=== PATIENT | male | born 1960 | race Caucasian/White ===

== ENCOUNTER 2018-05-26 01:38 | Inpatient (IN) ==
[2018-05-26] MEDS ORDERED: Naloxone 0.4 MG/ML INJ IVP PRN (03:00)
[2018-05-26] MEDS ORDERED: *HR* OxyCODONE/APAP 5/325 TABLET PO PRN (03:03)
[2018-05-26] MEDS ORDERED: *HR* OxyCODONE/APAP 7.5/325 TABLET PO PRN (03:03)
--- NOTE | 2018-05-26 03:30 | Internal Med History&Physical ---
<Primitivo Tiwari - Last Filed: 05/26/18 04:09> Date of Encounter: 05/26/18 Time of Encounter: 03:27 Internal Medicine - H&P: HPI Chief complaint: Chest pain Admitted From: Emergency Dept Plans for Post Hospital Care: Home History of present illness: Mr. Bess is a 58 year old male with history of CHF, end-stage renal disease on hemodialysis Wednesday and Wednesday, CAD status post 2 stents in 2009, DVT, DM , hypertension, hyperlipidemia who presented to [facility] with complaint of chest pain which started approximately 7:30 PM. The patient describes the chest pain as substernal in nature and 9 out of 10 in severity. He felt as though someone was stabbing a knife into his heart. The pain started immediately after drinking a red skittles freeze from [employer] but was constant after that time. The pain was stabbing and radiated to the left arm. It was associated with mild shortness of breath, diaphoresis and some palpitations. He did attempt to go lie down when he got home, however he feels that this made the pain worse. Nothing did seem to make the pain better until he got to the hospital. At that this did not feel exactly like the time that he had a heart attack previously, however he was concerned that he may be having a heart attack. When the pain was not resolving he had his bring him to the hospital. At [facility], the patient received an EKG after was determined that he had a rapid heart rate. EKG demonstrated atrial fibrillation with rapid ventricular response and right bundle branch block, and the patient was found to have a heart rate of about 150. Chest x-ray did not demonstrate any acute intrathoracic process. The patient was placed on Cardizem drip and transferred to [facility]. Past Med Surg Social Fam HX - Past Medical History Medical history: CHF, coronary artery disease, DVT, diabetes, dialysis, hyperlipidemia, hypertension, kidney stones, myocardial infarction, renal disease Additional medical history: neuropathy Psychiatric history: no psych history - Past Surgical History Surgical History: angioplasty/stent, cholecystectomy, other Additional surgical history: 2 stents, - Social History Smoking Status: Current every day smoker Packs per day: 1 Smokeless Tobacco Status: No Alcohol use: none Drug use: none - Family History Father Living Status: Hx Family Cardiac Disorders: Yes Hx Family Endocrine Disorder: Yes (DM) Internal Medicine - H&P: Meds Bumetanide [Bumex] 1 mg PO DAILY 07/03/16 [History] Carvedilol [Coreg] 12.5 mg PO BID 07/03/16 [History] amLODIPine [Norvasc] 2.5 mg PO DAILY 07/03/16 [History] Lisinopril [Zestril] 2.5 mg PO BID 10/21/16 [History] Simvastatin [Zocor] 40 mg PO HS 10/21/16 [History] Aspirin 325 mg PO DAILY 04/15/18 [History] Ergocalciferol (VITAMIN D2) [Drisdol (50,000 Unit)] 50,000 unit PO QWEEK [History] Insulin Glargine,Hum.rec.anlog [Lantus Solostar] 100 unit SQ DAILY 04/15/18 [ History] OxyCODONE/APAP 5/325 [Percocet 5/325 MG] 1 each PO Q6HR PRN 7 Days #14 tablet [Rx] Oxycodone HCl/Acetaminophen [Percocet 7.5-325 mg Tablet] 1 each PO BID PRN 04/15 [History] Pen Needle, Diabetic [Insulin Pen Needle] 1 each MC TID 04/15/18 [History] Vit B Comp C/Folic Acid/Vit D3 [Dialyvite 800 Plus D Wafer] 1 tab PO 2XW [History] 3 Allergy/AdvReac Type Severity Reaction Status Date / Time sulfamethoxazole Allergy Nausea Verified 05/25/18 21:33 [From Bactrim] trimethoprim [From Bactrim] Allergy Nausea Verified 05/25/18 21:33 All Systems PM: A 10-system review of systems was performed and is negative for pertinent findings except as documented above in the HPI. Review of systems: Constitutional: Denies fevers, chills, weight loss, generalized fatigue Head/Neck: Denies AG, neck stiffness EENT: Denies vision changes/blurriness, rhinorrhea, congestion, sore throat CVS: Admits to chest pains, mild shortness of breath, diaphoresis, palpitations. Denies orthopnea and PND Pulm: Denies SOB, cough, sputum, hemoptysis, wheezing GI: Denies abdominal pain, nausea, vomiting, diarrhea, constipation, melena, hematemasis : Denies dysuria, increased frequency, urgency, hematuria Heme: Denies ease of bleeding or bruising MSK: Denies joint pain, limited ROM Skin: Denies rashes, ulcers, color changes Neuro: Denies AG, paresthesias, focal deficits, ataxia - Constitutional Vitals: Temp Pulse Resp BP Pulse Ox 97.8 F 99 16 126/76 98 05/26/18 02:13 05/26/18 02:13 05/26/18 02:13 05/26/18 02:13 05/26/18 02:13 Exam: Gen: Vitals noted. No acute distress. HEENT: Normocephalic, atraumatic Neck: Supple. No adenopathy. Cardiac: RRR, no murmur, +S1/S2 Pulmonary: CTA bilaterally, no wheezes, rales or rhonchi, equal chest expansion Abdomen: soft, nontender, no guarding Back: Nontender throughout. MSK: ROM intact, no joint swelling noted Extremities: no BLE edema, nontender calf, no cyanosis or clubbing. Evidence of chronic stasis with keratinized skin in lower extremities Neuro: moves all extremities, no focal deficits. A&Ox3 Psych: Appropriate mood and behavior - Assessment and plan (1) Atrial fibrillation with rapid ventricular response Current Visit: Yes Status: Acute Assessment and plan: Atrial fibrillation with rapid ventricular response, newly diagnosed Patient has no known history of A. fib in the past, it is demonstrated on EKG today There is no obvious etiology or origin for the initiation of this atrial fibrillation Symptomatic with chest pain, shortness of breath, palpitations, diaphoresis [id number], patient is at high risk for embolic event. Anticoagulation is indicated in this patient Cardizem was started and the patient has been able to achieve rate control Plan -Initiate heparin drip for anticoagulation -Echocardiogram in the morning -Continue Cardizem drip, goal heart rate under 100 -Trend troponins -Consult cardiology (2) Chest pain Current Visit: Yes Status: Acute Assessment and plan: The pain is likely associated with a fib RVR While we will do a cardiac workup as above, the patient does also have recent history of cholecystectomy Given temporal association with food/slushie, I will check LFTs, Amylase and Lipase Pending results, consider imaging of RUQ Qualifiers: Chest pain type: chest pain due to myocardial ischemia Ischemic chest pain type: unspecified angina pectoris type Qualified Code(s): I25.9 - Chronic ischemic heart disease, unspecified (3) CAD (coronary artery disease) Current Visit: Yes Status: Chronic Assessment and plan: Chest pain, likely secondary to atrial fibrillation with rapid ventricular response Patient has known history of CAD with 2 stents in the past Currently no elevation of troponins or ischemic changes on EKG Still, the patient is at high risk for cardiovascular events We will maintain the patient on cardiac surgeon, trend troponins Qualifiers: Coronary Disease-Associated Artery/Lesion type: [place] artery [place] vs. transplanted heart: [place] heart Associated angina: with unstable angina Qualified Code(s): I25.110 - Atherosclerotic heart disease of [place] coronary artery with unstable angina pectoris (4) ESRD (end stage renal disease) Current Visit: Yes Status: Acute Assessment and plan: End-stage renal disease on hemodialysis Wednesday Last hemodialysis was on Wednesday, patient was able to complete full treatment Currently patient does appear biochemically appropriate He is a patient of Dr. Estrada, we will consult [facility] if it becomes appropriate to do so (5) Diabetes Current Visit: Yes Status: Acute Assessment and plan: Type 2 diabetes mellitus, insulin-dependent Continue sliding scale insulin Qualifiers: Diabetes mellitus type: type 2 Diabetes mellitus long chain beamer insulin use: with alf use Diabetes mellitus complication status: with kidney complications Diabetes mellitus complication detail: with chronic kidney disease Chronic kidney disease stage: on chronic dialysis Qualified Code(s) : E11.22 - Type 2 diabetes mellitus with diabetic chronic kidney disease; N18.6 - End stage renal disease; Z79.4 - residential (current) use of insulin; Z99.2 - Dependence on renal dialysis (6) Hypertension Current Visit: Yes Status: Acute Assessment and plan: Hypertension, currently controlled Continue home meds, adjust as needed Qualifiers: Hypertension type: essential hypertension Qualified Code(s): I10 - Essential (primary) hypertension (7) DVT prophylaxis Current Visit: Yes Status: Acute Assessment and plan: Patient is on heparin drip - Time Spent With Patient Total time spent is greater than 50% in coordination of care (as documented) at patient's floor/unit and/or counseling patient: <Lenny Lutz - Last Filed: 05/26/18 06:32> Date of Encounter: 05/26/18 Time of Encounter: 05:30 - Constitutional Constitutional: no chills, no fever(s) - EENT Eyes: no change in vision Ears: no ear pain, no tinnitus Nose, mouth and throat: no sore throat - Cardiovascular Cardiovascular ROS IM: chest pain, dyspnea, dyspnea on exertion, palpitations, no lightheadedness, no syncope - Respiratory Respiratory: no cough, no hemoptysis, no chest congestion, no excessive phlegm production, no change in phlegm color - Gastrointestinal Gastrointestinal: no abdominal pain, no diarrhea, no hematemesis, no hematochezia, no melena, no vomiting - Genitourinary Genitourinary ROS male: no flank pain - Musculoskeletal Musculoskeletal ROS IM: no arthralgias, no back pain - Integumentary Integumentary IM: no rash - Neurological Neurological ROS: no focal weakness, no frequent falls, no headache(s) - Psychiatric Psychiatric: no anxiety, no depression - Endocrine Endocrine IM: no polydipsia, no polyuria - Allergic/Immunologic Allergic/Immunologic: no GI upset with certain foods - Constitutional Vitals: Temp Pulse Resp BP Pulse Ox 97.9 F 96 15 117/71 96 05/26/18 05:50 05/26/18 05:50 05/26/18 05:50 05/26/18 05:50 05/26/18 05:50 General appearance: Present: cooperative, A&O X 3, pleasant, no acute distress ( currently chest pain free) - Head Head exam: Present: normal inspection - Eye Eye exam: Present: EOMI, PERRL. Absent: scleral icterus Pupils: Present: normal accommodation - ENT ENT exam: Present: mucous membranes dry, normal exam - Neck Neck exam general surgery: Present: full ROM, supple. Absent: tenderness, nuchal rigidity, thyromegaly - Respiratory Respiratory exam: Present: CTAB. Absent: chest wall tenderness, rales, rhonchi , wheezes - Cardiovascular Cardiovascular exam: Present: irregular rhythm (controlled now w HR 90's), +S1, +S2. Absent: diastolic murmur, systolic murmur, tachycardia - GI/Abdominal GI/Abdominal exam: Present: soft. Absent: hepatomegaly, tenderness - Extremities Exam Extremities exam: Present: full ROM, warm, radial pulses palpable and symmetrical. Absent: calf tenderness, joint swelling, tenderness - Back Exam Back exam: Absent: CVA tenderness (L), CVA tenderness (R) - Neurological Exam Neurological exam: Present: alert, oriented X3, no focal deficits - Psychiatric Psychiatric exam: Present: normal affect, normal mood - Skin Skin exam: Present: dry, intact, warm Internal Med - H&P Results - Labs CBC & Chem 7: 05/26/18 04:36 05/26/18 04:36 Labs: Short CBC 05/26/18 Range/Units 04:36 WBC 9.2 (4.3-11.1) K/mcL Hgb 11.3 L (12.9-16.9) g/dL Hct 32.9 L (37.5-50.1) % Plt Count 130 L (140-400) K/mcL Neutrophils # 6.6 (1.6-8.9) K/mcL BMP 05/26/18 04:36 Sodium 134 L Potassium 4.2 Chloride 97 L Carbon Dioxide 23 BUN 49 H Creatinine 4.65 H Glucose 267 H Calcium 8.2 L Cardiac Enzymes 05/26/18 Range/Units 04:36 Troponin I 2.14 H* (< 0.04) ng/mL Liver Function 05/26/18 Range/Units 04:36 Total Bilirubin 0.5 (0.3-1.0) mg/dL Direct Bilirubin 0.1 (0.0-0.2) mg/dL AST 21 (13-39) Units/L ALT 12 (7-52) Units/L Alkaline Phosphatase 74 (34-104) Units/L Albumin 3.8 (3.5-5.7) g/dL - EKG Data -: EKG Interpreted by Myself - EKG Data EKG comments: 05/26/18 06:24 atrial fibrillation w RVR - Diagnostic Studies Chest x-ray Status: image reviewed by me (negative) - Assessment and plan (1) Chest pain Current Visit: Yes Status: Acute Qualifiers: Chest pain type: chest pain due to myocardial ischemia Ischemic chest pain type: unspecified angina pectoris type Qualified Code(s): I25.9 - Chronic ischemic heart disease, unspecified (2) Atrial fibrillation with rapid ventricular response Current Visit: Yes Status: Acute (3) ESRD (end stage renal disease) Current Visit: Yes Status: Acute (4) Diabetes Current Visit: Yes Status: Acute Qualifiers: Diabetes mellitus type: type 2 Diabetes mellitus long chain beamer insulin use: with alf use Diabetes mellitus complication status: with kidney complications Diabetes mellitus complication detail: with chronic kidney disease Chronic kidney disease stage: on chronic dialysis Qualified Code(s) : E11.22 - Type 2 diabetes mellitus with diabetic chronic kidney disease; N18.6 - End stage renal disease; Z79.4 - [employer] intermediary (current) use of insulin; Z99.2 - Dependence on renal dialysis (5) Hypertension Current Visit: Yes Status: Acute Qualifiers: Hypertension type: essential hypertension Qualified Code(s): I10 - Essential (primary) hypertension (6) CAD (coronary artery disease) Current Visit: Yes Status: Chronic Qualifiers: Coronary Disease-Associated Artery/Lesion type: [place] artery [place] vs. transplanted heart: [place] heart Associated angina: with unstable angina Qualified Code(s): I25.110 - Atherosclerotic heart disease of [place] coronary artery with unstable angina pectoris (7) DVT prophylaxis Current Visit: Yes Status: Acute - Time Spent With Patient Total time spent is greater than 50% in coordination of care (as documented) at patient's floor/unit and/or counseling patient: - Attending Attestation I discussed the patient [place], past medical history, review of systems, lab data , imaging data, and exam findings with Dr. Tiwari. I then saw and examined patient independently. He is sleeping but easily arousable. He denies any chest pain presently whatsoever. He did complain of chest pain earlier today prompting him to go to the ER where he was discovered to have atrial fibrillation with rapid ventricular response. Presently, his heart rate is controlled and running in the 90s. Troponin is climbing to 2.14, but he remains chest pain-free. His initial EKG shows rapid response secondary to atrial fibrillation. We will keep him nothing by mouth and consult cardiology. Given that he has known coronary disease and PCI's with stents, his new onset atrial fibrillation may be secondary to ischemia. Therefore, I am of the opinion that he likely needs left heart catheterization and possible intervention. I will defer to cardiology, however. He also will need to see nephrology as he will need ongoing care for his dialysis needs and may need dialysis immediately after heart catheterization, if that occurs. For now, we will maintain him on Cardizem drip and convert him to oral Cardizem and/or beta hetal likely later today. Other than my comments above and noted physical exam findings, I agree with Dr. Tiwari's assessment and plan.
[2018-05-26] MEDS ORDERED: *HR* Heparin 5,000 UNIT/ML VIAL IVP ONE (03:37)
[2018-05-26] MEDS ORDERED: *HR* Heparin 5,000 UNIT/ML VIAL IVP PRN (03:37)
[2018-05-26] MEDS ORDERED: D5% in Water 1,000 ML IVC PRN (03:50)
[2018-05-26] MEDS ORDERED: Dextrose Gel 15 GM/37.5 ML TUBE PO PRN ×2 (03:50)
[2018-05-26] MEDS ORDERED: *HR* Dextrose 50 % in Water (Syg) 50 ML SYRINGE IVP PRN (03:50)
[2018-05-26] MEDS: Heparin 25,000 UNIT/500 ML D5W 25,000 UNIT/500 ML BAG IVC SCH (04:45)
[2018-05-26 04:54] LABS: Basophils % 0.4 %; Eosinophils # 0.2 K/mcL (0.0-0.6); Hematocrit 32.9 % (37.5-50.1); Hemoglobin 11.3 g/dL (12.9-16.9); Immature Granulocytes % 0.2 % (0-4); Lymphocytes # 1.7 K/mcL (0.6-4.6); Lymphocytes % 18.5 %; Mean Corpuscular HGB Conc 34.3 g/dL (31.6-35.5); Mean Corpuscular Hemoglobin 30.5 pg (28.0-33.3); Mean Corpuscular Volume 88.7 fL (83.0-100.0); Mean Platelet Volume 9.2 fL (9.4-12.4); Monocytes # 0.7 K/mcL (0.0-1.3); Neutrophils # 6.6 K/mcL (1.6-8.9); Platelet Count 130 K/mcL (140-400); Red Blood Count 3.71 M/mcL (4.19-5.50); Segmented Neutrophils % 71.9 %
[2018-05-26 05:00] LABS: Heparin anti-factor XA UFH 0.17 IU/mL (0.30-0.70); INR 1.1; Prothrombin Time 12.1 Seconds (9.4-12.1)
[2018-05-26 05:15] LABS: Amylase 32 Units/L (29-103); Lipase 41 Units/L (11-82)
[2018-05-26 05:16] LABS: Albumin 3.8 g/dL (3.5-5.7); Albumin/Globulin Ratio 1.4 (1.1-2.2); Bilirubin,Direct 0.1 mg/dL (0.0-0.2); Bilirubin,Indirect 0.4 mg/dL (0.0-1.2); Bilirubin,Total 0.5 mg/dL (0.3-1.0); Globulin 2.8 g/dL (2.4-3.5); Total Protein 6.6 g/dL (6.4-8.9)
[2018-05-26 05:17] LABS: Calcium 8.2 mg/dL (8.6-10.3); Chol/HDL Ratio 3.5 (0-4.9); Magnesium 1.9 mg/dL (1.6-2.6); Phosphorous 4.3 mg/dL (2.7-4.5); Potassium 4.2 mEq/L (3.5-5.1)
[2018-05-26] MEDS: Insulin LISPRO 300 UNITS/3 ML VIAL SQ SCH ×2 (06:12→13:37)
[2018-05-26] MEDS: Bumetanide 1 MG TABLET PO SCH (08:41)
[2018-05-26] MEDS ORDERED: Aspirin 325 MG TABLET PO SCH (09:00)
[2018-05-26] MEDS ORDERED: amLODIPine 5 MG TABLET PO SCH (09:00)
--- NOTE | 2018-05-26 11:45 | Cardiology Consult Note ---
Date of Encounter: 05/26/18 Time of Encounter: 11:45 Assessment and Plan (1) Atrial fibrillation with rapid ventricular response Current Visit: Yes Status: Acute Per Cardiology: Presented with A. fib. Apparent new onset. Currently A. fib in the 80s. On IV Cardizem drip at 5mg per hour. We will attempt to wean and titrate by mouth medications-- we will discontinue Norvasc 2.5 mg by mouth daily and decrease lisinopril from 2.5 mg by mouth twice a day to daily. Will increase Coreg from 12.5 g by mouth twice a day up to 25 mg by mouth twice a day. Current systolic blood pressure 110s. We will attempt to wean off IV Cardizem drip to keep heart rate less than 100 bpm. Echo pending. Regarding long-term anticoagulation, on IV heparin drip currently. We will need to evaluate long-term anticoagulation once catheterization completed. (2) Chest pain Current Visit: Yes Status: Acute Per Cardiology: Initial troponin negative 1 and subsequent troponin 2.14, then 4.93. Currently chest pain-free. A lengthy discussion with patient regarding further ischemic evaluation patient agreeable to catheterization. Discussed and reviewed with Dr. Corbin and Dr. Martinez. Further recommendations after echo and catheterization completed. On aspirin, beta hetal, heparin drip, statin, EDWAR inhibitor. Will decrease. This aspirin to baby aspirin. Anticipate patient may need triple therapy. Qualifiers: Chest pain type: chest pain due to myocardial ischemia Ischemic chest pain type: unspecified angina pectoris type Qualified Code(s): I25.9 - Chronic ischemic heart disease, unspecified (3) CAD (coronary artery disease) Current Visit: Yes Status: Chronic Per Cardiology: History CAD-- reported 2 stents at [facility] in 2009. Negative nuclear stress test January 2016. Qualifiers: Coronary Disease-Associated Artery/Lesion type: [place] artery [place] vs. transplanted heart: [place] heart Associated angina: with unstable angina Qualified Code(s): I25.110 - Atherosclerotic heart disease of [place] coronary artery with unstable angina pectoris (4) ESRD (end stage renal disease) Current Visit: Yes Status: Chronic Per Cardiology: History of end-stage renal disease on hemodialysis. Discussion w patient/family: The assessment and plan as outlined above was discussed with the patient who expressed understanding and agreement. All questions were answered. Thank you for involving us in the care of your patient. Please call with any questions. History of Present Illness Consult date: 05/26/18 Requesting physician: Lenny Lutz Consult reason: Afib Chief complaint: CP History of present illness: Mr. Bess is a 58 year old male with a relevant past medical history of CHF, CAD with stenting, in stage renal disease with hemodialysis, history of DVT, DM 2, HTN, HLD, and nicotine abuse. Cardiology consult for chest pain and apparent new onset atrial fibrillation. Patient reports developed indigestion-like symptoms with midsternal and epigastric burning at rest yesterday. She reports symptoms have been occurring intermittently over the past few weeks at rest. He denies any chest pain with exertion, however reports minimal activity. He continues to smoke about one pack per day. He denies any palpitations, dizziness, syncope, falls. Reports shortness of breath with exertion about baseline. Confirms on dialysis regularly. Reports taking aspirin at home and denies any active bleeding or blood loss. Reports last catheterization in 2009 received 2 stents at [facility]. No recent ischemic evaluation. Denies any known history of atrial fibrillation. Past Med Surg Social Fam HX - Past Medical History Attestation: Yes The following information was validated with the patient. Source: patient, old records reviewed Medical history: CHF, coronary artery disease, DVT, diabetes, dialysis, hyperlipidemia, hypertension, kidney stones, myocardial infarction, renal disease Additional medical history: neuropathy Psychiatric history: no psych history - Past Surgical History Surgical History: angioplasty/stent, cholecystectomy, other Additional surgical history: 2 stents, - Social History Smoking Status: Current every day smoker Packs per day: 1 Smokeless Tobacco Status: No Alcohol use: none Drug use: none - Family History Father Living Status: Hx Family Cardiac Disorders: Yes Hx Family Endocrine Disorder: Yes (DM) Medications and Allergies Bumetanide [Bumex] 1 mg PO DAILY 07/03/16 [History] Carvedilol [Coreg] 12.5 mg PO BID 07/03/16 [History] amLODIPine [Norvasc] 2.5 mg PO DAILY 07/03/16 [History] Lisinopril [Zestril] 2.5 mg PO BID 10/21/16 [History] Simvastatin [Zocor] 40 mg PO HS 10/21/16 [History] Aspirin 325 mg PO DAILY 04/15/18 [History] Ergocalciferol (VITAMIN D2) [Drisdol (50,000 Unit)] 50,000 unit PO QWEEK [History] Insulin Glargine,Hum.rec.anlog [Lantus Solostar] 10 unit SQ HS 04/15/18 [History ] OxyCODONE/APAP 5/325 [Percocet 5/325 MG] 1 each PO Q6HR PRN 7 Days #14 tablet [Rx] Vit B Comp C/Folic Acid/Vit D3 [Dialyvite 800 Plus D Wafer] 1 tab PO 2XW [History] Famotidine [Heartburn Prevention] 20 mg PO DAILY 05/26/18 [History] 3 Allergy/AdvReac Type Severity Reaction Status Date / Time sulfamethoxazole Allergy Nausea Verified 05/25/18 21:33 [From Bactrim] trimethoprim [From Bactrim] Allergy Nausea Verified 05/25/18 21:33 All Systems Review: The remainder of the systems were reviewed and are negative - Constitutional Constitutional: fatigue - Cardiovascular Cardiovascular: as per HPI, chest pain at rest, dyspnea on exertion Physical Examination Vital Signs, Last 4 Hours Temp Pulse Resp BP Pulse Ox 05/26/18 10:50 97.6 F 78 16 115/76 96 General: Conversant, No Apparent Distress HEENT: Atraumatic, Normocephaly, Mucus Membranes Moist Neck: No JVD, Normal carotid pulses Cardiac: Reg Rate and Rhythm, Normal S1 and S2, No Murmur Lungs: Normal Breath Sounds, No Wheeze, Rales, Rhonchi Neuro: Alert and responsive, No focal deficits noted Abdomen: Soft, Non-Tender Skin: No rashes noted on visualized skin Musculoskeletal: No Chest Wall Tenderness Extremities: No Clubbing, No Cyanosis, No Edema, Normal Pulses Results 05/26/18 04:36 05/26/18 04:36 Lab Results Laboratory Tests 04/05/18 05/25/18 05/26/18 14:13 22:00 04:36 Hgb 11.2 L Hct 33.4 L INR Creatinine Est GFR (Non-Af Amer) Magnesium Troponin I < 0.03 2.14 H* B-Natriuretic Peptide LDL Cholesterol, Calc 05/26/18 05/26/18 05/26/18 04:36 04:36 04:36 Hgb 11.3 L Hct 32.9 L INR Creatinine 4.65 H Est GFR (Non-Af Amer) 13 L Magnesium 1.9 Troponin I B-Natriuretic Peptide 221 H LDL Cholesterol, Calc 05/26/18 05/26/18 04:36 04:36 Hgb Hct INR 1.1 Creatinine Est GFR (Non-Af Amer) Magnesium Troponin I B-Natriuretic Peptide LDL Cholesterol, Calc 30 Active Medications Amlodipine Besylate (Norvasc) 2.5 mg PO DAILY OTF PRN Reason: Protocol Stop: 11/25/18 09:01 Last Admin: 05/26/18 08:40 Dose: 2.5 mg Aspirin (Aspirin) 325 mg PO DAILY OTF Stop: 11/25/18 09:01 Last Admin: 05/26/18 08:41 Dose: 325 mg Bumetanide (Bumex) 1 mg PO DAILY OTF Stop: 11/25/18 09:01 Last Admin: 05/26/18 08:41 Dose: 1 mg Carvedilol (Coreg) 12.5 mg PO BIDWM [facility] PRN Reason: Protocol Stop: 11/25/18 08:01 Last Admin: 05/26/18 08:41 Dose: 12.5 mg Dextrose/Water (Dextrose 50% (Syg)) 25 ml IVP AD PRN PRN Reason: Hypoglycemia Stop: 11/25/18 03:51 Glucagon (Glucagen) 1 mg IM ONCE PRN PRN Reason: Hypoglycemia Stop: 11/25/18 03:51 Glucose (Gluctose) 15 gm PO ONCE PRN PRN Reason: Hypoglycemia Stop: 11/25/18 03:51 Glucose (Gluctose) 30 gm PO ONCE PRN PRN Reason: Hypoglycemia Stop: 11/25/18 03:51 Heparin Sodium (Porcine) (Heparin) 8,300 unit 70 unit/kg (8300 unit) IVP Q6HR PRN PRN Reason: SEE COMMENTS Stop: 11/25/18 03:38 Heparin Sodium (Porcine) (Heparin) 4,200 unit 35 unit/kg (4200 unit) IVP Q6H PRN PRN Reason: SEE COMMENTS Stop: 11/25/18 03:38 Diltiazem HCl 50 mg/ Sodium (Chloride) 50 mls @ 5 mls/hr IVC .Q10H OTF; 5 MG/HR PRN Reason: Protocol Stop: 11/25/18 03:16 Last Admin: 05/26/18 04:36 Dose: 5 mg/hr, 5 mls/hr Heparin Sodium/Dextrose (Heparin 25,000 Unit/500 Ml D5w) 25,000 unit in 500 mls @ 33.292 mls/hr IVC .Q15H2M OTF; 14 UNIT/KG/HR PRN Reason: Protocol Stop: 11/25/18 03:46 Last Admin: 05/26/18 04:45 Dose: 14 unit/kg/hr, 33.292 mls/hr Dextrose (Dextrose 5%) 1,000 mls @ 100 mls/hr IVC .Q10H PRN PRN Reason: HYPOGLYCEMIA Stop: 11/25/18 03:51 Insulin Human Lispro (Humalog) 0 units SQ Q6HR OTF PRN Reason: Protocol Stop: 11/25/18 06:01 Last Admin: 05/26/18 06:12 Dose: 4 units Lisinopril (Zestril) 2.5 mg PO BID OTF PRN Reason: Protocol Stop: 11/25/18 09:01 Last Admin: 05/26/18 08:41 Dose: 2.5 mg Naloxone HCl (Narcan) 0.4 mg IVP Q2MIN PRN PRN Reason: SEE COMMENTS Stop: 11/25/18 03:01 Oxycodone/Acetaminophen (Percocet 5/325) 1 each PO Q6HR PRN PRN Reason: Pain Stop: 11/25/18 03:04 Simvastatin (Zocor) 40 mg PO HS OTF PRN Reason: Protocol Stop: 11/25/18 21:01 - Imaging and Cardiology Stress Test: report reviewed Echo: pending - EKG Interpretation EKG results cardiology: personally reviewed (A. fib with RVR in the 140s), right bundle branch block, other (Average heart rate on telemetry the past 12 hours 91, currently A. fib in the 80s) Consult Discharge Plan - Plan Referrals: Yari Rader, COMMUNICATIONS DEPARTMENT CHAIR [Primary Care Provider] -
[2018-05-26] MEDS ORDERED: Perflutren Lipid Microsphere 1.3 ML in 0.9 % Sodium Chloride 8.7 ML IVP ONE ×2 (13:01→13:30)
[2018-05-26] MEDS ORDERED: Heparin 1,000 UNITS/500 mL 500 ML ONE (16:54)
[2018-05-26] MEDS ORDERED: ISOVUE-370 200 ML INFUS..BTL IV ONE (16:54)
[2018-05-26] MEDS ORDERED: 0.9 % Sodium Chloride 1,000 ML ONE (16:54)
[2018-05-26] MEDS ORDERED: *HR* Heparin 10,000 UNIT/10 ML VIAL ONE (16:54)
[2018-05-26] MEDS ORDERED: Nitroglycerin 1,000 MCG/10 ML VIAL IV ONE (16:54)
[2018-05-26] MEDS ORDERED: *HR* FentaNYL (PF) 100 MCG/2 ML VIAL ONE (17:29)
[2018-05-26] MEDS ORDERED: *HR* Midazolam HCl 2 MG/2 ML VIAL ONE (17:29)
--- NOTE | 2018-05-26 17:33 | Pre-Sedation Evaluation ---
Pre-sedation evaluation - Pre-sedation checklist Date of procedure: 05/26/18 Procedure: Cath Recent Vitals: Last Vital Signs Temp 97.5 F L 05/26/18 16:50 Pulse 72 05/26/18 16:50 Resp 18 05/26/18 16:50 BP 138/80 05/26/18 16:50 Pulse Ox 100 05/26/18 16:50 H&P (including ROS) documented in medical record: Yes Previous reaction to sedatives/anesthetics: No Dietary Status: NPO after Midnight Airway Assessment: Patient can open mouth completely, TMJ function normal Dentition: No loose teeth or bridges Possible difficult airway: No ASA Classification *see protocol: CLASS III-Severe systemic disease Plan of Care: Pt appropriate candidate for procedure/moderate/conscious sedation , Risks/benefits of procedure/sedation discussed w/ patient/family, If not NPO; Risk of intake outweiged by necessity to perform procedure Cardiac Registry (Cardio Only) - Functional Capacity Functional Capacity: >=4 METS without symptoms - Clincal Frailty Scale Clinical Frailty Scale: Managing Well
--- NOTE | 2018-05-26 18:24 | Invasive Diagnostic Lab Proc ---
Name: Kip Bess Date of Study: 05/26/2018 Date: 1960 Ht: 70.1in Medical Record#: [id number] Age: 58 Wt: 262.35lb Gender: Male BSA: 2.34 Order #: [id number] BMI: 37.56 Physicians Procedure Physician: Jun Martinez DO Referring MD: Referring MD: Staff Name Position Time In Lucía Navas RN Monitor 05:24 PM Yolanda Freeman RN Pre Sales Systems Engineer 05:25 PM Thaddeus Cox RT (R) Scrub 05:25 PM Yolanda Freeman RN Monitor 05:44 PM Lucía Navas RN Pre Sales Systems Engineer 05:44 PM Indications Indication Non-Stemi Procedures Performed Procedure L HRT ARTERY/VENTRICLE ANGIO Pre-Procedure Checklist Informed consent is complete signed and on chart. H&P is on chart. ID band is on and ID verified with patient. Patient NPO for procedure The procedure was described for the patient and questions were answered. ECG is on chart. Plan of Care Patient will tolerate the procedure without complications. Adequate level of comfort will be maintained. Hemodynamics will remain stable Patient will recover from procedure without complications. Respiratory function will be maintained. Cardiac rhythm will remain stable. Patient temperature will be maintained. Patient and/or family have verbalized understanding of the procedure. Patient Education Chief Complaint/Reason for Test: Cardiac Cath Developmental Category: Adult (18-64 years) Developmentally Appropriate for Age: Yes Learning Barriers: None Education Needs: Procedure Education Method: Verbal Information Taught: Cardiac Cath Educational Evaluation: Able to repeat information Intravenous Access Time IV Size Location DC'd Fluid/Drip Rate Units RN 20g 1 /" Patent On Arrival Rt Hand Allergies trimethoprim sulfamethoxazole Vital Signs Time BP (mmHg) HR (bpm) O2 Sat. RR (bpm) LOC 115 / 76 78 96 % 16 05:40 PM / % 5 = Fully awake and oriented or at pre-proc level 05:40 PM / % 5 = Fully awake and oriented or at pre-proc level 05:36 PM 126 / 81 76 100 % 15 05:41 PM 126 / 81 89 100 % 14 05:46 PM 117 / 70 75 96 % 13 05:51 PM 111 / 74 102 99 % 19 05:55 PM / % 5 = Fully awake and oriented or at pre-proc level Procedural Medications Time Medication Dose Units Method Given By 05:43 PM Lidocaine 2% 10 ml Subcutaneous Jun Martinez DO 05:46 PM Versed 2 mg Intravenous Lucía Navas RN 05:46 PM Oxygen 4 L/min nasal cannula Lucía Navas RN ASA Classification: CLASS III- Severe systemic disease (i.e. prior AMI, diabetes with vascular complications, morbid obesity) Nan Score Preprocedure Postprocedure Activity 2- Moves 4 extremities sustained head lift Activity 2- Moves 4 extremities sustained head lift Circulation 2- SBP +/= 20 points of pre-anesthetic level Circulation 2- SBP +/= 20 points of pre-anesthetic level Consciousness 2- Awake and alert oriented x 3 Consciousness 2- Awake and alert oriented x 3 O2 Saturation 2- Able to maintain O2 satruation of 92% on room air O2 Saturation 2- Able to maintain O2 satruation of 92% on room air Respiratory 2- Able to deep breathe and cough well Respiratory 2- Able to deep breathe and cough well Total Score 10 Total Score 10 Contrast Agent: Isovue Diagnostic Contrast: 90 ml Total Contrast: 90 ml Fluoro Dose: 73 mGy Activated Clotting Time Time Seconds to Clot 05:57 PM 150 Procedure Log Time Note Enter By 05:24 PM Pt arrived to director of labor and delivery 1 at 17:24 tsoumm 05:24 PM Physician arrived 17:24 mm 05:24 PM cD and greet completed 05:24 PM Sign in performed according to hospital policy. Informed consent was obtained. mm 05:24 PM Procedure start 17:24 mm 05:25 PM Yolanda Freeman RN Position: Monitor Time in: 17:25 [facility] 05:25 PM Lucía Navas RN Position: Pre Sales Systems Engineer Time in: 17:25 mm 05:25 PM Thaddeus Cox RT (R) Position: Scrub Time in: 17:25 [facility] 05:25 PM Patient charges- Angio tray pack, Navilyst 3mm J, Pulse Oximetry and ACIST tubing and transducer 05:25 PM IV Supplies used: J loop Angio Cath. tsoummers 05:25 PM Case Delayed No tsoummers 05:27 PM CathStat 05:35 PM Hair removed from procedure site in procedure lab using clippers. Bilateral groin prepped with Chloraprep by Yolanda Freeman RN, then patient was draped. Skin intact. [facility] 05:35 PM Vitals capture started with the following parameters, Patient=Adult, Interval=5 min, Initial Xxxtyxgo=763 mmHg, Deflation Rate=3 mmHg, Cuff placed on Right Arm 05:36 PM HR=76 bpm, NLFF=593/81 mmhg, VhH1=958.0 %, Resp=15 B/min, EtCO2=35 mmHg, Comment=Afib 05:40 PM Time: 17:40 Patient comfortable and pain free: Yes mm:40 PM Time: 17:40LOC: 5 = Fully awake and oriented or at pre-proc level tsmm 05:40 PM Clinical Presentation: Non-STEMI mm 05:40 PM ASA Class CLASS III- Severe systemic disease (i.e. prior AMI, diabetes with vascular complications, morbid obesity) [facility] 05:41 PM HR=89 bpm, TUZC=430/81 mmhg, WjC2=004.0 %, Resp=14 B/min, EtCO2=35 mmHg, Comment=Afib 05:42 PM Recorded ECG: HR=83 Condition=Condition 1 05:43 PM Time out was performed according to hospital policy. Conscious sedation and anesthesia was achieved (see medication log with in this report above) 05:43 PM Time: 17:43 10 ml Lidocaine 2% to right groin Subcutaneous Given by Jun Martinez DO 05:44 PM Micro-Introducer Kit utilized for sheath placement mm 05:46 PM HR=75 bpm, MTPK=507/70 mmhg, SpO2=96.0 %, Resp=13 B/min, Comment=Afib 05:46 PM Time: 17:46 Versed 2 mg Intravenous Given by Lucía Navas RN norman 05:46 PM Time: 17:46 Oxygen on at 4 L/min per nasal cannula by [facility] PM Access obtained by percutaneous puncture. 6Fr 10cm Terumo [place] sheath placed in right Femoral artery. [id number] mm 05:47 PM 0.035 145cm Navilyst 3mmJ wire [id number] [facility] 05:47 PM 6Fr FR 4 catheter inserted over the wire DNC tsoummers 05:47 PM WIRE REMOVED tsmmers 05:47 PM Catheter crossed the aortic valve and was selectively placed in the left ventricle. Pressures recorded on pullback for left heart catheterization. tsoummers 05:47 PM Recorded Pressure: LV, HR=85, Condition=Condition 1 (Left Ventricle) LV 96/6/11 05:47 PM Recorded Pressure: LV, Ao, HR=97, Condition=Condition 1 (Left Ventricle) LV 102/4/7, (Aorta) Ao 98/58/75 05:47 PM Bolus angiogram of left Ventricle complete: hand injection tsoummers 05:48 PM repositioned catheter to RCA tsoummers 05:48 PM Recorded Pressure: Ao, HR=91, Condition=Condition 1 (Aorta) Ao 89/46/65 05:48 PM RCA angiography performed in multiple views. tsoummers 05:48 PM Catheter removed tsoummers 05:48 PM 5Fr FL 4 catheter inserted over the wire [facility] tsoummers 05:50 PM Catheter removed tsoummers 05:50 PM 6Fr XB LAD 3.5 Magdalena Bright-Tip guide catheter was used to cannulate the PCI vessel successfully. reused? No tsoummers 05:51 PM EN=557 bpm, SKPR=710/74 mmhg, SpO2=99.0 %, Resp=19 B/min, EtCO2=33 mmHg, Comment=Afib 05:52 PM LCA angiography performed in multiple views. tsoummers 05:53 PM Recorded Pressure: Ao, HR=74, Condition=Condition 1 (Aorta) Ao 100/49/71 05:53 PM Catheter removed tsoummers 05:54 PM Bolus angiogram of right Femoral complete: hand injection tsoummers 05:54 PM Conversation between Interventionalist and CT Surgeon. tsoummers 05:54 PM Procedure completed at 17:54 05/26/2018 tsoummers 05:55 PM Time: 17:40 Patient comfortable and pain free: Yes tsoummers 05:55 PM Time: 17:40LOC: 5 = Fully awake and oriented or at pre-proc level tsoummers 05:56 PM Did you address PATT flow and Dominance? Yes tsoummers 05:57 PM At 17:57 the ACT was 150 seconds. tsoummers 05:59 PM Sign out completed: Radiation Dose 652.94 mGy, 72.9053 Gy/cm2 Fluoro Time: 3.3 Isovue 370 - 200ml contrast 90 ml given by Jun Martinez DO. Complications: None. 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 Cardiac Rehab Consult needed: YesConfirmed administered medications: Yes tsoumm 05:59 PM Isovue 370 - 200ml,1 Bottle(s) used. tsoumm 05:59 PM Arterial sheath pulled using manual compression and V+ Pad for 15 minutes by Beatrice Muir tsoumm 05:59 PM Estimated Blood Loss: less than 20cc tsoummers 05:59 PM Post ECG Atrial Fibrillation tsoummers 05:59 PM Post Blood Pressure 107/77 tsoummers 05:59 PM Information taught Cardiac Cath tsoumm 05:59 PM Education needs Plan of Care, Disease Process, Procedure, and Responsibilities of Patient in Care tsoumm 05:59 PM Learning barriers :None tsoummers 06:00 PM Education Methods Verbal tsoumm 06:00 PM Education evaluation Able to repeat information tsoumm 06:00 PM Site status No bleeding/hematoma - Rt Groin as reported by Beatrice Muir RT at 18:00 tsoummers 06:00 PM Opsite applied tsoummers 06:00 PM Plavix, Effient or Brilinta given No tsoummers 06:00 PM Family placed in consult room. tsoummers 06:00 PM Complications: None tsoummers 06:04 PM Coronary Dominance: right tsoummers 06:04 PM Lesion found in Mid RCA. Pre Stenosis: 70 Pre PATT Flow: tsoummers 06:04 PM Lesion found in Distal RCA. Pre Stenosis: 70 Pre PATT Flow: tsoummers 06:04 PM Lesion found in Mid LAD. Pre Stenosis: 95 Pre PATT Flow: tsoummers 06:05 PM Lesion found in 1st Diagonal. Pre Stenosis: 90 Pre PATT Flow: tsoummers 06:05 PM Lesion found in Mid Circumflex. Pre Stenosis: 95 Pre PATT Flow: tsoummers 06:05 PM Mid/Distal Left Anterior Descending Coronary Artery and diagonal branches with 95% stenosis. If graft is supplying this area, 0 % stenosis tsoummers 06:05 PM Circumflex, Obtuse Marginal, Left Posterior Descending, and Left Posterolateral Coronary Arteries with 95 % stenosis. If graft is supplying this area, 0 % stenosis [facility] 06:05 PM Right Coronary, Right Posterior Descending Arteries with Right Posterolateral and Acute Marginal branches with 70 % stenosis. If graft is supplying this area, 0 % [facility] [facility] PM Report given to Kerry NAVARRO Pt taken to 2A Room #38. 18:09 [facility] 06:13 PM Time: 17:55LOC: 5 = Fully awake and oriented or at pre-proc level [facility] 06:13 PM Time: 17:55 Patient comfortable and pain free: Yes [facility] 06:13 PM Site status No bleeding/hematoma - Rt Groin as reported by Beatrice Muir at 18:13 [facility] 06:13 PM Opsite applied [facility] 06:13 PM Patient out of room: 18:13 [facility] Complications Complication None Hemodynamics Pressures Site Systolic/A Wave Diastolic/V Wave Mean LV 96 6 11 LV 102 4 7 AO 98 58 75 AO 89 46 65 AO 100 49 71 Post Procedure Information Blood Pressure: 107/77 mmHg Rhythm: Atrial Fibrillation Post procedural instructions were given Surgery consult for CABG Closure Device Time Device Success/Fail 05/26/2018 6:08:00 PM Manual Compression Successful Site Checks Time Location Status Staff Sheath In? Note 06:00 PM Rt Groin No bleeding/hematoma Beatrice Muir 06:13 PM Rt Groin No bleeding/hematoma Beatrice Muir Pulses Time Site Pre-Procedure Post-Procedure Note Bilateral DP & PT 2+ Bilateral radial 2+ Updated by Yolanda Freeman RN on 05/26/2018 6:14:26 PM electronically signed on 05/26/2018 6:15:54 PM with status of Final
--- NOTE | 2018-05-26 18:28 | Event Note ---
Date of Encounter: 05/26/18 Time of Encounter: 18:23 No acute changes during the night. Informed by nurse that sonya garcia. Discussed with Dr. Corbin and possible C 05/27/2018. Pt denies CP or SOB at this time and vitals stable. Pt states he was out of his medications for a while but does not recall how long. He is not completely sure what meds he is on so not clear how often he takes his medication.
[2018-05-26] MEDS: *HR* Heparin 5,000 UNIT/ML VIAL IVP PRN (21:15)
--- NOTE | 2018-05-26 23:45 | Nephrology Consult Note ---
Date of Encounter: 05/26/18 Time of Encounter: 12:00 Assessment and Plan (1) Atrial fibrillation with rapid ventricular response Current Visit: Yes Status: Acute Management per cardio (2) Chest pain Current Visit: Yes Status: Resolved Managment per cardio, Pt is more at risk for cardiovascular disease given DM, HTN and ESRD along with prior history of CAD. Await workup Qualifiers: Chest pain type: chest pain due to myocardial ischemia Ischemic chest pain type: unspecified angina pectoris type Qualified Code(s): I25.9 - Chronic ischemic heart disease, unspecified (3) ESRD (end stage renal disease) Current Visit: Yes Status: Chronic Lytes stable Next HD due on staurday but will assess daily need while hospitalized Will dilayze even for iv contrast clearance if [facility] planned History of Present Illness - Reason for Consult Consult date: 05/26/18 end stage renal disease Requesting physician: Primitivo Tiwari - History of Present Illness 58 y o male with PMH of DM, HTN and CAD s/p stents and ESRD on HD and sat at [facility] HD admitted as a transfer from [facility] ED with chest discomfort after drinking a large frozen skittles drink. Pt seen and examined currently pain free but did reports prior stabbing pain to the chest radiation to arm with no other associated symptoms. He was found with Afib on EKD with cardizem gtt started along with heparin. Renal consulted for ESRD management. Last HD was on wednesday, full treatment. Past Med Surg Social Fam HX - Past Medical History Medical history: CHF, coronary artery disease, DVT, diabetes, dialysis, hyperlipidemia, hypertension, kidney stones, myocardial infarction, renal disease Additional medical history: neuropathy Psychiatric history: no psych history - Past Surgical History Surgical History: angioplasty/stent, cholecystectomy, other Additional surgical history: 2 stents, - Social History Smoking Status: Current every day smoker Packs per day: 1 Smokeless Tobacco Status: No Alcohol use: none Drug use: none - Family History Father Living Status: Hx Family Cardiac Disorders: Yes Hx Family Endocrine Disorder: Yes (DM) Medications and Allergies Bumetanide [Bumex] 1 mg PO DAILY 07/03/16 [History] Carvedilol [Coreg] 12.5 mg PO BID 07/03/16 [History] amLODIPine [Norvasc] 2.5 mg PO DAILY 11/11/16 [History] Lisinopril [Zestril] 2.5 mg PO BID 10/21/16 [History] Simvastatin [Zocor] 40 mg PO HS 10/21/16 [History] Aspirin 325 mg PO DAILY 04/15/18 [History] Ergocalciferol (VITAMIN D2) [Drisdol (50,000 Unit)] 50,000 unit PO QWEEK [History] Insulin Glargine,Hum.rec.anlog [Lantus Solostar] 10 unit SQ HS 04/15/18 [History ] OxyCODONE/APAP 5/325 [Percocet 5/325 MG] 1 each PO Q6HR PRN 7 Days #14 tablet [Rx] Vit B Comp C/Folic Acid/Vit D3 [Dialyvite 800 Plus D Wafer] 1 tab PO 2XW [History] Famotidine [Heartburn Prevention] 20 mg PO DAILY 05/26/18 [History] 3 Allergy/AdvReac Type Severity Reaction Status Date / Time sulfamethoxazole Allergy Nausea Verified 05/25/18 21:33 [From Bactrim] trimethoprim [From Bactrim] Allergy Nausea Verified 05/25/18 21:33 Review of Systems All Systems review (narrative): The rest of the systems (10 total) are negative Constitutional: fatigue (denies) Cardiovascular: chest pain (reports but currently subsided), edema (reports at baseline) Respiratory: dyspnea (denies) Exam - Vital Signs Vital signs: Initial Vital Signs Temp Pulse Resp BP Pulse Ox 97.8 F 99 16 126/76 98 05/26/18 02:13 05/26/18 02:13 05/26/18 02:13 05/26/18 02:13 05/26/18 02:13 Vital Signs - Last 8 Hours Temp Pulse Resp BP Pulse Ox 05/26/18 21:20 97.8 F 77 16 122/76 99 05/26/18 21:01 82 114/75 97 05/26/18 20:31 73 115/74 97 05/26/18 20:01 74 114/71 100 05/26/18 19:47 76 107/71 100 05/26/18 19:40 88 118/71 100 05/26/18 19:01 68 125/86 97 05/26/18 18:45 97.6 F 72 16 124/77 100 05/26/18 18:30 97.6 F 82 18 118/78 98 05/26/18 16:50 97.5 F L 72 18 138/80 100 Intake and Output 05/26/18 05/26/18 05/26/18 07:59 15:59 23:59 Intake Total 337 / 337 113 / 113 Balance 337 / 337 113 / 113 Intake: IV Fluids 337 / 337 113 / 113 Cardizem 50 MG In 0.9 % Sodium 50 / 50 Chloride 40 ML @ 5 MG/HR 5 mls/ hr IVC .Q10H OTF Rx#:[id number] Heparin 25,000 UNIT/500 ML D5W 287 / 287 113 / 113 25,000 unit In 500 ml @ 14 UNIT /KG/HR 33.292 mls/hr IVC . Q15H2M OTF Rx#:[id number] Other: Weight 118.9 kg Blood Glucose* 197 142 Patient Weight 05/26/18 23:59 Weight 118.9 kg - General Appearance General appearance: well-developed, well-nourished EENT: ATNC, mucous membranes moist Neck: no JVD, supple Respiratory: clear Cardiology: edema (LE bilat), irregular rhythm - Dialysis Access Dialysis Vascular Access: Arteriovenous Fistula thrill: Yes bruit: Yes Gastrointestinal: no tenderness, no guarding Integumentary: warm and dry, hyperpigmentation, chronic venous stasis Neurologic: no focal deficit Musculoskeletal: no deformities Psychiatric: mood/affect appropriate, cooperative Results - Lab Results 05/26/18 04:36 05/26/18 04:36 Most recent lab results Calcium 8.2 mg/dL (8.6-10.3) L 05/26/18 04:36 Phosphorus 4.3 mg/dL (2.7-4.5) 05/26/18 04:36 Magnesium 1.9 mg/dL (1.6-2.6) 05/26/18 04:36 Consult Discharge Plan - Plan Referrals: Yari Rader, PUBLIC HEALTH DENTIST [Primary Care Provider] -
[2018-05-27] MEDS: Heparin 25,000 UNIT/500 ML D5W 25,000 UNIT/500 ML BAG IVC SCH ×2 (00:58→18:57)
[2018-05-27 02:50] LABS: Hepatitis B Surface Antibody 0.95 mIU/mL
[2018-05-27 03:55] LABS: Hepatitis B Surface Antigen Nonreactive (Nonreactive)
[2018-05-27] MEDS: Insulin LISPRO 300 UNITS/3 ML VIAL SQ SCH ×5 (06:24→21:23)
--- NOTE | 2018-05-27 08:00 | Cardiothoracic Consult Note ---
Date of Encounter: 05/27/18 Time of Encounter: 07:35 Assessment and Plan (1) CAD (coronary artery disease) Current Visit: Yes Status: Chronic The patient is a 58-year-old type II diabetic, hypertensive man with hypercholesterolemia, known CAD, and end-stage renal disease requiring hemodialysis. He has experienced epigastric discomfort radiating to his chest and down his left arm for the last 2 months. This occurs both at rest and with activity. He was admitted to [facility] on 05/25/2018 and found to have atrial fibrillation with rapid ventricular response and elevated troponin I levels. He was admitted for further cardiac care. Cardiac catheterization revealed severe 3 vessel CAD and an LVEF 40%. In particular patient has a 95% mid LAD lesion, a 90% proximal D1 lesion, 95% mid LCx lesion, a 70% mid RCA lesion, and a 70% distal RCA lesion. He has been recommended for combined CABG and modified Maze procedure with left atrial appendage stapling. I concur with this recommendation. The STS risk calculator reveals an operative mortality risk 4.35%, deep sternal wound infection risk 3.03%, permanent stroke risk 1.34%, and reoperation risk 9.31%. The patient understands the procedure, benefits, alternatives, and risks and is considering the proposed procedures. He is tentatively scheduled for CABG and modified Maze procedure with left atrial appendage stapling on 05/30/2018. The assessment and plan as outlined above was discussed with the patient and/or family members who expressed understanding and agreement. All questions were answered. Qualifiers: Coronary Disease-Associated Artery/Lesion type: [place] artery [place] vs. transplanted heart: [place] heart Associated angina: with unstable angina Qualified Code(s): I25.110 - Atherosclerotic heart disease of [place] coronary artery with unstable angina pectoris - History of Present Illness Consult date: 05/26/18 Requesting physician: Jun Martinez Consult reason: CABG evaluation Chief complaint: Epigastric discomfort History of present illness: Mr. Bess is a 58 year old type II diabetic, hypertensive man with known CAD and end-stage renal disease requiring hemodialysis. The patient's cardiac history dates back to 2009 at which time he underwent precarious catheter intervention and stent placement. He states that he did well until approximately 2 months ago when he began experiencing epigastric discomfort. During this time the epigastric discomfort has increased in both frequency and severity. Currently, the patient describes epigastric discomfort radiating to his chest and down his left arm. The symptoms can occur both with activity and at rest. He had a severe episode of epigastric discomfort and substernal chest pain on 05/25/2018. At that time described a having sensation sensation going straight through to his back. He was evaluated at [facility] emergency department and found to have atrial fibrillation with a rapid ventricular response. His troponin I level was elevated and the patient was admitted for further cardiac workup. The patient underwent a transthoracic echocardiogram which failed an LVEF 55-60 % mild diastolic dysfunction. No significant valvular dysfunction was noted. Subsequent cardiac catheterization revealed severe 3 vessel CAD and an LVEF 40% . In particular, the patient had a 95% mid LAD lesion, 90% proximal D1 lesion, a 95% mid LCx lesion, a 70% mid RCA lesion, and a 70% distal RCA lesion. The patient has been recommended for combined CABG and modified Maze procedure with left atrial appendage stapling. Past Med Surg Social Fam HX - Past Medical History Medical history: CHF, coronary artery disease, DVT, diabetes, dialysis, hyperlipidemia, hypertension, kidney stones, myocardial infarction, peripheral artery disease, renal disease Additional medical history: neuropathy Psychiatric history: no psych history - Past Surgical History Surgical History: angioplasty/stent, cholecystectomy, other (Left upper extremity AV fistula, left great toe and second toe amputation) Additional surgical history: 2 stents, - Social History Smoking Status: Current every day smoker Packs per day: 2PPD X 40YRS Smokeless Tobacco Status: No Alcohol use: none Drug use: none Occupational status: previously employed Current living situation: Home - Independent Activity Level: Independent ambulation, Mostly sedentary Recent Out of Country Travel Within the Last 8 Weeks: No Exposure or Possible Exposure to Illness During Travel: No - Family History Father Living Status: Hx Family Cardiac Disorders: Yes Hx Family Endocrine Disorder: Yes (DM) Medications and Allergies Bumetanide [Bumex] 1 mg PO DAILY 07/03/16 [History] Carvedilol [Coreg] 12.5 mg PO BID 07/03/16 [History] amLODIPine [Norvasc] 2.5 mg PO DAILY 07/03/16 [History] Lisinopril [Zestril] 2.5 mg PO BID 10/21/16 [History] Simvastatin [Zocor] 40 mg PO HS 10/21/16 [History] Aspirin 325 mg PO DAILY 04/15/18 [History] Ergocalciferol (VITAMIN D2) [Drisdol (50,000 Unit)] 50,000 unit PO QWEEK [History] Insulin Glargine,Hum.rec.anlog [Lantus Solostar] 10 unit SQ HS 04/15/18 [History ] OxyCODONE/APAP 5/325 [Percocet 5/325 MG] 1 each PO Q6HR PRN 7 Days #14 tablet [Rx] Vit B Comp C/Folic Acid/Vit D3 [Dialyvite 800 Plus D Wafer] 1 tab PO 2XW [History] Famotidine [Heartburn Prevention] 20 mg PO DAILY 05/26/18 [History] 3 Allergy/AdvReac Type Severity Reaction Status Date / Time sulfamethoxazole Allergy Nausea Verified 05/25/18 21:33 [From Bactrim] trimethoprim [From Bactrim] Allergy Nausea Verified 05/25/18 21:33 All Systems Review: The remainder of the systems were reviewed and are negative Physical Examination Vital Signs, Last 4 Hours Temp Pulse Resp BP Pulse Ox 05/27/18 04:45 98.0 F 87 15 123/55 95 General: Conversant, No Apparent Distress HEENT: Atraumatic, Normocephaly, Trachea midline Neck: No JVD, Normal carotid pulses Cardiac: Normal S1 and S2, No Murmur, Other (Irregular rate and rhythm (atrial fibrillation)) Lungs: Normal Breath Sounds, No Wheeze, Rales, Rhonchi Neuro: Alert and responsive, No focal deficits noted Vascular: Normal capillary refill Musculoskeletal: No Chest Wall Tenderness Extremities: No Clubbing, No Cyanosis, Other (2+ pitting edema in both lower extremities) Results 05/26/18 04:36 05/26/18 04:36 Lab Results, Last 24 hours 05/26/18 11:25 Troponin I 4.93 H* Consult Discharge Plan - Plan Referrals: Yari Rader, ZAHIRA [Primary Care Provider] -
[2018-05-27] MEDS: Bumetanide 1 MG TABLET PO SCH (08:19)
[2018-05-27] MEDS: Aspirin Enteric Coated 81 MG Tablet PO SCH (08:20)
--- NOTE | 2018-05-27 09:44 | Cardiology Progress Note ---
Date of Encounter: 05/27/18 Time of Encounter: 08:30 Assessment and Plan (1) Atrial fibrillation with rapid ventricular response Current Visit: Yes Status: Acute Per Cardiology: -Presented with A. fib. Apparent new onset. Currently A. fib in the 80s. -BB has been uptitrated. Currently off cardizem. -Average HR previous 12 hours noted to be 89, a.fib. -On heparin drip. Polea1ogbj score 5 (HTN, DM, Vascular disease, previous DVT). Recommend skilled nursing anticoagulation. -TTE with no significant valvular issues noted. -Patient is discussing with regarding CABG and modified MAZE procedure. -Will continue to monitor. -Further determination of skilled nursing anticoagulation pending patient's decision regarding CABG/MAZE. (2) NSTEMI (non-ST elevated myocardial infarction) Current Visit: Yes Status: Acute Per cardiology: -Troponin 2.14, 4.93. -S/p LHC yesterday with severe disease, recommended for CT surgery consult. -Currently chest pain free. On heparin drip. -TTE with LVEF 55-60%, indeterminate diastolic function, mildly dilated RV with mild RV hypokinesis, no segmental wall motion abnormalities. -ON asa, statin, BB. -Again, patient is going to further discuss with regarding CABG. -Will continue to monitor. (3) ESRD (end stage renal disease) Current Visit: Yes Status: Chronic Per Cardiology: -History of end-stage renal disease on hemodialysis. -Management per primary and nephrology services. (4) CAD (coronary artery disease) Current Visit: Yes Status: Chronic Per Cardiology: -History CAD-- reported 2 stents at [facility] in 2009. -See NSTEMI as above. Qualifiers: Coronary Disease-Associated Artery/Lesion type: [place] artery [place] vs. transplanted heart: [place] heart Associated angina: with unstable angina Qualified Code(s): I25.110 - Atherosclerotic heart disease of [place] coronary artery with unstable angina pectoris Discussion w patient/family: The assessment and plan as outlined above was discussed with the patient who expressed understanding and agreement. All questions were answered. Thank you for involving us in the care of your patient. Please call with any questions. Discussed and reviewed with . Subjective Principal diagnosis: NSTEMI, a.fib RVR Interval history: Patient denies current chest pain. Currently sitting in chair. Patient states his family is coming in this afternoon and is going to discuss with him and family regarding CABG. Objective Vital Signs, Last 4 Hours Temp Pulse Resp BP Pulse Ox 05/27/18 08:02 97.4 F L 79 18 101/63 98 General: Conversant, No Apparent Distress HEENT: Atraumatic, Normocephaly, Mucus Membranes Moist Neck: No JVD, Normal carotid pulses Cardiac: Normal S1 and S2, No Murmur, Other (Irregularly irregular) Lungs: Normal Breath Sounds, No Wheeze, Rales, Rhonchi Neuro: Alert and responsive, No focal deficits noted Abdomen: Soft, Non-Tender Skin: No rashes noted on visualized skin Musculoskeletal: No Chest Wall Tenderness Extremities: No Clubbing, No Cyanosis, No Edema, Normal Pulses, Other ( Bilateral lower extremities discolored. ) Results 05/26/18 04:36 05/26/18 04:36 Lab Results Impressions Echocardiogram 05/26/18 03:03 Impressions: LVEF 55-60%. Indeterminate diastolic function. Mildly dilated right ventricle. Mild right ventricular hypokinesis. No significant valvular dysfunction. Unable to estimate RVSP due to lack of TR jet. Left Ventricular Wall Motion: Rest Echo Findings All wall segments showed normal motion. Findings: Study Quality * Technically adequate exam. ECG Findings * Atrial fibrillation. Left Ventricle * LVEF 55-60%. * Indeterminate diastolic function. Right Ventricle * Mildly dilated right ventricle. * Mild right ventricular hypokinesis. Left Atrium * Normal left atrial size. Right Atrium * Normal right atrial size. Interatrial Septum * No evidence of PFO by color Doppler. Aortic Valve * Trileaflet aortic valve. * Mildly thickened aortic valve leaflets. * No aortic regurgitation. * No aortic stenosis. Mitral Valve * Normal mitral valve structure. * No mitral regurgitation. * No mitral stenosis. Tricuspid Valve * Normal tricuspid valve structure. * No tricuspid regurgitation. * No tricuspid stenosis. * Unable to estimate RVSP due to lack of TR jet. Pulmonic Valve * Normal pulmonic valve structure. * No pulmonic regurgitation. Aorta * Normally sized aortic root. Pericardium * The pericardium appears normal. IVC * Normal IVC dimensions and inspiratory collapse. Pulmonary Artery * Normal visualized portions of the main pulmonary artery. Active Medications Aspirin (Aspirin Ec) 81 mg PO DAILY OTF Stop: 11/26/18 09:01 Last Admin: 05/27/18 08:20 Dose: 81 mg Bumetanide (Bumex) 1 mg PO DAILY OTF Stop: 11/25/18 09:01 Last Admin: 05/27/18 08:19 Dose: 1 mg Carvedilol (Coreg) 25 mg PO BIDWM OTF PRN Reason: Protocol Stop: 11/25/18 17:01 Last Admin: 05/27/18 08:20 Dose: 25 mg Dextrose/Water (Dextrose 50% (Syg)) 25 ml IVP AD PRN PRN Reason: Hypoglycemia Stop: 11/25/18 03:51 Glucagon (Glucagen) 1 mg IM ONCE PRN PRN Reason: Hypoglycemia Stop: 11/25/18 03:51 Glucose (Gluctose) 15 gm PO ONCE PRN PRN Reason: Hypoglycemia Stop: 11/25/18 03:51 Glucose (Gluctose) 30 gm PO ONCE PRN PRN Reason: Hypoglycemia Stop: 11/25/18 03:51 Heparin Sodium (Porcine) (Heparin) 8,300 unit 70 unit/kg (8300 unit) IVP Q6HR PRN PRN Reason: SEE COMMENTS Stop: 11/25/18 03:38 Heparin Sodium (Porcine) (Heparin) 4,200 unit 35 unit/kg (4200 unit) IVP Q6H PRN PRN Reason: SEE COMMENTS Stop: 11/25/18 03:38 Last Admin: 05/26/18 21:15 Dose: 4,200 unit Diltiazem HCl 50 mg/ Sodium (Chloride) 50 mls @ 5 mls/hr IVC .Q10H OTF; 5 MG/HR PRN Reason: Protocol Stop: 11/25/18 03:16 Last Admin: 05/27/18 01:00 Dose: 2.5 mg/hr, 2.5 mls/hr Heparin Sodium/Dextrose (Heparin 25,000 Unit/500 Ml D5w) 25,000 unit in 500 mls @ 33.292 mls/hr IVC .Q15H2M OTF; 14 UNIT/KG/HR PRN Reason: Protocol Stop: 11/25/18 03:46 Last Titration: 05/27/18 04:12 Dose: 12.95 unit/kg/hr, 30.81 mls/hr Dextrose (Dextrose 5%) 1,000 mls @ 100 mls/hr IVC .Q10H PRN PRN Reason: HYPOGLYCEMIA Stop: 11/25/18 03:51 Insulin Human Lispro (Humalog) 0 units SQ Q6HR OTF PRN Reason: Protocol Stop: 11/25/18 06:01 Last Admin: 05/27/18 06:25 Dose: Not Given Lisinopril (Zestril) 2.5 mg PO DAILY OTF PRN Reason: Protocol Stop: 11/26/18 09:01 Last Admin: 05/27/18 08:19 Dose: 2.5 mg Naloxone HCl (Narcan) 0.4 mg IVP Q2MIN PRN PRN Reason: SEE COMMENTS Stop: 11/25/18 03:01 Oxycodone/Acetaminophen (Percocet 5/325) 1 each PO Q6HR PRN PRN Reason: Pain Stop: 11/25/18 03:04 Simvastatin (Zocor) 40 mg PO HS OTF PRN Reason: Protocol Stop: 11/25/18 21:01 Last Admin: 05/26/18 20:11 Dose: 40 mg Laboratory Tests 05/26/18 05/26/18 05/26/18 04:36 04:36 04:36 Hgb 11.3 L Creatinine 4.65 H Troponin I 2.14 H* 05/26/18 11:25 Hgb Creatinine Troponin I 4.93 H* - Imaging and Cardiology Chest Xray: report reviewed Echo: report reviewed Cardiac cath: pending - EKG Interpretation EKG results cardiology: other (Telemetry reviewed with average HR previous 12 hours noted to be 89, a.fib. PVCs noted.) Consult Discharge Plan - Plan Referrals: Yari Rader, DIRECTOR DENTAL SERVICES [Primary Care Provider] -
--- NOTE | 2018-05-27 10:17 | Internal Med Progress Note ---
Hospitalist Progress Note - Encounter Date of Encounter: 05/27/18 Time of Encounter: 10:17 - Subjective Interval History: 58 M with ESRD, Uncontrolled DM, HTN, CAD admitted and begn managed for NSTEMI s/p [facility] with triple vessel disease Associated Afib with RVR, off cardizem drip now CTS documentation noted-for CABG as LA appendage stapling He has no new complains and is currently chest pain free he is still on heparin infusion, no bleeding at this time - Exam Vitals: Temp Pulse Resp BP Pulse Ox 97.4 F L 79 18 101/63 98 05/27/18 08:02 05/27/18 08:02 05/27/18 08:02 05/27/18 08:02 05/27/18 08:02 Exam: Gen: Vitals noted. No acute distress. HEENT: Normocephalic, atraumatic Neck: Supple. No adenopathy. Cardiac: RRR, no murmur, +S1/S2 Pulmonary: CTA bilaterally, no wheezes, rales or rhonchi, equal chest expansion Abdomen: soft, nontender, no guarding Back: Nontender throughout. MSK: ROM intact, no joint swelling noted Extremities: no BLE edema, nontender calf, no cyanosis or clubbing. Evidence of chronic stasis with keratinized skin in lower extremities Neuro: moves all extremities, no focal deficits. A&Ox3 Psych: Appropriate mood and behavior - Assessment and Plan (1) Chest pain Current Visit: Yes Status: Resolved Assessment and Plan: Due to NSTEMI, Afib with RVR Mgt as in CAD For CABG by CTS (2) Atrial fibrillation with rapid ventricular response Current Visit: Yes Status: Acute Assessment and Plan: Atrial fibrillation with rapid ventricular response, newly diagnosed Patient has no known history of A. fib in the past, it is demonstrated on EKG today Continue heparin drip for anticoagulation ECHo withno valvular anormalities Cardio on board Continue Coreg For CABG/MAZE (3) ESRD (end stage renal disease) Current Visit: Yes Status: Chronic Assessment and Plan: HD per renal (4) Diabetes Current Visit: Yes Status: Chronic Assessment and Plan: Type 2 diabetes mellitus, insulin-dependent Continue sliding scale insulin check A1C with mrn labs (5) Hypertension Current Visit: Yes Status: Chronic Assessment and Plan: controlled, continue current meds (6) CAD (coronary artery disease) Current Visit: Yes Status: Chronic Assessment and Plan: hx of CAD s/p 2 stenst in 2009 s/p [facility] 05/26 with severe disease, for CTS -CABG EF preserved Continue ASA, heparin, Statin, BB Cardio and CTS input appreciated (7) DVT prophylaxis Current Visit: Yes Status: Acute Assessment and Plan: Patient is on heparin drip (8) NSTEMI (non-ST elevated myocardial infarction) Current Visit: Yes Status: Acute Assessment and Plan: mgt as in CAD - Time Spent with Patient Total time spent is greater than 50% in coordination of care (as documented) at patient's floor/unit and/or counseling patient: Plan of Care Discussed with: patient Internal Medicine: Result - Labs CBC & Chem 7: 05/26/18 04:36 05/26/18 04:36 Labs: Cardiac Enzymes 05/26/18 Range/Units 11:25 Troponin I 4.93 H* (< 0.04) ng/mL - ABG Interpretation ABG results: PT/INR, D-dimer PT 12.1 Seconds (9.4-12.1) 05/26/18 04:36 - Impressions Impressions Echocardiogram 05/26/18 03:03 Impressions: LVEF 55-60%. Indeterminate diastolic function. Mildly dilated right ventricle. Mild right ventricular hypokinesis. No significant valvular dysfunction. Unable to estimate RVSP due to lack of TR jet. Left Ventricular Wall Motion: Rest Echo Findings All wall segments showed normal motion. Findings: Study Quality * Technically adequate exam. ECG Findings * Atrial fibrillation. Left Ventricle * LVEF 55-60%. * Indeterminate diastolic function. Right Ventricle * Mildly dilated right ventricle. * Mild right ventricular hypokinesis. Left Atrium * Normal left atrial size. Right Atrium * Normal right atrial size. Interatrial Septum * No evidence of PFO by color Doppler. Aortic Valve * Trileaflet aortic valve. * Mildly thickened aortic valve leaflets. * No aortic regurgitation. * No aortic stenosis. Mitral Valve * Normal mitral valve structure. * No mitral regurgitation. * No mitral stenosis. Tricuspid Valve * Normal tricuspid valve structure. * No tricuspid regurgitation. * No tricuspid stenosis. * Unable to estimate RVSP due to lack of TR jet. Pulmonic Valve * Normal pulmonic valve structure. * No pulmonic regurgitation. Aorta * Normally sized aortic root. Pericardium * The pericardium appears normal. IVC * Normal IVC dimensions and inspiratory collapse. Pulmonary Artery * Normal visualized portions of the main pulmonary artery. 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 Diabetes mellitus complication status: with kidney complications Diabetes mellitus complication detail: with chronic kidney disease Chronic kidney disease stage: on chronic dialysis Qualified Code(s): E11.22 - Type 2 diabetes mellitus with diabetic chronic kidney disease; N18.6 - End stage renal disease; Z79.4 - USP (current) use of insulin; Z99.2 - Dependence on renal dialysis (5) Hypertension Qualifiers: Hypertension type: essential hypertension Qualified Code(s): I10 - Essential (primary) hypertension (6) CAD (coronary artery disease) Qualifiers: Coronary Disease-Associated Artery/Lesion type: [place] artery [place] vs. transplanted heart: [place] heart Associated angina: with unstable angina Qualified Code(s): I25.110 - Atherosclerotic heart disease of [place] coronary artery with unstable angina pectoris
--- NOTE | 2018-05-27 20:21 | Nephrology Progress Note ---
Date of Encounter: 05/27/18 Time of Encounter: 12:00 - Assessment and Plan (1) Atrial fibrillation with rapid ventricular response Current Visit: Yes Status: Acute Stable off cardizem gtt but still on heparin gtt (2) Chest pain Current Visit: Yes Status: Resolved s/p [facility] with severe 3 vessel CAD with CABg planned on wednesday Qualifiers: Chest pain type: chest pain due to myocardial ischemia Ischemic chest pain type: unspecified angina pectoris type Qualified Code(s): I25.9 - Chronic ischemic heart disease, unspecified (3) ESRD (end stage renal disease) Current Visit: Yes Status: Chronic HD planned tomorrow with UF as tolerated Lytes stable Subjective Principal diagnosis: NSTEMI, a.fib RVR Interval history: Interim events noted. Pt seen and examined s/p LHC yesterday which showed severe 3 vessel CAD. Cardiothoracic surgery planning CABG with modified maze LA appendage stapling on wednesday. Pt seen and examined with no complaints. No chest pain at present. Objective - Vital Signs Vital signs: Vital Signs Temp Pulse Resp BP Pulse Ox 05/27/18 15:04 98.4 F 57 18 119/77 99 05/27/18 10:40 98.2 F 97 18 97/54 100 05/27/18 08:02 97.4 F L 79 18 101/63 98 05/27/18 04:45 98.0 F 87 15 123/55 95 05/27/18 00:34 97.7 F 76 16 104/62 97 05/26/18 21:20 97.8 F 77 16 122/76 99 05/26/18 21:01 82 114/75 97 05/26/18 20:31 73 115/74 97 Intake and Output 05/27/18 05/27/18 05/27/18 07:59 15:59 23:59 Intake Total 260 / 260 108 / 108 522 / 522 Output Total 400 / 400 Balance -140 / -140 108 / 108 522 / 522 Intake: IV Fluids 260 / 260 108 / 108 282 / 282 Cardizem 50 MG In 0.9 % Sodium 50 / 50 Chloride 40 ML @ 5 MG/HR 5 mls/ hr IVC .Q10H [facility] Rx#:[id number] Heparin 25,000 UNIT/500 ML D5W 210 / 210 108 / 108 282 / 282 25,000 unit In 500 ml @ 14 UNIT /KG/HR 33.292 mls/hr IVC . Q15H2M OTF Rx#:[id number] Oral 240 / 240 Output: Urine 400 / 400 Other: Meal Dinner Percent of Meal Consumed 100% Weight 120.2 kg Blood Glucose* 100 212 104 Patient Weight 05/27/18 23:59 Weight 120.2 kg - General Appearance General appearance: Present: well-developed, well-nourished EENT: Present: ATNC, mucous membranes moist Neck: Present: no JVD, supple Respiratory: Present: clear Cardiology: Present: edema (LE bilat), normal S1, normal S2 Dialysis Vascular Access: Arteriovenous Fistula thrill: Yes bruit: Yes Gastrointestinal: Present: no tenderness, no guarding Integumentary: Present: warm and dry Neurologic: Present: no focal deficit Musculoskeletal: Present: no deformities Psychiatric: Present: mood/affect appropriate, cooperative - Lab 05/26/18 04:36 05/26/18 04:36 Most recent lab results Calcium 8.2 mg/dL (8.6-10.3) L 05/26/18 04:36 Phosphorus 4.3 mg/dL (2.7-4.5) 05/26/18 04:36 Magnesium 1.9 mg/dL (1.6-2.6) 05/26/18 04:36 Consult Discharge Plan - Plan Referrals: Yari Rader, [employer] [Primary Care Provider] -
[2018-05-28 05:19] LABS: Basophils % 0.3 %; Eosinophils # 0.2 K/mcL (0.0-0.6); Eosinophils % 2.4 %; Hemoglobin 10.5 g/dL (12.9-16.9); Immature Granulocytes % 0.5 % (0-4); Lymphocytes # 1.6 K/mcL (0.6-4.6); Lymphocytes % 24.8 %; Mean Corpuscular HGB Conc 33.9 g/dL (31.6-35.5); Mean Corpuscular Hemoglobin 29.9 pg (28.0-33.3); Mean Corpuscular Volume 88.3 fL (83.0-100.0); Mean Platelet Volume 9.4 fL (9.4-12.4); Monocytes # 0.5 K/mcL (0.0-1.3); Monocytes % 8.6 %; Platelet Count 119 K/mcL (140-400); Red Blood Count 3.51 M/mcL (4.19-5.50); Red Cell Distribution Width 12.8 % (11.5-14.5); Segmented Neutrophils % 63.4 %
[2018-05-28 05:20] LABS: Calcium 7.9 mg/dL (8.6-10.3); Potassium 4.5 mEq/L (3.5-5.1)
[2018-05-28 06:51] LABS: Estimated Average Glucose 154 mg/dl
--- NOTE | 2018-05-28 07:54 | Cardiothoracic Progress Note ---
Date of Encounter: 05/28/18 Time of Encounter: 07:49 - Assessment and plan (1) CAD (coronary artery disease) Current Visit: Yes Status: Chronic The patient is a 58-year-old type II diabetic, hypertensive man with hypercholesterolemia, known CAD, and end-stage renal disease requiring hemodialysis. He has experienced epigastric discomfort radiating to his chest and down his left arm for the last 2 months. This occurs both at rest and with activity. He was admitted to [facility] on 05/25/2018 and found to have atrial fibrillation with rapid ventricular response and elevated troponin I levels. He was admitted for further cardiac care. Cardiac catheterization revealed severe 3 vessel CAD and an LVEF 40%. In particular patient has a 95% mid LAD lesion, a 90% proximal D1 lesion, 95% mid LCx lesion, a 70% mid RCA lesion, and a 70% distal RCA lesion. He has been recommended for combined CABG and modified Maze procedure with left atrial appendage stapling. I concur with this recommendation. The STS risk calculator reveals an operative mortality risk 4.35%, deep sternal wound infection risk 3.03%, permanent stroke risk 1.34%, and reoperation risk 9.31%. The patient understands the procedure, benefits, alternatives, and risks and is considering the proposed procedures. He is tentatively scheduled for CABG and modified Maze procedure with left atrial appendage stapling on Wednesday05/31/2018. The assessment and plan as outlined above was discussed with the patient and/or family members who expressed understanding and agreement. All questions were answered. Qualifiers: Coronary Disease-Associated Artery/Lesion type: [place] artery [place] vs. transplanted heart: [place] heart Associated angina: with unstable angina Qualified Code(s): I25.110 - Atherosclerotic heart disease of [place] coronary artery with unstable angina pectoris - Subjective Interval history: The patient remained hemodynamically stable overnight. She has no complaints of substernal chest pain or shortness of breath. Vital Signs, Last 4 Hours Temp Pulse Resp BP Pulse Ox 05/28/18 07:46 97.6 F 86 18 139/88 100 05/28/18 04:21 97.8 F 105 17 103/56 97 Clinical Data, last 8 Hours Output, Urine Amount 375 Weight 05/26/18 05/27/18 05/28/18 23:59 23:59 23:59 Weight 118.9 kg 120.2 kg 119.18 kg - Physical Examination General: Conversant, No Apparent Distress Neck: No JVD, Normal carotid pulses Cardiac: Reg Rate and Rhythm, Normal S1 and S2, No Murmur Lungs: Normal Breath Sounds, No Wheeze, Rales, Rhonchi Neuro: Alert and responsive, No focal deficits noted Vascular: Normal capillary refill Extremities: No Clubbing, No Cyanosis, No Edema, Normal Pulses - Labs 05/28/18 04:42 05/28/18 04:42 Lab Results, Last 24 hours 05/28/18 05/28/18 04:42 04:42 WBC 6.3 Hgb 10.5 L Hct 31.0 L Plt Count 119 L Sodium 135 L Potassium 4.5 Chloride 99 Carbon Dioxide 26 BUN 68 H Creatinine 5.62 H Glucose 110 H Calcium 7.9 L Consult Discharge Plan - Plan Referrals: Yari Rader, [employer] [Primary Care Provider] -
[2018-05-28] MEDS ORDERED: 0.9 % Sodium Chloride 1,000 ML ONE (07:55)
--- NOTE | 2018-05-28 08:33 | Cardiology Progress Note ---
Date of Encounter: 05/28/18 Time of Encounter: 08:00 Assessment and Plan (1) NSTEMI (non-ST elevated myocardial infarction) Current Visit: Yes Status: Acute Per cardiology: -Troponin 2.14, 4.93. -S/p [facility] with severe disease, recommended for CT surgery consult. -Currently chest pain free. On heparin drip. -TTE with LVEF 55-60%, indeterminate diastolic function, mildly dilated RV with mild RV hypokinesis, no segmental wall motion abnormalities. -ON asa, statin, BB. -Plan for CABG on Wednesday with Dr. Ye. -No chest pain or discomfort. Cardiology will sign-off, will coordinate outpatient follow-up in 4-6 weeks. Please re-consult if needed. (2) Atrial fibrillation with rapid ventricular response Current Visit: Yes Status: Acute Per Cardiology: -Presented with A. fib. Apparent new onset. Currently A. fib in the 80s. -BB has been uptitrated. Currently off cardizem. -Average HR previous 12 hours noted to be 105 a.fib. Will add low dose CCB to improve rate control. -On heparin drip. [id number] score 5 (HTN, DM, Vascular disease, previous DVT). 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 -TTE with no significant valvular issues noted, EF 55-60%. -Patient is discussing with regarding CABG and modified MAZE procedure- -plan for CABG on Wednesday. -Further determination of rodent exterminator anticoagulation in the post operative setting s/p CABG/MAZE; given ESRD, recommend Coumadin with ACMS to manage, goal INR 2-3. Start once okay by CT surgery. (3) ESRD (end stage renal disease) Current Visit: Yes Status: Chronic Per Cardiology: -History of end-stage renal disease on hemodialysis. -Management per primary and nephrology services. (4) CAD (coronary artery disease) Current Visit: Yes Status: Chronic Per Cardiology: -History CAD-- reported 2 stents at [facility] in 2009. -See NSTEMI as above. Qualifiers: Coronary Disease-Associated Artery/Lesion type: [place] artery [place] vs. transplanted heart: [place] heart Associated angina: with unstable angina Qualified Code(s): I25.110 - Atherosclerotic heart disease of [place] coronary artery with unstable angina pectoris Discussion w patient/family: The assessment and plan as outlined above was discussed with the patient and/or family members who expressed understanding and agreement. All questions were answered. Thank you for involving us in the care of your patient. Please call with any questions. Patient will be discussed and reviewed with Dr. Sweeney; changes to be made accordingly. Subjective Principal diagnosis: NSTEMI, a.fib RVR Interval history: Seen and examined, up to bedside chair. No chest pain or discomfort reported. No issues with right groin cath site. No palpitations or shortness of breath. Objective Vital Signs, Last 4 Hours Temp Pulse Resp BP Pulse Ox 05/28/18 07:46 97.6 F 86 18 139/88 100 General: Conversant HEENT: Atraumatic, Normocephaly Cardiac: Other (irregularly irregular) Lungs: Normal Breath Sounds Neuro: Alert and responsive Abdomen: Soft Skin: No rashes noted on visualized skin Musculoskeletal: No Chest Wall Tenderness Extremities: Other (mild BLE edema) Results 05/28/18 04:42 05/28/18 04:42 Lab Results 05/28/18 05/28/18 04:42 04:42 WBC 6.3 Hgb 10.5 L Hct 31.0 L Plt Count 119 L Sodium 135 L Potassium 4.5 Chloride 99 Carbon Dioxide 26 BUN 68 H Creatinine 5.62 H Glucose 110 H Calcium 7.9 L Active Medications Aspirin (Aspirin Ec) 81 mg PO DAILY [facility] Stop: 11/26/18 09:01 Last Admin: 05/27/18 08:20 Dose: 81 mg Bumetanide (Bumex) 1 mg PO DAILY [facility] Stop: 11/25/18 09:01 Last Admin: 05/27/18 08:19 Dose: 1 mg Carvedilol (Coreg) 25 mg PO BIDWM OTF PRN Reason: Protocol Stop: 11/25/18 17:01 Last Admin: 05/27/18 16:50 Dose: 25 mg Dextrose/Water (Dextrose 50% (Syg)) 25 ml IVP AD PRN PRN Reason: Hypoglycemia Stop: 11/25/18 03:51 Glucagon (Glucagen) 1 mg IM ONCE PRN PRN Reason: Hypoglycemia Stop: 11/25/18 03:51 Glucose (Gluctose) 15 gm PO ONCE PRN PRN Reason: Hypoglycemia Stop: 11/25/18 03:51 Glucose (Gluctose) 30 gm PO ONCE PRN PRN Reason: Hypoglycemia Stop: 11/25/18 03:51 Heparin Sodium (Porcine) (Heparin) 8,300 unit 70 unit/kg (8300 unit) IVP Q6HR PRN PRN Reason: SEE COMMENTS Stop: 11/25/18 03:38 Heparin Sodium (Porcine) (Heparin) 4,200 unit 35 unit/kg (4200 unit) IVP Q6H PRN PRN Reason: SEE COMMENTS Stop: 11/25/18 03:38 Last Admin: 05/26/18 21:15 Dose: 4,200 unit Heparin Sodium/Dextrose (Heparin 25,000 Unit/500 Ml D5w) 25,000 unit in 500 mls @ 33.292 mls/hr IVC .Q15H2M OTF; 14 UNIT/KG/HR PRN Reason: Protocol Stop: 11/25/18 03:46 Last Admin: 05/27/18 18:57 Dose: 12.95 unit/kg/hr, 30.81 mls/hr Dextrose (Dextrose 5%) 1,000 mls @ 100 mls/hr IVC .Q10H PRN PRN Reason: HYPOGLYCEMIA Stop: 11/25/18 03:51 Insulin Human Lispro (Humalog) 0 units SQ TIDAC [facility] PRN Reason: Protocol Stop: 11/26/18 11:31 Last Admin: 05/27/18 16:45 Dose: Not Given Insulin Human Lispro (Humalog) 0 units SQ HS [facility] PRN Reason: Protocol Stop: 11/26/18 21:01 Last Admin: 05/27/18 21:23 Dose: Not Given Lisinopril (Zestril) 2.5 mg PO DAILY [facility] PRN Reason: Protocol Stop: 11/26/18 09:01 Last Admin: 05/27/18 08:19 Dose: 2.5 mg Naloxone HCl (Narcan) 0.4 mg IVP Q2MIN PRN PRN Reason: SEE COMMENTS Stop: 11/25/18 03:01 Oxycodone/Acetaminophen (Percocet 5/325) 1 each PO Q6HR PRN PRN Reason: Pain Stop: 11/25/18 03:04 Simvastatin (Zocor) 40 mg PO HS OTF PRN Reason: Protocol Stop: 11/25/18 21:01 Last Admin: 05/27/18 20:41 Dose: 40 mg - Imaging and Cardiology Echo: report reviewed Cardiac cath: report reviewed Other Results: 12 hour tele: avg MB=[id number] - EKG Interpretation EKG results cardiology: personally reviewed Consult Discharge Plan - Plan Referrals: Yari Rader CNP [Primary Care Provider] -
[2018-05-28] MEDS: Aspirin Enteric Coated 81 MG Tablet PO SCH (09:08)
[2018-05-28] MEDS: Insulin LISPRO 300 UNITS/3 ML VIAL SQ SCH ×4 (09:09→22:12)
[2018-05-28] MEDS: Diltiazem CD (24hr) 120 MG CAPSULE PO SCH ×3 (09:10→15:03)
[2018-05-28] MEDS: Bumetanide 1 MG TABLET PO SCH ×2 (09:10→15:02)
[2018-05-28] MEDS ORDERED: 0.9 % Sodium Chloride 1,000 ML PRIME SCH (09:30)
[2018-05-28] MEDS ORDERED: 0.9 % Sodium Chloride 250 ML IVC PRN (09:30)
[2018-05-28] MEDS: Heparin 25,000 UNIT/500 ML D5W 25,000 UNIT/500 ML BAG IVC SCH (11:01)
--- NOTE | 2018-05-28 11:38 | Nephrology Progress Note ---
Date of Encounter: 05/28/18 Time of Encounter: 11:00 - Assessment and Plan (1) Atrial fibrillation with rapid ventricular response Current Visit: Yes Status: Acute Management per cardio (2) Chest pain Current Visit: Yes Status: Resolved #vessel CAD noted on LHC. On heparin gtt with CABG for wednesday. Currently chest pain free Qualifiers: Chest pain type: chest pain due to myocardial ischemia Ischemic chest pain type: unspecified angina pectoris type Qualified Code(s): I25.9 - Chronic ischemic heart disease, unspecified (3) ESRD (end stage renal disease) Current Visit: Yes Status: Chronic Continue Hd with UF as tolerated Lytes stable Subjective Principal diagnosis: NSTEMI, a.fib RVR Interval history: Pt seen and examined on HD with no complaints. Cardiothoracic surgery, Dr Ye now planning CABG with modified maze [place] appendage stapling on wednesday. HD to be done on wednesday as a result Objective - Vital Signs Vital signs: Vital Signs Temp Pulse Resp BP Pulse Ox 05/28/18 07:46 97.6 F 86 18 139/88 100 05/28/18 04:21 97.8 F 105 17 103/56 97 05/28/18 01:12 97.9 F 103 17 125/83 98 05/27/18 21:12 98 F 82 16 114/71 100 05/27/18 15:04 98.4 F 57 18 119/77 99 Intake and Output 05/27/18 05/28/18 05/28/18 23:59 07:59 15:59 Intake Total 522 / 522 500 / 500 Output Total 375 / 375 Balance 522 / 522 -375 / -375 500 / 500 Intake: IV Fluids 282 / 282 500 / 500 Heparin 25,000 UNIT/500 ML D5W 282 / 282 500 / 500 25,000 unit In 500 ml @ 14 UNIT /KG/HR 33.292 mls/hr IVC . Q15H2M OTF Rx#:[id number] Oral 240 / 240 Output: Urine 375 / 375 Other: Meal Dinner Percent of Meal Consumed 100% # Voids 1 Weight 119.18 kg Blood Glucose* 160 133 Patient Weight 05/28/18 23:59 Weight 119.18 kg - General Appearance General appearance: Present: well-developed, well-nourished EENT: Present: ATNC, mucous membranes moist Neck: Present: no JVD, supple Respiratory: Present: clear Cardiology: Present: edema (trace LE bilat), normal S1, normal S2 Dialysis Vascular Access: Arteriovenous Fistula thrill: Yes bruit: Yes Gastrointestinal: Present: no tenderness, no guarding Integumentary: Present: warm and dry, hyperpigmentation Neurologic: Present: no focal deficit Musculoskeletal: Present: no deformities Psychiatric: Present: mood/affect appropriate, cooperative - Lab 05/29/18 00:21 05/29/18 00:21 Most recent lab results Calcium 7.9 mg/dL (8.6-10.3) L 05/28/18 04:42 Phosphorus 4.3 mg/dL (2.7-4.5) 05/26/18 04:36 Magnesium 1.9 mg/dL (1.6-2.6) 05/26/18 04:36 Consult Discharge Plan - Plan Referrals: Yari Rader, [employer] [Primary Care Provider] -
--- NOTE | 2018-05-28 11:54 | Internal Med Progress Note ---
Hospitalist Progress Note - Encounter Date of Encounter: 05/28/18 Time of Encounter: 11:54 - Subjective Interval History: 58 M with ESRD, Uncontrolled DM, HTN, CAD admitted and being managed for NSTEMI s/p [facility] with triple vessel disease Associated Afib with RVR, off cardizem drip now CTS documentation noted-for CABG as [place] appendage stapling planned for Thursday 05/31 He has no new complains and is currently chest pain free He is receiving HD at my time of review he is still on heparin infusion, no bleeding at this time he is currently stable - Exam Vitals: Temp Pulse Resp BP Pulse Ox 97.6 F 86 18 139/88 100 05/28/18 07:46 05/28/18 07:46 05/28/18 07:46 05/28/18 07:46 05/28/18 07:46 Exam: Gen: Vitals noted. No acute distress. HEENT: Normocephalic, atraumatic Neck: Supple. No adenopathy. Cardiac: RRR, no murmur, +S1/S2 Pulmonary: CTA bilaterally, no wheezes, rales or rhonchi, equal chest expansion Abdomen: soft, nontender, no guarding Back: Nontender throughout. MSK: ROM intact, no joint swelling noted Extremities: no BLE edema, nontender calf, no cyanosis or clubbing. Evidence of chronic stasis with keratinized skin in lower extremities Neuro: moves all extremities, no focal deficits. A&Ox3 Psych: Appropriate mood and behavior - Assessment and Plan (1) Chest pain Current Visit: Yes Status: Resolved Assessment and Plan: Due to NSTEMI, Afib with RVR Mgt as in CAD For CABG by CTS (2) Atrial fibrillation with rapid ventricular response Current Visit: Yes Status: Acute Assessment and Plan: Atrial fibrillation with rapid ventricular response, newly diagnosed Patient has no known history of A. fib in the past, it is demonstrated on EKG today Continue heparin drip for anticoagulation ECHo withno valvular anormalities Cardio on board Continue Coreg, HR controlled For CABG/MAZE (3) ESRD (end stage renal disease) Current Visit: Yes Status: Chronic Assessment and Plan: HD per renal (4) Diabetes Current Visit: Yes Status: Chronic Assessment and Plan: Type 2 diabetes mellitus, insulin-dependent Continue sliding scale insulin A1C 7.0 Continue to monitor (5) Hypertension Current Visit: Yes Status: Chronic Assessment and Plan: controlled, continue current meds (6) CAD (coronary artery disease) Current Visit: Yes Status: Chronic Assessment and Plan: hx of CAD s/p 2 stenst in 2009 s/p [facility] 05/26 with severe disease, for CTS -CABG EF preserved Continue ASA, heparin, Statin, BB Cardio and CTS input appreciated (7) DVT prophylaxis Current Visit: Yes Status: Acute Assessment and Plan: Patient is on heparin drip (8) NSTEMI (non-ST elevated myocardial infarction) Current Visit: Yes Status: Acute Assessment and Plan: mgt as in CAD - Time Spent with Patient Total time spent is greater than 50% in coordination of care (as documented) at patient's floor/unit and/or counseling patient: Plan of Care Discussed with: patient Internal Medicine: Result - Labs CBC & Chem 7: 05/28/18 04:42 05/28/18 04:42 Labs: Short CBC 05/28/18 Range/Units 04:42 WBC 6.3 (4.3-11.1) K/mcL Hgb 10.5 L (12.9-16.9) g/dL Hct 31.0 L (37.5-50.1) % Plt Count 119 L (140-400) K/mcL Neutrophils # 4.0 (1.6-8.9) K/mcL BMP 05/28/18 04:42 Sodium 135 L Potassium 4.5 Chloride 99 Carbon Dioxide 26 BUN 68 H Creatinine 5.62 H Glucose 110 H Calcium 7.9 L - ABG Interpretation ABG results: PT/INR, D-dimer PT 12.1 Seconds (9.4-12.1) 05/26/18 04:36 Consult Discharge Plan - Plan Referrals: Yari Rader, TELEPATHIST [Primary Care Provider] - (1) Chest pain Qualifiers: Chest pain type: chest pain due to myocardial ischemia Ischemic chest pain type: unspecified angina pectoris type Qualified Code(s): I25.9 - Chronic ischemic heart disease, unspecified (4) Diabetes Qualifiers: Diabetes mellitus type: type 2 Diabetes mellitus terminal make up operator insulin use: with terminal make up operator use Diabetes mellitus complication status: with kidney complications Diabetes mellitus complication detail: with chronic kidney disease Chronic kidney disease stage: on chronic dialysis Qualified Code(s): E11.22 - Type 2 diabetes mellitus with diabetic chronic kidney disease; N18.6 - End stage renal disease; Z79.4 - residential (current) use of insulin; Z99.2 - Dependence on renal dialysis (5) Hypertension Qualifiers: Hypertension type: essential hypertension Qualified Code(s): I10 - Essential (primary) hypertension (6) CAD (coronary artery disease) Qualifiers: Coronary Disease-Associated Artery/Lesion type: [place] artery [place] vs. transplanted heart: [place] heart Associated angina: with unstable angina Qualified Code(s): I25.110 - Atherosclerotic heart disease of [place] coronary artery with unstable angina pectoris
[2018-05-29 00:45] LABS: Basophils % 0.3 %; Eosinophils # 0.2 K/mcL (0.0-0.6); Eosinophils % 2.6 %; Hematocrit 33.3 % (37.5-50.1); Hemoglobin 11.2 g/dL (12.9-16.9); Immature Granulocytes % 0.3 % (0-4); Lymphocytes # 1.6 K/mcL (0.6-4.6); Lymphocytes % 25.1 %; Mean Corpuscular HGB Conc 33.6 g/dL (31.6-35.5); Mean Corpuscular Hemoglobin 29.9 pg (28.0-33.3); Mean Corpuscular Volume 88.8 fL (83.0-100.0); Monocytes # 0.5 K/mcL (0.0-1.3); Monocytes % 7.4 %; Neutrophils # 4.2 K/mcL (1.6-8.9); Platelet Count 119 K/mcL (140-400); Red Blood Count 3.75 M/mcL (4.19-5.50); Red Cell Distribution Width 12.6 % (11.5-14.5); Segmented Neutrophils % 64.3 %
[2018-05-29 01:02] LABS: Calcium 8.1 mg/dL (8.6-10.3); Potassium 4.1 mEq/L (3.5-5.1)
[2018-05-29] MEDS: Heparin 25,000 UNIT/500 ML D5W 25,000 UNIT/500 ML BAG IVC SCH ×2 (02:59→19:51)
[2018-05-29] MEDS: Bumetanide 1 MG TABLET PO SCH (08:51)
[2018-05-29] MEDS: Aspirin Enteric Coated 81 MG Tablet PO SCH (08:51)
[2018-05-29] MEDS: Diltiazem CD (24hr) 120 MG CAPSULE PO SCH (08:54)
[2018-05-29] MEDS: Insulin LISPRO 300 UNITS/3 ML VIAL SQ SCH ×4 (08:57→20:18)
--- NOTE | 2018-05-29 09:59 | Internal Med Progress Note ---
Hospitalist Progress Note - Encounter Date of Encounter: 05/29/18 Time of Encounter: 09:59 - Subjective Interval History: 58 M with ESRD, Uncontrolled DM, HTN, CAD admitted and being managed for NSTEMI s/p [facility] with triple vessel disease Associated Afib with RVR, off cardizem drip now CTS documentation noted-for CABG as [place] appendage stapling planned for Thursday 05/31 He has no new complains and is currently chest pain free - Exam Vitals: Temp Pulse Resp BP Pulse Ox 98.8 F 78 18 127/83 98 05/29/18 08:08 05/29/18 08:08 05/29/18 08:08 05/29/18 08:08 05/29/18 08:08 Exam: Gen: Vitals noted. No acute distress. HEENT: Normocephalic, atraumatic Neck: Supple. No adenopathy. Cardiac: RRR, no murmur, +S1/S2 Pulmonary: CTA bilaterally, no wheezes, rales or rhonchi, equal chest expansion Abdomen: soft, nontender, no guarding Back: Nontender throughout. MSK: ROM intact, no joint swelling noted Extremities: no BLE edema, nontender calf, no cyanosis or clubbing. Evidence of chronic stasis with keratinized skin in lower extremities Neuro: moves all extremities, no focal deficits. A&Ox3 Psych: Appropriate mood and behavior - Assessment and Plan (1) Chest pain Current Visit: Yes Status: Resolved Assessment and Plan: Due to NSTEMI, Afib with RVR Mgt as in CAD For CABG by CTS (2) Atrial fibrillation with rapid ventricular response Current Visit: Yes Status: Acute Assessment and Plan: Atrial fibrillation with rapid ventricular response, newly diagnosed Patient has no known history of A. fib in the past, it is demonstrated on EKG today Continue heparin drip for anticoagulation ECHo withno valvular anormalities Cardio on board Continue Coreg, HR controlled For CABG/MAZE (3) ESRD (end stage renal disease) Current Visit: Yes Status: Chronic Assessment and Plan: HD per renal (4) Diabetes Current Visit: Yes Status: Chronic Assessment and Plan: Type 2 diabetes mellitus, insulin-dependent Continue sliding scale insulin A1C 7.0 Continue to monitor (5) Hypertension Current Visit: Yes Status: Chronic Assessment and Plan: controlled, continue current meds (6) CAD (coronary artery disease) Current Visit: Yes Status: Chronic Assessment and Plan: hx of CAD s/p 2 stenst in 2009 s/p [facility] 05/26 with severe disease, for CTS -CABG EF preserved Continue ASA, heparin, Statin, BB Cardio and CTS input appreciated (7) DVT prophylaxis Current Visit: Yes Status: Acute Assessment and Plan: Patient is on heparin drip (8) NSTEMI (non-ST elevated myocardial infarction) Current Visit: Yes Status: Acute Assessment and Plan: mgt as in CAD - Time Spent with Patient Total time spent is greater than 50% in coordination of care (as documented) at patient's floor/unit and/or counseling patient: Plan of Care Discussed with: patient Internal Medicine: Result - Labs CBC & Chem 7: 05/29/18 00:21 05/29/18 00:21 Labs: Short CBC 05/29/18 Range/Units 00:21 WBC 6.5 (4.3-11.1) K/mcL Hgb 11.2 L (12.9-16.9) g/dL Hct 33.3 L (37.5-50.1) % Plt Count 119 L (140-400) K/mcL Neutrophils # 4.2 (1.6-8.9) K/mcL BMP 05/29/18 00:21 Sodium 136 Potassium 4.1 Chloride 98 Carbon Dioxide 29 BUN 43 H Creatinine 4.05 H Glucose 126 H Calcium 8.1 L - ABG Interpretation ABG results: PT/INR, D-dimer PT 12.1 Seconds (9.4-12.1) 05/26/18 04:36 Consult Discharge Plan - Plan Referrals: Yari Rader, DIRECTOR OF SCIENTIFIC RESEARCH [Primary Care Provider] - (1) Chest pain Qualifiers: Chest pain type: chest pain due to myocardial ischemia Ischemic chest pain type: unspecified angina pectoris type Qualified Code(s): I25.9 - Chronic ischemic heart disease, unspecified (4) Diabetes Qualifiers: Diabetes mellitus type: type 2 Diabetes mellitus group home insulin use: with group home use Diabetes mellitus complication status: with kidney complications Diabetes mellitus complication detail: with chronic kidney disease Chronic kidney disease stage: on chronic dialysis Qualified Code(s): E11.22 - Type 2 diabetes mellitus with diabetic chronic kidney disease; N18.6 - End stage renal disease; Z79.4 - adjunct faculty for medical terminology (current) use of insulin; Z99.2 - Dependence on renal dialysis (5) Hypertension Qualifiers: Hypertension type: essential hypertension Qualified Code(s): I10 - Essential (primary) hypertension (6) CAD (coronary artery disease) Qualifiers: Coronary Disease-Associated Artery/Lesion type: [place] artery [place] vs. transplanted heart: [place] heart Associated angina: with unstable angina Qualified Code(s): I25.110 - Atherosclerotic heart disease of [place] coronary artery with unstable angina pectoris
--- NOTE | 2018-05-29 10:41 | Cardiothoracic Progress Note ---
Date of Encounter: 05/29/18 Time of Encounter: 09:40 - Assessment and plan (1) CAD (coronary artery disease) Current Visit: Yes Status: Chronic The patient is a 58-year-old type II diabetic, hypertensive man with hypercholesterolemia, known CAD, and end-stage renal disease requiring hemodialysis. He has experienced epigastric discomfort radiating to his chest and down his left arm for the last 2 months. This occurs both at rest and with activity. He was admitted to [facility] on 05/25/2018 and found to have atrial fibrillation with rapid ventricular response and elevated troponin I levels. He was admitted for further cardiac care. Cardiac catheterization revealed severe 3 vessel CAD and an LVEF 40%. In particular patient has a 95% mid LAD lesion, a 90% proximal D1 lesion, 95% mid LCx lesion, a 70% mid RCA lesion, and a 70% distal RCA lesion. He has been recommended for combined CABG and modified Maze procedure with left atrial appendage stapling. I concur with this recommendation. The STS risk calculator reveals an operative mortality risk 4.35%, deep sternal wound infection risk 3.03%, permanent stroke risk 1.34%, and reoperation risk 9.31%. The patient understands the procedure, benefits, alternatives, and risks and is considering the proposed procedures. He is tentatively scheduled for CABG and modified Maze procedure with left atrial appendage stapling on Wednesday05/31/2018. The assessment and plan as outlined above was discussed with the patient and/or family members who expressed understanding and agreement. All questions were answered. Qualifiers: Coronary Disease-Associated Artery/Lesion type: [place] artery [place] vs. transplanted heart: [place] heart Associated angina: with unstable angina Qualified Code(s): I25.110 - Atherosclerotic heart disease of [place] coronary artery with unstable angina pectoris - Subjective Interval history: The patient remained hemodynamically stable overnight. He has no complaints of substernal chest pain or shortness of breath. Vital Signs, Last 4 Hours Temp Pulse Resp BP Pulse Ox 05/29/18 08:08 98.8 F 78 18 127/83 98 Weight 05/27/18 05/28/18 05/29/18 23:59 23:59 23:59 Weight 120.2 kg 119.18 kg 119.2 kg - Physical Examination General: Conversant, No Apparent Distress Neck: No JVD, Normal carotid pulses Cardiac: Normal S1 and S2, No Murmur, Other (Irregular rate rhythm (atrial fibrillation)) Lungs: Normal Breath Sounds, No Wheeze, Rales, Rhonchi Neuro: Alert and responsive, No focal deficits noted Vascular: Normal capillary refill Musculoskeletal: No Chest Wall Tenderness Extremities: No Clubbing, No Cyanosis, No Edema - Labs 05/29/18 00:21 05/29/18 00:21 Lab Results, Last 24 hours 05/29/18 05/29/18 00:21 00:21 WBC 6.5 Hgb 11.2 L Hct 33.3 L Plt Count 119 L Sodium 136 Potassium 4.1 Chloride 98 Carbon Dioxide 29 BUN 43 H Creatinine 4.05 H Glucose 126 H Calcium 8.1 L Consult Discharge Plan - Plan Referrals: Yari Rader, ZAHIRA [Primary Care Provider] -
--- NOTE | 2018-05-29 13:41 | Nephrology Progress Note ---
Date of Encounter: 05/29/18 Time of Encounter: 12:00 - Assessment and Plan (1) Atrial fibrillation with rapid ventricular response Current Visit: Yes Status: Acute Management per cardio (2) Chest pain Current Visit: Yes Status: Resolved 3 vessel CAD noted on [facility]. On heparin gtt with CABG for wednesday. Currently chest pain free Qualifiers: Chest pain type: chest pain due to myocardial ischemia Ischemic chest pain type: unspecified angina pectoris type Qualified Code(s): I25.9 - Chronic ischemic heart disease, unspecified (3) ESRD (end stage renal disease) Current Visit: Yes Status: Chronic Will plan for next HD on wednesday instead of wednesday in anticipation of surgery for wednesday Lytes stable Continue renal diet Subjective Principal diagnosis: NSTEMI, a.fib RVR Interval history: Pt seen and examined on HD with no complaints. Cardiothoracic surgery, Dr Ye now planning CABG with modified maze [place] appendage stapling on wednesday. HD to be done on wednesday as a result Objective - Vital Signs Vital signs: Vital Signs Temp Pulse Resp BP Pulse Ox 05/29/18 11:30 97.6 F 81 18 115/71 100 05/29/18 08:08 98.8 F 78 18 127/83 98 05/29/18 05:58 98 F 91 16 117/67 98 05/29/18 01:28 98.0 F 68 16 101/63 99 05/28/18 20:38 97.8 F 81 16 120/77 98 05/28/18 14:30 97.0 F L 18 142/68 05/28/18 14:00 113/64 05/28/18 13:45 115/57 Intake and Output 05/28/18 05/29/18 05/29/18 23:59 07:59 15:59 Intake Total 103 / 103 291.0 / 291.0 450 / 450 Output Total 800 / 800 Balance 103 / 103 -509.0 / -509.0 450 / 450 Intake: IV Fluids 103 / 103 291.0 / 291.0 Heparin 25,000 UNIT/500 ML D5W 103 / 103 291.0 / 291.0 25,000 unit In 500 ml @ 14 UNIT /KG/HR 33.292 mls/hr IVC . Q15H2M OTF Rx#:[id number] Oral 450 / 450 Output: Urine 800 / 800 Other: Meal Breakfast Percent of Meal Consumed 100% Weight 119.2 kg Blood Glucose* 212 176 Patient Weight 05/29/18 23:59 Weight 119.2 kg - General Appearance General appearance: Present: well-developed, well-nourished EENT: Present: ATNC, mucous membranes moist Neck: Present: no JVD, supple Respiratory: Present: clear Cardiology: Present: edema (trace), normal S1, normal S2 Dialysis Vascular Access: Arteriovenous Fistula thrill: Yes bruit: Yes Gastrointestinal: Present: no tenderness, no guarding Integumentary: Present: warm and dry Neurologic: Present: no focal deficit Musculoskeletal: Present: no deformities Psychiatric: Present: mood/affect appropriate, cooperative - Lab 05/29/18 00:21 05/29/18 00:21 Most recent lab results Calcium 8.1 mg/dL (8.6-10.3) L 05/29/18 00:21 Phosphorus 4.3 mg/dL (2.7-4.5) 05/26/18 04:36 Magnesium 1.9 mg/dL (1.6-2.6) 05/26/18 04:36 Consult Discharge Plan - Plan Referrals: Yari Rader, TURRET PUNCH PRESS OPERATOR [Primary Care Provider] -
[2018-05-30 05:57] LABS: Basophils % 0.3 %; Eosinophils # 0.2 K/mcL (0.0-0.6); Eosinophils % 2.5 %; Hematocrit 32.1 % (37.5-50.1); Hemoglobin 10.8 g/dL (12.9-16.9); Immature Granulocytes % 0.3 % (0-4); Lymphocytes # 1.2 K/mcL (0.6-4.6); Mean Corpuscular HGB Conc 33.6 g/dL (31.6-35.5); Mean Corpuscular Hemoglobin 30.1 pg (28.0-33.3); Mean Corpuscular Volume 89.4 fL (83.0-100.0); Mean Platelet Volume 9.2 fL (9.4-12.4); Monocytes # 0.5 K/mcL (0.0-1.3); Monocytes % 7.8 %; Neutrophils # 4.1 K/mcL (1.6-8.9); Platelet Count 119 K/mcL (140-400); Red Blood Count 3.59 M/mcL (4.19-5.50); Red Cell Distribution Width 12.4 % (11.5-14.5); Segmented Neutrophils % 69.1 %
[2018-05-30 06:12] LABS: Calcium 8.3 mg/dL (8.6-10.3); Potassium 4.1 mEq/L (3.5-5.1)
[2018-05-30] MEDS: *HR* Heparin 5,000 UNIT/ML VIAL IVP PRN (06:29)
[2018-05-30] MEDS: Bumetanide 1 MG TABLET PO SCH (08:15)
[2018-05-30] MEDS: Aspirin Enteric Coated 81 MG Tablet PO SCH (08:15)
[2018-05-30] MEDS: Diltiazem CD (24hr) 120 MG CAPSULE PO SCH (08:15)
[2018-05-30] MEDS: Insulin LISPRO 300 UNITS/3 ML VIAL SQ SCH ×4 (08:16→20:39)
[2018-05-30] MEDS ORDERED: CeFAZolin Syr 2,000MG/20 ML 2,000 MG/20 ML SYRINGE IVPB ONE (08:21)
--- NOTE | 2018-05-30 08:21 | Cardiothoracic Progress Note ---
Date of Encounter: 05/30/18 Time of Encounter: 08:20 - Assessment and plan (1) CAD (coronary artery disease) Current Visit: Yes Status: Chronic The patient is a 58-year-old type II diabetic, hypertensive man with hypercholesterolemia, known CAD, and end-stage renal disease requiring hemodialysis. He has experienced epigastric discomfort radiating to his chest and down his left arm for the last 2 months. This occurs both at rest and with activity. He was admitted to [facility] on 05/25/2018 and found to have atrial fibrillation with rapid ventricular response and elevated troponin I levels. He was admitted for further cardiac care. Cardiac catheterization revealed severe 3 vessel CAD and an LVEF 40%. In particular patient has a 95% mid LAD lesion, a 90% proximal D1 lesion, 95% mid LCx lesion, a 70% mid RCA lesion, and a 70% distal RCA lesion. He has been recommended for combined CABG and modified Maze procedure with left atrial appendage stapling. I concur with this recommendation. The STS risk calculator reveals an operative mortality risk 4.35%, deep sternal wound infection risk 3.03%, permanent stroke risk 1.34%, and reoperation risk 9.31%. The patient understands the procedure, benefits, alternatives, and risks and is considering the proposed procedures. He is tentatively scheduled for CABG and modified Maze procedure with left atrial appendage stapling on Wednesday05/31/2018. The assessment and plan as outlined above was discussed with the patient and/or family members who expressed understanding and agreement. All questions were answered. Qualifiers: Coronary Disease-Associated Artery/Lesion type: [place] artery [place] vs. transplanted heart: [place] heart Associated angina: with unstable angina Qualified Code(s): I25.110 - Atherosclerotic heart disease of [place] coronary artery with unstable angina pectoris - Subjective Interval history: The patient remained hemodynamically stable overnight. He has no complaints of substernal chest pain or shortness of breath. Vital Signs, Last 4 Hours Temp Pulse Resp BP Pulse Ox 05/30/18 08:01 98.3 F 98 16 142/76 99 05/30/18 05:09 97.7 F 90 16 115/64 97 Clinical Data, last 8 Hours Output, Urine Amount 400 Weight 05/28/18 05/29/18 05/30/18 23:59 23:59 23:59 Weight 119.18 kg 119.2 kg 118.7 kg - Physical Examination General: Conversant, No Apparent Distress Neck: No JVD, Normal carotid pulses Cardiac: Normal S1 and S2, No Murmur, Other (Irregular rate and rhythm (atrial fibrillation)) Lungs: Normal Breath Sounds, No Wheeze, Rales, Rhonchi Neuro: Alert and responsive, No focal deficits noted Vascular: Normal capillary refill Extremities: No Clubbing, No Cyanosis, No Edema - Labs 05/30/18 05:33 05/30/18 05:33 Lab Results, Last 24 hours 05/30/18 05/30/18 05:33 05:33 WBC 5.9 Hgb 10.8 L Hct 32.1 L Plt Count 119 L Sodium 136 Potassium 4.1 Chloride 100 Carbon Dioxide 27 BUN 52 H Creatinine 4.33 H Glucose 146 H Calcium 8.3 L Consult Discharge Plan - Plan Referrals: Yari Rader, WATCH INSPECTOR [Primary Care Provider] -
[2018-05-30] MEDS ORDERED: 0.9 % Sodium Chloride 250 ML IVC PRN (08:47)
[2018-05-30] MEDS ORDERED: 0.9 % Sodium Chloride 1,000 ML PRIME SCH (09:00)
--- NOTE | 2018-05-30 09:28 | Internal Med Progress Note ---
Hospitalist Progress Note - Encounter Date of Encounter: 05/30/18 Time of Encounter: 09:28 - Subjective Interval History: 58 M with ESRD, Uncontrolled DM, HTN, CAD admitted and being managed for NSTEMI s/p [facility] with triple vessel disease Associated Afib with RVR, off cardizem drip now CTS documentation noted-for CABG as [place] appendage stapling planned for Thursday 05/31 He has no new complains and is currently chest pain free Hospital medicine will sign off 05/31, after patient goes to surgery No change in plan of mgt from our own standpoint - Exam Vitals: Temp Pulse Resp BP Pulse Ox 98.3 F 98 16 142/76 99 05/30/18 08:01 05/30/18 08:01 05/30/18 08:01 05/30/18 08:01 05/30/18 08:01 Exam: Gen: Vitals noted. No acute distress. HEENT: Normocephalic, atraumatic Neck: Supple. No adenopathy. Cardiac: RRR, no murmur, +S1/S2 Pulmonary: CTA bilaterally, no wheezes, rales or rhonchi, equal chest expansion Abdomen: soft, nontender, no guarding Back: Nontender throughout. MSK: ROM intact, no joint swelling noted Extremities: Evidence of chronic stasis with keratinized skin in lower extremities Neuro: moves all extremities, no focal deficits. A&Ox3 Psych: Appropriate mood and behavior - Assessment and Plan (1) Chest pain Current Visit: Yes Status: Acute Assessment and Plan: Due to NSTEMI, Afib with RVR Mgt as in CAD For CABG by CTS (2) Atrial fibrillation with rapid ventricular response Current Visit: Yes Status: Acute Assessment and Plan: Atrial fibrillation with rapid ventricular response, newly diagnosed Patient has no known history of A. fib in the past, it is demonstrated on EKG today Continue heparin drip for anticoagulation ECHo withno valvular anormalities Cardio on board Continue Coreg, HR controlled For CABG/MAZE (3) ESRD (end stage renal disease) Current Visit: Yes Status: Chronic Assessment and Plan: HD per renal (4) Diabetes Current Visit: Yes Status: Chronic Assessment and Plan: Type 2 diabetes mellitus, insulin-dependent Continue sliding scale insulin A1C 7.0 Continue to monitor (5) Hypertension Current Visit: Yes Status: Chronic Assessment and Plan: controlled, continue current meds (6) CAD (coronary artery disease) Current Visit: Yes Status: Chronic Assessment and Plan: hx of CAD s/p 2 stenst in 2009 s/p C 05/26 with severe disease, for CTS -CABG EF preserved Continue ASA, heparin, Statin, BB Cardio and CTS input appreciated (7) DVT prophylaxis Current Visit: Yes Status: Acute Assessment and Plan: Patient is on heparin drip (8) NSTEMI (non-ST elevated myocardial infarction) Current Visit: Yes Status: Acute Assessment and Plan: mgt as in CAD - Time Spent with Patient Total time spent is greater than 50% in coordination of care (as documented) at patient's floor/unit and/or counseling patient: Plan of Care Discussed with: nurse Internal Medicine: Result - Labs CBC & Chem 7: 05/30/18 05:33 05/30/18 05:33 Labs: Short CBC 05/30/18 Range/Units 05:33 WBC 5.9 (4.3-11.1) K/mcL Hgb 10.8 L (12.9-16.9) g/dL Hct 32.1 L (37.5-50.1) % Plt Count 119 L (140-400) K/mcL Neutrophils # 4.1 (1.6-8.9) K/mcL BMP 05/30/18 05:33 Sodium 136 Potassium 4.1 Chloride 100 Carbon Dioxide 27 BUN 52 H Creatinine 4.33 H Glucose 146 H Calcium 8.3 L - ABG Interpretation ABG results: PT/INR, D-dimer PT 12.1 Seconds (9.4-12.1) 05/26/18 04:36 Consult Discharge Plan - Plan Referrals: Yari Rader, CONCRETE CARPENTER [Primary Care Provider] - (1) Chest pain Qualifiers: Chest pain type: chest pain due to myocardial ischemia Ischemic chest pain type: unspecified angina pectoris type Qualified Code(s): I25.9 - Chronic ischemic heart disease, unspecified (4) Diabetes Qualifiers: Diabetes mellitus type: type 2 Diabetes mellitus long term care pharmacist insulin use: with halfway use Diabetes mellitus complication status: with kidney complications Diabetes mellitus complication detail: with chronic kidney disease Chronic kidney disease stage: on chronic dialysis Qualified Code(s): E11.22 - Type 2 diabetes mellitus with diabetic chronic kidney disease; N18.6 - End stage renal disease; Z79.4 - long term care pharmacist (current) use of insulin; Z99.2 - Dependence on renal dialysis (5) Hypertension Qualifiers: Hypertension type: essential hypertension Qualified Code(s): I10 - Essential (primary) hypertension (6) CAD (coronary artery disease) Qualifiers: Coronary Disease-Associated Artery/Lesion type: [place] artery [place] vs. transplanted heart: [place] heart Associated angina: with unstable angina Qualified Code(s): I25.110 - Atherosclerotic heart disease of [place] coronary artery with unstable angina pectoris
[2018-05-30] MEDS: Chlorhexidine Rinse 15 ML MOUTHWASH MM SCH ×2 (11:04→20:45)
[2018-05-30] MEDS: Heparin 25,000 UNIT/500 ML D5W 25,000 UNIT/500 ML BAG IVC SCH ×2 (11:39)
--- NOTE | 2018-05-30 13:42 | Anesthesia Evaluation PreOp ---
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) Other Medical History: Renal (ESRD on HD(last on 05-30)), Diabetes Type II Anesthesia History: No Prior Anesthetic Complications, Past Anesthesia (stents, toe amps, LUE fistula, [place]) Alcohol Use: none Drug use: none Medications and Allergies Bumetanide [Bumex] 1 mg PO DAILY 07/03/16 [History] Carvedilol [Coreg] 12.5 mg PO BID 07/03/16 [History] amLODIPine [Norvasc] 2.5 mg PO DAILY 07/03/16 [History] Lisinopril [Zestril] 2.5 mg PO BID 10/21/16 [History] Simvastatin [Zocor] 40 mg PO HS 10/21/16 [History] Aspirin 325 mg PO DAILY 04/15/18 [History] Ergocalciferol (VITAMIN D2) [Drisdol (50,000 Unit)] 50,000 unit PO QWEEK [History] Insulin Glargine,Hum.rec.anlog [Lantus Solostar] 10 unit SQ HS 04/15/18 [History ] OxyCODONE/APAP 5/325 [Percocet 5/325 MG] 1 each PO Q6HR PRN 7 Days #14 tablet [Rx] Vit B Comp C/Folic Acid/Vit D3 [Dialyvite 800 Plus D Wafer] 1 tab PO 2XW [History] Famotidine [Heartburn Prevention] 20 mg PO DAILY 05/26/18 [History] 3 Allergy/AdvReac Type Severity Reaction Status Date / Time sulfamethoxazole Allergy Nausea Verified 05/25/18 21:33 [From Bactrim] trimethoprim [From Bactrim] Allergy Nausea Verified 05/25/18 21:33 - Meds/Allergy Pre-op Review Medications Reviewed: Yes Allergies Reviewed: Yes Beta Blockers on Current Med List: Yes If Beta Blockers taken, Date/Time (Last Dose taken): today 614 Anesthesia Results - Labs 05/31/18 03:49 05/31/18 03:49 Laboratory Tests 05/25/18 05/26/18 05/28/18 22:00 04:36 04:42 Hgb Hct Plt Count PT 12.1 INR 1.1 APTT 31.2 Sodium Potassium Chloride Carbon Dioxide BUN Creatinine Hemoglobin A1c 7.0 H 05/30/18 05/30/18 05:33 05:33 Hgb 10.8 L Hct 32.1 L Plt Count 119 L PT INR APTT Sodium 136 Potassium 4.1 Chloride 100 Carbon Dioxide 27 BUN 52 H Creatinine 4.33 H Hemoglobin A1c - Imaging Chest x-ray: report reviewed (IMPRESSION: No acute disease.) Additional studies: laboratory immunologist: ndications: Non-Stemi ACS <= 24 hrs Impressions: There is severe three vessel coronary artery disease. The left ventricle EF 40% Recommendations: Optimal medical therapy of patient's disease. Aggressive risk factor modification. Suggest patient have Elective coronary artery bypass surgery. History/Risk Factors: end stage renal dx Diabetes Hypertension Dyslipidemia CHF Prior ME Previous PCI Estimated Blood Loss: less than 20cc Complications: None Contrast: Isovue 90ml Procedural Medications Time Medication Dose Units Method Given By 05:43 PM Lidocaine 2% 10 ml Subcutaneous Jun Martinez DO 05:46 PM Versed 2 mg Intravenous Lucía Navas RN 05:46 PM Oxygen 4 L/min nasal cannula Lucía Navas RN Closure Device: Manual Compression Hemodynamics: Pressures Site Systolic/ A Wave Diastolic/ V Wave End Diastolic/ Mean HR LV 96 6 11 85 LV 102 4 7 99 AO 98 58 75 95 AO 89 46 65 91 AO 100 49 71 74 LV Ventriculography Ejection Method: LV Gram Ejection Fraction: 40% Wall Motion: MARTINEZ Anterobasal Normal Anterolateral Normal Apical: Normal Inferoapical Mild Hypokinesis Inferobasal Mild Hypokinesis Coronary Dominance: right Lesion Findings/Interventions * Left Main Coronary Artery The LMCA is angiographically free of disease. * Left Anterior Descending There is a 95% stenosis in the Mid LAD. There is a 90% stenosis in the 1st Diagonal. * Circumflex There is a 95% stenosis in the Mid Circumflex. * Right Coronary Artery There is a 70% stenosis in the Mid RCA.Impressions: There is a 70% stenosis in the Distal RCA. echo: Impressions: LVEF 55-60%. Indeterminate diastolic function. Mildly dilated right ventricle. Mild right ventricular hypokinesis. No significant valvular dysfunction. Unable to estimate RVSP due to lack of TR jet. Anesthesia Exam Selected Entries 05/31/18 06:55 Temperature 98.3 F Pulse Rate 73 Respiratory Rate 16 Blood Pressure 115/76 O2 Sat by Pulse Oximetry 100 Oxygen Delivery Method Room Air Weight: 119kg NPO (# of Hours): 8 - HEENT Pupil (Motor): EOMI Mallampati: II Teeth: Edentulous Oral Opening: Greater than 3 - [employer] LOC: Oriented [employer] WORK[employer] Motor: Normal RUE, Normal LUE, Normal RLE, Normal LLE, Normal Face [employer] Sensory: Normal: RUE, LUE, RLE, LLE, Face - Cardiac Rhythm: Regular Murmur: None - Pulmonary Breath Sounds: bilateral Clear Respiratory Effort: Symmetrical Anesthesia Assess/Plan ASA Score: 4 Modified Ranson Scale for Level of Consciousness: Cooperative, oriented, and tranquil Anesthetic Plan: General Monitoring Plan: Standard Monitors, A-Line, PAC, LUIS ALFREDO Recovery Plan: ICU (knows he is high risk due to cigarette and renal disease. Agrees to GA, lines, LUIS ALFREDO, blood products.)
--- NOTE | 2018-05-30 19:18 | Nephrology Progress Note ---
Date of Encounter: 05/30/18 Time of Encounter: 10:00 - Assessment and Plan (1) ESRD (end stage renal disease) Current Visit: Yes Status: Chronic ESRD on twice weekly HD, with last HD on Wednesday; he said that he typically makes urine and does not gain water weight between dialysis treatments on Wednesday and Wednesday. However, given his upcoming CABG planned for tomorrow, I recommend he dialyze today (Wednesday) for clearance and electrolyte optimization before major cardiovascular surgery. I will reassess dialysis needs even on Wednesday vs increasing diuretics post-op , if needed, since he still makes urine. (2) Hypertension Current Visit: Yes Status: Chronic Agree with EDWAR and ideally having a BB before major cardiovascular surgery. Continue Bumex Qualifiers: Hypertension type: essential hypertension Qualified Code(s): I10 - Essential (primary) hypertension (3) NSTEMI (non-ST elevated myocardial infarction) Current Visit: Yes Status: Acute As per primary. (4) Chest pain Current Visit: Yes Status: Acute As per primary Qualifiers: Chest pain type: chest pain due to myocardial ischemia Ischemic chest pain type: unspecified angina pectoris type Qualified Code(s): I25.9 - Chronic ischemic heart disease, unspecified Subjective Principal diagnosis: NSTEMI, a.fib RVR Interval history: Pt was s/e much earlier today (delayed note entry). The pt reported feeling comfortable while sitting in his bedside 2A chair. He said that he's long been a dialysis pt of Dr. Venegas but only Twice Weekly. He did not report active N/ V or F/C and reported having no issues with his dialysis access. He dialyzes in [place], [place], he said. Objective - Vital Signs Vital signs: Vital Signs Temp Pulse Resp BP Pulse Ox 05/30/18 16:56 97.8 F 110 16 151/90 100 05/30/18 16:15 97.7 F 18 158/68 05/30/18 16:00 135/68 05/30/18 15:45 125/76 05/30/18 15:30 122/76 05/30/18 15:15 136/60 05/30/18 15:00 147/73 05/30/18 14:45 137/75 05/30/18 14:30 128/84 10/08/18 14:15 132/70 05/30/18 14:00 124/68 05/30/18 13:45 133/70 05/30/18 13:30 120/70 05/30/18 13:15 144/70 05/30/18 13:00 126/58 05/30/18 12:45 125/76 05/30/18 12:30 97.0 F L 18 127/75 05/30/18 11:35 97.6 F 74 16 125/80 98 05/30/18 08:01 98.3 F 98 16 142/76 99 05/30/18 05:09 97.7 F 90 16 115/64 97 05/30/18 01:00 97.9 F 80 16 151/75 97 05/29/18 19:38 97.7 F 77 16 149/87 96 Intake and Output 05/30/18 05/30/18 05/30/18 07:59 15:59 23:59 Intake Total 369 / 369 1041.2 / 1041.2 230 / 230 Output Total 400 / 400 3600 / 3600 Balance -31 / -31 1041.2 / 1041.2 -3370 / -3370 Intake: IV Fluids 369 / 369 201.2 / 201.2 230 / 230 Heparin 25,000 UNIT/500 ML D5W 369 / 369 201.2 / 201.2 230 / 230 25,000 unit In 500 ml @ 14 UNIT /KG/HR 33.292 mls/hr IVC . Q15H2M [facility] Rx#:[id number] Oral 240 / 240 Intake, Rinseback and Flushes 600 / 600 Output: Urine 400 / 400 0 / 0 Total Dialysis (HD) Output 3600 / 3600 Other: Meal Breakfast Percent of Meal Consumed 90% Weight 118.7 kg 118.7 kg Blood Glucose* 189 125 Hemodialysis Net Fluid Removed 3369 3000 (mL) Patient Weight 05/30/18 23:59 Weight 118.7 kg - General Appearance General appearance: Present: well-developed, well-nourished, appears started age EENT: Present: ATNC, PERRL, mucous membranes moist Neck: Present: supple Respiratory: Present: clear Cardiology: Present: no edema, regular rate, regular rhythm, normal S1, normal S2 Gastrointestinal: Present: normoactive bowel sounds, no tenderness, no guarding Integumentary: Present: no rash, warm and dry Neurologic: Present: no focal deficit, no asterixis, alert and oriented x3 Musculoskeletal: Present: no deformities, no erythema, no cyanosis Psychiatric: Present: mood/affect appropriate, cooperative - Lab 05/30/18 05:33 05/30/18 05:33 Most recent lab results Calcium 8.3 mg/dL (8.6-10.3) L 05/30/18 05:33 Phosphorus 4.3 mg/dL (2.7-4.5) 05/26/18 04:36 Magnesium 1.9 mg/dL (1.6-2.6) 05/26/18 04:36 Consult Discharge Plan - Plan Referrals: Yari Rader, [employer] [Primary Care Provider] -
[2018-05-31] MEDS: Heparin 25,000 UNIT/500 ML D5W 25,000 UNIT/500 ML BAG IVC SCH (03:15)
[2018-05-31 04:09] LABS: Basophils % 0.2 %; Eosinophils # 0.2 K/mcL (0.0-0.6); Eosinophils % 2.5 %; Hematocrit 29.4 % (37.5-50.1); Immature Granulocytes % 0.2 % (0-4); Lymphocytes # 1.5 K/mcL (0.6-4.6); Lymphocytes % 18.4 %; Mean Corpuscular Hemoglobin 29.9 pg (28.0-33.3); Mean Corpuscular Volume 87.8 fL (83.0-100.0); Mean Platelet Volume 9.4 fL (9.4-12.4); Monocytes # 0.6 K/mcL (0.0-1.3); Monocytes % 7.5 %; Neutrophils # 5.7 K/mcL (1.6-8.9); Platelet Count 114 K/mcL (140-400); Red Blood Count 3.35 M/mcL (4.19-5.50); Red Cell Distribution Width 12.7 % (11.5-14.5); Segmented Neutrophils % 71.2 %
[2018-05-31 04:30] LABS: Calcium 8.6 mg/dL (8.6-10.3); Potassium 4.2 mEq/L (3.5-5.1)
[2018-05-31] MEDS ORDERED: Chlorhexidine Rinse 15 ML MOUTHWASH MM ONE (05:43)
[2018-05-31] MEDS ORDERED: Norepinephrine 4 MG in D5% in Water 250 ML IVC PRN (06:00)
[2018-05-31] MEDS ORDERED: Heparin 15,000 UNIT in 0.9 % Sodium Chloride 500 ML IV ONE (06:00)
[2018-05-31] MEDS ORDERED: Dextrose 50 % in Water (Vial) 30 ML, Sodium Bicarbonate 20 MEQ, Lidocaine 1% 5 ML, Insu... TH ONE ×3 (06:00)
[2018-05-31] MEDS ORDERED: Dextrose 50 % in Water (Vial) 30 ML, Sodium Bicarbonate 20 MEQ, Potassium Chloride 15 M... TH ONE (06:00)
[2018-05-31] MEDS ORDERED: Insulin Human Regular 100 UNIT in 0.9 % Sodium Chloride 100 ML IV PRN (06:00)
[2018-05-31] MEDS: Aspirin Enteric Coated 81 MG Tablet PO SCH (06:17)
[2018-05-31] MEDS ORDERED: NiCARdipine 2.5 MG/10 ML Syringe IVPB ONE (06:40)
[2018-05-31] MEDS ORDERED: Nitroglycerin 25 MG/250 ML INFUS..BTL IVC ONE (06:40)
[2018-05-31] MEDS ORDERED: *HR* Etomidate 20 MG/10 ML AMPUL IVP ONE (06:50)
[2018-05-31] MEDS ORDERED: *HR* PHENYLEPHRINE 1,000 MCG/10 ML SYRINGE IVP ONE ×2 (06:50→11:41)
[2018-05-31] MEDS ORDERED: *HR* Rocuronium Bromide 50 MG/5 ML VIAL ONE (06:50)
[2018-05-31] MEDS ORDERED: Famotidine 20 MG/2 ML VIAL ONE (06:50)
[2018-05-31] MEDS ORDERED: Tranexamic Acid 1,000 MG/10 ML VIAL ONE ×2 (06:51→09:58)
[2018-05-31] MEDS ORDERED: Protamine Sulfate 250 MG/25 ML VIAL IVP ONE (06:51)
[2018-05-31] MEDS ORDERED: *HR* FentaNYL (PF) 1,000 MCG/20 ML VIAL ONE (06:56)
[2018-05-31] MEDS ORDERED: *HR* Midazolam HCl 5 MG/5 ML VIAL IVP ONE ×2 (06:56→11:56)
[2018-05-31] MEDS ORDERED: CeFAZolin Syr 2,000MG/20 ML 2,000 MG/20 ML SYRINGE IVPB ONE (07:00)
[2018-05-31 08:41] LABS: ABG Base Excess -1 mEq/L (-2 to 3); ABG Chloride 103 mEq/L (98-107); ABG Glucose 137 mg/dL (60-95); ABG HCO3 26 mEq/L (21-27); ABG Oxygen Saturation 100 % (95-98); ABG PCO2 51 mmHg (35-45); ABG PH 7.32 pH Units (7.32-7.45); ABG PO2 183 mmHg (85-104); ABG TCO2 28 mEq/L (20-26)
[2018-05-31 08:58] LABS: ABG Base Excess -1 mEq/L (-2 to 3); ABG Chloride 98 mEq/L (98-107); ABG Glucose 148 mg/dL (60-95); ABG HCO3 24 mEq/L (21-27); ABG Ionized Calcium 1.03 mmol/L (1.15-1.35); ABG Oxygen Saturation 99 % (95-98); ABG PCO2 39 mmHg (35-45); ABG PO2 158 mmHg (85-104); ABG TCO2 25 mEq/L (20-26)
--- NOTE | 2018-05-31 09:02 | Anesthesia Procedures ---
Date of Encounter: 05/31/18 Time of Encounter: 07:50 Procedures: Anesthesia - Arterial Line Consent obtained: written consent Time out performed: Yes Sedation: Versed (mg): 2 Sedation: Fentanyl (mcg): 100 Supplemental Oxygen via Nasal Cannula (L/min): 2 Local Anesthetic: Lidocaine 1% Amount of Anesthetic used (mls): 1 Size (Gauge): 20 Length (inches): 5 Technique Used: sterile prep, guide wire technique, direct puncture technique Post-Procedure: line taped into place, dry sterile dressing placed Patient tolerated procedure: well, no complications Complications: none Site: Radial R - Central Line Placement Right IJ Consent obtained: written consent Time out performed: Yes Patient placed on monitor/pulse ox: Yes prep: mask, gown, gloves Central line prep: Chlorhexidine scrub Ultrasound used for placement: Yes Technique: Seldinger Lumen Inserted: Introducer Post procedure: sutured in place, good blood return Patient tolerated procedure: well, no complications Complications: none Comments: Introducer placed easily. Gary placed without arrythmia, wedge approx 60cm
[2018-05-31] MEDS ORDERED: Amiodarone Premix 360 MG/200 ML BAG IVC ONE ×2 (09:47→12:41)
[2018-05-31] MEDS ORDERED: *HR* Amiodarone 150 MG/3 ML VIAL IVPB ONE (09:47)
[2018-05-31 10:01] LABS: ABG Base Excess -4 mEq/L (-2 to 3); ABG Chloride 108 mEq/L (98-107); ABG Glucose 145 mg/dL (60-95); ABG HCO3 21 mEq/L (21-27); ABG Ionized Calcium 0.74 mmol/L (1.15-1.35); ABG Oxygen Saturation 99 % (95-98); ABG PCO2 38 mmHg (35-45); ABG PH 7.35 pH Units (7.32-7.45); ABG PO2 135 mmHg (85-104); ABG TCO2 22 mEq/L (20-26)
[2018-05-31 10:23] LABS: ABG Base Excess 3 mEq/L (-2 to 3); ABG Chloride 94 mEq/L (98-107); ABG Glucose 210 mg/dL (60-95); ABG HCO3 27 mEq/L (21-27); ABG Ionized Calcium 0.93 mmol/L (1.15-1.35); ABG Oxygen Saturation 100 % (95-98); ABG PCO2 38 mmHg (35-45); ABG PH 7.46 pH Units (7.32-7.45); ABG PO2 455 mmHg (85-104); ABG TCO2 28 mEq/L (20-26)
[2018-05-31] MEDS ORDERED: Albumin Human 5% 50.0 GM/1,000 ML VIAL ONE (10:30)
--- NOTE | 2018-05-31 10:38 | Event Note ---
Date of Encounter: 05/31/18 Time of Encounter: 10:38 Patient was off to the operating room prior to evaluation. Hospitalist will sign off, care transferred to the cardiothoracic team
--- NOTE | 2018-05-31 10:58 | Event Note ---
Date of Encounter: 05/31/18 Time of Encounter: 09:00 Nephrology He was off the floor in the OR earlier today. He had HD yesterday. I will reassess him tomorrow in case if extra dialysis may be needed post-op. Prior to admission, though, he was only on twice weekly dialysis.
[2018-05-31 11:03] LABS: VBG Base Excess 4 mEq/L; VBG Chloride 95 mEq/L (98-107); VBG Glucose 192 mg/dl (65-95); VBG HCO3 27 mEq/L (21-27); VBG Ionized Calcium 0.95 mmol/L (1.15-1.35); VBG Oxygen Saturation 100 %; VBG PCO2 36 mmHg (41-51); VBG PH 7.49 pH Units (7.32-7.42); VBG PO2 300 mmHg (25-50); VBG Total CO2 28 mEq/L
[2018-05-31 11:29] LABS: ABG Base Excess 0 mEq/L (-2 to 3); ABG Chloride 97 mEq/L (98-107); ABG Glucose 130 mg/dL (60-95); ABG HCO3 24 mEq/L (21-27); ABG Ionized Calcium 0.92 mmol/L (1.15-1.35); ABG Oxygen Saturation 100 % (95-98); ABG PCO2 36 mmHg (35-45); ABG PH 7.43 pH Units (7.32-7.45); ABG PO2 329 mmHg (85-104); ABG TCO2 25 mEq/L (20-26)
[2018-05-31] MEDS: Norepinephrine 4 MG in D5% in Water 250 ML IVC SCH (11:30)
[2018-05-31 11:45] LABS: ABG Base Excess -7 mEq/L (-2 to 3); ABG Chloride 109 mEq/L (98-107); ABG Glucose 92 mg/dL (60-95); ABG HCO3 19 mEq/L (21-27); ABG Ionized Calcium 0.83 mmol/L (1.15-1.35); ABG Oxygen Saturation 84 % (95-98); ABG PCO2 36 mmHg (35-45); ABG PH 7.33 pH Units (7.32-7.45); ABG PO2 52 mmHg (85-104); ABG TCO2 20 mEq/L (20-26)
[2018-05-31] MEDS ORDERED: *HR* FentaNYL (PF) 250 MCG/5 ML VIAL ONE (11:56)
--- NOTE | 2018-05-31 12:40 | Operative Note ---
Date of procedure: 05/31/18 Pre-op diagnosis: 1. CAD 2. Paroxysmal atrial fibrillation Post-op diagnosis: same Procedure: 1. CABG 3 (MORRIS to LAD, SVG to ramus intermediate branch, SVG to PDA). 2. Modified Maze procedure using radiofrequency ablation. 3. Left atrial appendage stapling. 4. Endoscopic vein harvesting, greater saphenous vein from left lower extremity. Implants: None. Complications: None. [facility] Sur[facility]: Bill Ye Was there an preschool assistant director present: Yes Sewer Separation Designer: Bg Arana Estimated blood loss (cc): 500 Specimen: None. Condition: stable Disposition: ICU Procedure in Detail: INDICATION FOR OPERATION: The patient is a 58 year old type II diabetic, hypertensive man with known CAD and end-stage renal disease requiring hemodialysis. The patient's cardiac history dates back to 2009 at which time he underwent precarious catheter intervention and stent placement. He states that he did well until approximately 2 months ago when he began experiencing epigastric discomfort. During this time the epigastric discomfort has increased in both frequency and severity. Currently, the patient describes epigastric discomfort radiating to his chest and down his left arm. The symptoms can occur both with activity and at rest. He had a severe episode of epigastric discomfort and substernal chest pain on 05/25/2018. At that time described a having sensation sensation going straight through to his back. He was evaluated at [facility] emergency department and found to have atrial fibrillation with a rapid ventricular response. His troponin I level was elevated and the patient was admitted for further cardiac workup. The patient underwent a transthoracic echocardiogram which failed an LVEF 55-60 % mild diastolic dysfunction. No significant valvular dysfunction was noted. Subsequent cardiac catheterization revealed severe 3 vessel CAD and an LVEF 40% . In particular, the patient had a 95% mid LAD lesion, 90% proximal D1 lesion, a 95% mid LCx lesion, a 70% mid RCA lesion, and a 70% distal RCA lesion. The patient has been recommended for combined CABG and modified Maze procedure with left atrial appendage stapling. FINDINGS AT OPERATION: The aorta is normal caliber without calcification. The coronary arteries measured proximally 1.5-2 mm in diameter and had minimal distal disease. The greater saphenous vein was harvested endoscopically from the left lower extremity from the knee to the groin and was of fair quality, being varicosed areas. The total bypass time was 79 minutes, cross-clamp time 48 minutes, intentional hypothermia of 34.9 degrees centigrade. DESCRIPTION OF OPERATION: After obtaining informed operative consent from the patient, he was taken to the operating room where a satisfactory general endotracheal anesthetic was induced. Appropriate monitoring lines placed, and the patient's chest, abdomen , and lower extremities were prepped and draped in a sterile fashion. The greater saphenous vein was harvested endoscopically from the left lower extremity from the knee to the groin. The vein was removed, distended, and found to be of fair quality. The vein was varicosed in areas. The simultaneous tissue and skin edges were reapproximated running Vicryl sutures. Simultaneously, a standard median sternotomy incision was made and the sternum divided. The MORRIS was taken down from its bed and side branches divided between hemoclips. The sternum was the pericardium opened and reflected laterally. The patient was prepared for cannulation by placing pursestring sutures the distal ascending aorta, mid-ascending aorta, and right atrial appendage. The patient was heparinized and when the ACT was greater than 200 seconds, the distal ascending aorta was cannulated followed by placement of a dual stage venous cannula through the right atrial appendage and into the inferior vena cava. A stab-in antegrade metabolic and is placed in the mid-ascending aorta. The patient was placed on bypass and the temperature allowed to drift to 34.9 degrees centigrade. The distal targets were identified and the aorta was crossclamped. The patient received 700 mL of cold antegrade crystalloid cardioplegia and the patient's heart obtained rapid diastolic arrest. The right inferior and superior pulmonary veins were encircled with a red rubber catheter and a transmural radiofrequency ablation lesion was applied. The PDA was then opened be blade and the vein was anastomosed in an end-to-side fashion using running 7-0 Prolene suture. The anastomosis found to be hemostatic and the patient received another dose of cold antegrade crystalloid cardioplegia through the aortic root. The left inferior and superior pulmonary veins were encircled with a red rubber catheter and a transmural radiofrequency ablation lesion was applied. The ramus intermediate branch was found to be myocardial throughout most of its course and this was exposed by dividing the epicardium. The ramus intermediate branch was opened with a [place] blade and the vein was anastomosed in an end-to-side fashion using running 7-0 Prolene suture. The anastomosis found to be hemostatic. Seated final dose of cold antegrade Crisler cartilage up to the aortic root. The LAD was then opened with a [place] blade and the MORRIS was anastomosed to the LAD in an end-to-side fashion using running 7-0 Prolene suture. The anastomosis found to be hemostatic and the mammary pedicle was tacked to the epicardium using interrupted 5-0 silk suture. Rewarming was begun during this anastomosis. The aortic cross-clamp was released and the heart distended. The veins were measured and cut appropriate lengths. A partial occluding clamps placed across the mid ascending aorta and the antegrade cardioplegia cannula was removed. An additional aortotomy site was made 11 blade and both sites were enlarged with 4 mm punch. The veins were anastomosed in an end-to-side fashion to the aorta using a running 5-0 Prolene suture. The vein grafts were occluded with bulldog clamps and de-aired the 25-gauge needle prior to removing the partial occluding clamp. The proximal distal anastomoses were found to be hemostatic and the proximal anastomoses were marked with radiopaque loops. Two sets of temporary epicardial pacing wires were placed, one atrial and one ventricular. Three chest tubes were placed, 2 in the mediastinum and one into the left pleural space. During rewarming the patient's heart rhythm degenerated to ventricular fibrillation and required several 10 and 20 J direct-current shocks in order to be normal sinus rhythm. An amiodarone loading dose followed by a and tenuous amiodarone drip was started both for the ventricular dysrhythmia as well as the preoperative atrial fibrillation. When the patient's systemic temperature reached 36 degrees centigrade he was ventilated and received volume. He was weaned from bypass required no inotropic support. Protamine was administered and the aortic and venous cannulae were removed. Pursestring sutures were secured. The venous cannulation site was reinforced with a running 4-0 Prolene suture. The pericardium was loosely approximated in midline using interrupted 0 silk suture. The sternum was reapproximated using doubled wires. The pectoralis major fascia, rectus abdominis fascia, subtenon' s tissue, and skin edges were reapproximated using running Vicryl sutures. A negative pressure sterile dressing was applied to the sternotomy incision. The patient was transferred to the ICU in satisfactory postoperative condition. There were no intraoperative complications, and the instrument, needle, and sponge count were corrected at end of operation. - Open Heart Detail BRENNEN (Internal Mammary Artery) Usage: Yes Cardiopulmonary Bypass Time (mins): 79 Aortic Cross Clamp Time (mins): 48 Intentional Hypothermia Temperature (C.): 34.9
[2018-05-31] MEDS ORDERED: Acetaminophen 650 MG RECTAL SUPP RC PRN (12:41)
[2018-05-31] MEDS ORDERED: Insulin Regular, Human 100 UNIT/ML IV PRN (12:41)
[2018-05-31] MEDS ORDERED: Acetaminophen 325 MG TABLET PO PRN (12:41)
[2018-05-31] MEDS ORDERED: *HR* Dextrose 50 % in Water (Syg) 50 ML SYRINGE IVP PRN (12:41)
[2018-05-31] MEDS ORDERED: Ondansetron 4 MG/2 ML VIAL IVP PRN (12:41)
[2018-05-31] MEDS ORDERED: Calcium Chloride 1,000 MG in 0.9 % Sodium Chloride 100 ML IVPB PRN (12:41)
[2018-05-31] MEDS ORDERED: 0.9 % Sodium Chloride 1,000 ML IVC SCH (12:45)
[2018-05-31 13:07] LABS: ABG Base Excess -2 mEq/L (-2 to 3); ABG HCO3 24 mEq/L (21-27); ABG Oxygen Saturation 96 % (95-98); ABG PCO2 41 mmHg (35-45); ABG PH 7.37 pH Units (7.32-7.45); ABG PO2 84 mmHg (85-104); ABG TCO2 25 mEq/L (20-26); Blood Gas Modality VC; Blood Gas PEEP 5 cm H2O; Blood Gas Respiration Rate 10; Blood Gas VT 600 cc
[2018-05-31 13:15] LABS: Monocytes % 5.3 %
[2018-05-31 13:17] LABS: Basophils % 0.3 %; Eosinophils # 0.2 K/mcL (0.0-0.6); Eosinophils % 1.1 %; Hematocrit 30.6 % (37.5-50.1); Hemoglobin 10.4 g/dL (12.9-16.9); Immature Granulocytes % 0.8 % (0-4); Immature Platelets 2.4 % (1.1-6.1); Lymphocytes # 1.2 K/mcL (0.6-4.6); Lymphocytes % 8.5 %; Mean Corpuscular Hemoglobin 30.1 pg (28.0-33.3); Mean Corpuscular Volume 88.4 fL (83.0-100.0); Mean Platelet Volume 8.8 fL (9.4-12.4); Monocytes # 0.8 K/mcL (0.0-1.3); Neutrophils # 11.9 K/mcL (1.6-8.9); Platelet Count 110 K/mcL (140-400); Red Blood Count 3.46 M/mcL (4.19-5.50); Red Cell Distribution Width 13.3 % (11.5-14.5)
[2018-05-31 13:22] LABS: INR 1.4; Prothrombin Time 15.9 Seconds (9.4-12.1)
[2018-05-31 13:25] LABS: Activated Partial Thrombo Time 34.1 Seconds (26.0-36.0)
[2018-05-31 13:31] LABS: Calcium 7.9 mg/dL (8.6-10.3); Magnesium 2.3 mg/dL (1.6-2.6); Potassium 4.2 mEq/L (3.5-5.1)
[2018-05-31] MEDS ORDERED: Mannitol 25% vial 12.5 GM/50 ML VIAL IVP ONE (13:42)
[2018-05-31] MEDS ORDERED: Lidocaine 2% Syringe 100 MG/5 ML IV ONE (13:42)
[2018-05-31] MEDS ORDERED: Sodium Bicarbonate 50 MEQ/50 ML VIAL IVC ONE (13:42)
[2018-05-31] MEDS ORDERED: Albumin Human 25% 25 GM/100 ML IV.SOLN IV ONE (13:42)
[2018-05-31] MEDS ORDERED: Tranexamic Acid 1,000 MG/10 ML VIAL IVPB ONE (13:42)
[2018-05-31] MEDS ORDERED: *HR* Heparin 10,000 UNIT/10 ML VIAL IV ONE (13:42)
[2018-05-31] MEDS ORDERED: *HR* Magnesium Sulfate 2 GM/50 ML PIGGYBACK IVPB ONE (13:42)
[2018-05-31] MEDS ORDERED: *HR* Phenylephrine 10 MG/ML VIAL IVC ONE (13:42)
[2018-05-31] MEDS: Bumetanide 1 MG TABLET PO SCH (13:53)
[2018-05-31] MEDS: niCARdipine 40 MG/200 ML MLS IVC SCH ×2 (13:54→14:19)
[2018-05-31] MEDS: Insulin Human Regular 100 UNIT in 0.9 % Sodium Chloride 100 ML IVC SCH ×2 (13:54→15:07)
[2018-05-31] MEDS: Amiodarone Premix 360 MG/200 ML BAG IVC SCH ×2 (13:57→17:11)
[2018-05-31] MEDS: Pantoprazole 40 MG VIAL IVP SCH (14:03)
[2018-05-31] MEDS: Nitroglycerin 25 MG/250 ML INFUS..BTL IVC SCH ×2 (14:15→19:36)
[2018-05-31] MEDS: *HR* FentaNYL (PF) 100 MCG/2 ML VIAL IVP PRN (14:15)
[2018-05-31] MEDS: Diltiazem CD (24hr) 120 MG CAPSULE PO SCH (14:21)
[2018-05-31] MEDS: Insulin LISPRO 300 UNITS/3 ML VIAL SQ SCH ×2 (14:21→15:06)
[2018-05-31 17:05] LABS: ABG Base Excess -1 mEq/L (-2 to 3); ABG HCO3 24 mEq/L (21-27); ABG Oxygen Saturation 93 % (95-98); ABG PCO2 40 mmHg (35-45); ABG PH 7.38 pH Units (7.32-7.45); ABG PO2 68 mmHg (85-104); ABG TCO2 25 mEq/L (20-26); Blood Gas Modality VC; Blood Gas PEEP 5 cm H2O; Blood Gas Respiration Rate 10; Blood Gas VT 600 cc
[2018-05-31] MEDS: Metoclopramide 10 MG/2 ML VIAL IVP SCH ×2 (17:12→23:14)
--- NOTE | 2018-05-31 19:18 | Electrocardiograph Report ---
[address] [address] Test Date: 2018-05-31 Pat Name: Kip Bess Department: 112 Room: 02 Gender: M Warm In Worker: RASHAD : 1960 Requested By: Shasta Ye Order Number: [id number] Reading MD: Ivan Beltran Measurements Intervals [place] Rate: 80 P: 138 TX: 155 QRS: 100 QRSD: 202 T: 114 QT: 511 QTc: 546 Interpretive Statements ELECTRONIC ATRIAL PACEMAKER ELECTRONIC VENTRICULAR PACEMAKER ABNORMAL RHYTHM ECG Electronically Signed On 05-31-2018 19:16:59 EDT by Ivan Beltran
[2018-05-31] MEDS: Chlorhexidine Rinse 15 ML MOUTHWASH MM SCH (19:37)
[2018-05-31] MEDS: *HR* OxyCODONE/APAP 5/325 TABLET PO PRN (19:37)
[2018-05-31 21:03] LABS: ABG Base Excess -1 mEq/L (-2 to 3); ABG HCO3 23 mEq/L (21-27); ABG Oxygen Saturation 99 % (95-98); ABG PCO2 37 mmHg (35-45); ABG PH 7.41 pH Units (7.32-7.45); ABG PO2 114 mmHg (85-104); ABG TCO2 25 mEq/L (20-26); Blood Gas Modality PRVC; Blood Gas PEEP 5 cm H2O; Blood Gas Respiration Rate 10; Blood Gas VT 600 cc
[2018-05-31 23:01] LABS: ABG Base Excess 0 mEq/L (-2 to 3); ABG HCO3 25 mEq/L (21-27); ABG Oxygen Saturation 100 % (95-98); ABG PCO2 40 mmHg (35-45); ABG PO2 187 mmHg (85-104); ABG TCO2 26 mEq/L (20-26); Blood Gas Modality CPAP/PS; Blood Gas PEEP 5 cm H2O; Blood Gas Pressure Support 5 cm H2O
[2018-06-01 01:08] LABS: ABG Base Excess -3 mEq/L (-2 to 3); ABG HCO3 22 mEq/L (21-27); ABG Oxygen Saturation 99 % (95-98); ABG PCO2 38 mmHg (35-45); ABG PH 7.38 pH Units (7.32-7.45); ABG PO2 121 mmHg (85-104); ABG TCO2 23 mEq/L (20-26)
[2018-06-01] MEDS: Amiodarone Premix 360 MG/200 ML BAG IVC SCH (03:50)
[2018-06-01] MEDS: *HR* OxyCODONE/APAP 5/325 TABLET PO PRN ×5 (04:17→23:51)
[2018-06-01 04:26] LABS: INR 1.2; Prothrombin Time 13.5 Seconds (9.4-12.1)
[2018-06-01 04:27] LABS: Eosinophils % 0.1 %; Immature Granulocytes % 0.4 % (0-4); Mean Corpuscular Hemoglobin 29.8 pg (28.0-33.3)
[2018-06-01 04:29] LABS: Activated Partial Thrombo Time 34.7 Seconds (26.0-36.0); Basophils % 0.3 %; Hematocrit 31.8 % (37.5-50.1); Hemoglobin 10.5 g/dL (12.9-16.9); Lymphocytes # 0.5 K/mcL (0.6-4.6); Mean Corpuscular Volume 90.3 fL (83.0-100.0); Mean Platelet Volume 9.4 fL (9.4-12.4); Monocytes # 0.6 K/mcL (0.0-1.3); Monocytes % 5.7 %; Neutrophils # 8.7 K/mcL (1.6-8.9); Platelet Count 105 K/mcL (140-400); Red Blood Count 3.52 M/mcL (4.19-5.50); Red Cell Distribution Width 13.5 % (11.5-14.5); Segmented Neutrophils % 88.5 %
[2018-06-01 04:42] LABS: Calcium 8.3 mg/dL (8.6-10.3); Magnesium 2.2 mg/dL (1.6-2.6); Potassium 5.2 mEq/L (3.5-5.1)
[2018-06-01] MEDS: Nitroglycerin 25 MG/250 ML INFUS..BTL IVC SCH ×4 (04:49→23:15)
[2018-06-01] MEDS: niCARdipine 40 MG/200 ML MLS IVC SCH ×3 (04:49→20:09)
[2018-06-01] MEDS: Metoclopramide 10 MG/2 ML VIAL IVP SCH ×4 (04:50→23:46)
--- NOTE | 2018-06-01 06:16 | Cardiothoracic Progress Note ---
Date of Encounter: 06/01/18 Time of Encounter: 06:14 - Assessment and plan (1) CAD (coronary artery disease) Current Visit: Yes Status: Chronic The patient is recovering well from his CABG3 and modified Maze procedure with left atrial appendage stapling. He is currently extubated and breathing comfortably. He is sitting in a chair at the bedside and has no complaints. The arterial line, So catheter, and [place] catheter be removed. The patient will be monitored in the ICU today. The assessment and plan as outlined above was discussed with the patient and/or family members who expressed understanding and agreement. All questions were answered. Qualifiers: Coronary Disease-Associated Artery/Lesion type: [place] artery [place] vs. transplanted heart: [place] heart Associated angina: with unstable angina Qualified Code(s): I25.110 - Atherosclerotic heart disease of [place] coronary artery with unstable angina pectoris - Subjective Procedure(s) Performed: POD#1 S/P CABG3, modified Maze procedure Interval history: The patient remained hemodynamically stable overnight. He is currently extubated and breathing comfortably. He is sitting in a chair at the bedside. He has no complaints. Vital Signs, Last 4 Hours Temp Pulse Resp BP Pulse Ox 06/01/18 06:00 99.3 F 70 17 106/42 97 06/01/18 05:00 99.1 F 70 22 113/50 97 06/01/18 04:00 99.5 F 70 19 135/58 98 06/01/18 03:53 14 98 06/01/18 03:00 99.5 F 70 20 131/57 98 Oxgyen Flow Rate Oxygen Flow Rate (LPM) 2 Clinical Data, last 8 Hours Output, Chest Tube Drainage 25 Amount [Mediastinal #2] Output, Chest Tube Drainage 5 Amount [Mediastinal #2] Output, Chest Tube Drainage 5 Amount [Mediastinal #2] Output, Chest Tube Drainage 5 Amount [Mediastinal #2] Output, Chest Tube Drainage 5 Amount [Mediastinal #2] Output, Chest Tube Drainage 5 Amount [Mediastinal #2] Output, Chest Tube Drainage 5 Amount [Mediastinal #2] Output, Chest Tube Drainage 5 Amount [Mediastinal #2] Output, Chest Tube Drainage 17 Amount [Mediastinal #1] Output, Chest Tube Drainage 3 Amount [Mediastinal #1] Output, Chest Tube Drainage 5 Amount [Mediastinal #1] Output, Chest Tube Drainage 5 Amount [Mediastinal #1] Output, Chest Tube Drainage 5 Amount [Mediastinal #1] Output, Chest Tube Drainage 5 Amount [Mediastinal #1] Output, Chest Tube Drainage 5 Amount [Mediastinal #1] Weight 05/30/18 05/31/18 06/01/18 23:59 23:59 23:59 Weight 118.7 kg 119.1 kg - Physical Examination General: Conversant, No Apparent Distress Neck: No JVD, Normal carotid pulses Cardiac: Reg Rate and Rhythm (A-paced), Normal S1 and S2, No Murmur Incision: No signs of infection, Dry/intact dressing Sternum: Stable Chest tubes: Minimal drainage, Other (No air leak) Pacing Wires: In place Lungs: Normal Breath Sounds, No Wheeze, Rales, Rhonchi Neuro: Alert and responsive, No focal deficits noted Vascular: Normal capillary refill Extremities: No Clubbing, No Cyanosis, No Edema - Labs 06/01/18 03:50 06/01/18 03:50 Lab Results, Last 24 hours 05/31/18 05/31/18 05/31/18 13:00 13:00 13:00 WBC 14.2 H D Hgb 10.4 L Hct 30.6 L Plt Count 110 L INR 1.4 APTT 34.1 Sodium 134 L Potassium 4.2 Chloride 99 Carbon Dioxide 26 BUN 37 H Creatinine 3.51 H Glucose 120 H Calcium 7.9 L Magnesium 2.3 05/31/18 06/01/18 06/01/18 19:00 03:50 03:50 WBC 9.8 Hgb 10.5 L Hct 31.8 L Plt Count 105 L INR APTT Sodium 134 L Potassium 5.2 H Chloride 100 Carbon Dioxide 21 L BUN 44 H Creatinine 4.25 H Glucose 140 H Calcium 8.4 L 8.3 L Magnesium 2.2 06/01/18 03:50 WBC Hgb Hct Plt Count INR 1.2 APTT 34.7 Sodium Potassium Chloride Carbon Dioxide BUN Creatinine Glucose Calcium Magnesium - VTE Documentation of Mechanical Device: Graduated compression elastic hosiery Consult Discharge Plan - Plan Referrals: Yari Rader, DISPATCHER SERVICE [Primary Care Provider] -
[2018-06-01] MEDS: Pantoprazole 40 MG VIAL IVP SCH (08:24)
[2018-06-01] MEDS: Chlorhexidine Rinse 15 ML MOUTHWASH MM SCH ×2 (08:25→20:08)
[2018-06-01] MEDS: Bumetanide 1 MG TABLET PO SCH ×2 (08:26→09:06)
[2018-06-01] MEDS ORDERED: Aspirin Enteric Coated 81 MG Tablet PO SCH (09:00)
[2018-06-01] MEDS: *HR* FentaNYL (PF) 100 MCG/2 ML VIAL IVP PRN (09:06)
[2018-06-01] MEDS: Norepinephrine 4 MG in D5% in Water 250 ML IVC SCH (10:07)
--- NOTE | 2018-06-01 10:43 | Nephrology Progress Note ---
Date of Encounter: 06/01/18 Time of Encounter: 08:40 - Assessment and Plan (1) ESRD (end stage renal disease) Current Visit: Yes Status: Chronic ESRD on twice weekly HD (Wednesday and Wednesday), with last HD that was arranged on Wednesday. He is s/p CABG yesterday (Wednesday) and since his volume status is not fluid overloaded nor does he appear to have uremia on exam, I will not arrange for extra dialysis today (Wednesday). I do recommend resuming his Bumex, which will help maintain his volume status ( he affirmed that he still makes lots of urine), and thereby this will help with the mild hypervolemic hyponatremia. Plus Bumex will help lower the serum K+ which was at 5.2, as loop diuretics do via a kaliuresis effect. Discussed with the COLLECTION SYSTEMS TECHNICIAN in detail, and she reported that his home Rx of Bumex is listed to resume today at 0900, and I agree. Will continue to follow with you. (2) Hypertension Current Visit: Yes Status: Chronic Continue Bumex. Will monitor serum K+ with his low dose EDWAR. Qualifiers: Hypertension type: essential hypertension Qualified Code(s): I10 - Essential (primary) hypertension (3) Hyponatremia Current Visit: Yes Status: Acute See above (4) Hyperkalemia Current Visit: Yes Status: Acute See above (5) NSTEMI (non-ST elevated myocardial infarction) Current Visit: Yes Status: Acute s/p CABG on 05/31/18. Subjective Principal diagnosis: NSTEMI, a.fib RVR Interval history: Pt was s/e earlier today in the ICU bed 2. He reported feeling okay though tired after his surgery from yesterday. His COLLECTION SYSTEMS TECHNICIAN was present and updated me as well. He expressed that he hopes for no extra dialysis today (Wednesday). Objective - Vital Signs Vital signs: Vital Signs Temp Pulse Resp BP Pulse Ox 06/01/18 10:00 60 20 147/96 98 06/01/18 09:00 62 12 147/90 98 06/01/18 08:00 60 14 119/45 97 06/01/18 07:26 60 06/01/18 07:19 16 98 06/01/18 07:00 99.0 F 60 16 111/45 98 06/01/18 06:00 99.3 F 70 17 106/42 97 06/01/18 05:00 99.1 F 70 22 113/50 97 06/01/18 04:00 99.5 F 70 19 135/58 98 06/01/18 03:53 14 98 06/01/18 03:00 99.5 F 70 20 131/57 98 06/01/18 02:00 99.7 F H 70 19 123/52 98 06/01/18 01:00 99.7 F H 70 17 116/51 100 06/01/18 00:00 100.0 F H 71 24 118/53 100 05/31/18 23:36 13 98 05/31/18 23:05 138/63 98 05/31/18 23:00 100.0 F H 70 17 123/56 100 05/31/18 22:19 18 05/31/18 22:00 99.5 F 70 14 114/58 98 05/31/18 21:25 11 108/52 99 05/31/18 21:00 98.8 F 70 19 120/56 100 05/31/18 20:00 98.1 F 70 12 114/58 100 05/31/18 19:38 17 128/57 99 05/31/18 18:54 97.2 F L 70 11 113/52 96 05/31/18 18:00 96.6 F L 70 11 139/63 98 05/31/18 17:06 13 115/53 94 05/31/18 17:00 95.7 F L 80 10 113/52 94 05/31/18 15:43 10 145/62 95 05/31/18 12:46 10 113/57 100 Intake and Output 05/31/18 06/01/18 06/01/18 23:59 07:59 15:59 Intake Total 614.2 / 614.2 1203.8 / 1203.8 25 Output Total 448 / 448 290 / 290 30 / 30 Balance 166.2 / 166.2 913.8 / 913.8 -5 / -5 Intake: IV Fluids 614.2 / 614.2 1158.8 / 1158.8 0.9 % Sodium Chloride 1,000 ML 850 / 850 @ 50 mls/hr IVC .Q20H [facility] Rx#: [id number] Amiodarone Drip Premix 360mg/ 200 / 200 200 / 200 200mL 360 mg In 200 ml @ 0.5 MG /MIN 16.667 mls/hr IVC CONT [facility] Rx#:[id number] HumuLIN R 100 UNIT In 0.9 % 25.2 / 25.2 4.8 / 4.8 Sodium Chloride 100 ML @ 1 UNIT /HR 1.01 mls/hr IVC CONT [facility] Rx #:[id number] Nitroglycerin Premix 25 MG/250 269 / 269 ML 25 mg In 250 ml @ 59.5 MCG/ MIN 35.7 mls/hr IVC .Q7H1M [facility] Rx#:[id number] Cardene Premix 40mg/200ml 40 mg 20 / 20 In 200 ml @ 5 MG/HR 25 mls/hr IVC .Q8H [facility] Rx#:[id number] Magnesium Sulfate 2 GM In 0.9 % 104 / 104 Sodium Chloride 100 ML @ 104 mls/hr IVPB Q5H [facility] Rx#: [id number] Ancef 2,000 MG In 0.9 % Sodium 100 / 100 Chloride 100 ML @ 200 mls/hr IVPB Q8HR [facility] Rx#:[id number] Oral 0 / 0 45 / 45 25 / 25 Output: Catheter 278 / 278 155 / 155 30 / 30 Gastric Drainage 50 / 50 Chest Tube Drainage 120 / 120 135 / 135 0 / 0 Mediastinal #1 75 / 75 65 / 65 0 / 0 Mediastinal #2 45 / 45 70 / 70 0 / 0 Other: Blood Glucose* 121 128 139 - General Appearance General appearance: Present: well-developed, well-nourished, appears started age , fatigue, frail EENT: Present: ATNC, PERRL, mucous membranes moist Neck: Present: supple Respiratory: Present: clear Cardiology: Present: no edema (wearing stockings to the bilaterally LEs. ), regular rate, regular rhythm, normal S1, normal S2 Dialysis Vascular Access: Arteriovenous Graft (Left forearm AVG) bruit: Yes Gastrointestinal: Present: normoactive bowel sounds, no tenderness, no guarding Integumentary: Present: no rash, warm and dry Neurologic: Present: no focal deficit, no asterixis, alert and oriented x3 Musculoskeletal: Present: no erythema, no cyanosis Psychiatric: Present: mood/affect appropriate, cooperative - Lab 06/01/18 03:50 06/01/18 03:50 Most recent lab results ABG pH 7.38 pH Units (7.32-7.45) 06/01/18 01:02 ABG pCO2 38 mmHg (35-45) 06/01/18 01:02 ABG pO2 121 mmHg (85-104) H D 06/01/18 01:02 ABG HCO3 22 mEq/L (21-27) 06/01/18 01:02 ABG O2 Saturation 99 % (95-98) H 06/01/18 01:02 Calcium 8.3 mg/dL (8.6-10.3) L 06/01/18 03:50 Phosphorus 4.3 mg/dL (2.7-4.5) 05/26/18 04:36 Magnesium 2.2 mg/dL (1.6-2.6) 06/01/18 03:50 - VTE Documentation of Mechanical Device: Graduated compression elastic hosiery Consult Discharge Plan - Plan Referrals: Yari Rader, TANK RIVETER [Primary Care Provider] -
[2018-06-01] MEDS: Insulin Human Regular 100 UNIT in 0.9 % Sodium Chloride 100 ML IVC SCH (11:13)
--- NOTE | 2018-06-01 13:08 | Anesthesia Evaluation Post Op ---
Date of Encounter: 06/01/18 Time of Encounter: 12:45 - Vital Signs Vital Signs: Selected Entries 06/01/18 11:00 06/01/18 11:35 Temperature 98.6 F Pulse Rate 55 Respiratory Rate 16 Blood Pressure 116/73 O2 Sat by Pulse Oximetry 94 Oxygen Flow Rate (LPM) 2 - Lungs Lungs: Clear Ascult./Percussion - Airway Airway: Non-obstructed - Cardiovascular Regular Rate (paced) - Mental Status Mental Status: Alert & Oriented, Answers Appropriately - Pain Pain Scale: 3 Pain Scale used: Numeric (1 - 10) - Nausea Vomiting Nausea Vomiting: Not Present - Hydration Hydration: Tolerates oral liquids, So catheter Notes: 06/01/18 13:07 POD #1 CABG, doing well overall. Up in chair. No apparent anesthesia issues. Disposition per CT surgery.
[2018-06-01] MEDS: Insulin LISPRO 300 UNITS/3 ML VIAL SQ SCH ×3 (17:34→23:15)
[2018-06-01] MEDS ORDERED: Insulin DETEMIR 100 UNIT/ML X5UNITS SQ SCH (21:00)
[2018-06-01] MEDS ORDERED: *HR* Amiodarone 200 MG TABLET PO SCH (21:00)
[2018-06-02 03:48] LABS: Basophils % 0.2 %; Hematocrit 31.5 % (37.5-50.1); Hemoglobin 10.5 g/dL (12.9-16.9); Mean Corpuscular HGB Conc 33.3 g/dL (31.6-35.5); Mean Platelet Volume 9.1 fL (9.4-12.4)
[2018-06-02 03:50] LABS: Eosinophils # 0.1 K/mcL (0.0-0.6); Eosinophils % 0.6 %; Immature Granulocytes % 0.5 % (0-4); Immature Platelets 2.1 % (1.1-6.1); Lymphocytes # 0.8 K/mcL (0.6-4.6); Lymphocytes % 8.1 %; Mean Corpuscular Hemoglobin 30.2 pg (28.0-33.3); Mean Corpuscular Volume 90.5 fL (83.0-100.0); Monocytes # 0.8 K/mcL (0.0-1.3); Monocytes % 7.9 %; Neutrophils # 8.5 K/mcL (1.6-8.9); Platelet Count 105 K/mcL (140-400); Red Blood Count 3.48 M/mcL (4.19-5.50); Red Cell Distribution Width 13.6 % (11.5-14.5); Segmented Neutrophils % 82.7 %
[2018-06-02] MEDS: niCARdipine 40 MG/200 ML MLS IVC SCH (04:08)
[2018-06-02 04:10] LABS: Calcium 8.6 mg/dL (8.6-10.3); Potassium 4.9 mEq/L (3.5-5.1)
[2018-06-02] MEDS: Insulin LISPRO 300 UNITS/3 ML VIAL SQ SCH ×7 (04:11→19:48)
[2018-06-02] MEDS: Metoclopramide 10 MG/2 ML VIAL IVP SCH ×3 (06:06→17:43)
[2018-06-02] MEDS: *HR* OxyCODONE/APAP 5/325 TABLET PO PRN ×3 (06:22→15:44)
--- NOTE | 2018-06-02 07:41 | Cardiothoracic Progress Note ---
Date of Encounter: 06/02/18 Time of Encounter: 07:39 - Assessment and plan (1) CAD (coronary artery disease) Current Visit: Yes Status: Chronic The assessment and plan as outlined above was discussed with the patient and/or family members who expressed understanding and agreement. All questions were answered. The chest tubes were removed. We will check a stat portable chest x-ray. We will transfer the patient to the floor. Qualifiers: Coronary Disease-Associated Artery/Lesion type: [place] artery [place] vs. transplanted heart: [place] heart Associated angina: with unstable angina Qualified Code(s): I25.110 - Atherosclerotic heart disease of [place] coronary artery with unstable angina pectoris - Subjective Interval history: The patient complains of mild postoperative pain. Vital Signs, Last 4 Hours Temp Pulse Resp BP Pulse Ox 06/02/18 07:35 98.3 F 06/02/18 07:28 16 95 06/02/18 06:00 61 17 134/80 95 06/02/18 05:00 61 16 131/82 97 06/02/18 04:47 98.7 F 06/02/18 04:08 16 97 06/02/18 04:00 63 17 135/82 97 06/02/18 03:40 61 Oxgyen Flow Rate Oxygen Flow Rate (LPM) 2 Clinical Data, last 8 Hours Output, Chest Tube Drainage 2 Amount [Mediastinal #2] Output, Chest Tube Drainage 5 Amount [Mediastinal #2] Output, Chest Tube Drainage 5 Amount [Mediastinal #1] Weight 05/31/18 06/01/18 06/02/18 23:59 23:59 23:59 Weight 119.1 kg 123.5 kg Lungs are clear to percussion and auscultation. Heart is in a normal sinus rhythm. All incisions are healing well without signs of infection and the sternum is stable. Chest tube drainage is minimal and there is no air leak. - Labs 06/02/18 03:40 06/02/18 03:40 Lab Results, Last 24 hours 06/02/18 06/02/18 03:40 03:40 WBC 10.3 Hgb 10.5 L Hct 31.5 L Plt Count 105 L Sodium 134 L Potassium 4.9 Chloride 99 Carbon Dioxide 22 L BUN 51 H Creatinine 5.34 H Glucose 101 Calcium 8.6 - VTE Documentation of Mechanical Device: Graduated compression elastic hosiery Consult Discharge Plan - Plan Referrals: Yari Rader, ZAHIRA [Primary Care Provider] -
[2018-06-02] MEDS ORDERED: Dextrose Gel 15 GM/37.5 ML TUBE PO PRN ×2 (08:56)
[2018-06-02] MEDS ORDERED: Acetaminophen 325 MG TABLET PO PRN (08:56)
[2018-06-02] MEDS ORDERED: Ondansetron 4 MG/2 ML VIAL IVP PRN (08:56)
[2018-06-02] MEDS ORDERED: Naloxone 0.4 MG/ML INJ IVP PRN (08:56)
[2018-06-02] MEDS ORDERED: D5% in Water 1,000 ML IVC PRN (08:56)
[2018-06-02] MEDS ORDERED: *HR* Dextrose 50 % in Water (Syg) 50 ML SYRINGE IVP PRN (08:56)
[2018-06-02] MEDS ORDERED: Pantoprazole 40 MG VIAL IVP SCH (09:00)
[2018-06-02] MEDS: Nitroglycerin 25 MG/250 ML INFUS..BTL IVC SCH (09:03)
[2018-06-02] MEDS: Chlorhexidine Rinse 15 ML MOUTHWASH MM SCH ×2 (09:45→19:47)
[2018-06-02] MEDS: Aspirin Enteric Coated 81 MG Tablet PO SCH (09:45)
[2018-06-02] MEDS: Bumetanide 1 MG TABLET PO SCH (09:45)
[2018-06-02] MEDS: *HR* Amiodarone 200 MG TABLET PO SCH ×2 (09:45→19:47)
--- NOTE | 2018-06-02 10:45 | Nephrology Progress Note ---
Date of Encounter: 06/02/18 Time of Encounter: 10:25 - Assessment and Plan (1) ESRD (end stage renal disease) Current Visit: Yes Status: Chronic ESRD on twice weekly HD (Wednesday and Wednesday), with last HD that was arranged on Wednesday. He is s/p CABG on 05/31/18. Since his volume status is pretty well maintained, and he is not hyperkalemic or uremic, I will not arrange for extra dialysis today (). Will reassess tomorrow and definitely plan for HD on Wednesday. Continue Bumex. PNa and serum K+ have improved. Discussed with the FISH MACHINE FEEDER in detail. Will continue to follow with you. (2) Hypertension Current Visit: Yes Status: Chronic Continue Bumex. Will monitor serum K+ with his low dose EDWAR. Qualifiers: Hypertension type: essential hypertension Qualified Code(s): I10 - Essential (primary) hypertension (3) Hyponatremia Current Visit: Yes Status: Acute See above (4) Hyperkalemia Current Visit: Yes Status: Acute See above (5) NSTEMI (non-ST elevated myocardial infarction) Current Visit: Yes Status: Acute s/p CABG on 05/31/18. Subjective Principal diagnosis: NSTEMI, a.fib RVR Interval history: Pt was s/e earlier today in the ICU bed 2. He reported feeling that his breathing was better today than compared to yesterday, and he denied feeling more swollen or swelling. He did not affirm N/V and was able to eat breakfast, he said. Objective - Vital Signs Vital signs: Vital Signs Temp Pulse Resp BP Pulse Ox 06/02/18 10:00 77 19 149/94 94 06/02/18 09:00 69 20 135/74 93 06/02/18 08:00 70 23 152/75 95 06/02/18 07:35 98.3 F 06/02/18 07:28 16 95 06/02/18 07:00 64 17 155/90 95 06/02/18 06:00 61 17 134/80 95 06/02/18 05:00 61 16 131/82 97 06/02/18 04:47 98.7 F 06/02/18 04:08 16 97 06/02/18 04:00 63 17 135/82 97 06/02/18 03:40 61 06/02/18 03:00 61 21 124/77 96 06/02/18 02:00 57 19 115/72 97 06/02/18 01:00 59 17 96/63 95 06/02/18 00:00 70 29 140/83 97 06/01/18 23:57 16 97 06/01/18 23:45 70 06/01/18 23:43 98.7 F 06/01/18 23:00 61 17 110/72 95 06/01/18 22:00 64 16 119/78 97 06/01/18 21:00 63 22 100/68 97 06/01/18 20:30 64 06/01/18 20:27 16 96 06/01/18 20:24 98.4 F 06/01/18 20:00 64 21 133/79 96 06/01/18 19:00 58 19 83/52 92 06/01/18 18:00 62 20 90/56 92 06/01/18 17:00 81 25 153/86 92 06/01/18 16:02 98.6 F 06/01/18 16:00 68 16 143/76 93 06/01/18 15:55 16 93 06/01/18 15:00 63 16 147/93 95 06/01/18 14:00 58 14 102/62 94 06/01/18 13:00 64 27 150/80 95 06/01/18 12:00 60 18 129/74 95 06/01/18 11:35 55 06/01/18 11:00 98.6 F 55 16 116/73 94 Intake and Output 06/01/18 06/02/18 06/02/18 23:59 07:59 15:59 Intake Total 30 / 30 0 / 0 Output Total 242 / 242 7 / 7 Balance -212 / -212 -7 / -7 0 / 0 Intake: IV Fluids 0 / 0 Nitroglycerin Premix 25 MG/250 0 / 0 ML 25 mg In 250 ml @ 59.5 MCG/ MIN 35.7 mls/hr IVC .Q7H1M COUNT [facility]CLUDES [facility] Rx#:[id number] Oral 30 / 30 Output: Urine 75 / 75 Chest Tube Drainage 167 / 167 7 / 7 Mediastinal #1 30 / 30 5 / 5 Mediastinal #2 137 / 137 2 / 2 Other: Weight 123.5 kg Blood Glucose* 124 158 - General Appearance General appearance: Present: well-developed, well-nourished, appears started age EENT: Present: ATNC, PERRL, mucous membranes moist Neck: Present: supple Respiratory: Present: clear Cardiology: Present: edema (trace ankle edema b/l), regular rate, regular rhythm , normal S1, normal S2 Dialysis Vascular Access: Arteriovenous Graft (Left forearm AVG with palpable pulsation and thrill) thrill: Yes bruit: Yes Gastrointestinal: Present: normoactive bowel sounds, no tenderness, no guarding Integumentary: Present: warm and dry Neurologic: Present: no focal deficit, no asterixis, alert and oriented x3 Musculoskeletal: Present: no deformities, no erythema, no cyanosis Psychiatric: Present: mood/affect appropriate, cooperative - Lab 06/02/18 03:40 06/02/18 03:40 Most recent lab results ABG pH 7.38 pH Units (7.32-7.45) 06/01/18 01:02 ABG pCO2 38 mmHg (35-45) 06/01/18 01:02 ABG pO2 121 mmHg (85-104) H D 06/01/18 01:02 ABG HCO3 22 mEq/L (21-27) 06/01/18 01:02 ABG O2 Saturation 99 % (95-98) H 06/01/18 01:02 Calcium 8.6 mg/dL (8.6-10.3) 06/02/18 03:40 Phosphorus 4.3 mg/dL (2.7-4.5) 05/26/18 04:36 Magnesium 2.2 mg/dL (1.6-2.6) 06/01/18 03:50 - VTE Documentation of Mechanical Device: Graduated compression elastic hosiery Consult Discharge Plan - Plan Referrals: Yari Rader, SENIOR AUDITOR [Primary Care Provider] -
[2018-06-02] MEDS: Insulin DETEMIR 100 UNIT/ML X5UNITS SQ SCH (19:48)
[2018-06-03] MEDS: Metoclopramide 10 MG/2 ML VIAL IVP SCH ×4 (00:44→19:26)
[2018-06-03] MEDS: *HR* OxyCODONE/APAP 5/325 TABLET PO PRN ×4 (04:02→20:22)
[2018-06-03 04:12] LABS: Basophils % 0.3 %; Eosinophils # 0.1 K/mcL (0.0-0.6); Eosinophils % 0.7 %; Hematocrit 30.1 % (37.5-50.1); Immature Granulocytes % 0.5 % (0-4); Lymphocytes # 0.8 K/mcL (0.6-4.6); Lymphocytes % 7.4 %; Mean Corpuscular HGB Conc 33.2 g/dL (31.6-35.5); Mean Corpuscular Hemoglobin 29.8 pg (28.0-33.3); Mean Corpuscular Volume 89.6 fL (83.0-100.0); Mean Platelet Volume 9.2 fL (9.4-12.4); Monocytes # 0.9 K/mcL (0.0-1.3); Neutrophils # 8.4 K/mcL (1.6-8.9); Platelet Count 100 K/mcL (140-400); Red Blood Count 3.36 M/mcL (4.19-5.50); Red Cell Distribution Width 13.5 % (11.5-14.5); Segmented Neutrophils % 82.1 %
[2018-06-03 04:28] LABS: Calcium 8.5 mg/dL (8.6-10.3)
[2018-06-03] MEDS ORDERED: 0.9 % Sodium Chloride 250 ML IVC PRN (07:51)
[2018-06-03] MEDS: Insulin LISPRO 300 UNITS/3 ML VIAL SQ SCH ×4 (08:06→20:19)
[2018-06-03] MEDS: Bumetanide 1 MG TABLET PO SCH (08:18)
[2018-06-03] MEDS: Chlorhexidine Rinse 15 ML MOUTHWASH MM SCH ×2 (08:18→20:19)
[2018-06-03] MEDS: Aspirin Enteric Coated 81 MG Tablet PO SCH (08:19)
[2018-06-03] MEDS: *HR* Amiodarone 200 MG TABLET PO SCH (08:19)
--- NOTE | 2018-06-03 09:00 | Cardiothoracic Progress Note ---
Date of Encounter: 06/03/18 Time of Encounter: 08:58 - Assessment and plan (1) CAD (coronary artery disease) Current Visit: Yes Status: Chronic Chest x-ray after chest tube removal revealed no pneumothorax. I will decrease the patient's amiodarone dosage to 200 mg once a day. He is due for dialysis tomorrow. Qualifiers: Coronary Disease-Associated Artery/Lesion type: [place] artery [place] vs. transplanted heart: [place] heart Associated angina: with unstable angina Qualified Code(s): I25.110 - Atherosclerotic heart disease of [place] coronary artery with unstable angina pectoris - Subjective Interval history: The patient is sitting in a chair and tolerating his diet. He has no complaints. Vital Signs, Last 4 Hours Temp Pulse Resp BP Pulse Ox 06/03/18 08:10 66 19 123/67 96 06/03/18 08:00 97.8 F 06/03/18 07:46 16 93 Oxgyen Flow Rate Oxygen Flow Rate (LPM) 2 Weight 06/01/18 06/02/18 06/03/18 23:59 23:59 23:59 Weight 123.5 kg 123.28 kg Lungs are clear to percussion and auscultation. Heart is in a normal sinus rhythm. All incisions are healing well without signs of infection and the sternum is stable. - Labs 06/03/18 04:00 06/03/18 03:50 Lab Results, Last 24 hours 06/03/18 06/03/18 03:50 04:00 WBC 10.2 Hgb 10.0 L Hct 30.1 L Plt Count 100 L Sodium 129 L Potassium 5.0 Chloride 102 Carbon Dioxide 21 L BUN 64 H Creatinine 6.02 H Glucose 144 H Calcium 8.5 L - VTE Documentation of Mechanical Device: Graduated compression elastic hosiery Consult Discharge Plan - Plan Referrals: Yari Rader, AIR DIRECTOR [Primary Care Provider] -
--- NOTE | 2018-06-03 11:12 | Nephrology Progress Note ---
Date of Encounter: 06/03/18 Time of Encounter: 09:30 - Assessment and Plan (1) ESRD (end stage renal disease) Status: Chronic Recommend HD today for clearance. Discussed with the BALLAST CLEANING OPERATOR. Thank you. (2) Hypertension Status: Chronic Qualifiers: Hypertension type: essential hypertension Qualified Code(s): I10 - Essential (primary) hypertension (3) Hyponatremia Status: Acute (4) Hyperkalemia Status: Acute (5) NSTEMI (non-ST elevated myocardial infarction) Status: Acute Subjective Principal diagnosis: NSTEMI, a.fib RVR Interval history: Pt was s/e earlier today in the ICU bed 2. He reported feeling okay but still sore postop. He did not affirm any dialysis related symptoms such as N/V or cramping. Objective - Vital Signs Vital signs: Vital Signs Temp Pulse Resp BP Pulse Ox 06/03/18 10:29 62 19 94 06/03/18 08:10 66 19 123/67 96 06/03/18 08:00 97.8 F 06/03/18 07:46 16 93 06/03/18 04:06 16 93 06/03/18 04:00 60 15 126/76 95 06/03/18 03:53 98.0 F 06/03/18 02:00 60 14 117/70 94 06/03/18 00:30 60 06/03/18 00:17 98.6 F 06/03/18 00:00 60 16 100/60 92 06/02/18 23:42 16 93 06/02/18 22:00 65 12 117/70 93 06/02/18 20:38 16 93 06/02/18 20:25 98.6 F 06/02/18 20:00 65 18 115/65 93 06/02/18 19:50 65 06/02/18 18:00 69 14 115/67 93 06/02/18 16:24 16 96 06/02/18 16:00 82 14 158/86 94 06/02/18 14:00 61 14 123/76 96 06/02/18 12:05 98.6 F 06/02/18 12:00 70 24 131/78 96 06/02/18 11:20 16 96 Intake and Output 06/02/18 06/03/18 06/03/18 23:59 07:59 15:59 Intake Total 60 / 60 300 / 300 360 / 360 Output Total 375 / 375 Balance -315 / -315 300 / 300 360 / 360 Intake: Oral 60 / 60 300 / 300 360 / 360 Output: Urine 375 / 375 Other: Meal Dinner Breakfast Percent of Meal Consumed 100% 80% Weight 123.28 kg Blood Glucose* 182 136 Patient Weight 06/03/18 23:59 Weight 123.28 kg - General Appearance Exam: General appearance: Present: well-developed, well-nourished, appears started age EENT: Present: ATNC, PERRL, mucous membranes moist Neck: Present: supple Respiratory: Present: clear Cardiology: Present: edema (trace ankle edema b/l), regular rate, regular rhythm , normal S1, normal S2, midline chest dressing was C/D/I Dialysis Vascular Access: Arteriovenous Graft (Left forearm AVG with palpable pulsation and thrill) thrill: Yes bruit: Yes Gastrointestinal: Present: normoactive bowel sounds, no tenderness, no guarding Integumentary: Present: warm and dry Neurologic: Present: no focal deficit, no asterixis, alert and oriented x3 Musculoskeletal: Present: no deformities, no erythema, no cyanosis Psychiatric: Present: mood/affect appropriate, cooperative - Lab 06/06/18 03:21 06/06/18 03:21 Most recent lab results ABG pH 7.38 pH Units (7.32-7.45) 06/01/18 01:02 ABG pCO2 38 mmHg (35-45) 06/01/18 01:02 ABG pO2 121 mmHg (85-104) H D 06/01/18 01:02 ABG HCO3 22 mEq/L (21-27) 06/01/18 01:02 ABG O2 Saturation 99 % (95-98) H 06/01/18 01:02 Calcium 8.5 mg/dL (8.6-10.3) L 06/03/18 03:50 Phosphorus 4.3 mg/dL (2.7-4.5) 05/26/18 04:36 Magnesium 2.2 mg/dL (1.6-2.6) 06/01/18 03:50 - VTE Documentation of Mechanical Device: Graduated compression elastic hosiery Consult Discharge Plan - Plan Instructions: Atrial Fibrillation (DC), Chest Pain (DC), Diabetes Mellitus Type 2 in Adults (DC), Sternal Precautions (GEN) Referrals: Yari Rader CNP [Primary Care Provider] - 06/09/18 11:00 am (Appointment will be with Shahnaz Pérez. Yari Rader will be out of the office) Bill Ye MD [Partnered Physician] - 07/07/18 2:30 pm Prescriptions: OxyCODONE/APAP 5/325 [Percocet 5/325 MG] 1 each PO Q4HR PRN 7 Days #20 tablet PRN Reason: Pain Amiodarone [Cordarone] 200 mg PO DAILY #30 tablet
[2018-06-03] MEDS ORDERED: 0.9 % Sodium Chloride 1,000 ML ONE ×2 (12:37→14:18)
[2018-06-03] MEDS: Insulin DETEMIR 100 UNIT/ML X5UNITS SQ SCH (21:39)
[2018-06-04 04:51] LABS: Basophils % 0.3 %; Eosinophils # 0.1 K/mcL (0.0-0.6); Eosinophils % 0.7 %; Hematocrit 29.1 % (37.5-50.1); Hemoglobin 9.6 g/dL (12.9-16.9); Immature Granulocytes % 0.3 % (0-4); Lymphocytes # 0.7 K/mcL (0.6-4.6); Lymphocytes % 9.9 %; Mean Corpuscular Hemoglobin 29.7 pg (28.0-33.3); Mean Corpuscular Volume 90.1 fL (83.0-100.0); Mean Platelet Volume 9.7 fL (9.4-12.4); Monocytes # 0.7 K/mcL (0.0-1.3); Monocytes % 9.5 %; Neutrophils # 5.7 K/mcL (1.6-8.9); Platelet Count 134 K/mcL (140-400); Red Blood Count 3.23 M/mcL (4.19-5.50); Red Cell Distribution Width 13.2 % (11.5-14.5); Segmented Neutrophils % 79.3 %
[2018-06-04 05:09] LABS: Calcium 8.1 mg/dL (8.6-10.3); Potassium 4.3 mEq/L (3.5-5.1)
[2018-06-04] MEDS: *HR* OxyCODONE/APAP 5/325 TABLET PO PRN ×4 (06:49→21:04)
[2018-06-04] MEDS: Bumetanide 1 MG TABLET PO SCH (08:33)
[2018-06-04] MEDS: Aspirin Enteric Coated 81 MG Tablet PO SCH (08:35)
[2018-06-04] MEDS: *HR* Amiodarone 200 MG TABLET PO SCH (08:35)
[2018-06-04] MEDS: Insulin LISPRO 300 UNITS/3 ML VIAL SQ SCH ×4 (08:36→20:26)
[2018-06-04] MEDS: Chlorhexidine Rinse 15 ML MOUTHWASH MM SCH ×2 (08:40→20:32)
--- NOTE | 2018-06-04 09:05 | Event Note ---
Date of Encounter: 06/04/18 Time of Encounter: 09:03 Nephrology Chart Review ESRD on HD typically T/R with Dr. 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 He underwent HD on so as to allow for CABG on Wednesday. Biochemically stable today, so I will tentatively recommend his next HD on Wednesday, if he remains hospitalized. I will be available this weekend if needed. Otherwise my colleague Dr. Amezquita will be on-call starting on Wednesday. Thank you.
--- NOTE | 2018-06-04 11:34 | Cardiothoracic Progress Note ---
Date of Encounter: 06/04/18 Time of Encounter: 11:32 - Subjective Procedure(s) Performed: Patient seen and examined. Patient underwent an uneventful CABG on Wednesday of this week. Notably he is in renal failure on dialysis. He is sitting up in a chair without any complaints. His cough is somewhat poor. He is tolerating dialysis without any issue by report. We discussed the importance of coughing and deep breathing. The patient has not had a bowel movement as of yet. We will consider suppository to facilitate BM. Vital Signs, Last 4 Hours Temp Pulse Resp BP Pulse Ox 06/04/18 07:33 98.5 F 68 16 115/70 96 Oxgyen Flow Rate Oxygen Flow Rate (LPM) 0 Weight 06/02/18 06/03/18 06/04/18 23:59 23:59 23:59 Weight 123.28 kg - Physical Examination General: Other (Sitting up in chair, friendly and cooperative,) Sternum: Other (Dressing in place, clean and dry) Lungs: Other (Relatively poor cough, relatively marginal inspiratory effort) - Labs 06/04/18 04:10 06/04/18 04:10 Lab Results, Last 24 hours 06/04/18 06/04/18 04:10 04:10 WBC 7.2 Hgb 9.6 L Hct 29.1 L Plt Count 134 L Sodium 137 Potassium 4.3 Chloride 100 Carbon Dioxide 27 BUN 48 H Creatinine 5.15 H Glucose 132 H Calcium 8.1 L - VTE Documentation of Mechanical Device: Graduated compression elastic hosiery Consult Discharge Plan - Plan Referrals: Yari Rader, PROGRAM ADMINISTRATOR [Primary Care Provider] -
[2018-06-04] MEDS: Insulin DETEMIR 100 UNIT/ML X5UNITS SQ SCH (20:31)
[2018-06-05] MEDS: *HR* OxyCODONE/APAP 5/325 TABLET PO PRN ×4 (03:22→19:32)
[2018-06-05 04:22] LABS: Basophils % 0.3 %; Eosinophils # 0.1 K/mcL (0.0-0.6); Eosinophils % 1.6 %; Hematocrit 30.6 % (37.5-50.1); Immature Granulocytes % 0.4 % (0-4); Lymphocytes % 12.6 %; Mean Corpuscular HGB Conc 32.7 g/dL (31.6-35.5); Mean Corpuscular Hemoglobin 29.8 pg (28.0-33.3); Mean Corpuscular Volume 91.1 fL (83.0-100.0); Mean Platelet Volume 9.3 fL (9.4-12.4); Monocytes # 0.7 K/mcL (0.0-1.3); Monocytes % 9.5 %; Neutrophils # 5.9 K/mcL (1.6-8.9); Platelet Count 151 K/mcL (140-400); Red Blood Count 3.36 M/mcL (4.19-5.50); Red Cell Distribution Width 13.1 % (11.5-14.5); Segmented Neutrophils % 75.6 %
[2018-06-05 04:40] LABS: Calcium 8.4 mg/dL (8.6-10.3); Potassium 4.4 mEq/L (3.5-5.1)
[2018-06-05] MEDS: Chlorhexidine Rinse 15 ML MOUTHWASH MM SCH ×2 (07:58→20:41)
[2018-06-05] MEDS: Bumetanide 1 MG TABLET PO SCH (07:58)
[2018-06-05] MEDS: Aspirin Enteric Coated 81 MG Tablet PO SCH (07:59)
[2018-06-05] MEDS: *HR* Amiodarone 200 MG TABLET PO SCH (07:59)
[2018-06-05] MEDS: Insulin LISPRO 300 UNITS/3 ML VIAL SQ SCH ×4 (08:00→20:37)
--- NOTE | 2018-06-05 14:56 | Cardiothoracic Progress Note ---
Date of Encounter: 06/05/18 Time of Encounter: 14:55 - Subjective Procedure(s) Performed: Patient seen and examined. Patient underwent an uneventful CABG on Wednesday of this week. Notably he is in renal failure on dialysis. He is sitting up in a chair without any complaints. His cough is somewhat poor. He is tolerating dialysis without any issue by report. We again discussed the importance of coughing and deep breathing. The patient is interested in going over discussed possible discharge tomorrow depending on his clinical course. Vital Signs, Last 4 Hours Pulse Resp BP Pulse Ox 06/05/18 14:21 18 06/05/18 11:49 52 18 135/71 06/05/18 11:46 16 135/71 93 Oxgyen Flow Rate Oxygen Flow Rate (LPM) 0 Clinical Data, last 8 Hours Output, Urine Amount 50 Weight 06/03/18 06/04/18 06/05/18 23:59 23:59 23:59 Weight 123.28 kg - Labs 06/05/18 03:44 06/05/18 03:44 Lab Results, Last 24 hours 06/05/18 06/05/18 03:44 03:44 WBC 7.7 Hgb 10.0 L Hct 30.6 L Plt Count 151 Sodium 134 L Potassium 4.4 Chloride 98 Carbon Dioxide 24 BUN 66 H Creatinine 6.06 H Glucose 169 H Calcium 8.4 L - VTE Documentation of Mechanical Device: Graduated compression elastic hosiery Consult Discharge Plan - Plan Referrals: Yari Rader, PATIENT ACCOUNTS MANAGER [Primary Care Provider] -
[2018-06-05] MEDS: Insulin DETEMIR 100 UNIT/ML X5UNITS SQ SCH (20:40)
[2018-06-06 04:31] LABS: Basophils % 0.3 %; Eosinophils # 0.2 K/mcL (0.0-0.6); Eosinophils % 2.7 %; Hematocrit 27.2 % (37.5-50.1); Immature Granulocytes % 0.5 % (0-4); Lymphocytes # 1.3 K/mcL (0.6-4.6); Lymphocytes % 16.2 %; Mean Corpuscular HGB Conc 33.1 g/dL (31.6-35.5); Mean Corpuscular Hemoglobin 29.9 pg (28.0-33.3); Mean Corpuscular Volume 90.4 fL (83.0-100.0); Mean Platelet Volume 9.3 fL (9.4-12.4); Monocytes # 0.8 K/mcL (0.0-1.3); Monocytes % 9.8 %; Neutrophils # 5.5 K/mcL (1.6-8.9); Platelet Count 187 K/mcL (140-400); Red Blood Count 3.01 M/mcL (4.19-5.50); Red Cell Distribution Width 13.1 % (11.5-14.5); Segmented Neutrophils % 70.5 %
[2018-06-06 04:42] LABS: Calcium 8.4 mg/dL (8.6-10.3); Potassium 4.7 mEq/L (3.5-5.1)
[2018-06-06] MEDS: Aspirin Enteric Coated 81 MG Tablet PO SCH (08:02)
[2018-06-06] MEDS: Bumetanide 1 MG TABLET PO SCH (08:02)
[2018-06-06] MEDS: *HR* Amiodarone 200 MG TABLET PO SCH (08:03)
[2018-06-06] MEDS: Chlorhexidine Rinse 15 ML MOUTHWASH MM SCH (08:03)
[2018-06-06] MEDS: Insulin LISPRO 300 UNITS/3 ML VIAL SQ SCH ×2 (08:03→11:26)
[2018-06-06] MEDS: *HR* OxyCODONE/APAP 5/325 TABLET PO PRN ×2 (08:11→13:27)
[2018-06-06 11:18] VITALS: BP 142/74
--- NOTE | 2018-06-06 11:20 | Discharge Summary ---
Date of Encounter: 06/06/18 Time of Encounter: 11:14 - Discharge Diagnosis (1) CAD (coronary artery disease) Priority: Primary Status: Chronic Qualifiers: Coronary Disease-Associated Artery/Lesion type: [place] artery [place] vs. transplanted heart: [place] heart Associated angina: with unstable angina Qualified Code(s): I25.110 - Atherosclerotic heart disease of [place] coronary artery with unstable angina pectoris - Hospital Course Hospital course: Mr. Bess is a 58 year old male The patient is a 58-year-old gentleman with a history of diabetes, hypertension and chronic kidney disease who is on chronic hemodialysis. He has had stent placement in the past. He presented with angina and atrial fibrillation. Cardiac catheterization revealed severe coronary artery disease and he was referred for surgery. On 05/31/2018, Dr. Ye took the patient to the operating room for coronary artery bypass grafting 3, utilizing the left internal mammary artery as well as a modified Maze procedure with left atrial appendage stapling. Postoperatively, the patient was followed by the renal service and placed back on his hemodialysis. His chest tubes were removed. On June 06, his pacing wires were cut off at the skin after painting them with Betadine. The patient otherwise did well and was discharged on June 06. At that time, he was afebrile. Lungs were clear to percussion and auscultation. Heart was in a normal sinus rhythm. All incisions were healing well without signs of infection and the sternum was stable. Discharge medications are on the med rec and include Percocet for pain. I did check the [place] automated Rx reporting system. Appropriate precautions were given and he was postop. He was given a one-week supply. He was to return to his previous and regular diet. He was to avoid heavy lifting for a total of 3 months after surgery, but to walk as much as possible. He was to avoid driving for 1 month. He was to follow-up with Dr. Ye in the office in 4 weeks as directed. He was to follow up with his primary care doctor, renal doctor and payroll benefits clerk as directed. He was to call sooner for any difficulties. - Time Spent with Patient Total time spent providing and/or coordinating discharge services: - Discharge Medications Prescriptions: OxyCODONE/APAP 5/325 [Percocet 5/325 MG] 1 each PO Q4HR PRN 7 Days #20 tablet PRN Reason: Pain Amiodarone [Cordarone] 200 mg PO DAILY #30 tablet Home Medications: Bumetanide [Bumex] 1 mg PO DAILY 07/03/16 [History] Carvedilol [Coreg] 12.5 mg PO BID 07/03/16 [History] amLODIPine [Norvasc] 2.5 mg PO DAILY 07/03/16 [History] Lisinopril [Zestril] 2.5 mg PO BID 10/21/16 [History] Simvastatin [Zocor] 40 mg PO HS 10/21/16 [History] Aspirin 325 mg PO DAILY 04/15/18 [History] Ergocalciferol (VITAMIN D2) [Drisdol (50,000 Unit)] 50,000 unit PO QWEEK [History] Insulin Glargine,Hum.rec.anlog [Lantus Solostar] 10 unit SQ HS 04/15/18 [History ] Vit B Comp C/Folic Acid/Vit D3 [Dialyvite 800 Plus D Wafer] 1 tab PO 2XW [History] Famotidine [Heartburn Prevention] 20 mg PO DAILY 05/26/18 [History] Amiodarone [Cordarone] 200 mg PO DAILY #30 tablet 06/06/18 [Rx] OxyCODONE/APAP 5/325 [Percocet 5/325 MG] 1 each PO Q4HR PRN 7 Days #20 tablet [Rx] Allergies/Adverse Reactions: 3 Allergy/AdvReac Type Severity Reaction Status Date / Time sulfamethoxazole Allergy Nausea Verified 05/25/18 21:33 [From Bactrim] trimethoprim [From Bactrim] Allergy Nausea Verified 05/25/18 21:33 Date of admission: 05/28/18 16:02 Primary care physician: Yari Rader CNP Consults: 05/26/18 03:02 Consult to Cardiology [CONS] Routine Comment: Consulting Provider: [facility] [place] Reason for Consult: New a fib Call Completed: No 05/26/18 05:20 Consult to Nephrology [CONS] Routine Consulting Provider: [facility]/MEGHAN/RENE/MOISE Reason for Consult: ESRD on HD / Call Completed: No 05/27/18 09:46 Consult to Cardiac Rehabilitation-Phase1 [CONS] Routine Comment: Reason for Consult: NSTEMI Call Completed: No 05/31/18 12:41 Consult to Cardiac Rehabilitation-Phase1 [CONS] Routine Comment: Reason for Consult: Post open heart Call Completed: Yes 06/03/18 08:00 Consult to Dialysis [CONS] ONCE Procedure(s) Performed: 05/31/2015. Coronary artery bypass grafting 3, utilizing the left internal mammary artery and modified Maze procedure with left atrial appendage stapling. Discharging clinician: Romulo Bunch Anticipated date of discharge: 06/06/18 - Patient Status Disposition: Home, Self-Care Condition: Good Functional capacity at discharge: independent ambulation Overall status at discharge: patient is progressing back to baseline - Discharge Instructions Instructions: Sternal Precautions (GEN) Follow Up With: Yari Rader CNP [Primary Care Provider] - 06/09/18 11:00 am (Appointment will be with Shahnaz Pérez. Yari Rader will be out of the office) Bill Ye MD [Partnered Physician] - 07/07/18 2:30 pm [facility] Aspirin Cont/Prescribed at DC: Yes Beta Marcus Cont/Prescribed at DC: Yes Statin Cont/Prescribed at DC: Yes EDWAR/ARB Cont/Prescribed at DC: Yes - VTE Documentation of Mechanical Device: Graduated compression elastic hosiery
--- NOTE | 2018-06-06 13:23 | Electrocardiograph Report ---
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
== END 2018-06-06 13:51 | disposition home or self-care (01) | DRG 228 ==
LOC: 2ANU → SUATTDRO 01:38 → ICNU 05-31 08:26 → UNDODISIN 06-03 12:05 → 2NNU 06-03 15:51
PROVIDERS: ADMIT Pediatrics; ATTEND Internal Medicine

== ENCOUNTER 2018-06-18 13:25 | Observation (INO) ==
[2018-06-18 18:15] LABS: Basophils % 0.4 %; Eosinophils # 0.1 K/mcL (0.0-0.6); Eosinophils % 1.2 %; Hematocrit 25.2 % (37.5-50.1); Hemoglobin 8.3 g/dL (12.9-16.9); Immature Granulocytes % 0.4 % (0-4); Lymphocytes # 0.9 K/mcL (0.6-4.6); Lymphocytes % 11.7 %; Mean Corpuscular HGB Conc 32.9 g/dL (31.6-35.5); Mean Corpuscular Hemoglobin 29.7 pg (28.0-33.3); Mean Corpuscular Volume 90.3 fL (83.0-100.0); Mean Platelet Volume 8.8 fL (9.4-12.4); Monocytes # 0.5 K/mcL (0.0-1.3); Monocytes % 6.3 %; Neutrophils # 6.2 K/mcL (1.6-8.9); Platelet Count 159 K/mcL (140-400); Red Blood Count 2.79 M/mcL (4.19-5.50); Red Cell Distribution Width 12.9 % (11.5-14.5)
[2018-06-18] MEDS ORDERED: Naloxone 0.4 MG/ML INJ IVP PRN (18:29)
[2018-06-18] MEDS ORDERED: Acetaminophen 325 MG TABLET PO PRN (18:29)
[2018-06-18] MEDS ORDERED: traMADol 50 MG TABLET PO PRN (18:29)
[2018-06-18 18:35] LABS: Albumin 3.2 g/dL (3.5-5.7); Bilirubin,Total 0.4 mg/dL (0.3-1.0); Calcium 8.3 mg/dL (8.6-10.3); Globulin 3.2 g/dL (2.4-3.5); Potassium 5.2 mEq/L (3.5-5.1); Total Protein 6.4 g/dL (6.4-8.9)
[2018-06-18] MEDS ORDERED: D5% in Water 1,000 ML IVC PRN (18:45)
[2018-06-18] MEDS ORDERED: *HR* Dextrose 50 % in Water (Syg) 50 ML SYRINGE IVP PRN (18:45)
[2018-06-18] MEDS ORDERED: Dextrose Gel 15 GM/37.5 ML TUBE PO PRN ×2 (18:45)
[2018-06-18] MEDS ORDERED: Ondansetron 4 MG/2 ML VIAL IVP PRN (18:59)
--- NOTE | 2018-06-18 18:59 | Internal Med History&Physical ---
<KatbyronjosephTom lee - Last Filed: 06/18/18 20:13> Date of Encounter: 06/18/18 Time of Encounter: 17:30 Internal Medicine - H&P: HPI Chief complaint: Heart palpitations Admitted From: Hospital to Hospital Transfer Plans for Post Hospital Care: Home History of present illness: Mr. Bess is a 58 year old male w/PMH of CHF, CAD, history of DVTs in right leg x5 in 2003 (3 were abscessed and required surgical removal), diabetes controlled with insulin, ESRD on dialysis, HLD, HTN, history of kidney stones, and history of previous myocardial infarction in 2009 with stent placement 2 presents from [facility] after developing Afib w/RVR during dialysis. Pt. reports he was almost finished w/dialysis when he started having heart palpitations, nausea, vomiting, and chills. Pt. reports having CABG (triple bypass in early May 2018 w/Dr. Ye for 6 blockages) recently. States that he has had intermittent dialysis since his CABG. ESRD on dialysis and diabetic w/insulin control. No alleviating or aggravating factors. Pt. reports SOB but denies recent illness, fever, changes in vision, headache, unusual bleeding, chest pain, cough, chest congestion, abdominal pain, dizziness, lightheadedness, numbness, tingling, pre-syncope, or syncope. Past Med Surg Social Fam HX - Past Medical History Source: patient, old records reviewed, obtained from family Medical history: CHF, coronary artery disease (CABG in early May 2018 (triple bypass)), DVT, diabetes, dialysis, hyperlipidemia, hypertension, kidney stones, myocardial infarction (2009 w/stents x2), renal disease Additional medical history: neuropathy Psychiatric history: no psych history - Past Surgical History Surgical History: angioplasty/stent (x2), cholecystectomy, coronary bypass (CABG) (Triple bypass in early May 2018), other Additional surgical history: 2 stents, - Social History Smoking Status: Former smoker Packs per day: 1 PPD - Reports quitting 3 weeks ago Smokeless Tobacco Status: No Alcohol use: none Drug use: none Current living situation: Home, With Family Activity Level: Independent ambulation Recent Out of Country Travel Within the Last 8 Weeks: No Exposure or Possible Exposure to Illness During Travel: No - Family History Brother Race: Family Member Ethnicity: Non- Living Status: Age at : 63 Cause of : SD Hx Family Cardiac Disorders: Yes (SD ) Hx Family Endocrine Disorder: Yes (DM) Father Race: Family Member Ethnicity: Non- Living Status: Age at : 77 Cause of : PNA Hx Family Cardiac Disorders: Yes (CAD, CHF, SD) Hx Family Respiratory Disorders: Yes (PNA) Hx Family Endocrine Disorder: Yes (DM) Mother Race: Family Member Ethnicity: Non- Living Status: Age at : 69 Cause of : DM complications Hx Family Cardiac Disorders: Yes (CAD, SD) Hx Family Endocrine Disorder: Yes (DM) Sister Race: Family Member Ethnicity: Non- Living Status: Still Living Hx Family Cardiac Disorders: Yes (SD) Hx Family Endocrine Disorder: Yes (DM) Internal Medicine - H&P: Meds RX: Bumetanide [Bumex] 1 mg PO DAILY 07/03/16 [History] RX: Carvedilol [Coreg] 12.5 mg PO BID 07/03/16 [History] RX: amLODIPine [Norvasc] 2.5 mg PO DAILY 07/03/16 [History] RX: Lisinopril [Zestril] 2.5 mg PO BID 10/21/16 [History] RX: Simvastatin [Zocor] 40 mg PO HS 10/21/16 [History] RX: Aspirin 325 mg PO DAILY 04/15/18 [History] RX: Ergocalciferol (VITAMIN D2) [Drisdol (50,000 Unit)] 50,000 unit PO QWEEK 04/15/18 [History] RX: Insulin Glargine,Hum.rec.anlog [Lantus Solostar] 10 unit SQ HS 04/15/18 [History] RX: Vit B Comp C/Folic Acid/Vit D3 [Dialyvite 800 Plus D Wafer] 1 tab PO 2XW 04/15/18 [History] RX: Famotidine [Heartburn Prevention] 20 mg PO DAILY 05/26/18 [History] RX: Amiodarone [Cordarone] 200 mg PO DAILY #30 tablet 06/06/18 [Rx] RX: OxyCODONE/APAP 5/325 [Percocet 5/325 MG] 1 each PO Q4HR PRN 7 Days #20 tablet 10/15/18 [Rx] Allergy/AdvReac Type Severity Reaction Status Date / Time sulfamethoxazole Allergy Nausea Verified 05/25/18 21:33 [From Bactrim] trimethoprim [From Bactrim] Allergy Nausea Verified 05/25/18 21:33 All Systems PM: A 10-system review of systems was performed and is negative for pertinent findings except as documented above in the HPI. - Constitutional Constitutional: as per HPI, chills, no fever(s), no night sweats - EENT Eyes: no change in vision, no discharge, no pain, no photophobia Ears: no ear discharge, no ear pain, no tinnitus Nose, mouth and throat: no dysphagia, no nasal discharge, no neck pain, no sore throat - Breasts Breasts: as per HPI - Cardiovascular Cardiovascular ROS IM: as per HPI, dyspnea, dyspnea on exertion, irregular heart rhythm, no chest pain, no diaphoresis, no lightheadedness, no palpitations, no syncope - Respiratory Respiratory: as per HPI, dyspnea, dyspnea on exertion, no cough, no wheezing, no excessive phlegm production - Gastrointestinal Gastrointestinal: as per HPI, nausea, vomiting, no abdominal pain, no diarrhea, no hematemesis, no hematochezia, no melena - Genitourinary Genitourinary ROS male: as per HPI, other (Reports he still makes urine) - Musculoskeletal Musculoskeletal ROS IM: no numbness, no tingling - Integumentary Integumentary IM: no rash, no unusual bruising - Neurological Neurological ROS: no confusion, no convulsions, no focal weakness, no numbness, no tingling, no tremor(s) - Psychiatric Psychiatric: as per HPI - Endocrine Endocrine IM: as per HPI - Hematologic/Lymphatic Hematologic/Lymphatic: no easy bruising - Allergic/Immunologic Allergic/Immunologic: as per HPI - Constitutional General appearance: Present: cooperative, mild distress, A&O X 3, morbidly obese, pleasant, answers questions appropriately Exam: Patient examined at bedside in room. Patient reports heart palpitations and mild SOB but denies chest pain. States he had nausea, vomiting, chills today. Reports almost finishing dialysis when he developed heart palpitations today. Also reports recent CABG in early May with triple bypass of 6 blockages. Reports quitting smoking 3 weeks ago. Denies any other complaints at this time. VS: 98.3F temp, HR 82, RR 18, BP 101/72, SPO2 98% on 2 L via nasal cannula. - Head Head exam: Present: atraumatic, normocephalic - Eye Eye exam: Present: PERRL, conjuntiva pink, sclera anicteric Pupils: Present: PERRL - ENT ENT exam: Present: normal exam - Neck Neck exam general surgery: Present: normal inspection, supple, trachea midline. Absent: lymphadenopathy - Respiratory Respiratory exam: Present: CTAB. Absent: accessory muscle use, rales, rhonchi, wheezes - Cardiovascular Cardiovascular exam: Present: irregular rhythm - GI/Abdominal GI/Abdominal exam: Present: normal bowel sounds, soft, no peritoneal signs. Absent: distended, tenderness - Rectal Rectal exam: Present: deferred - Additional comments: exam deferred. - Extremities Exam Extremities exam: Present: warm, radial pulses palpable and symmetrical. Absent: calf tenderness, cyanotic, pedal edema - Back Exam Back exam: Present: normal inspection - Neurological Exam Neurological exam: Present: alert, CN II-XII intact, oriented X3, no focal deficits. Absent: pronater drift, facial droop, speech deficit - Psychiatric Psychiatric exam: Present: normal affect, normal mood - Skin Skin exam: Present: dry, intact Internal Med - H&P Results - Labs CBC & Chem 7: 06/18/18 18:00 06/18/18 18:00 Labs: Short CBC 06/18/18 Range/Units 18:00 WBC 7.8 (4.3-11.1) K/mcL Hgb 8.3 L (12.9-16.9) g/dL Hct 25.2 L (37.5-50.1) % Plt Count 159 (140-400) K/mcL Neutrophils # 6.2 (1.6-8.9) K/mcL BMP 06/18/18 18:00 Sodium 135 L Potassium 5.2 H Chloride 100 Carbon Dioxide 28 BUN 40 H Creatinine 2.97 H Glucose 145 H Calcium 8.3 L Liver Function 06/18/18 Range/Units 18:00 Total Bilirubin 0.4 (0.3-1.0) mg/dL AST 14 (13-39) Units/L ALT 24 (7-52) Units/L Alkaline Phosphatase 225 H (34-104) Units/L Albumin 3.2 L (3.5-5.7) g/dL - EKG Data EKG comments: 06/18/18 19:13 EKG dated 06/18/18 shows atrial fibrillation with indeterminate axis and RBBB. - Assessment and plan (1) Atrial fibrillation with rapid ventricular response Status: Acute Assessment and plan: Acute on chronic atrial fibrillation w/RVR. Pt. reports he was almost finished w/dialysis when he started having heart palpitations, nausea, vomiting, and chills. Pt. reports having CABG (triple bypass in early May 2018 w/Dr. Ye for 6 blockages) recently. Was recently placed on Amiodarone for Afib. Also takes Simvastatin which carries a sever interaction risk w/Amiodarone. Consider changing statin to Crestor. Hx of SD in 2009 w/stent placement x2. Cardizem gtt started at [facility] and will be continued here. Pt. is ESRD on dialysis so Nephrology consult ordered and discussed w/Dr. Stewart. Cardiology consult ordered and discussed w/Dr. Corbin and I appreciate the consults and recommendations. Pt. discussed w/Dr. Burgos who agrees w/plan of care. Pt. is high risk for further morbidity and complications based on current Afib w/RVR not on anticoagulation, ESRD on dialysis, recent CABG (triple bypass), hx of DVT in RLE in 2003, hx of SD in 2009, hx; and risk factors of CHF, CAD, diabetes controlled with insulin, HLD, HTN, obesity, and tobacco abuse. Observation. (2) Hyperkalemia Status: Acute Assessment and plan: Acute hyperkalemia w/potassium of 5.2 on admission. Continuous cardiac telemetry. Monitor pt. and f/u labs. Nephrology consult ordered and discussed w/Dr. Stewart who will see pt. in a.m. (3) Hyponatremia Status: Acute Assessment and plan: Acute hyponatremia w/sodium of 135 on admission. Monitor pt. and f/u labs. Continuous cardiac telemetry. (4) HLD (hyperlipidemia) Status: Chronic Assessment and plan: Hx of chronic HLD. Lipid panel in a.m. labs. Pt. currently takes Simvastatin for lipid control. Simvastatin is contraindicated w/Amiodarone d/t severe interaction. Consider changing statin to Crestor. Qualifiers: Hyperlipidemia type: pure hypercholesterolemia Qualified Code(s): E78.00 - Pure hypercholesterolemia, unspecified; E78.0 - Pure hypercholesterolemia (5) HTN (hypertension) Status: Chronic Assessment and plan: Hx of chronic HTN. Monitor pt. and VS. Continue pts. Lisinopril, Norvasc, and Coreg. Qualifiers: Hypertension type: essential hypertension Qualified Code(s): I10 - Essential (primary) hypertension (6) CAD (coronary artery disease) Status: Chronic Assessment and plan: Hx of CAD. CABG (triple bypass) in May 2018. SD in 2003 w/stents x2. HLD. HTN. DM. ESRD on dialysis. Continuous cardiac telemetry. Echocardiogram on 05/26/18 shows LVEF of 55-60%, indeterminate diastolic function, mildly dilated right ventricle, mild right ventricular hypokinesis, no significant valvular dysfunction, and unable to estimate RVSP due to lack of TR jet. Continue pts. HTN and HLD medications. Qualifiers: Coronary Disease-Associated Artery/Lesion type: [place] artery [place] vs. tr ansplanted heart: [place] heart Associated angina: with unstable angina Qualified Code(s): I25.110 - Atherosclerotic heart disease of [place] coronary artery with unstable angina pectoris (7) Diabetes Status: Chronic Assessment and plan: Hx of chronic diabetes controlled w/insulin. Pt. states that he takes 10 units of Lantus @ night but does not take all the time d/t it making him hypoglycemic. Will hold pts. insulin and administer low-dose correction sliding scale insulin with hypoglycemic protocol. BG checks before meals at bedtime. A1c in a.m. labs. Renal diet. Qualifiers: Diabetes mellitus type: type 2 Diabetes mellitus senior living insulin use: with senior living use Diabetes mellitus complication status: with kidney complications Diabetes mellitus complication detail: with chronic kidney disease Chronic kidney disease stage: on chronic dialysis Qualified Code(s): E11.22 - Type 2 diabetes mellitus with diabetic chronic kidney disease; N18.6 - End stage renal disease; Z79.4 - intermediate card tender (current) use of insulin; Z99.2 - Dependence on renal dialysis (8) ESRD (end stage renal disease) Status: Chronic Assessment and plan: Hx of chronic ESRD on dialysis. Pt. reports almost finishing dialysis today but it was stopped d/t Afib w/RVR. Pt. also reports having intermittent dialysis since CABG in early May. States he sees Dr. Estrada and that he still makes urine. Nephrology consult ordered and discussed w/Dr. Stewart and I appreciate the consult and recommendations as always. Monitor I&O. Will use IV fluids ju diciously if warranted and avoid nephrotoxins. 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 ESRD. Hgb 8.3 and Hct 25.2 on admission today. Pt. denies unusual bleeding. Monitor H/H. (10) Hx of deep venous thrombosis Status: Resolved Assessment and plan: Hx of DVT in RLE x5 in 2003. Pt. reports three of the five DVTs were "abscessed" and required surgical removal. Not currently on anticoagulation. SQ heparin for DVT prophylaxis. Monitor. (11) Previous myocardial infarction older than 8 weeks Status: Resolved Assessment and plan: Hx of previous SD in 2009 w/stents x2. Continuous cardiac monitoring. (12) DVT prophylaxis Status: Acute Assessment and plan: Heparin 5,000 units SQ Q8HR for DVT prophylaxis. Monitor pt. for signs of bleeding. - Time Spent With Patient Total time spent is greater than 50% in coordination of care (as documented) at patient's floor/unit and/or counseling patient: Greater than 35 minutes <Shira Burgos - Last Filed: 06/20/18 07:54> Internal Medicine - H&P: HPI History of present illness: Mr. Bess is a 58 year old male All Systems PM: A 10-system review of systems was performed and is negative for pertinent findings except as documented above in the HPI. - Constitutional Vitals: Temp Pulse Resp BP Pulse Ox 98.4 F 64 16 115/62 98 06/19/18 11:51 06/19/18 11:51 06/19/18 11:51 06/19/18 11:51 06/19/18 11:51 Internal Med - H&P Results - Labs CBC & Chem 7: 06/19/18 13:03 06/19/18 00:29 Labs: Short CBC 06/19/18 Range/Units 13:03 Hgb 8.3 L (12.9-16.9) g/dL Hct 25.7 L (37.5-50.1) % - Assessment and plan (1) Atrial fibrillation with rapid ventricular response Status: Acute (2) ESRD (end stage renal disease) Status: Chronic (3) Diabetes Status: Chronic Qualifiers: Diabetes mellitus type: type 2 Diabetes mellitus senior living insulin use: with computer terminal operator use Diabetes mellitus complication status: with kidney complications Diabetes mellitus complication detail: with chronic kidney disease Chronic kidney disease stage: on chronic dialysis Qualified Code(s): E11.22 - Type 2 diabetes mellitus with diabetic chronic kidney disease; N18.6 - End stage renal disease; Z79.4 - longterm (current) use of insulin; Z99.2 - Dependence on renal dialysis (4) CAD (coronary artery disease) Status: Chronic Qualifiers: Coronary Disease-Associated Artery/Lesion type: [place] artery [place] vs. transplanted heart: [place] heart Associated angina: with unstable angina [place] lified Code(s): I25.110 - Atherosclerotic heart disease of [place] coronary artery with unstable angina pectoris (5) DVT prophylaxis Status: Acute (6) Hyponatremia Status: Acute (7) Hyperkalemia Status: Acute (8) HLD (hyperlipidemia) Status: Chronic Qualifiers: Hyperlipidemia type: pure hypercholesterolemia Qualified Code(s): E78.00 - Pure hypercholesterolemia, unspecified; E78.0 - Pure hypercholesterolemia (9) HTN (hypertension) Status: Chronic Qualifiers: Hypertension type: essential hypertension Qualified Code(s): I10 - Essential (primary) hypertension (10) Anemia in ESRD (end-stage renal disease) Status: Chronic - Time Spent With Patient Total time spent is greater than 50% in coordination of care (as documented) at patient's floor/unit and/or counseling patient: - Attending Attestation I personally and independently interviewed and examined the patient , and I reviewed the patient's medical record . I am in agreement with proposed assessment and proposed treatment plan. I discussed my findings and recommendation with the patient and answer his questions. The patient's medical records were edited to accurately reflect this encounter.
[2018-06-18 19:19] LABS: Troponin I 0.15 ng/mL (< 0.04)
[2018-06-18] MEDS ORDERED: Insulin LISPRO 300 UNITS/3 ML VIAL SQ SCH (21:00)
[2018-06-18] MEDS: Cholecalciferol (D-3) 1,000 UNIT TABLET PO SCH (22:25)
[2018-06-19 00:51] LABS: Basophils % 0.4 %; Eosinophils # 0.2 K/mcL (0.0-0.6); Eosinophils % 1.9 %; Hematocrit 23.2 % (37.5-50.1); Hemoglobin 7.6 g/dL (12.9-16.9); Immature Granulocytes % 0.4 % (0-4); Lymphocytes # 1.1 K/mcL (0.6-4.6); Lymphocytes % 13.5 %; Mean Corpuscular HGB Conc 32.8 g/dL (31.6-35.5); Mean Corpuscular Hemoglobin 29.8 pg (28.0-33.3); Mean Platelet Volume 8.6 fL (9.4-12.4); Monocytes # 0.6 K/mcL (0.0-1.3); Monocytes % 6.9 %; Neutrophils # 6.4 K/mcL (1.6-8.9); Platelet Count 149 K/mcL (140-400); Red Blood Count 2.55 M/mcL (4.19-5.50); Red Cell Distribution Width 13.1 % (11.5-14.5); Segmented Neutrophils % 76.9 %
[2018-06-19 01:10] LABS: Albumin 3.2 g/dL (3.5-5.7); Albumin/Globulin Ratio 1.1 (1.1-2.2); Bilirubin,Total 0.3 mg/dL (0.3-1.0); Calcium 8.3 mg/dL (8.6-10.3); Chol/HDL Ratio 2.5 (0-4.9); Globulin 2.8 g/dL (2.4-3.5); Magnesium 1.7 mg/dL (1.6-2.6); Phosphorous 4.3 mg/dL (2.7-4.5); Potassium 5.4 mEq/L (3.5-5.1)
[2018-06-19 02:09] LABS: Estimated Average Glucose 148 mg/dl; Hemoglobin A1C 6.8 %
[2018-06-19 06:21] LABS: Hematocrit 25.2 % (37.5-50.1); Hemoglobin 8.2 g/dL (12.9-16.9)
[2018-06-19] MEDS: Insulin LISPRO 300 UNITS/3 ML VIAL SQ SCH ×2 (08:30→12:22)
[2018-06-19] MEDS ORDERED: *HR* OxyCODONE/APAP 5/325 TABLET PO PRN (08:33)
--- NOTE | 2018-06-19 08:36 | Internal Med Progress Note ---
Hospitalist Progress Note - Encounter Date of Encounter: 06/19/18 Time of Encounter: 08:30 - Exam Vitals: Temp Pulse Resp BP Pulse Ox 98.6 F 65 18 113/66 98 06/19/18 07:55 06/19/18 07:55 06/19/18 07:55 06/19/18 07:55 06/19/18 07:55 Exam: Gen - Awake, alert, oriented x 3, no acute distress HEENT - NCAT, PERRLA, EOMI, hearing grossly intact, oropharynx benign CV - irregularly irregular, no M/R/G, no BLE edema Resp - Normal WOB, CTAB, no W/R/R GI - Soft, NT/ND, no masses, normal bowel sounds, Skin - Warm, dry, no rashes/lesions/ulcers Psych - Normal mood and affect, no depression or anxiety - Assessment and Plan (1) Atrial fibrillation with rapid ventricular response Current Visit: Yes Status: Acute Assessment and Plan: Acute on chronic atrial fibrillation w/RVR. Will start amiodarone and wean off cardizem Pt does not appear to be on intermediate frame tender anticaogulation. Continue aspirin s/p CABG. PAF with modified MAZE during CABG to ablate AF, sp SUN stapling (SUN nidus for thrombus from AF eliminated) and on rate control. No indication for therapeutic anticoagulation per cardio (2) ESRD (end stage renal disease) Current Visit: Yes Status: Chronic Assessment and Plan: Continue dialysis as indicated. Renal following (3) Diabetes Current Visit: Yes Status: Chronic Assessment and Plan: Continue insulin and monitor fingersticks (4) CAD (coronary artery disease) Current Visit: Yes Status: Chronic Assessment and Plan: Hx of CAD. CABG (triple bypass) in [facility] May 2018. VT in 2003 w/stents x2. HLD. HTN. DM. Continue pts. HTN and HLD medications. (5) Hyponatremia Current Visit: Yes Status: Acute Assessment and Plan: Acute hyponatremia w/sodium of 135 on admission. Monitor pt. and f/u labs. Continuous cardiac telemetry. (6) Hyperkalemia Current Visit: Yes Status: Acute Assessment and Plan: Acute hyperkalemia w/potassium of 5.2 on admission. Continuous cardiac telemetry. Monitor pt. and f/u labs. Nephrology consult ordered and discussed w/Dr. Stewart who will see pt. in a.m. (7) Hx of deep venous thrombosis Current Visit: Yes Status: Resolved Assessment and Plan: Hx of DVT in RLE x5 in 2003. Pt. reports three of the five DVTs were "abscessed" and required surgical removal. Not currently on anticoagulation. SQ heparin for DVT prophylaxis. Monitor. (8) HLD (hyperlipidemia) Current Visit: Yes Status: Chronic Assessment and Plan: Hx of chronic HLD. Lipid panel in a.m. labs. Pt. currently takes Simvastatin for lipid control. Simvastatin is contraindicated w/Amiodarone d/t severe interaction. Consider changing statin to Crestor. (9) HTN (hypertension) Current Visit: Yes Status: Chronic Assessment and Plan: Hx of chronic HTN. Monitor pt. and VS. Continue pts. Lisinopril, Norvasc, and Coreg. (10) Previous myocardial infarction older than 8 weeks Current Visit: Yes Status: Resolved Assessment and Plan: Hx of previous VT in 2009 w/stents x2. Continuous cardiac monitoring. (11) Anemia in ESRD (end-stage renal disease) Current Visit: Yes Status: Chronic Assessment and Plan: Hx of chronic anemia r/t pts. ESRD. Hgb 8.3 and Hct 25.2 on admission today. Pt. denies unusual bleeding. Monitor H/H. (12) DVT prophylaxis Current Visit: Yes Status: Acute Assessment and Plan: Heparin 5,000 units SQ Q8HR - Time Spent with Patient Total time spent is greater than 50% in coordination of care (as documented) at patient's floor/unit and/or counseling patient: Internal Medicine: Result - Labs CBC & Chem 7: 06/19/18 06:08 06/19/18 00:29 Labs: Short CBC 06/18/18 06/19/18 06/19/18 Range/Units 18:00 00:29 06:08 WBC 7.8 8.3 (4.3-11.1) K/mcL Hgb 8.3 L 7.6 L 8.2 L (12.9-16.9) g/dL Hct 25.2 L 23.2 L 25.2 L (37.5-50.1) % Plt Count 159 149 (140-400) K/mcL Neutrophils # 6.2 6.4 (1.6-8.9) K/mcL BMP 06/18/18 06/19/18 18:00 00:29 Sodium 135 L 134 L Potassium 5.2 H 5.4 H Chloride 100 99 Carbon Dioxide 28 27 BUN 40 H 43 H Creatinine 2.97 H 3.53 H Glucose 145 H 209 H Calcium 8.3 L 8.3 L Cardiac Enzymes 06/18/18 06/19/18 06/19/18 Range/Units 18:00 00:29 06:08 Troponin I 0.15 H* 0.24 H* 0.23 H* (< 0.04) ng/mL Liver Function 06/18/18 06/19/18 Range/Units 18:00 00:29 Total Bilirubin 0.4 0.3 (0.3-1.0) mg/dL AST 14 11 L (13-39) Units/L ALT 24 20 (7-52) Units/L Alkaline Phosphatase 225 H 186 H (34-104) Units/L Albumin 3.2 L 3.2 L (3.5-5.7) g/dL Consult Discharge Plan - Plan Instructions: Atrial Fibrillation (DC), Chest Pain (DC), Diabetes Mellitus Type 2 in Adults (DC) Referrals: Yari Rader, TRANSACTION MANAGER [Primary Care Provider] - (Please follow up with primary care provider within 7-10 days. ) (3) Diabetes Qualifiers: Diabetes mellitus type: type 2 Diabetes mellitus intermediate insulin use: with intermediate use Diabetes mellitus complication status: with kidney complications Diabetes mellitus complication detail: with chronic kidney disease Chronic kidney disease stage: on chronic dialysis Qualified Code(s): E11.22 - Type 2 diabetes mellitus with diabetic chronic kidney disease; N18.6 - End stage renal disease; Z79.4 - penitentiary (current) use of insulin; Z99.2 - Dependence on renal dialysis (4) CAD (coronary artery disease) Qualifiers: Coronary Disease-Associated Artery/Lesion type: inupiat artery [place] vs. transplanted heart: inupiat heart Associated angina: with unstable angina Qualified Code(s): I25.110 - Atherosclerotic heart disease of inupiat coronary artery with unstable angina pectoris (8) HLD (hyperlipidemia) Qualifiers: Hyperlipidemia type: pure hypercholesterolemia Qualified Code(s): E78.00 - Pure hypercholesterolemia, unspecified; E78.0 - Pure hypercholesterolemia (9) HTN (hypertension) Qualifiers: Hypertension type: essential hypertension Qualified Code(s): I10 - Essential (primary) hypertension
[2018-06-19] MEDS ORDERED: Bumetanide 1 MG TABLET PO SCH (09:00)
[2018-06-19] MEDS ORDERED: Aspirin 325 MG TABLET PO SCH (09:00)
[2018-06-19] MEDS ORDERED: *HR* Amiodarone 200 MG TABLET PO SCH (09:00)
[2018-06-19] MEDS ORDERED: amLODIPine 5 MG TABLET PO SCH (09:00)
[2018-06-19] MEDS ORDERED: Famotidine 20 MG TABLET PO SCH (09:00)
[2018-06-19] MEDS: Cholecalciferol (D-3) 1,000 UNIT TABLET PO SCH (09:04)
--- NOTE | 2018-06-19 09:36 | Cardiology History & Physical ---
Date of Encounter: 06/19/18 Time of Encounter: 09:35 Assessment and Plan (1) Atrial fibrillation with rapid ventricular response Current Visit: Yes Status: Acute No new recommendations. He has PAF with modified MAZE during CABG to ablate AF, sp SUN stapling (SUN nidus for thrombus from AF eliminated) and on rate control. If he goes into AF with RVR, given him additional rate control with either BB (ie metoprolol) or CCB (ie cardizem) either IV or PO if BP will tolerate until HR is controlled. He may have more episodes of AF RVR during dialysis in the future. He is already on amiodarone - the strongest antiarrhythmic. The assessment and plan as outlined above was discussed with the patient and/or family members who expressed understanding and agreement. All questions were answered. (2) CAD (coronary artery disease) Current Visit: Yes Status: Chronic Continue medical management. The assessment and plan as outlined above was discussed with the patient and/or family members who expressed understanding and agreement. All questions were answered. Qualifiers: Coronary Disease-Associated Artery/Lesion type: [place] artery [place] vs. transplanted heart: belk[place]ski heart Associated angina: with unstable angina Qualified Code(s): I25.110 - Atherosclerotic heart disease of [place] coronary artery with unstable angina pectoris (3) Elevated troponin Current Visit: Yes Status: Acute Probably from AF RVR with ESRD patient. Continue to trend until it peaks and declining. If it markedly elevates, will consider further evaluation. Otherwise, continue to treat it medically. The assessment and plan as outlined above was discussed with the patient and/or family members who expressed understanding and agreement. All questions were answered. History of Present Illness HPI: Mr. Bess is a 58 year old male with history of CAD sp CABG 05/2018 and modified MAZE for atrial fibrillation and SUN stapling with history of [place] sp PCI prior to that, history of DVTs in right leg x5 in 2004 (3 were abscessed and required surgical removal), diabetes controlled with insulin, ESRD on dialysis, HLD, HTN, history of kidney stones. Not currently on AC for AF given his SUN was stapled during CABG. He has had intermittent AF despite modified MAZE during CABG and being on amiodarone. He notes a flushed feeling during dialysis that resolved once he arrived here (and converted to SR). Past Med Surg Social Fam HX - Past Medical History Medical history: CHF, coronary artery disease (CABG in early May 2018 (triple bypass)), DVT, diabetes, dialysis, hyperlipidemia, hypertension, kidney stones, myocardial infarction (2010 w/stents x2), renal disease Additional medical history: neuropathy Psychiatric history: no psych history - Past Surgical History Surgical History: angioplasty/stent (x2), cholecystectomy, coronary bypass (CABG) (Triple bypass in early May 2018), other Additional surgical history: 2 stents, - Social History Smoking Status: Former smoker Packs per day: 1 PPD - Reports quitting 3 weeks ago Smokeless Tobacco Status: No Alcohol use: none Drug use: none - Family History Mother Race: Family Member Ethnicity: Non- Living Status: Age at : 69 Cause of : DM complications Hx Family Cardiac Disorders: Yes (CAD, [place]) Hx Family Endocrine Disorder: Yes (DM) Brother Race: Family Member Ethnicity: Non- Living Status: Age at : 63 Cause of : UT Hx Family Cardiac Disorders: Yes (UT ) Hx Family Endocrine Disorder: Yes (DM) Sister Race: Family Member Ethnicity: Non- Living Status: Still Living Hx Family Cardiac Disorders: Yes (UT) Hx Family Endocrine Disorder: Yes (DM) Father Race: Family Member Ethnicity: Non- Living Status: Age at : 77 Cause of : PNA Hx Family Cardiac Disorders: Yes (CAD, CHF, [place]) Hx Family Respiratory Disorders: Yes (PNA) Hx Family Endocrine Disorder: Yes (DM) Medications and Allergies Bumetanide [Bumex] 1 mg PO DAILY 07/03/16 [History] Carvedilol [Coreg] 12.5 mg PO BID 07/03/16 [History] amLODIPine [Norvasc] 2.5 mg PO DAILY 07/03/16 [History] Lisinopril [Zestril] 2.5 mg PO BID 10/21/16 [History] Simvastatin [Zocor] 40 mg PO HS 10/21/16 [History] Aspirin 325 mg PO DAILY 04/15/18 [History] Ergocalciferol (VITAMIN D2) [Drisdol (50,000 Unit)] 50,000 unit PO QWEEK 04/15/18 [History] Insulin Glargine,Hum.rec.anlog [Lantus Solostar] 10 unit SQ HS 04/15/18 [History] Vit B Comp C/Folic Acid/Vit D3 [Dialyvite 800 Plus D Wafer] 1 tab PO 2XW 04/15/18 [History] Famotidine [Heartburn Prevention] 20 mg PO DAILY 05/26/18 [History] Amiodarone [Cordarone] 200 mg PO DAILY #30 tablet 06/06/18 [Rx] OxyCODONE/APAP 5/325 [Percocet 5/325 MG] 1 each PO Q4HR PRN 7 Days #20 tablet 06/06/18 [Rx] Allergy/AdvReac Type Severity Reaction Status Date / Time sulfamethoxazole Allergy Nausea Verified 05/25/18 21:33 [From Bactrim] trimethoprim [From Bactrim] Allergy Nausea Verified 05/25/18 21:33 All Systems Review: The remainder of the systems were reviewed and are negative - Constitutional Constitutional: no chills, no fever(s) - EENT Eyes: no blurred vision, no loss of vision Nose, mouth and throat: no sore throat, no throat swelling - Cardiovascular Cardiovascular: no diaphoresis, no paroxysmal nocturnal dyspnea - Respiratory Respiratory: no hemoptysis, no wheezing - Gastrointestinal Gastrointestinal: no hematemesis, no hematochezia - Genitourinary Genitourinary: no hematuria, no nocturia - Musculoskeletal Musculoskeletal: no arthralgias, no myalgias - Integumentary Integumentary: no rash, no unusual bruising - Neurological Neurological: no memory loss, no syncope - Psychiatric Psychiatric: no hallucinations, no panic attacks - Hematological/Lymphatic Hematologic/Lymphatic: no easy bleeding, no easy bruising Physical Examination Vital Signs, Last 4 Hours Temp Pulse Resp BP Pulse Ox 06/19/18 09:29 62 16 104/72 06/19/18 07:55 98.6 F 65 18 113/66 98 General: Conversant HEENT: Atraumatic Neck: No JVD Cardiac: Reg Rate and Rhythm Lungs: Other (bibasilar crackles) Neuro: Alert and responsive Abdomen: Soft Skin: No rashes noted on visualized skin Musculoskeletal: No Chest Wall Tenderness Extremities: No Cyanosis Results 06/19/18 06:08 06/19/18 00:29 Lab Results 06/18/18 06/18/18 06/18/18 18:00 18:00 19:51 WBC 7.8 RBC 2.79 L Hgb 8.3 L Hct 25.2 L MCV 90.3 MCH 29.7 MCHC 32.9 RDW 12.9 Plt Count 159 MPV 8.8 L Immature Gran % 0.4 Seg Neutrophils % 80.0 Lymphocytes % 11.7 Monocytes % 6.3 Eosinophils % 1.2 Basophils % 0.4 Neutrophils # 6.2 Lymphocytes # 0.9 Monocytes # 0.5 Eosinophils # 0.1 Basophils # 0.0 Sodium 135 L Potassium 5.2 H Chloride 100 Carbon Dioxide 28 BUN 40 H Creatinine 2.97 H Est GFR ( Amer) 26 L Est GFR (Non-Af Amer) 22 L BUN/Creatinine Ratio 13 Glucose 145 H POC Glucose 139 H Est Mean Plasma Glucose Hemoglobin A1c Calculated Osmolality 292 Calcium 8.3 L Phosphorus Magnesium Total Bilirubin 0.4 AST 14 ALT 24 Alkaline Phosphatase 225 H Troponin I 0.15 H* Serum Total Protein 6.4 Albumin 3.2 L Globulin 3.2 Albumin/Globulin Ratio 1.0 L Triglycerides Cholesterol LDL Cholesterol, Calc VLDL Cholesterol, Calc HDL Cholesterol Cholesterol/HDL Ratio 06/19/18 06/19/18 06/19/18 00:29 00:29 00:29 WBC 8.3 RBC 2.55 L Hgb 7.6 L Hct 23.2 L MCV 91.0 MCH 29.8 MCHC 32.8 RDW 13.1 Plt Count 149 MPV 8.6 L Immature Gran % 0.4 Seg Neutrophils % 76.9 Lymphocytes % 13.5 Monocytes % 6.9 Eosinophils % 1.9 Basophils % 0.4 Neutrophils # 6.4 Lymphocytes # 1.1 Monocytes # 0.6 Eosinophils # 0.2 Basophils # 0.0 Sodium 134 L Potassium 5.4 H Chloride 99 Carbon Dioxide 27 BUN 43 H Creatinine 3.53 H Est GFR ( Amer) 22 L Est GFR (Non-Af Amer) 18 L BUN/Creatinine Ratio 12 Glucose 209 H POC Glucose Est Mean Plasma Glucose Hemoglobin A1c Calculated Osmolality 295 Calcium 8.3 L Phosphorus 4.3 Magnesium 1.7 Total Bilirubin 0.3 AST 11 L ALT 20 Alkaline Phosphatase 186 H Troponin I 0.24 H* Serum Total Protein 6.0 L Albumin 3.2 L Globulin 2.8 Albumin/Globulin Ratio 1.1 Triglycerides 62 Cholesterol 54 LDL Cholesterol, Calc 20 VLDL Cholesterol, Calc 12 HDL Cholesterol 22 L Cholesterol/HDL Ratio 2.5 06/19/18 06/19/18 06/19/18 00:29 06:08 06:08 WBC RBC Hgb 8.2 L Hct 25.2 L MCV MCH MCHC RDW Plt Count MPV Immature Gran % Seg Neutrophils % Lymphocytes % Monocytes % Eosinophils % Basophils % Neutrophils # Lymphocytes # Monocytes # Eosinophils # Basophils # Sodium Potassium Chloride Carbon Dioxide BUN Creatinine Est GFR ( Amer) Est GFR (Non-Af Amer) BUN/Creatinine Ratio Glucose POC Glucose Est Mean Plasma Glucose 148 Hemoglobin A1c 6.8 H Calculated Osmolality Calcium Phosphorus Magnesium Total Bilirubin AST ALT Alkaline Phosphatase Troponin I 0.23 H* Serum Total Protein Albumin Globulin Albumin/Globulin Ratio Triglycerides Cholesterol LDL Cholesterol, Calc VLDL Cholesterol, Calc HDL Cholesterol Cholesterol/HDL Ratio - EKG Interpretation EKG results cardiology: personally reviewed, sinus rhythm (rbbb)
--- NOTE | 2018-06-19 09:56 | Discharge Summary ---
Orders not resulted at time of discharge: Pending orders 06/18/18 17:31 EKG [ECG 12 lead ECG] [ECG] Stat 06/19/18 12:00 H/H [Hemoglobin and Hematocrit] [HEME] Q6H 06/19/18 18:00 H/H [Hemoglobin and Hematocrit] [HEME] Q6H 06/20/18 04:00 Complete Blood Count [HEME] AM 0400 Comprehensive Metabolic Panel AM 0400 06/21/18 04:00 Complete Blood Count [HEME] AM 0400 Comprehensive Metabolic Panel AM 0400 06/22/18 04:00 Complete Blood Count [HEME] AM 0400 Comprehensive Metabolic Panel AM 0400 Date of Encounter: 06/19/18 Time of Encounter: 10:00 - Discharge Diagnosis (1) Atrial fibrillation with rapid ventricular response Priority: Primary Status: Acute Assessment and Plan: 58 year old male w/PMH of CHF, CAD, history of DVTs in right leg x5 in 2003 (3 were abscessed and required surgical removal), diabetes controlled with insulin, ESRD on dialysis, HLD, HTN, history of kidney stones, and history of previous myocardial infarction in 2009 with stent placement 2 presents from [facility] after developing Afib w/RVR during dialysis. Pt. reports he was almost finished w/dialysis when he started having heart palpitations, nausea, vomiting, and chills. Pt. reports having CABG (triple bypass in early May 2018 w/Dr. Ye for 6 blockages) recently. He was assessed with acute on chronic atrial fibrillation w/RVR. He was started on a cardizem drip and transitioned to po amiodarone the next day which he tolerated well. He has PAF and had modified MAZE during CABG to ablate AF, sp SUN stapling (SUN nidus for thrombus from AF eliminated) and on rate control and thus has no indication for therapeutic anticoagulation per cardio. He will be discharged on his home aspirin regimen (2) ESRD (end stage renal disease) Priority: Secondary Status: Chronic (3) Diabetes Priority: Secondary Status: Chronic Qualifiers: Diabetes mellitus type: type 2 Diabetes mellitus watermaster insulin use: with chcf use Diabetes mellitus complication status: with kidney complications Diabetes mellitus complication detail: with chronic kidney disease Chronic kidney disease stage: on chronic dialysis Qualified Code(s): E11.22 - Type 2 diabetes mellitus with diabetic chronic kidney disease; N18.6 - End stage renal disease; Z79.4 - residential (current) use of insulin; Z99.2 - Dependence on renal dialysis (4) CAD (coronary artery disease) Priority: Secondary Status: Chronic Qualifiers: Coronary Disease-Associated Artery/Lesion type: inupiat artery [place] vs. transplanted heart: inupiat heart Associated angina: with unstable angina Qualified Code(s): I25.110 - Atherosclerotic heart disease of inupiat coronary artery with unstable angina pectoris (5) DVT prophylaxis Priority: Secondary Status: Acute (6) Hyponatremia Priority: Secondary Status: Acute (7) Hyperkalemia Priority: Secondary Status: Acute (8) HLD (hyperlipidemia) Priority: Secondary Status: Chronic Qualifiers: Hyperlipidemia type: pure hypercholesterolemia Qualified Code(s): E78.00 - Pure hypercholesterolemia, unspecified; E78.0 - Pure hypercholesterolemia (9) HTN (hypertension) Priority: Secondary Status: Chronic Qualifiers: Hypertension type: essential hypertension Qualified Code(s): I10 - Essential (primary) hypertension (10) Anemia in ESRD (end-stage renal disease) Priority: Secondary Status: Chronic Hospital course: Mr. Bess is a 58 year old male - Time Spent with Patient Total time spent providing and/or coordinating discharge services: - Discharge Medications Home Medications: Bumetanide [Bumex] 1 mg PO DAILY 07/03/16 [History] Carvedilol [Coreg] 12.5 mg PO BID 07/03/16 [History] amLODIPine [Norvasc] 2.5 mg PO DAILY 07/03/16 [History] Lisinopril [Zestril] 2.5 mg PO BID 10/21/16 [History] Simvastatin [Zocor] 40 mg PO HS 10/21/16 [History] Aspirin 325 mg PO DAILY 04/15/18 [History] Ergocalciferol (VITAMIN D2) [Drisdol (50,000 Unit)] 50,000 unit PO QWEEK 04/15/18 [History] Insulin Glargine,Hum.rec.anlog [Lantus Solostar] 10 unit SQ HS 04/15/18 [History] Vit B Comp C/Folic Acid/Vit D3 [Dialyvite 800 Plus D Wafer] 1 tab PO 2XW 04/15/18 [History] Famotidine [Heartburn Prevention] 20 mg PO DAILY 05/26/18 [History] Amiodarone [Cordarone] 200 mg PO DAILY #30 tablet 06/06/18 [Rx] OxyCODONE/APAP 5/325 [Percocet 5/325 MG] 1 each PO Q4HR PRN 7 Days #20 tablet 06/06/18 [Rx] Allergies/Adverse Reactions: Allergy/AdvReac Type Severity Reaction Status Date / Time sulfamethoxazole Allergy Nausea Verified 05/25/18 21:33 [From Bactrim] trimethoprim [From Bactrim] Allergy Nausea Verified 05/25/18 21:33 Date of admission: 06/18/18 17:25 Primary care physician: Yari Rader CNP Consults: 06/18/18 18:33 Consult to Electronics Recycler [CONS] Routine Reason for SW Consult: Please assess patient for possible home needs for post-discharge planning. 06/18/18 18:35 Consult to Nephrology [CONS] Routine Consulting Provider: Kidney Xena/MEGHAN/RENE/MOISE Reason for Consult: Patient is ESRD on dialysis. Almost completed dialysis today and began having Afib w/RVR. Dialysis stopped and pt. transferred from [facility] to [facility] w/fistula needles in left arm. [place] removed by dialysis nurse. Call Completed: Yes 06/18/18 18:37 Consult to Cardiology [CONS] Routine Comment: Consulting Provider: Cardiology Xena Reason for Consult: Patient has hx of Mi in 2009 w/stents x2, CABG (triple bypass 3 weeks ago w/Dr. Ye), and hx of Afib w/RVR. Pt. is ESRD and was almost finished w/dialysis today when he developed Afib w/RVR. Cardizem drip started at [facility] and continued at [facility]. Last Echo on 05/26/18 when pt. had cardiac catheterization. Call Completed: Yes - Constitutional Vitals: Temp Pulse Resp BP Pulse Ox 98.6 F 62 16 104/72 98 06/19/18 07:55 06/19/18 09:29 06/19/18 09:29 06/19/18 09:29 06/19/18 07:55 General appearance: Present: cooperative, mild distress, A&O X 3, morbidly obese, pleasant, answers questions appropriately Exam: Gen - Awake, alert, oriented x 3, no acute distress HEENT - NCAT, PERRLA, EOMI, hearing grossly intact, oropharynx benign CV - irregularly irregular, no M/R/G, no BLE edema Resp - Normal WOB, CTAB, no W/R/R GI - Soft, NT/ND, no masses, normal bowel sounds, Skin - Warm, dry, no rashes/lesions/ulcers Psych - Normal mood and affect, no depression or anxiety - Patient Status Disposition: Home, Self-Care - Discharge Instructions Instructions: Atrial Fibrillation (DC), Chest Pain (DC), Diabetes Mellitus Type 2 in Adults (DC) Follow Up With: Yari Rader, TRIM MECHANIC [Primary Care Provider] - (Please follow up with primary care provider within 7-10 days. )
[2018-06-19 11:57] VITALS: BP 115/62
--- NOTE | 2018-06-19 12:47 | Nephrology Consult Note ---
Date of Encounter: 06/19/18 Time of Encounter: 11:00 Assessment and Plan (1) ESRD (end stage renal disease) Status: Chronic I was consulted later in the day yesterday and this pt was seen today. He last completed most of his HD on Wednesday. He is typically a twice weekly HD pt of Dr. Estrada. I counseled him for >50% of the 30 min encounter to let us change him to thrice weekly, which would allow for smaller UF volumes that would be safer. His dry weight should be adjusted, which can be performed at his outpt HD unit in [place], [place]. Yesterday I helped make arrangements with the inpt HD RNs to remove the dialysis needles that were still in place from when he was rushed from his dialysis unit to the [facility] ER and then transferred here. He is complex in terms of MDM and E/M. He does not need HD today (Wednesday). Okay to d/c today. (2) Atrial fibrillation with rapid ventricular response Status: Acute As per primary (3) Anemia in ESRD (end-stage renal disease) Status: Chronic Goal HGb is 10-11. (4) HTN (hypertension) Status: Chronic Continue his outpt antihypertensive Rx. Qualifiers: Hypertension type: essential hypertension Qualified Code(s): I10 - Essential (primary) hypertension History of Present Illness - Reason for Consult Consult date: 06/18/18 end stage renal disease Requesting physician: Shira Burgos - Chief Complaint ESRD - History of Present Illness Kip Bess is a very pleasant 58 y/o WM with a pmh of ESRD on HD T/S who presented as a transfer from [facility]. Nephrology was consulted as he is a dialysis patient. I reviewed his labs, vital, med lists, progress notes and imaging; and, also his outside medical records from [facility] dialysis unit in [place], [place]. His primary nephrology is my colleague Dr. Estrada. He last went to dialysis on Wednesday and during the last portion of it he developed severe hypotension. I spoke with the [facility] RN on Wednesday and she reported that he was even previously having N/V. He was later found to have AFib. He tells me that he has not gone to all of his dialysis treatments since being discharged from [facility] just recently (in the prior hospitalization he underwent CABG). He said he refuses to go for dialysis thrice weekly. He feels that he may have gained some weight, he said, and not just edema, but that his listed target weight may be off, he feels. He montejo little but some UOP, he reported. He denied OTC NSAID use. Past Med Surg Social Fam HX - Past Medical History Medical history: CHF, coronary artery disease (CABG in early May 2018 (triple bypass)), DVT, diabetes, dialysis, hyperlipidemia, hypertension, kidney stones, myocardial infarction (2010 w/stents x2), renal disease Additional medical history: neuropathy Psychiatric history: no psych history - Past Surgical History Surgical History: angioplasty/stent (x2), cholecystectomy, coronary bypass (CABG) (Triple bypass in early May 2018), other Additional surgical history: 2 stents, - Social History Smoking Status: Former smoker Packs per day: 1 PPD - Reports quitting 3 weeks ago Smokeless Tobacco Status: No Alcohol use: none Drug use: none - Family History Mother Race: Family Member Ethnicity: Non- Living Status: Age at : 69 Cause of : DM complications Hx Family Cardiac Disorders: Yes (CAD, [place]) Hx Family Endocrine Disorder: Yes (DM) Brother Race: Family Member Ethnicity: Non- Living Status: Age at : 63 Cause of : VA Hx Family Cardiac Disorders: Yes ([place] ) Hx Family Endocrine Disorder: Yes (DM) Sister Race: Family Member Ethnicity: Non- Living Status: Still Living Hx Family Cardiac Disorders: Yes ([place]) Hx Family Endocrine Disorder: Yes (DM) Father Race: Family Member Ethnicity: Non- Living Status: Age at : 77 Cause of : PNA Hx Family Cardiac Disorders: Yes (CAD, CHF, [place]) Hx Family Respiratory Disorders: Yes (PNA) Hx Family Endocrine Disorder: Yes (DM) Medications and Allergies Bumetanide [Bumex] 1 mg PO DAILY 07/03/16 [History] Carvedilol [Coreg] 12.5 mg PO BID 07/03/16 [History] amLODIPine [Norvasc] 2.5 mg PO DAILY 07/03/16 [History] Lisinopril [Zestril] 2.5 mg PO BID 10/21/16 [History] Simvastatin [Zocor] 40 mg PO HS 10/21/16 [History] Aspirin 325 mg PO DAILY 04/15/18 [History] Ergocalciferol (VITAMIN D2) [Drisdol (50,000 Unit)] 50,000 unit PO QWEEK 04/15/18 [History] Insulin Glargine,Hum.rec.anlog [Lantus Solostar] 10 unit SQ HS 04/15/18 [History] Vit B Comp C/Folic Acid/Vit D3 [Dialyvite 800 Plus D Wafer] 1 tab PO 2XW 04/15/18 [History] Famotidine [Heartburn Prevention] 20 mg PO DAILY 05/26/18 [History] Amiodarone [Cordarone] 200 mg PO DAILY #30 tablet 06/06/18 [Rx] OxyCODONE/APAP 5/325 [Percocet 5/325 MG] 1 each PO Q4HR PRN 7 Days #20 tablet 06/06/18 [Rx] Allergy/AdvReac Type Severity Reaction Status Date / Time sulfamethoxazole Allergy Nausea Verified 05/25/18 21:33 [From Bactrim] trimethoprim [From Bactrim] Allergy Nausea Verified 05/25/18 21:33 Review of Systems All Systems: reviewed and no additional remarkable complaints except as stated Exam - Vital Signs Vital signs: Initial Vital Signs Temp Pulse Resp BP Pulse Ox 98.3 F 82 18 101/72 98 06/18/18 19:47 06/18/18 19:47 06/18/18 19:47 06/18/18 19:47 06/18/18 19:47 Vital Signs - Last 8 Hours Temp Pulse Resp BP Pulse Ox 06/19/18 11:51 98.4 F 64 16 115/62 98 06/19/18 09:29 62 16 104/72 06/19/18 07:55 98.6 F 65 18 113/66 98 06/19/18 05:10 98.5 F Intake and Output 06/18/18 06/19/18 06/19/18 23:59 07:59 15:59 Intake Total 52.0 / 52.0 200 / 200 Output Total 175 / 175 50 / 50 125 / 125 Balance -123.0 / -123.0 150 / 150 -109 / -109 Intake: IV Fluids 52.0 / 52.0 Cardizem 50 MG In 0.9 % Sodium 52.0 / 52.0 16 / 16 Chloride 40 ML @ 15 MG/HR 15 mls/hr IVC .Q3H20M OTF Rx#: [id number] Oral 0 / 0 200 / 200 Output: Urine 175 / 175 50 / 50 125 / 125 Other: # Voids 0 Weight 119.3 kg 119.9 kg Blood Glucose* 139 145 173 Patient Weight 06/19/18 23:59 Weight 119.9 kg - General Appearance General appearance: well-developed, well-nourished, appears started age, obese EENT: ATNC, PERRL, mucous membranes moist Neck: supple Respiratory: clear Cardiology: edema (trace to 1+ ankle edema b/l (better than compared to the prior admission s/p CABG)), normal S1, normal S2 - Dialysis Access Dialysis Vascular Access: Arteriovenous Graft (Left forearm, and appears to be a hybrid (jump graft)) thrill: Yes bruit: Yes Gastrointestinal: normoactive bowel sounds, no guarding, obese Additional Comments: his sternal incision was healing but in the most caudal aspect near his abd, there was dressing applied that was C/D/I Neurologic: no focal deficit, no asterixis, alert and oriented x3 Musculoskeletal: no deformities, no erythema, no cyanosis Psychiatric: mood/affect appropriate, cooperative Results - Lab Results 06/19/18 13:03 06/19/18 00:29 Most recent lab results Calcium 8.3 mg/dL (8.6-10.3) L 06/19/18 00:29 Phosphorus 4.3 mg/dL (2.7-4.5) 06/19/18 00:29 Magnesium 1.7 mg/dL (1.6-2.6) 06/19/18 00:29 Consult Discharge Plan - Plan Instructions: Atrial Fibrillation (DC), Chest Pain (DC), Diabetes Mellitus Type 2 in Adults (DC) Referrals: Yari Rader, CLAIM ADJUSTER [Primary Care Provider] - (Please follow up with primary care provider within 7-10 days. )
[2018-06-19 13:23] LABS: Hematocrit 25.7 % (37.5-50.1); Hemoglobin 8.3 g/dL (12.9-16.9)
[2018-06-19] MEDS ORDERED: Insulin DETEMIR 100 UNIT/ML X5UNITS SQ SCH (21:00)
[2018-06-20] MEDS ORDERED: Multivit/Ca/Min/Fe/FA 1 TAB TABLET PO SCH (09:00)
--- NOTE | 2018-06-24 18:23 | Electrocardiograph Report ---
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
--- NOTE | 2018-06-24 18:29 | Electrocardiograph Report ---
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
== END 2018-06-19 14:43 | disposition home or self-care (01) ==
LOC: 2NENU
PROVIDERS: ADMIT Internal Medicine Nephrology; ATTEND Internal Medicine Nephrology

== ENCOUNTER 2019-03-24 09:35 | Inpatient (IN) ==
[2019-03-24] MEDS: Piperacillin/Tazobactam 3.375 GM in 0.9 % Sodium Chloride Mini Bag 100 ML IVPB SCH (16:25)
[2019-03-24] MEDS ORDERED: Naloxone 0.4 MG/ML INJ IVP PRN (16:28)
--- NOTE | 2019-03-24 16:51 | Internal Med History&Physical ---
Date of Encounter: 03/24/19 Time of Encounter: 16:49 Internal Medicine - H&P: HPI Chief complaint: Fever, difficulty breathing, and abdominal pain for past 2-3 days Admitted From: Home Plans for Post Hospital Care: Home History of present illness: Mr. Bess is a 59 year old male with past medical history significant for end- stage renal disease on dialysis, coronary artery disease status post stent placement and status post coronary artery bypass graft, hypertension, diabetes, hyperlipidemia, COPD, CHF prese presents to the [facility] from the [facility]. Patient was presented to the outside facility with complaint of fever which started earlier today and difficulty breathing and abdominal pain which started couple days ago. He reports that he went to [facility] and then he got transferred at [facility]. Patient reported fever and mild right upper quadrant abdominal pain my exam. He reports mild shortness of breath and cough but he is not bringing any sputum. Patient reports that he only brings mucous. Apart from this, he denies chills, nausea, vomiting, palpitation, and leg swelling. Patient had blood work and CT scan of his abdomen done at outside facility. Patient white count related to 13.1 with left shift at outside facility. Patient d-dimer was elevated at outside facility. Patient's troponin was at 0.05 at outside facility. Patient's BUN was 35 and creatinine was 5.33. GFR was less than 11. Patient's magnesium level of 1.7 outside facility. Past Med Surg Social Fam HX - Past Medical History Medical history: arthritis, atrial fibrillation, cardiomyopathy, COPD, coronary artery disease, DVT, diabetes, dialysis, GERD, hyperlipidemia, hypertension, kidney stones, myocardial infarction, renal disease, sudden cardiac , other Additional medical history: neuropathy Psychiatric history: no psych history - Past Surgical History Surgical History: angioplasty/stent, cholecystectomy, coronary bypass (CABG), other (Left first and scond toe amputations) Additional surgical history: 2 stents, - Social History Smoking Status: Current every day smoker Smokeless Tobacco Status: No Alcohol use: none Drug use: none - Family History Mother Family Member Ethnicity: Non- Living Status: Hx Family Cardiac Disorders: Yes (CAD, [place]) Hx Family Endocrine Disorder: Yes (DM) Brother Family Member Ethnicity: Non- Living Status: Hx Family Cardiac Disorders: Yes ([place] ) Hx Family Endocrine Disorder: Yes (DM) Sister Family Member Ethnicity: Non- Living Status: Still Living Hx Family Cardiac Disorders: Yes ([place]) Hx Family Endocrine Disorder: Yes (DM) Father Family Member Ethnicity: Non- Living Status: Hx Family Cardiac Disorders: Yes (mother,father) Hx Family Respiratory Disorders: No Hx Family Cancer: No Hx Family GI Disorders: No Hx Family Endocrine Disorder: Yes (motjher, father) Hx Family Neuromuscular Disorders: No Hx Family Neurologic Disorders: No Hx Family HEENT Disorders: No Hx Family Autoimmune Disorders: No Internal Medicine - H&P: Meds Simvastatin [Zocor] 40 mg PO HS 10/21/16 [History] Aspirin 325 mg PO DAILY 04/15/18 [History] Ergocalciferol (VITAMIN D2) [Drisdol (50,000 Unit)] 50,000 unit PO SA 04/15/18 [History] Vit B Comp C/Folic Acid/Vit D3 [Dialyvite 800 Plus D Wafer] 1 tab PO DAILY 04/15/18 [History] Famotidine [Heartburn Prevention] 20 mg PO HS 05/26/18 [History] Albuterol Sulfate [Ventolin Hfa] 2 each IH Q6H PRN 08/11/18 [History] Docusate [Colace] 200 mg PO DAILY 08/11/18 [History] OxyCODONE/APAP 5/325 [Percocet 5/325 MG] 1 each PO HS PRN 08/11/18 [History] Umeclidinium Brm/Vilanterol Tr [Anoro Ellipta 62.5-25 Mcg INH] 1 puff IH DAILY 08/11/18 [History] Bumetanide [Bumex] 1 mg PO QPM 03/24/19 [History] Carvedilol 12.5 mg PO BID 03/24/19 [History] Lidocaine/Prilocaine [Emla] 1 appl TP AD 03/24/19 [History] Lisinopril 2.5 mg PO BID 03/24/19 [History] Allergy/AdvReac Type Severity Reaction Status Date / Time sulfamethoxazole Allergy Nausea Verified 03/24/19 16:19 [From Bactrim] trimethoprim [From Bactrim] Allergy Nausea Verified 03/24/19 16:19 All Systems PM: A 10-system review of systems was performed and is negative for pertinent findings except as documented above in the HPI. Review of systems: Review of symptom: All 10 point review of system was reviewed and was negative except those mentioned in history of present illness. - Constitutional Vitals: Temp Pulse Resp BP Pulse Ox 97.6 F 59 17 144/75 99 03/24/19 14:47 03/24/19 14:47 03/24/19 14:47 03/24/19 14:47 03/24/19 14:47 General appearance: Present: cooperative, A&O X 3 Exam: General: A & O 3, In no acute distress HENNT: PERRLA. Head atraumatic and makes supple CVS S1 and S2 regular, no murmur RS: Clear to air entry bilaterally, no wheeze, no crackles Abdomen: Soft and nontender. Bowel sounds normal 4 Extremities: No cyanosis, clubbing, and edema Neurology: Cranial 2 through 12 normal. Motor strength 5/5 bilaterally. Sensation intact Internal Med - H&P Results - Impressions ITS Impressions Chest X-Ray 03/24/19 15:02 IMPRESSION: Persistent blunting of the left CP angle likely on the basis of a chronic small left pleural effusion or pleural thickening with some left basilar fibrosis. D/ / 03/24/2019 15:55:39 Jose Juan Yusuf MD / chelsy Interpreting Provider: Jose Juan Yusuf MD - Assessment and Plan (1) Acute cholangitis Current Visit: Yes Status: Acute Assessment and plan: Patient presents to the hospital with complaint of abdominal pain, difficulty breathing, and fever. On exam patient has a mild abdomen tenderness. CT scan at outside facility soon stolen which is 1.6 cm in size at [facility]. Patient's WBC admitted with left shift. Patient's T bili and alkaline phosphatase is elevated. GI consult pending input from GI. Patient is currently on Zosyn. MRCP ordered to evaluate the degree of obstruction and urgency of ERCP. (2) Ampulla of Vater obstruction syndrome Current Visit: Yes Status: Acute Assessment and plan: Management as above. (3) Total bilirubin, elevated Current Visit: Yes Status: Acute Assessment and plan: Most likely due to obstruction of ampulla. MRCP ordered. GI on consult. (4) Alkaline phosphatase elevation Current Visit: Yes Status: Acute Assessment and plan: Possibly likely due to ampulla of greater obstruction. Dilated bile duct. GI consult pending input. (5) Elevated troponin Current Visit: No Status: Acute Assessment and plan: Patient denies any chest pain. Limited troponin is probably due to end-stage renal disease. EKG is reviewed by me showed right bundle branch block with arrhythmia. No new EKG changes. Cardiology on consult. Would appreciate cardiology recommendation. (6) CAD (coronary artery disease) Current Visit: No Status: Chronic Assessment and plan: Patient has history of coronary artery bypass graft done last year at [facility]. History of CAD status post stent. We will continue home aspirin. Qualifiers: Coronary Disease-Associated Artery/Lesion type: [place] artery [place] vs. transplanted heart: [place] heart Associated angina: with unstable angina Qualified Code(s): I25.110 - Atherosclerotic heart disease of [place] coronary artery with unstable angina pectoris (7) Diabetes Current Visit: No Status: Chronic Assessment and plan: We will continue home regimen. Continue monitor blood glucose. Qualifiers: Diabetes mellitus type: type 2 Diabetes mellitus assisted insulin use: with exterminator helper termite use Diabetes mellitus complication status: with kidney complications Diabetes mellitus complication detail: with chronic kidney disease Chronic kidney disease stage: on chronic dialysis Qualified Code(s): E11.22 - Type 2 diabetes mellitus with diabetic chronic kidney disease; N18.6 - End stage renal disease; Z79.4 - tank terminal gauger (current) use of insulin; Z99.2 - Dependence on renal dialysis (8) ESRD (end stage renal disease) Current Visit: No Status: Chronic Assessment and plan: Recent has a history of end-stage renal disease with dialysis on Wednesday and Wednesday. Patient's BUN is elevated at 35 and creatinine of 5.33. Sodium and potassium is within normal limit. Nephrology on consult. (9) HLD (hyperlipidemia) Current Visit: No Status: Chronic Assessment and plan: Continue Zocor Qualifiers: Hyperlipidemia type: pure hypercholesterolemia Qualified Code(s): E78.00 - Pure hypercholesterolemia, unspecified; E78.0 - Pure hypercholesterolemia (10) HTN (hypertension) Current Visit: No Status: Chronic Assessment and plan: Continuous Lisinopril and Coreg Qualifiers: Hypertension type: essential hypertension Qualified Code(s): I10 - Essential (primary) hypertension (11) CHF (congestive heart failure) Current Visit: Yes Status: Chronic Assessment and plan: Continue aspirin, lisinopril, Coreg, and Zocor. KVO. Strict input and output and daily weight. Chest x-ray was done which showed blunting of the left CP angle. Continue home Bumex. Qualifiers: Heart failure type: diastolic Heart failure chronicity: chronic Qualified Code(s): I50.32 - Chronic diastolic (congestive) heart failure (12) COPD (chronic obstructive pulmonary disease) Current Visit: Yes Status: Chronic Assessment and plan: We will continue home inhaler. Supplement oxygen to keep saturation above 92%. Qualifiers: COPD type: unspecified COPD Qualified Code(s): J44.9 - Chronic obstructive pulmonary disease, unspecified (13) Atrial fibrillation Current Visit: Yes Status: Chronic Assessment and plan: EKG showed right bundle-branch left fascicular block otherwise in sinus rhythm. Continue Coreg. Continue aspirin. Cardiology on consult will continue to monitor Qualifiers: Atrial fibrillation type: chronic Qualified Code(s): I48.2 - Chronic atrial fibrillation (14) Hypomagnesemia Current Visit: Yes Status: Acute Assessment and plan: Management of 1.7 at outside facility. Patient has a significant cardiac history including A. fib, CAD, CHF. Magnesium 2 g IVPB once. We will continue to monitor magnesium level. Patient placed on telemetry. (15) DVT prophylaxis Current Visit: No Status: Acute Assessment and plan: Subcutaneous heparin - Time Spent With Patient Total time spent is greater than 50% in coordination of care (as documented) at patient's floor/unit and/or counseling patient: Greater than 35 minutes
--- NOTE | 2019-03-24 17:00 | Nephrology Consult Note ---
Date of Encounter: 03/24/19 Time of Encounter: 16:00 Assessment and Plan (1) ESRD (end stage renal disease) Current Visit: No Status: Chronic Known ESRD patient Follows with Dr. Estrada T/S schedule, [place] [facility] Utilizes AV graft in left arm, no complications No evidence of fluid overload at this time Does have residual renal function Estimates roughly 1L UOP/day Plan: -HD tomorrow based on patient's regular schedule -Goal dry weight 109.9, current weight 111.5 -Strict I's and O's -Check daily weights -Recommend renal diet -Strict avoidance of nephrotoxic agents (2) HTN (hypertension) Current Visit: No Status: Chronic As per primary Qualifiers: Hypertension type: essential hypertension Qualified Code(s): I10 - Essential (primary) hypertension (3) Diabetes Current Visit: No Status: Chronic As per primary team Qualifiers: Diabetes mellitus type: type 2 Diabetes mellitus mcfp insulin use: with termite control representative use Diabetes mellitus complication status: with kidney complications Diabetes mellitus complication detail: with chronic kidney disease Chronic kidney disease stage: on chronic dialysis Qualified Code(s): E11.22 - Type 2 diabetes mellitus with diabetic chronic kidney disease; N18.6 - End stage renal disease; Z79.4 - half-way (current) use of insulin; Z99.2 - Dependence on renal dialysis History of Present Illness - Reason for Consult Consult date: 03/24/19 end stage renal disease - Chief Complaint ESRD - History of Present Illness Mr. Bess is a 58-year-old male with a past medical history of ESRD, on hemodialysis Wednesday/Wednesday schedule, CAD S/P CABG in 2018, type 2 diabetes, hypertension, hyperlipidemia, [place] status post 2 stents who is currently admitted to the hospital with fever, leukocytosis. Mr. Bess undergoes 4 hours of hemodialysis every Wednesday and at [facility] and is a patient of Dr. Estrada. He states he last underwent dialysis on Wednesday and has been compliant with his dialysis appointments. Dry weight is stated to be 109.9, today 111.5. The patient does still have residual renal function, estimates he has 1 L urine output per day. He does drink free water and does not monitor his fluid intake in any way. He states he has no problems with swelling in his stomach or legs and denies any problems with wet cough. Patient states he does not have problems with h ypotension during his dialysis appointments however on chart review he did have significant problems with hypotension secondary to dialysis back in 2018, for which he was counseled to transition to 3 times per week HD so as to allow for smaller UF volumes. The patient declined at that time and continues to be twice weekly. His left AV fistula is not used anymore and has a stent. He currently uses a left AV graft which she has not had any complications with. Patient's vitals noted, there are significant for hypertension, 144/75. Chest x-ray reveals persistent blunting of the left costophrenic angle, may represent chronic small left pleural effusion versus pleural thickening with some left basilar fibrosis. Physical exam reveals venous stasis dermatitis, lungs clear, abdomen soft, heart regular rate and rhythm. No lab work was available at the time of consultation, will follow up. Past Med Surg Social Fam HX - Past Medical History Medical history: arthritis, atrial fibrillation, cardiomyopathy, COPD, coronary artery disease, DVT, diabetes, dialysis, GERD, hyperlipidemia, hypertension, kidney stones, myocardial infarction, renal disease, sudden cardiac , other Additional medical history: neuropathy Psychiatric history: no psych history - Past Surgical History Surgical History: angioplasty/stent, cholecystectomy, coronary bypass (CABG), other Additional surgical history: 2 stents, - Social History Smoking Status: Current every day smoker Smokeless Tobacco Status: No Alcohol use: none Drug use: none - Family History Mother Family Member Ethnicity: Non- Living Status: Hx Family Cardiac Disorders: Yes (CAD, [place]) Hx Family Endocrine Disorder: Yes (DM) Brother Family Member Ethnicity: Non- Living Status: Hx Family Cardiac Disorders: Yes ([place] ) Hx Family Endocrine Disorder: Yes (DM) Sister Family Member Ethnicity: Non- Living Status: Still Living Hx Family Cardiac Disorders: Yes ([place]) Hx Family Endocrine Disorder: Yes (DM) Father Family Member Ethnicity: Non- Living Status: Hx Family Cardiac Disorders: Yes (mother,father) Hx Family Respiratory Disorders: No Hx Family Cancer: No Hx Family GI Disorders: No Hx Family Endocrine Disorder: Yes (motjher, father) Hx Family Neuromuscular Disorders: No Hx Family Neurologic Disorders: No Hx Family HEENT Disorders: No Hx Family Autoimmune Disorders: No Medications and Allergies Simvastatin [Zocor] 40 mg PO HS 10/21/16 [History] Aspirin 325 mg PO DAILY 04/15/18 [History] Ergocalciferol (VITAMIN D2) [Drisdol (50,000 Unit)] 50,000 unit PO SA 04/15/18 [History] Vit B Comp C/Folic Acid/Vit D3 [Dialyvite 800 Plus D Wafer] 1 tab PO DAILY 04/15/18 [History] Famotidine [Heartburn Prevention] 20 mg PO HS 05/26/18 [History] Albuterol Sulfate [Ventolin Hfa] 2 each IH Q6H PRN 08/11/18 [History] Docusate [Colace] 200 mg PO DAILY 08/11/18 [History] OxyCODONE/APAP 5/325 [Percocet 5/325 MG] 1 each PO HS PRN 08/11/18 [History] Umeclidinium Brm/Vilanterol Tr [Anoro Ellipta 62.5-25 Mcg INH] 1 puff IH DAILY 08/11/18 [History] Bumetanide [Bumex] 1 mg PO QPM 03/24/19 [History] Carvedilol 12.5 mg PO BID 03/24/19 [History] Lidocaine/Prilocaine [Emla] 1 appl TP AD 03/24/19 [History] Lisinopril 2.5 mg PO BID 03/24/19 [History] Allergy/AdvReac Type Severity Reaction Status Date / Time sulfamethoxazole Allergy Nausea Verified 03/24/19 16:19 [From Bactrim] trimethoprim [From Bactrim] Allergy Nausea Verified 03/24/19 16:19 Review of Systems All Systems: reviewed and no additional remarkable complaints except as stated Exam - Vital Signs Vital signs: Initial Vital Signs Temp Pulse Resp BP Pulse Ox 97.6 F 59 17 144/75 99 03/24/19 14:47 03/24/19 14:47 03/24/19 14:47 03/24/19 14:47 03/24/19 14:47 Vital Signs - Last 8 Hours Temp Pulse Resp BP Pulse Ox 03/24/19 14:47 97.6 F 59 17 144/75 99 Intake and Output 03/24/19 03/24/19 03/24/19 07:59 15:59 23:59 Other: Weight 111.5 kg Patient Weight 03/24/19 23:59 Weight 111.5 kg - General Appearance Exam: Gen: A&Ox3, conversant, NAD Head: Atraumatic, normocephalic ENT: EOMI, anicteric, Mucous Membranes Moist Neck: Soft, supple, no thyromegaly CV: RRR, no murmurs gallops rubs Resp: Lungs CTAB, no wheezes rales rhonchi Abd: Soft, nontender, nondistended Ext: mild/early venous stasis dermatitis, no peripheral edema Consult Discharge Plan - Plan Referrals: Yari Rader, SIGNAL INTELLIGENCE ANALYST [Primary Care Provider] -
[2019-03-24 17:02] LABS: Amylase 17 Units/L (29-103); Lipase 7 Units/L (11-82)
[2019-03-24] MEDS: Bumetanide 1 MG TABLET PO SCH (17:23)
[2019-03-24] MEDS: 0.9 % Sodium Chloride 1,000 ML IVC SCH (17:23)
[2019-03-24] MEDS: *HR* OxyCODONE/APAP 5/325 TABLET PO PRN (20:40)
[2019-03-24] MEDS: *HR* Heparin 5,000 UNIT/ML VIAL SQ SCH (20:40)
[2019-03-24 20:41] LABS: Hepatitis B Surface Antibody < 3.10 mIU/mL
[2019-03-24] MEDS: Famotidine 20 MG TABLET PO SCH (20:41)
--- NOTE | 2019-03-24 20:44 | AcuteCare Surgery Consult Note ---
Date of Encounter: 03/24/19 Time of Encounter: 20:32 Assessment and Plan (1) Choledocholithiasis Current Visit: Yes Status: Acute 59M s/p cholecystectomy in Mar 2018 now with choledocholithiasis with ductal dilatation; currently HDS, no scleral icterus; recommend GI for ERCp if patient begins to become septic and progress to ascending cholangitis, then would recommend transfer to [place] for management IV abx pain control per primary team will continue to follow History of Present Illness Consult date: 03/24/19 Reason for consult: abdominal pain History of present illness: 59M PMH significant for ESRD, CAD s/p stent placement and CABG, HTN, DM who presents with abdominal pain localized to the left side. Due to the persistence of the pain the patient presented to an OSH prior to being transferred to [facility]. The pain is non radiating with no identifiable alleviating factors, pain rated 8/10. An MRI was obtained which demonstrated choledocholithiasis with biliary dilitation. General surgery was consulted for management recommendations. Of note the patient has had a cholecystectomy Past Med Surg [facility] HX - Past Medical History Medical history: arthritis, atrial fibrillation, cardiomyopathy, COPD, coronary artery disease, DVT, diabetes, dialysis, GERD, hyperlipidemia, hypertension, kidney stones, myocardial infarction, renal disease, sudden cardiac , other Additional medical history: neuropathy Psychiatric history: no psych history - Past Surgical History Surgical History: angioplasty/stent, cholecystectomy, coronary bypass (CABG), other (Left first and scond toe amputations) Additional surgical history: 2 stents, - Social History Smoking Status: Current every day smoker Smokeless Tobacco Status: No Alcohol use: none Drug use: none - Family History Mother Family Member Ethnicity: Non- Living Status: Hx Family Cardiac Disorders: Yes (CAD, [place]) Hx Family Endocrine Disorder: Yes (DM) Brother Family Member Ethnicity: Non- Living Status: Hx Family Cardiac Disorders: Yes ([place] ) Hx Family Endocrine Disorder: Yes (DM) Sister Family Member Ethnicity: Non- Living Status: Still Living Hx Family Cardiac Disorders: Yes ([place]) Hx Family Endocrine Disorder: Yes (DM) Father Family Member Ethnicity: Non- Living Status: Hx Family Cardiac Disorders: Yes (mother,father) Hx Family Respiratory Disorders: No Hx Family Cancer: No Hx Family GI Disorders: No Hx Family Endocrine Disorder: Yes (motjher, father) Hx Family Neuromuscular Disorders: No Hx Family Neurologic Disorders: No Hx Family HEENT Disorders: No Hx Family Autoimmune Disorders: No Medications and Allergies Simvastatin [Zocor] 40 mg PO HS 10/21/16 [History] Aspirin 325 mg PO DAILY 04/15/18 [History] Ergocalciferol (VITAMIN D2) [Drisdol (50,000 Unit)] 50,000 unit PO SA 04/15/18 [History] Vit B Comp C/Folic Acid/Vit D3 [Dialyvite 800 Plus D Wafer] 1 tab PO DAILY 04/15/18 [History] Famotidine [Heartburn Prevention] 20 mg PO HS 05/26/18 [History] Albuterol Sulfate [Ventolin Hfa] 2 each IH Q6H PRN 08/11/18 [History] Docusate [Colace] 200 mg PO DAILY 08/11/18 [History] OxyCODONE/APAP 5/325 [Percocet 5/325 MG] 1 each PO HS PRN 08/11/18 [History] Umeclidinium Brm/Vilanterol Tr [Anoro Ellipta 62.5-25 Mcg INH] 1 puff IH DAILY 08/11/18 [History] Bumetanide [Bumex] 1 mg PO QPM 03/24/19 [History] Carvedilol 12.5 mg PO BID 03/24/19 [History] Lidocaine/Prilocaine [Emla] 1 appl TP AD 03/24/19 [History] Lisinopril 2.5 mg PO BID 03/24/19 [History] Allergy/AdvReac Type Severity Reaction Status Date / Time sulfamethoxazole Allergy Nausea Verified 03/24/19 16:19 [From Bactrim] trimethoprim [From Bactrim] Allergy Nausea Verified 03/24/19 16:19 Review of Systems All systems PM: 12 point ROS negative besides HPI findings General Surgery Exam Initial Vital Signs Temp Pulse Resp BP Pulse Ox 97.6 F 59 17 144/75 99 03/24/19 14:47 03/24/19 14:47 03/24/19 14:47 03/24/19 14:47 03/24/19 14:47 - General physical appearance no distress - Eyes PERRL, normal ocular movement - ENT normocephalic - Respiratory normal expansion, normal respiratory effort - Cardiovascular Cardiovascular exam: Present: RRR - Abdomen Abdomen general surgery: Present: soft, tender, surgical scars Abdominal Tenderness: Present: LUQ - Integumentary Integumentary general surgery: Present: warm and dry, no abnormal pigmentation - Neurologic Present: CN 2-12 grossly intact - Musculoskeletal Present: normal posture - Psychiatric Psychiatric general surgery: Present: A&Ox3 Exam Initial Vital Signs Temp Pulse Resp BP Pulse Ox 97.6 F 59 17 144/75 99 03/24/19 14:47 03/24/19 14:47 03/24/19 14:47 03/24/19 14:47 03/24/19 14:47 Results - Labs Abnormal lab results Troponin I 0.04 ng/mL (< 0.04) H* 03/24/19 19:36 Amylase 17 Units/L (29-103) L 03/24/19 16:14 Lipase 7 Units/L (11-82) L 03/24/19 16:14 All other labs normal. - Imaging Additional studies: MRI: Large filling defects in the extrahepatic common duct, compatible with stone, with abnormal intra and extrahepatic biliary ductal dilatation Consult Discharge Plan - Plan Referrals: Yari Rader, HOSPITAL CLINIC ASSISTANT [Primary Care Provider] -
[2019-03-24 20:50] LABS: Hepatitis B Surface Antigen Nonreactive (Nonreactive)
[2019-03-25] MEDS: Piperacillin/Tazobactam 3.375 GM in 0.9 % Sodium Chloride Mini Bag 100 ML IVPB SCH ×2 (05:32→18:05)
[2019-03-25] MEDS: *HR* Heparin 5,000 UNIT/ML VIAL SQ SCH ×3 (05:33→21:36)
[2019-03-25] MEDS: ANORO ELLIPTA IH SCH (07:52)
[2019-03-25 08:54] LABS: Basophils % 0.1 %; Eosinophils # 0.1 K/mcL (0.0-0.6); Eosinophils % 1.4 %; Hematocrit 27.9 % (37.5-50.1); Hemoglobin 8.8 g/dL (12.9-16.9); Immature Granulocytes % 0.1 % (0-4); Lymphocytes # 0.7 K/mcL (0.6-4.6); Lymphocytes % 9.4 %; Mean Corpuscular HGB Conc 31.5 g/dL (31.6-35.5); Mean Corpuscular Hemoglobin 29.5 pg (28.0-33.3); Mean Corpuscular Volume 93.6 fL (83.0-100.0); Mean Platelet Volume 9.2 fL (9.4-12.4); Monocytes # 0.4 K/mcL (0.0-1.3); Monocytes % 5.7 %; Neutrophils # 6.1 K/mcL (1.6-8.9); Platelet Count 124 K/mcL (140-400); Red Blood Count 2.98 M/mcL (4.19-5.50); Segmented Neutrophils % 83.3 %; White Blood Count 7.4 K/mcL (4.3-11.1)
[2019-03-25 09:14] LABS: Albumin 2.3 g/dL (3.5-5.7); Albumin/Globulin Ratio 0.9 (1.1-2.2); Calcium 6.3 mg/dL (8.6-10.3); Globulin 2.6 g/dL (2.4-3.5); Magnesium 1.8 mg/dL (1.6-2.6); Potassium 3.7 mEq/L (3.5-5.1); Total Protein 4.9 g/dL (6.4-8.9)
[2019-03-25] MEDS ORDERED: 0.9 % Sodium Chloride 250 ML IVC PRN (09:27)
[2019-03-25] MEDS ORDERED: 0.9 % Sodium Chloride 1,000 ML PRIME SCH (09:30)
--- NOTE | 2019-03-25 09:34 | Cardiology Consult Note ---
Date of Encounter: 03/25/19 Time of Encounter: 09:32 Assessment and Plan (1) CAD (coronary artery disease) Current Visit: No Status: Chronic History of CAD, previous CABG in 2018. No chest pain or discomfort reported. LV function preserved. Recommend continue aspirin, beta hetal, and statin therapy. Risk factor modification emphasized. No further cardiac recommendations at this time. Your management regarding choledocholithiasis. Qualifiers: Coronary Disease-Associated Artery/Lesion type: [place] artery [place] vs. transplanted heart: [place] heart Associated angina: with unstable angina Qualified Code(s): I25.110 - Atherosclerotic heart disease of [place] coronary artery with unstable angina pectoris (2) PAF (paroxysmal atrial fibrillation) Current Visit: Yes Status: Acute History of paroxysmal atrial fibrillation status post modified Maze procedure and left atrial appendage stapling. Currently in sinus rhythm with a right bundle branch block. Previously deemed not to require full anticoagulation. Recommend continue aspirin and beta hetal therapy. No new recommendations at this time. Recommend ongoing cardiology follow-up as outpatient. Discussion w patient/family: The assessment and plan as outlined above was discussed with the patient and/or family members who expressed understanding and agreement. All questions were an swered. Thank you for involving us in the care of your patient. Please call with any questions. History of Present Illness Consult date: 03/25/19 Requesting physician: Mack Ryan Consult reason: Abnromal ECG Chief complaint: Abdominal pain History of present illness: Mr. Bess is a 59 year old male who is currently being treated for choledocholithiasis. Cardiology consultation requested for his ECG, which demonstrates sinus rhythm, right bundle branch block, and a possible left anterior fascicular block. These findings are similar to prior ECGs. He has a significant history of prior cardiac issues, including being diagnosed with severe CAD last year resulting in CABG. During the procedure, a modified maze procedure and left atrial appendage stapling performed for paroxysmal atrial fibrillation. He denies palpitations, lightheadedness, near-syncope, or syncope. He denies chest pain or discomfort. He points to his epigastric area and states his primary reason for admission was abdominal discomfort. Past Med Surg Social Fam HX - Past Medical History Medical history: arthritis, atrial fibrillation, cardiomyopathy, COPD, coronary artery disease, DVT, diabetes, dialysis, GERD, hyperlipidemia, hypertension, kidney stones, myocardial infarction, renal disease, sudden cardiac , other Additional medical history: neuropathy Psychiatric history: no psych history - Past Surgical History Surgical History: angioplasty/stent, cholecystectomy, coronary bypass (CABG), other (Left first and scond toe amputations) Additional surgical history: 2 stents, - Social History Smoking Status: Current every day smoker Smokeless Tobacco Status: No Alcohol use: none Drug use: none - Family History Mother Family Member Ethnicity: Non- Living Status: Hx Family Cardiac Disorders: Yes (CAD, [place]) Hx Family Endocrine Disorder: Yes (DM) Brother Family Member Ethnicity: Non- Living Status: Hx Family Cardiac Disorders: Yes ([place] ) Hx Family Endocrine Disorder: Yes (DM) Sister Family Member Ethnicity: Non- Living Status: Still Living Hx Family Cardiac Disorders: Yes ([place]) Hx Family Endocrine Disorder: Yes (DM) Father Family Member Ethnicity: Non- Living Status: Hx Family Cardiac Disorders: Yes (mother,father) Hx Family Respiratory Disorders: No Hx Family Cancer: No Hx Family GI Disorders: No Hx Family Endocrine Disorder: Yes (motjher, father) Hx Family Neuromuscular Disorders: No Hx Family Neurologic Disorders: No Hx Family HEENT Disorders: No Hx Family Autoimmune Disorders: No Medications and Allergies Simvastatin [Zocor] 40 mg PO HS 10/21/16 [History] Aspirin 325 mg PO DAILY 04/15/18 [History] Ergocalciferol (VITAMIN D2) [Drisdol (50,000 Unit)] 50,000 unit PO SA 04/15/18 [History] Vit B Comp C/Folic Acid/Vit D3 [Dialyvite 800 Plus D Wafer] 1 tab PO DAILY 04/15/18 [History] Famotidine [Heartburn Prevention] 20 mg PO HS 05/26/18 [History] Albuterol Sulfate [Ventolin Hfa] 2 each IH Q6H PRN 08/11/18 [History] Docusate [Colace] 200 mg PO DAILY 08/11/18 [History] OxyCODONE/APAP 5/325 [Percocet 5/325 MG] 1 each PO HS PRN 08/11/18 [History] Umeclidinium Brm/Vilanterol Tr [Anoro Ellipta 62.5-25 Mcg INH] 1 puff IH DAILY 08/11/18 [History] Bumetanide [Bumex] 1 mg PO QPM 03/24/19 [History] Carvedilol 12.5 mg PO BID 03/24/19 [History] Lidocaine/Prilocaine [Emla] 1 appl TP AD 03/24/19 [History] Lisinopril 2.5 mg PO BID 03/24/19 [History] Allergy/AdvReac Type Severity Reaction Status Date / Time sulfamethoxazole Allergy Nausea Verified 03/24/19 16:19 [From Bactrim] trimethoprim [From Bactrim] Allergy Nausea Verified 03/24/19 16:19 All Systems Review: The remainder of the systems were reviewed and are negative - Cardiovascular Cardiovascular: as per HPI - Gastrointestinal Gastrointestinal: abdominal pain Physical Examination Vital Signs, Last 4 Hours Temp Pulse Resp BP Pulse Ox 03/25/19 08:14 97.4 F L 54 16 136/77 94 General: Conversant, No Apparent Distress HEENT: Atraumatic, Normocephaly, Mucus Membranes Moist Neck: No JVD, Normal carotid pulses Cardiac: Reg Rate and Rhythm, Normal S1 and S2, No Murmur Lungs: Normal Breath Sounds, No Wheeze, Rales, Rhonchi Neuro: Alert and responsive, No focal deficits noted Abdomen: Soft, Non-Tender Skin: No rashes noted on visualized skin Musculoskeletal: No Chest Wall Tenderness Extremities: No Clubbing, No Cyanosis, Other (Mild edema) Results 03/25/19 08:43 03/25/19 08:43 Lab Results 03/24/19 03/24/19 03/25/19 16:14 19:36 08:43 WBC 7.4 Hgb 8.8 L Hct 27.9 L Plt Count 124 L Sodium Potassium Chloride Carbon Dioxide BUN Creatinine Glucose Calcium Magnesium Total Bilirubin AST ALT Alkaline Phosphatase Troponin I 0.04 H* Amylase 17 L Lipase 7 L 03/25/19 08:43 WBC Hgb Hct Plt Count Sodium 143 Potassium 3.7 Chloride 110 H Carbon Dioxide 21 L BUN 39 H Creatinine 5.04 H Glucose 67 L Calcium 6.3 L Magnesium 1.8 Total Bilirubin 2.0 H AST 16 ALT 19 Alkaline Phosphatase 305 H Troponin I Amylase Lipase - Imaging and Cardiology Echo: report reviewed Cardiac cath: report reviewed - EKG Interpretation EKG results cardiology: personally reviewed Consult Discharge Plan - Plan Referrals: Yari Rader, PAINTER CHASSIS [Primary Care Provider] -
--- NOTE | 2019-03-25 12:17 | Internal Med Progress Note ---
Hospitalist Progress Note - Encounter Date of Encounter: 03/25/19 Time of Encounter: 12:14 - Subjective Interval History: Patient was seen and examined today at bedside. Patient denies any acute issues and concerns. Patient denies any abdominal pain, fever, and chills. Patient denies any difficulty in breathing, chest pain, and palpitation - Exam Vitals: Temp Pulse Resp BP Pulse Ox 97.4 F L 54 16 136/77 94 03/25/19 08:14 03/25/19 08:14 03/25/19 08:14 03/25/19 08:14 03/25/19 08:14 Exam: General: A & O 3, In no acute distress HENNT: PERRLA. Head atraumatic and makes supple CVS S1 and S2 regular, no murmur RS: Clear to air entry bilaterally, no wheeze, no crackles Abdomen: Soft and nontender. Bowel sounds normal 4 Extremities: No cyanosis, clubbing, and edema, s/p left first and second toe amputations. Neurology: Cranial 2 through 12 normal. Motor strength 5/5 bilaterally. Sensation intact - Assessment and Plan (1) Acute cholangitis Current Visit: Yes Status: Acute Assessment and Plan: Patient is improving on current antibiotic regimen. This is trending down. Patient denies any fever, chills, and abdominal pain. GI on consult. MRCP was done yesterday showed large filling defect at the provider representing stone measuring about 1.6 cm. Per GI planned ERCP on Wednesday. Will start patient on clear liquid diet. (2) Ampulla of Vater obstruction syndrome Current Visit: Yes Status: Acute Assessment and Plan: Clear liquid. Plan to do ERCP on Wednesday. Patient's T bili is trending down. Alk phos is trending down as well. (3) Total bilirubin, elevated Current Visit: Yes Status: Acute Assessment and Plan: Trending down and monitor (4) Alkaline phosphatase elevation Current Visit: Yes Status: Acute Assessment and Plan: Trending down. We will continue to monitor. (5) Elevated troponin Current Visit: No Status: Acute Assessment and Plan: I will trended down. Patient denies chest pain. Cardiology on consult. Advised to continue with the pravastatin and aspirin. No further cardiac intervention needed at this point.. (6) CAD (coronary artery disease) Current Visit: No Status: Chronic Assessment and Plan: Patient has history of coronary artery bypass graft done last year at [facility]. History of CAD status post stent. We will continue home aspirin. (7) Diabetes Current Visit: No Status: Chronic Assessment and Plan: We will continue home regimen. Continue monitor blood glucose. (8) ESRD (end stage renal disease) Current Visit: No Status: Chronic Assessment and Plan: Recent has a history of end-stage renal disease with dialysis on Wednesday and Wednesday. Patient's BUN is elevated at 35 and creatinine of 5.33. Sodium and potassium is within normal limit. Nephrology on consult. Plan for dialysis t yfn. (9) HLD (hyperlipidemia) Current Visit: No Status: Chronic Assessment and Plan: Continue Zocor (10) HTN (hypertension) Current Visit: No Status: Chronic Assessment and Plan: Continuous Lisinopril and Coreg (11) CHF (congestive heart failure) Current Visit: Yes Status: Chronic Assessment and Plan: Continue aspirin, lisinopril, Coreg, and Zocor. KVO. Strict input and output and daily weight. Chest x-ray was done which showed blunting of the left CP angle. Continue home Bumex. (12) COPD (chronic obstructive pulmonary disease) Current Visit: Yes Status: Chronic Assessment and Plan: We will continue home inhaler. Supplement oxygen to keep saturation above 92%. (13) Atrial fibrillation Current Visit: Yes Status: Chronic Assessment and Plan: EKG showed right bundle-branch left fascicular block otherwise in sinus rhythm. Continue Coreg. Continue aspirin. Cardiology on consult will continue to monitor. No further recommendation of cardiology. (14) Hypomagnesemia Current Visit: Yes Status: Acute Assessment and Plan: Management of 1.7 at outside facility. Patient has a significant cardiac history including A. fib, CAD, CHF. Magnesium 2 g IVPB once. We will continue to monitor magnesium level. Patient placed on telemetry. (15) DVT prophylaxis Current Visit: No Status: Acute Assessment and Plan: Subcutaneous heparin - Time Spent with Patient Total time spent is greater than 50% in coordination of care (as documented) at patient's floor/unit and/or counseling patient: 25 - 35 minutes Plan of Care Discussed with: patient Internal Medicine: Result - Labs CBC & Chem 7: 03/25/19 08:43 03/25/19 08:43 Labs: Short CBC 03/25/19 Range/Units 08:43 WBC 7.4 (4.3-11.1) K/mcL Hgb 8.8 L (12.9-16.9) g/dL Hct 27.9 L (37.5-50.1) % Plt Count 124 L (140-400) K/mcL Neutrophils # 6.1 (1.6-8.9) K/mcL BMP 03/25/19 08:43 Sodium 143 Potassium 3.7 Chloride 110 H Carbon Dioxide 21 L BUN 39 H Creatinine 5.04 H Glucose 67 L Calcium 6.3 L Cardiac Enzymes 03/24/19 Range/Units 19:36 Troponin I 0.04 H* (< 0.04) ng/mL Liver Function 03/25/19 Range/Units 08:43 Total Bilirubin 2.0 H (0.3-1.0) mg/dL AST 16 (13-39) Units/L ALT 19 (7-52) Units/L Alkaline Phosphatase 305 H (34-104) Units/L Albumin 2.3 L (3.5-5.7) g/dL - Impressions Impressions Chest X-Ray 03/24/19 15:02 IMPRESSION: Persistent blunting of the left CP angle likely on the basis of a chronic small left pleural effusion or pleural thickening with some left basilar fibrosis. D/ / 03/24/2019 15:55:39 Jose Juan Yusuf MD / chelsy Interpreting Provider: Jose Juan Yusuf MD Abdomen MRI 03/24/19 16:40 IMPRESSION: Large filling defects in the extrahepatic common duct, compatible with stone, with abnormal intra and extrahepatic biliary ductal dilatation D/ / Martin Rosario MD / Martin Rosario MD Interpreting Provider: Martin Rosario MD Consult Discharge Plan - Plan Referrals: Yari Rader, [employer] [Primary Care Provider] - (6) CAD (coronary artery disease) Qualifiers: Coronary Disease-Associated Artery/Lesion type: [place] artery [place] vs. transplanted heart: [place] heart Associated angina: with unstable angina Qualified Code(s): I25.110 - Atherosclerotic heart disease of [place] coronary artery with unstable angina pectoris (7) Diabetes Qualifiers: Diabetes mellitus type: type 2 Diabetes mellitus local driver insulin use: with local driver use Diabetes mellitus complication status: with kidney complications Diabetes mellitus complication detail: with chronic kidney disease Chronic kidney disease stage: on chronic dialysis Qualified Code(s): E11.22 - Type 2 diabetes mellitus with diabetic chronic kidney disease; N18.6 - End stage renal disease; Z79.4 - snf (current) use of insulin; Z99.2 - Dependence on renal dialysis (9) HLD (hyperlipidemia) Qualifiers: Hyperlipidemia type: pure hypercholesterolemia Qualified Code(s): E78.00 - Pure hypercholesterolemia, unspecified; E78.0 - Pure hypercholesterolemia (10) HTN (hypertension) Qualifiers: Hypertension type: essential hypertension Qualified Code(s): I10 - Essential (primary) hypertension (11) CHF (congestive heart failure) Qualifiers: Heart failure type: diastolic Heart failure chronicity: chronic Qualified Code(s): I50.32 - Chronic diastolic (congestive) heart failure (12) COPD (chronic obstructive pulmonary disease) Qualifiers: COPD type: unspecified COPD Qualified Code(s): J44.9 - Chronic obstructive pulmonary disease, unspecified (13) Atrial fibrillation Qualifiers: Atrial fibrillation type: chronic Qualified Code(s): I48.2 - Chronic atrial fibrillation
--- NOTE | 2019-03-25 13:08 | Nephrology Consult Note ---
Date of Encounter: 03/25/19 Time of Encounter: 13:08 Past Med Surg Social Fam HX - Past Medical History Medical history: arthritis, atrial fibrillation, cardiomyopathy, COPD, coronary artery disease, DVT, diabetes, dialysis, GERD, hyperlipidemia, hypertension, kidney stones, myocardial infarction, renal disease, sudden cardiac , other Additional medical history: neuropathy Psychiatric history: no psych history - Past Surgical History Surgical History: angioplasty/stent, cholecystectomy, coronary bypass (CABG), other (Left first and scond toe amputations) Additional surgical history: 2 stents, - Social History Smoking Status: Current every day smoker Smokeless Tobacco Status: No Alcohol use: none Drug use: none - Family History Mother Family Member Ethnicity: Non- Living Status: Hx Family Cardiac Disorders: Yes (CAD, OR) Hx Family Endocrine Disorder: Yes (DM) Brother Family Member Ethnicity: Non- Living Status: Hx Family Cardiac Disorders: Yes (OR ) Hx Family Endocrine Disorder: Yes (DM) Sister Family Member Ethnicity: Non- Living Status: Still Living Hx Family Cardiac Disorders: Yes (OR) Hx Family Endocrine Disorder: Yes (DM) Father Family Member Ethnicity: Non- Living Status: Hx Family Cardiac Disorders: Yes (mother,father) Hx Family Respiratory Disorders: No Hx Family Cancer: No Hx Family GI Disorders: No Hx Family Endocrine Disorder: Yes (motjher, father) Hx Family Neuromuscular Disorders: No Hx Family Neurologic Disorders: No Hx Family HEENT Disorders: No Hx Family Autoimmune Disorders: No Medications and Allergies Simvastatin [Zocor] 40 mg PO HS 10/21/16 [History] Aspirin 325 mg PO DAILY 04/15/18 [History] Ergocalciferol (VITAMIN D2) [Drisdol (50,000 Unit)] 50,000 unit PO SA 04/15/18 [History] Vit B Comp C/Folic Acid/Vit D3 [Dialyvite 800 Plus D Wafer] 1 tab PO DAILY 04/15/18 [History] Famotidine [Heartburn Prevention] 20 mg PO HS 05/26/18 [History] Albuterol Sulfate [Ventolin Hfa] 2 each IH Q6H PRN 08/11/18 [History] Docusate [Colace] 200 mg PO DAILY 08/11/18 [History] OxyCODONE/APAP 5/325 [Percocet 5/325 MG] 1 each PO HS PRN 08/11/18 [History] Umeclidinium Brm/Vilanterol Tr [Anoro Ellipta 62.5-25 Mcg INH] 1 puff IH DAILY 08/11/18 [History] Bumetanide [Bumex] 1 mg PO QPM 03/24/19 [History] Carvedilol 12.5 mg PO BID 03/24/19 [History] Lidocaine/Prilocaine [Emla] 1 appl TP AD 03/24/19 [History] Lisinopril 2.5 mg PO BID 03/24/19 [History] 3 Allergy/AdvReac Type Severity Reaction Status Date / Time sulfamethoxazole Allergy Nausea Verified 03/24/19 16:19 [From Bactrim] trimethoprim [From Bactrim] Allergy Nausea Verified 03/24/19 16:19 Exam - Vital Signs Vital signs: Initial Vital Signs Temp Pulse Resp BP Pulse Ox 97.6 F 59 17 144/75 99 03/24/19 14:47 03/24/19 14:47 03/24/19 14:47 03/24/19 14:47 03/24/19 14:47 Vital Signs - Last 8 Hours Temp Pulse Resp BP Pulse Ox 03/25/19 12:20 169/84 03/25/19 12:05 174/83 03/25/19 11:50 97.4 F L 15 175/83 03/25/19 08:14 97.4 F L 54 16 136/77 94 Intake and Output 03/24/19 03/25/19 03/25/19 23:59 07:59 15:59 Intake Total 340 / 340 500 / 500 Output Total 0 / 0 200 / 500 300 / 500 Balance 340 / 340 -200 / 0 200 / 0 Intake: IV Fluids 100 / 100 Zosyn 3.375 GM In 0.9 % Sodium 100 / 100 Chloride (Mini-Bag +) 100 ML @ 25 mls/hr IVPB Q12H [facility] Rx#: [id number] Oral 240 / 240 0 / 0 Intake, Rinseback and Flushes 500 / 500 Output: Urine 0 / 0 200 / 500 300 / 500 Other: Meal Dinner Percent of Meal Consumed 100% # Voids 1 Weight 111.7 kg Blood Glucose* 136 82 78 Hemodialysis Net Fluid Removed 422 (mL) Patient Weight 03/25/19 23:59 Weight 111.7 kg Results - Lab Results 03/25/19 08:43 03/25/19 08:43 Most recent lab results 03/25/19 08:43 Calcium 6.3 L Magnesium 1.8 Consult Discharge Plan - Plan Referrals: Yari Rader, [employer]FTING CREELER [Primary Care Provider] -
--- NOTE | 2019-03-25 13:21 | AcuteCareSurgery Progress Note ---
Date of Encounter: 03/25/19 Time of Encounter: :19 - Assessment and Plan (1) Choledocholithiasis Current Visit: Yes Status: Acute 59M s/p cholecystectomy now with choledocholithiasis; T bili at 2.0; no evidence of cholangitis at present; CLD okay plan for ERCp with GI when available; IV abx will cont to follow Subjective Patient reports: no new complaints, feels better Objective Vital Signs - Last 8 Hours Temp Pulse Resp BP Pulse Ox 03/25/19 13:05 166/78 03/25/19 12:50 169/83 03/25/19 12:35 172/83 03/25/19 12:20 169/84 03/25/19 12:05 174/83 03/25/19 11:50 97.4 F L 15 175/83 03/25/19 08:14 97.4 F L 54 16 136/77 94 Intake and Output 03/24/19 03/25/19 03/25/19 23:59 07:59 15:59 Intake Total 340 / 340 600 / 600 Output Total 0 / 0 200 / 500 300 / 500 Balance 340 / 340 -200 / 100 300 / 100 Intake: IV Fluids 100 / 100 100 / 100 Zosyn 3.375 GM In 0.9 % Sodium 100 / 100 100 / 100 Chloride (Mini-Bag +) 100 ML @ 25 mls/hr IVPB Q12H [facility] Rx#: [id number] Oral 240 / 240 0 / 0 Intake, Rinseback and Flushes 500 / 500 Output: Urine 0 / 0 200 / 500 300 / 500 Other: Meal Dinner Percent of Meal Consumed 100% # Voids 1 Weight 111.7 kg Blood Glucose* 136 82 78 Hemodialysis Net Fluid Removed 1042 (mL) Patient Weight 03/25/19 23:59 Weight 111.7 kg - General physical appearance no distress - Respiratory normal expansion, normal respiratory effort - Cardiovascular Cardiovascular exam: Present: RRR - Abdomen Abdomen: Present: soft, tender Abdominal Tenderness: RUQ, LUQ - Integumentary no rash, no abnormal pigmentation - Neurologic CN 2-12 grossly intact - Psychiatric oriented to time, oriented to person, oriented to place - Labs 03/25/19 08:43 03/25/19 08:43 Diabetes panel 03/25/19 Range/Units 08:43 Sodium 143 (136-145) mEq/L Potassium 3.7 (3.5-5.1) mEq/L Chloride 110 H (98-107) mEq/L Carbon Dioxide 21 L (23-29) mEq/L BUN 39 H (8-23) mg/dL Creatinine 5.04 H (0.70-1.30) mg/dL Glucose 67 L (70-105) mg/dL Calcium 6.3 L (8.6-10.3) mg/dL AST 16 (13-39) Units/L ALT 19 (7-52) Units/L Alkaline Phosphatase 305 H (34-104) Units/L Albumin 2.3 L (3.5-5.7) g/dL Calcium panel 03/25/19 Range/Units 08:43 Calcium 6.3 L (8.6-10.3) mg/dL Albumin 2.3 L (3.5-5.7) g/dL Pituitary panel 03/25/19 Range/Units 08:43 Sodium 143 (136-145) mEq/L Potassium 3.7 (3.5-5.1) mEq/L Chloride 110 H (98-107) mEq/L Carbon Dioxide 21 L (23-29) mEq/L BUN 39 H (8-23) mg/dL Creatinine 5.04 H (0.70-1.30) mg/dL Glucose 67 L (70-105) mg/dL Calcium 6.3 L (8.6-10.3) mg/dL Adrenal panel 03/25/19 Range/Units 08:43 Sodium 143 (136-145) mEq/L Potassium 3.7 (3.5-5.1) mEq/L Chloride 110 H (98-107) mEq/L Carbon Dioxide 21 L (23-29) mEq/L BUN 39 H (8-23) mg/dL Creatinine 5.04 H (0.70-1.30) mg/dL Glucose 67 L (70-105) mg/dL Calcium 6.3 L (8.6-10.3) mg/dL Total Bilirubin 2.0 H (0.3-1.0) mg/dL AST 16 (13-39) Units/L ALT 19 (7-52) Units/L Alkaline Phosphatase 305 H (34-104) Units/L Albumin 2.3 L (3.5-5.7) g/dL Consult Discharge Plan - Plan Referrals: Yari Rader, ZAHIRA [Primary Care Provider] -
[2019-03-25] MEDS: Acetaminophen 325 MG TABLET PO PRN (15:55)
[2019-03-25] MEDS: Aspirin 325 MG TABLET PO SCH (15:56)
[2019-03-25] MEDS: Renal Vitamin 1 CAP CAPSULE PO SCH (15:56)
[2019-03-25] MEDS: Bumetanide 1 MG TABLET PO SCH (18:05)
[2019-03-25] MEDS: *HR* OxyCODONE/APAP 5/325 TABLET PO PRN (21:33)
[2019-03-25] MEDS: Famotidine 20 MG TABLET PO SCH (21:34)
[2019-03-26] MEDS: 0.9 % Sodium Chloride 1,000 ML IVC SCH (05:18)
[2019-03-26] MEDS: Piperacillin/Tazobactam 3.375 GM in 0.9 % Sodium Chloride Mini Bag 100 ML IVPB SCH ×2 (05:19→16:56)
[2019-03-26] MEDS: *HR* Heparin 5,000 UNIT/ML VIAL SQ SCH ×3 (05:28→20:31)
[2019-03-26 05:35] LABS: Basophils % 0.5 %; Eosinophils # 0.1 K/mcL (0.0-0.6); Eosinophils % 2.1 %; Hematocrit 30.4 % (37.5-50.1); Hemoglobin 9.6 g/dL (12.9-16.9); Immature Granulocytes % 0.3 % (0-4); Lymphocytes # 0.8 K/mcL (0.6-4.6); Lymphocytes % 14.3 %; Mean Corpuscular HGB Conc 31.6 g/dL (31.6-35.5); Mean Corpuscular Hemoglobin 29.3 pg (28.0-33.3); Mean Corpuscular Volume 92.7 fL (83.0-100.0); Monocytes # 0.4 K/mcL (0.0-1.3); Monocytes % 6.2 %; Neutrophils # 4.4 K/mcL (1.6-8.9); Platelet Count 157 K/mcL (140-400); Red Blood Count 3.28 M/mcL (4.19-5.50); Red Cell Distribution Width 15.9 % (11.5-14.5); Segmented Neutrophils % 76.6 %; White Blood Count 5.8 K/mcL (4.3-11.1)
[2019-03-26 05:58] LABS: Potassium 4.2 mEq/L (3.5-5.1)
[2019-03-26 05:59] LABS: Albumin 2.9 g/dL (3.5-5.7); Bilirubin,Total 2.7 mg/dL (0.3-1.0); Calcium 7.8 mg/dL (8.6-10.3); Total Protein 5.9 g/dL (6.4-8.9)
[2019-03-26] MEDS: Aspirin 325 MG TABLET PO SCH (09:12)
[2019-03-26] MEDS: Renal Vitamin 1 CAP CAPSULE PO SCH (09:13)
--- NOTE | 2019-03-26 09:45 | AcuteCareSurgery Progress Note ---
Date of Encounter: 03/26/19 Time of Encounter: 09:43 - Assessment and Plan (1) Choledocholithiasis Current Visit: Yes Status: Acute 59M s/p cholecystectomy now with choledocholithiasis; T bili at 2.7, up from 2.0; no evidence of cholangitis at present; CLD okay plan for ERCp with GI when available; IV abx will cont to follow Subjective Patient reports: no new complaints, feels better, still having pain, pain is less, afebrile Objective Vital Signs - Last 8 Hours Temp Pulse Resp BP Pulse Ox 03/26/19 08:00 97.5 F L 51 18 160/78 97 03/26/19 04:39 97.4 F L 51 16 126/70 97 Intake and Output 03/25/19 03/26/19 03/26/19 23:59 07:59 15:59 Intake Total 1100 / 1700 Output Total 325 / 3325 500 / 500 Balance 775 / -1625 -500 / -500 Intake: IV Fluids 1100 / 1200 0.9 % Sodium Chloride 1,000 ML 1000 / 1000 @ 40 mls/hr IVC .Q24H [facility] Rx#: [id number] Zosyn 3.375 GM In 0.9 % Sodium 100 / 200 Chloride (Mini-Bag +) 100 ML @ 25 mls/hr IVPB Q12H [facility] Rx#: [id number] Output: Urine 325 / 825 500 / 500 Other: # Voids 1 Blood Glucose* 173 73 - General physical appearance no distress - Eyes other (no scleral icterus) - Respiratory normal expansion, normal respiratory effort - Cardiovascular Cardiovascular exam: Present: RRR - Abdomen Abdomen: Present: soft, tender Abdominal Tenderness: RUQ, LUQ - Neurologic CN 2-12 grossly intact - Musculoskeletal normal posture - Psychiatric oriented to time, oriented to person, oriented to place - Labs 03/26/19 04:52 03/26/19 04:52 Diabetes panel 03/26/19 Range/Units 04:52 Sodium 137 (136-145) mEq/L Potassium 4.2 (3.5-5.1) mEq/L Chloride 97 L (98-107) mEq/L Carbon Dioxide 29 (23-29) mEq/L BUN 25 H (8-23) mg/dL Creatinine 4.32 H (0.70-1.30) mg/dL Glucose 68 L (70-105) mg/dL Calcium 7.8 L (8.6-10.3) mg/dL AST 29 (13-39) Units/L ALT 26 (7-52) Units/L Alkaline Phosphatase 424 H (34-104) Units/L Albumin 2.9 L (3.5-5.7) g/dL Calcium panel 03/26/19 Range/Units 04:52 Calcium 7.8 L (8.6-10.3) mg/dL Albumin 2.9 L (3.5-5.7) g/dL Pituitary panel 03/26/19 Range/Units 04:52 Sodium 137 (136-145) mEq/L Potassium 4.2 (3.5-5.1) mEq/L Chloride 97 L (98-107) mEq/L Carbon Dioxide 29 (23-29) mEq/L BUN 25 H (8-23) mg/dL Creatinine 4.32 H (0.70-1.30) mg/dL Glucose 68 L (70-105) mg/dL Calcium 7.8 L (8.6-10.3) mg/dL Adrenal panel 03/26/19 Range/Units 04:52 Sodium 137 (136-145) mEq/L Potassium 4.2 (3.5-5.1) mEq/L Chloride 97 L (98-107) mEq/L Carbon Dioxide 29 (23-29) mEq/L BUN 25 H (8-23) mg/dL Creatinine 4.32 H (0.70-1.30) mg/dL Glucose 68 L (70-105) mg/dL Calcium 7.8 L (8.6-10.3) mg/dL Total Bilirubin 2.7 H (0.3-1.0) mg/dL AST 29 (13-39) Units/L ALT 26 (7-52) Units/L Alkaline Phosphatase 424 H (34-104) Units/L Albumin 2.9 L (3.5-5.7) g/dL Consult Discharge Plan - Plan Referrals: Yari Rader, MLT [Primary Care Provider] -
--- NOTE | 2019-03-26 10:05 | Nephrology Progress Note ---
Date of Encounter: 03/26/19 Time of Encounter: 10:05 - Assessment and Plan (1) ESRD (end stage renal disease) Current Visit: No Status: Chronic HD TRS. Renal vitamins. Renal dose medications. Renal diet. Additional dialysis and ultrafiltration as needed. (2) Acute cholangitis Current Visit: Yes Status: Acute Per primary team. (3) Atrial fibrillation Current Visit: Yes Status: Chronic Qualifiers: Atrial fibrillation type: chronic Qualified Code(s): I48.2 - Chronic atrial fibrillation (4) COPD (chronic obstructive pulmonary disease) Current Visit: Yes Status: Chronic Qualifiers: COPD type: unspecified COPD Qualified Code(s): J44.9 - Chronic obstructive pulmonary disease, unspecified Subjective Principal diagnosis: esrd Interval history: Patient seen. No new complaint. ROS stable. Objective - Vital Signs Vital signs: Vital Signs Temp Pulse Resp BP Pulse Ox 03/26/19 08:00 97.5 F L 51 18 160/78 97 03/26/19 04:39 97.4 F L 51 16 126/70 97 03/26/19 00:02 97.6 F 90 17 112/54 03/25/19 21:29 97.5 F L 52 14 142/76 96 03/25/19 17:05 97.7 F 55 16 157/78 99 03/25/19 15:20 97.7 F 15 172/77 03/25/19 14:35 167/78 03/25/19 14:20 171/75 03/25/19 14:05 175/83 03/25/19 13:50 168/75 03/25/19 13:35 146/7 03/25/19 13:20 163/81 03/25/19 13:05 166/78 03/25/19 12:50 169/83 03/25/19 12:35 172/83 03/25/19 12:20 169/84 03/25/19 12:05 174/83 03/25/19 11:50 97.4 F L 15 175/83 Intake and Output 03/25/19 03/26/19 03/26/19 23:59 07:59 15:59 Intake Total 1100 / 1700 Output Total 325 / 3325 500 / 800 300 / 800 Balance 775 / -1625 -500 / -800 -300 / -800 Intake: IV Fluids 1100 / 1200 0.9 % Sodium Chloride 1,000 ML 1000 / 1000 @ 40 mls/hr IVC .Q24H [facility] Rx#: [id number] Zosyn 3.375 GM In 0.9 % Sodium 100 / 200 Chloride (Mini-Bag +) 100 ML @ 25 mls/hr IVPB Q12H [facility] Rx#: [id number] Output: Urine 325 / 825 500 / 800 300 / 800 Other: # Voids 1 Blood Glucose* 173 73 - General Appearance General appearance: Present: well-developed, well-nourished EENT: Present: ATNC Neck: Present: supple Cardiology: Present: regular rate Neurologic: Present: alert and oriented x3 - Lab 03/26/19 04:52 03/26/19 04:52 Most recent lab results 03/26/19 03/26/19 04:52 04:52 Calcium 7.8 L Magnesium 2.2 Consult Discharge Plan - Plan Referrals: Yari Rader, [employer] [Primary Care Provider] -
--- NOTE | 2019-03-26 11:05 | Internal Med Progress Note ---
Hospitalist Progress Note - Encounter Date of Encounter: 03/26/19 Time of Encounter: 11:03 - Subjective Interval History: Patient was seen and examined at bedside. Patient denies any acute issues overnight. Patient resting comfortably and sitting up in his bed. Patient reports mild soreness on the left side of her abdomen. Most likely muscular skeletal in nature. - Exam Vitals: Temp Pulse Resp BP Pulse Ox 97.5 F L 51 18 160/78 97 03/26/19 08:00 03/26/19 08:00 03/26/19 08:00 03/26/19 08:00 03/26/19 08:00 Exam: General: A & O 3, In no acute distress HENNT: PERRLA. Head atraumatic and makes supple CVS S1 and S2 regular, no murmur RS: Clear to air entry bilaterally, no wheeze, no crackles Abdomen: Soft and nontender. Bowel sounds normal 4 Extremities: No cyanosis, clubbing, and edema, s/p left first and second toe amputations. Neurology: Cranial II - XII normal. Motor strength 5/5 bilaterally. Sensation intact - Assessment and Plan (1) Acute cholangitis Current Visit: Yes Status: Acute Assessment and Plan: Patient is improving on current antibiotic regimen. The previously is trending down. Patient denies any fever, chills, and abdominal pain. GI on consult. MRCP showed large filling defect at the provider representing stone measuring about 1.6 cm. Per GI planned ERCP on Wednesday. He is on clear liquid diet. Nothing by mouth after midnight in anticipation of procedure tomorrow. (2) Ampulla of Vater obstruction syndrome Current Visit: Yes Status: Acute Assessment and Plan: Management as above. (3) Total bilirubin, elevated Current Visit: Yes Status: Acute Assessment and Plan: Trending down and monitor (4) Alkaline phosphatase elevation Current Visit: Yes Status: Acute Assessment and Plan: Alkaline phosphatase went up today. Patient denies any abdominal pain. Plan on ERCP tomorrow. (5) Elevated troponin Current Visit: No Status: Acute Assessment and Plan: Top trended down. Patient denies chest pain. Cardiology on consult. Advised to continue with the pravastatin and aspirin. No further cardiac intervention needed at this point.. (6) CAD (coronary artery disease) Current Visit: No Status: Chronic Assessment and Plan: Patient has history of coronary artery bypass graft done last year at [facility]. History of CAD status post stent. We will continue home aspirin. (7) Diabetes Current Visit: No Status: Chronic Assessment and Plan: We will continue home regimen. Continue monitor blood glucose. (8) ESRD (end stage renal disease) Current Visit: No Status: Chronic Assessment and Plan: Nephrology CONSULT WILL CONTINUE TO MONITOR NEPHROLOGY IS MANAGING DIALYSIS. (9) HLD (hyperlipidemia) Current Visit: No Status: Chronic Assessment and Plan: Continue Zocor (10) HTN (hypertension) Current Visit: No Status: Chronic Assessment and Plan: Continuous Lisinopril and Coreg (11) CHF (congestive heart failure) Current Visit: Yes Status: Chronic Assessment and Plan: Continue aspirin, lisinopril, Coreg, and Zocor. KVO. Strict input and output and daily weight. Chest x-ray was done which showed blunting of the left CP angle. Continue home Bumex. (12) COPD (chronic obstructive pulmonary disease) Current Visit: Yes Status: Chronic Assessment and Plan: We will continue home inhaler. Supplement oxygen to keep saturation above 92%. (13) Atrial fibrillation Current Visit: Yes Status: Chronic Assessment and Plan: EKG showed right bundle-branch left fascicular block otherwise in sinus rhythm. Continue Coreg. Continue aspirin. Cardiology on consult will continue to monitor. No further recommendation of cardiology. (14) Hypomagnesemia Current Visit: Yes Status: Resolved Assessment and Plan: Management of 1.7 at outside facility. Patient was given magnesium 2 g IV piggyback twice. Magnesium today is 2.2. (15) DVT prophylaxis Current Visit: No Status: Acute Assessment and Plan: Subcutaneous heparin - Time Spent with Patient Total time spent is greater than 50% in coordination of care (as documented) at patient's floor/unit and/or counseling patient: 25 - 35 minutes Plan of Care Discussed with: patient Internal Medicine: Result - Labs CBC & Chem 7: 03/26/19 04:52 03/26/19 04:52 Labs: Short CBC 03/26/19 Range/Units 04:52 WBC 5.8 (4.3-11.1) K/mcL Hgb 9.6 L (12.9-16.9) g/dL Hct 30.4 L (37.5-50.1) % Plt Count 157 (140-400) K/mcL Neutrophils # 4.4 (1.6-8.9) K/mcL BMP 03/26/19 04:52 Sodium 137 Potassium 4.2 Chloride 97 L Carbon Dioxide 29 BUN 25 H Creatinine 4.32 H Glucose 68 L Calcium 7.8 L Liver Function 03/26/19 Range/Units 04:52 Total Bilirubin 2.7 H (0.3-1.0) mg/dL AST 29 (13-39) Units/L ALT 26 (7-52) Units/L Alkaline Phosphatase 424 H (34-104) Units/L Albumin 2.9 L (3.5-5.7) g/dL Consult Discharge Plan - Plan Referrals: Yari Rader, CARBOY FILLER [Primary Care Provider] - (6) CAD (coronary artery disease) Qualifiers: Coronary Disease-Associated Artery/Lesion type: [place] artery [place] vs. 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 insulin use: with watermelon harvesting supervisor use Diabetes mellitus complication status: with kidney complications Diabetes mellitus complication detail: with chronic kidney disease Chronic kidney disease stage: on chronic dialysis Qualified Code(s): E11.22 - Type 2 diabetes mellitus with diabetic chronic kidney disease; N18.6 - End stage renal disease; Z79.4 - skilled nursing (current) use of insulin; Z99.2 - Dependence on renal dialysis (9) HLD (hyperlipidemia) Qualifiers: Hyperlipidemia type: pure hypercholesterolemia Qualified Code(s): E78.00 - Pure hypercholesterolemia, unspecified; E78.0 - Pure hypercholesterolemia (10) HTN (hypertension) Qualifiers: Hypertension type: essential hypertension Qualified Code(s): I10 - Essential (primary) hypertension (11) CHF (congestive heart failure) Qualifiers: Heart failure type: diastolic Heart failure chronicity: chronic Qualified Code(s): I50.32 - Chronic diastolic (congestive) heart failure (12) COPD (chronic obstructive pulmonary disease) Qualifiers: COPD type: unspecified COPD Qualified Code(s): J44.9 - Chronic obstructive pulmonary disease, unspecified (13) Atrial fibrillation Qualifiers: Atrial fibrillation type: chronic Qualified Code(s): I48.2 - Chronic atrial fibrillation
[2019-03-26] MEDS: ANORO ELLIPTA IH SCH (11:30)
[2019-03-26] MEDS: Acetaminophen 325 MG TABLET PO PRN (15:15)
[2019-03-26] MEDS: Bumetanide 1 MG TABLET PO SCH (16:57)
[2019-03-26] MEDS: Famotidine 20 MG TABLET PO SCH (20:30)
[2019-03-26] MEDS ORDERED: D5% in Water 1,000 ML IVC PRN (20:50)
[2019-03-26] MEDS ORDERED: Dextrose Gel 15 GM/37.5 ML TUBE PO PRN ×2 (20:50)
[2019-03-26] MEDS ORDERED: *HR* Dextrose 50 % in Water (Syg) 50 ML SYRINGE IVP PRN (20:50)
[2019-03-26] MEDS ORDERED: Insulin LISPRO 300 UNITS/3 ML VIAL SQ SCH (21:00)
[2019-03-26] MEDS: *HR* OxyCODONE/APAP 5/325 TABLET PO PRN (21:17)
[2019-03-27] MEDS: Insulin LISPRO 300 UNITS/3 ML VIAL SQ SCH ×5 (00:13→23:13)
[2019-03-27] MEDS: Piperacillin/Tazobactam 3.375 GM in 0.9 % Sodium Chloride Mini Bag 100 ML IVPB SCH ×2 (04:42→18:52)
[2019-03-27] MEDS: *HR* Heparin 5,000 UNIT/ML VIAL SQ SCH ×3 (05:12→20:13)
[2019-03-27 06:11] LABS: Basophils % 0.5 %; Eosinophils # 0.1 K/mcL (0.0-0.6); Eosinophils % 2.2 %; Hemoglobin 10.8 g/dL (12.9-16.9); Immature Granulocytes % 1.4 % (0-4); Lymphocytes # 1.1 K/mcL (0.6-4.6); Lymphocytes % 18.8 %; Mean Corpuscular HGB Conc 32.7 g/dL (31.6-35.5); Mean Corpuscular Hemoglobin 29.7 pg (28.0-33.3); Mean Corpuscular Volume 90.7 fL (83.0-100.0); Mean Platelet Volume 10.3 fL (9.4-12.4); Monocytes # 0.4 K/mcL (0.0-1.3); Monocytes % 6.9 %; Neutrophils # 4.1 K/mcL (1.6-8.9); Nucleated Red Blood Cells 0.7 /100 WBC (0); Platelet Count 155 K/mcL (140-400); Red Blood Count 3.64 M/mcL (4.19-5.50); Red Cell Distribution Width 15.3 % (11.5-14.5); Segmented Neutrophils % 70.2 %; White Blood Count 5.9 K/mcL (4.3-11.1)
[2019-03-27 06:31] LABS: Albumin/Globulin Ratio 0.9 (1.1-2.2); Bilirubin,Total 2.9 mg/dL (0.3-1.0); Calcium 7.6 mg/dL (8.6-10.3); Globulin 3.2 g/dL (2.4-3.5); Potassium 4.7 mEq/L (3.5-5.1); Total Protein 6.2 g/dL (6.4-8.9)
[2019-03-27] MEDS ORDERED: Insulin LISPRO 300 UNITS/3 ML VIAL SQ SCH (07:30)
[2019-03-27] MEDS: ANORO ELLIPTA IH SCH (07:57)
[2019-03-27] MEDS: Aspirin 325 MG TABLET PO SCH (08:02)
[2019-03-27] MEDS: Renal Vitamin 1 CAP CAPSULE PO SCH (08:02)
--- NOTE | 2019-03-27 08:43 | Acute Care Surgery Event Note ---
Date of Encounter: 03/27/19 Time of Encounter: 08:40 s/p cholecystectomy 2018. Now with choledocholithiasis. Pt to ERCP today. No surgical intervention indicated. Management per GI. If GI feels there is need for surgical reeval, please reconsult. Surgery will follow from distance at this time.
[2019-03-27] MEDS ORDERED: *HR* OxyCODONE/APAP 5/325 TABLET PO PRN (09:17)
--- NOTE | 2019-03-27 09:25 | Gastroenterology Consult Note ---
<JunitoCarleeChin C - Last Filed: 03/27/19 09:55> Date of Encounter: 03/27/19 Time of Encounter: 09:25 - Assessment and plan (1) Choledocholithiasis Current Visit: Yes Status: Acute Assessment and plan: Patient admitted from [place] with fever, abdominal pain, leukocytosis, elevated bilirubin, elevated alkaline phosphatase, choledocholithiasis on CT Filling defect confirmed with MRCP, with intra-and extrahepatic biliary ductal dilatation, no signs of ascending cholangitis or pancreatitis He is status post cholecystectomy, acute care surgery and hospitalist team monitored over the weekend for signs of ascending cholangitis Patient remained clinically stable, treated with antibiotics, LFTs normal, no longer leukocytotic, vitals stable, mild abdominal pain Patient is scheduled for ERCP today, he is nothing by mouth since midnight Further recommendations per Dr. Prakash (2) Total bilirubin, elevated Current Visit: Yes Status: Acute (3) Alkaline phosphatase elevation Current Visit: Yes Status: Acute - Time Spent With Patient Total time spent is greater than 50% in coordination of care (as documented) at patient's floor/unit and/or counseling patient: GI History of Present Illness - Data of Consult Consult date: 03/27/19 Requesting Physician: Mack Ryan MD - Consult Narrative Reason for consult: choledocholithiasis History of present illness: Mr. Bess is a 59 year old male with a past medical history of end-stage renal disease on dialysis, coronary artery disease status post stent and CABG, hypertension, diabetes, hyperlipidemia, COPD, CHF, status post cholecystectomy. He originally presented to [facility] for fever and abdominal pain and shortness of breath that had been several days in duration. Assessment there with labs and imaging demonstrated leukocytosis and clinical cholelithiasis, as well as elevated bilirubin and alkaline phosphatase. He was transferred to [facility] for management, and GI/surgery/cardiology were consuted. Patient was managed by the hospitalist and acute cancer surgery teams over the weekend, monitoring for signs of ascending cholangitis. The patient's clinical disposition remained stable however his bilirubin and alkaline phosphatase did continue to rise. Case was discussed with gastroenterology with plan for ERCP today. On my evaluation patient complains of mild abdominal pain but otherwise has no acute complaints. He understands and agrees with the plan for ERCP today. Past Med Surg Social Fam HX - Past Medical History Medical history: arthritis, atrial fibrillation, cardiomyopathy, COPD, coronary artery disease, DVT, diabetes, dialysis, GERD, hyperlipidemia, hypertension, kidney stones, myocardial infarction, renal disease, sudden cardiac , other Additional medical history: neuropathy Psychiatric history: no psych history - Past Surgical History Surgical History: angioplasty/stent, cholecystectomy, coronary bypass (CABG), other (Left first and scond toe amputations) Additional surgical history: 2 stents, - Social History Smoking Status: Current every day smoker Smokeless Tobacco Status: No Alcohol use: none Drug use: none - Family History Mother Family Member Ethnicity: Non- Living Status: Hx Family Cardiac Disorders: Yes (CAD, [place]) Hx Family Endocrine Disorder: Yes (DM) Brother Family Member Ethnicity: Non- Living Status: Hx Family Cardiac Disorders: Yes ([place] ) Hx Family Endocrine Disorder: Yes (DM) Sister Family Member Ethnicity: Non- Living Status: Still Living Hx Family Cardiac Disorders: Yes ([place]) Hx Family Endocrine Disorder: Yes (DM) Father Family Member Ethnicity: Non- Living Status: Hx Family Cardiac Disorders: Yes (mother,father) Hx Family Respiratory Disorders: No Hx Family Cancer: No Hx Family GI Disorders: No Hx Family Endocrine Disorder: Yes (motjher, father) Hx Family Neuromuscular Disorders: No Hx Family Neurologic Disorders: No Hx Family HEENT Disorders: No Hx Family Autoimmune Disorders: No All systems PM: reviewed and no additional remarkable complaints except as stated - Constitutional Vitals: Temp Pulse Resp BP Pulse Ox 97.8 F 52 16 156/78 98 03/27/19 06:34 03/27/19 06:34 03/27/19 06:34 03/27/19 06:34 03/27/19 06:34 General appearance: Present: A&O X 3, no acute distress - Eye Eye exam: Present: EOMI, PERRL - Respiratory Respiratory exam: Present: CTAB - Cardiovascular Cardiovascular exam: Present: gallop, RRR, +S1, +S2 - GI/Abdominal GI/Abdominal exam: Present: normal bowel sounds, soft, splenomegaly, tenderness (Mild tenderness to left upper quadrant and right upper quadrant), no peritoneal signs. Absent: distended, firm, guarding, hepatomegaly, rigid - Extremities Exam Extremities exam: Present: warm, radial pulses palpable and symmetrical Additional comments: Venous stasis and post surgical changes to the lower extremity - Skin Skin exam: Present: dry, warm Results - Labs CBC & Chem 7: 03/27/19 05:47 03/27/19 05:47 Labs: Last Result 03/27/19 05:47 Calcium 7.6 L Entire Visit 03/27/19 03/27/19 05:47 05:47 Hgb 10.8 L Hct 33.0 L Total Bilirubin 2.9 H AST 30 ALT 27 Consult Discharge Plan - Plan Referrals: Yari Rader, MANAGER PRIVATE [Primary Care Provider] - <Dwain Prakash - Last Filed: 03/27/19 13:59> Date of Encounter: 03/27/19 Time of Encounter: 12:00 - Time Spent With Patient Total time spent is greater than 50% in coordination of care (as documented) at patient's floor/unit and/or counseling patient: GI History of Present Illness - Data of Consult Requesting Physician: Mack Ryan MD - Consult Narrative History of present illness: Mr. Bess is a 59 year old male - Constitutional Vitals: Temp Pulse Resp BP Pulse Ox 97.8 F 52 16 181/94 97 03/27/19 11:21 03/27/19 13:18 03/27/19 13:18 03/27/19 13:18 03/27/19 13:18 Results - Labs CBC & Chem 7: 03/27/19 05:47 03/27/19 05:47 Labs: Last Result 03/27/19 05:47 Calcium 7.6 L Entire Visit 03/27/19 03/27/19 03/27/19 05:47 05:47 09:54 Hgb 10.8 L Hct 33.0 L PT 12.7 H Total Bilirubin 2.9 H AST 30 ALT 27 - ABG ABG results: PT/INR, D-dimer PT 12.7 Seconds (9.4-12.1) H 03/27/19 09:54 - Attending Attestation I have personally performed a face to face evaluation on this patient. I have reviewed and agree with the care plan. History and Exam by me shows: Patient seen no active issues on examination alert and awake fully mobile. Assessment: Patient with large CBD stone causing obstruction. Recommendation ERCP today. Procedure including risks were discussed with the patient including bleeding perforation pancreatitis
--- NOTE | 2019-03-27 09:58 | Anesthesia Evaluation PreOp ---
Date of Encounter: 03/27/19 Time of Encounter: 12:07 - Past History Planned Operation: ERCP Cardiac History: [place] (2009, 2017), CHF, HTN, Hyperlipidemia, Arrhythmia (AFIB), Cardiac Surgery (CABG 05/2018), Cardiac Stent (X2 IN 2009) Pulmonary History: Smoker Other Medical History: Renal (ESRD, HD), Diabetes Type II, Other (CBD STONES POST CHOLECYSTECYTOMY 2017, ANEMIA) Anesthesia History: No Prior Anesthetic Complications, Past Anesthesia Alcohol Use: none Drug use: none Medications and Allergies Simvastatin [Zocor] 40 mg PO HS 10/21/16 [History] Aspirin 325 mg PO DAILY 04/15/18 [History] Ergocalciferol (VITAMIN D2) [Drisdol (50,000 Unit)] 50,000 unit PO SA 04/15/18 [History] Vit B Comp C/Folic Acid/Vit D3 [Dialyvite 800 Plus D Wafer] 1 tab PO DAILY 04/15/18 [History] Famotidine [Heartburn Prevention] 20 mg PO HS 05/26/18 [History] Albuterol Sulfate [Ventolin Hfa] 2 each IH Q6H PRN 08/11/18 [History] Docusate [Colace] 200 mg PO DAILY 08/11/18 [History] OxyCODONE/APAP 5/325 [Percocet 5/325 MG] 1 each PO HS PRN 08/11/18 [History] Umeclidinium Brm/Vilanterol Tr [Anoro Ellipta 62.5-25 Mcg INH] 1 puff IH DAILY 08/11/18 [History] Bumetanide [Bumex] 1 mg PO QPM 03/24/19 [History] Carvedilol 12.5 mg PO BID 03/24/19 [History] Lidocaine/Prilocaine [Emla] 1 appl TP AD 03/24/19 [History] Lisinopril 2.5 mg PO BID 03/24/19 [History] Allergy/AdvReac Type Severity Reaction Status Date / Time sulfamethoxazole Allergy Nausea Verified 03/24/19 16:19 [From Bactrim] trimethoprim [From Bactrim] Allergy Nausea Verified 03/24/19 16:19 - Meds/Allergy Pre-op Review Medications Reviewed: Yes Allergies Reviewed: Yes Beta Blockers on Current Med List: Yes If Beta Blockers taken, Date/Time (Last Dose taken): 0800 Anesthesia Results - Labs 03/27/19 05:47 03/27/19 05:47 Laboratory Tests 03/26/19 03/27/19 04:52 05:47 Calcium 7.6 L Magnesium 2.2 Total Bilirubin 2.9 H Laboratory Tests 03/27/19 05:47 Alkaline Phosphatase 439 H Anesthesia Exam Vital Signs/O2 Sat/Glucose, Most Recent Temp Pulse Resp BP Pulse Ox 97.8 F 52 16 156/78 98 03/27/19 06:34 03/27/19 06:34 03/27/19 06:34 03/27/19 06:34 03/27/19 06:34 Blood Glucose* 72 Weight: 111 KG - BMI 34 NPO (# of Hours): 8 - HEENT Mallampati: II Teeth: Edentulous - Cardiac Rhythm: Regular - Pulmonary Breath Sounds: bilateral Clear Respiratory Effort: Symmetrical - Additional Findings LEFT ARM AVF Anesthesia Assess/Plan ASA Score: 3 Anesthetic Plan: General Monitoring Plan: Standard Monitors Recovery Plan: PACU
[2019-03-27 10:32] LABS: INR 1.1; Prothrombin Time 12.7 Seconds (9.4-12.1)
[2019-03-27] MEDS: Tiotropium 18 MCG inhalation IH SCH (10:42)
--- NOTE | 2019-03-27 10:48 | Nephrology Progress Note ---
<Aneta Cerda - Last Filed: 03/27/19 10:46> Date of Encounter: 03/27/19 Time of Encounter: 10:46 - Assessment and Plan (1) ESRD (end stage renal disease) Current Visit: No Status: Chronic HD Wednesday and Wednesday. Renal vitamins. Renal dose medications. Renal diet. Additional dialysis and ultrafiltration as needed. Plan for HD tomorrow. (2) Acute cholangitis Current Visit: Yes Status: Acute Per acute care surgery/GI team. Plan for ERCP today. (3) COPD (chronic obstructive pulmonary disease) Current Visit: Yes Status: Chronic Per primary. Qualifiers: COPD type: unspecified COPD Qualified Code(s): J44.9 - Chronic obstructive pulmonary disease, unspecified (4) Atrial fibrillation Current Visit: Yes Status: Chronic Per primary. Qualifiers: Atrial fibrillation type: chronic Qualified Code(s): I48.2 - Chronic atrial fibrillation Subjective Principal diagnosis: esrd Interval history: Pt seen and examined with primary team. Plan is for ERCP today. Denies nausea, vomiting, diarrhea at this time. Denies chest pain or shortness of breath. Objective - Vital Signs Vital signs: Vital Signs Temp Pulse Resp BP Pulse Ox 03/27/19 06:34 97.8 F 52 16 156/78 98 03/27/19 03:57 97.5 F L 55 19 156/64 97 03/27/19 00:06 97.6 F 53 19 143/76 99 03/26/19 19:17 97.6 F 57 17 142/74 98 03/26/19 16:21 97.6 F 54 18 169/89 100 03/26/19 11:31 97.7 F 50 18 164/87 100 Intake and Output 03/26/19 03/27/19 03/27/19 23:59 07:59 15:59 Intake Total 940 / 1520 100 / 100 Output Total 400 / 1400 800 / 800 Balance 540 / 120 -800 / -700 100 / -700 Intake: IV Fluids 100 / 200 100 / 100 Zosyn 3.375 GM In 0.9 % Sodium 100 / 200 100 / 100 Chloride (Mini-Bag +) 100 ML @ 25 mls/hr IVPB Q12H [facility] Rx#: [id number] Oral 840 / 1320 Output: Urine 400 / 1400 800 / 800 Other: Weight 111.3 kg Blood Glucose* 214 72 Patient Weight 03/27/19 23:59 Weight 111.3 kg - General Appearance General appearance: Present: well-developed, well-nourished EENT: Present: ATNC, hearing intact, vision intact Neck: Present: supple Respiratory: Present: clear Cardiology: Present: no edema, normal S1, normal S2 Dialysis Vascular Access: Arteriovenous Fistula thrill: Yes bruit: Yes Gastrointestinal: Present: normoactive bowel sounds, no tenderness, no guarding Integumentary: Present: no rash, warm and dry Neurologic: Present: alert and oriented x3 Musculoskeletal: Present: no deformities, no erythema Psychiatric: Present: mood/affect appropriate, cooperative - Lab 03/27/19 05:47 03/27/19 05:47 Most recent lab results 03/27/19 05:47 Calcium 7.6 L Consult Discharge Plan - Plan Referrals: Yari Rader, ZAHIRA [Primary Care Provider] - 03/31/19 10:00 am <Bruno Amezquita - Last Filed: 03/28/19 10:43> Date of Encounter: 03/27/19 - Assessment and Plan (1) ESRD (end stage renal disease) Current Visit: No Status: Chronic I examined this patient and my medical decision-making was reviewed with ZAHIRA Cornell 04/27/2019. I agree with the documented findings, disposition and treatment plan as described except to the extent set forth below. (2) Acute cholangitis Current Visit: Yes Status: Acute (3) Atrial fibrillation Current Visit: Yes Status: Chronic Qualifiers: Atrial fibrillation type: chronic Qualified Code(s): I48.2 - Chronic atrial fibrillation (4) COPD (chronic obstructive pulmonary disease) Current Visit: Yes Status: Chronic Qualifiers: COPD type: unspecified COPD Qualified Code(s): J44.9 - Chronic obstructive pulmonary disease, unspecified Objective - Vital Signs Vital signs: Vital Signs Temp Pulse Resp BP Pulse Ox 03/28/19 07:47 16 99 03/28/19 06:48 97.7 F 58 16 130/51 98 03/28/19 03:41 97.6 F 61 18 194/69 97 03/28/19 00:09 97.5 F L 64 18 173/66 96 03/27/19 19:31 98 F 60 17 196/76 99 03/27/19 16:17 97.6 F 52 16 174/87 94 03/27/19 16:11 97.9 F 53 16 157/92 93 03/27/19 16:01 53 16 150/93 94 03/27/19 15:51 53 16 151/84 94 03/27/19 15:41 97.4 F L 52 16 144/83 99 03/27/19 13:18 52 16 181/94 97 03/27/19 11:21 97.8 F 52 16 174/84 98 Intake and Output 03/27/19 03/28/19 03/28/19 23:59 07:59 15:59 Intake Total 580 / 680 480 / 480 Output Total 550 / 1900 Balance 30 / -1220 480 / 480 Intake: IV Fluids 100 / 200 Zosyn 3.375 GM In 0.9 % Sodium 100 / 200 Chloride (Mini-Bag +) 100 ML @ 25 mls/hr IVPB Q12H [facility] Rx#: [id number] Oral 480 / 480 480 / 480 Output: Urine 550 / 1900 Other: Meal Breakfast Blood Glucose* 123 208 - Lab 03/28/19 00:56 03/28/19 00:56 Most recent lab results 03/28/19 00:56 Calcium 7.6 L
[2019-03-27] MEDS ORDERED: *HR* Promethazine 25 MG/ML VIAL IVP PRN (12:20)
[2019-03-27] MEDS ORDERED: Ondansetron 4 MG/2 ML VIAL IVP ONE (12:20)
[2019-03-27] MEDS ORDERED: *HR* FentaNYL (PF) 100 MCG/2 ML VIAL IVP PRN (12:20)
[2019-03-27] MEDS ORDERED: *HR* FentaNYL (PF) 100 MCG/2 ML VIAL ONE (12:41)
[2019-03-27] MEDS ORDERED: *HR* Propofol 200 MG/20 ML VIAL IVP ONE (12:41)
[2019-03-27] MEDS ORDERED: *HR* Succinylcholine 200 MG/10 ML VIAL IVP ONE (12:41)
--- NOTE | 2019-03-27 12:42 | Internal Med Progress Note ---
Hospitalist Progress Note - Encounter Date of Encounter: 03/27/19 Time of Encounter: 12:40 - Subjective Interval History: She will seen and examined today. Patient denies any acute issues and concerns 1. Reports mild left-sided abdominal pain. Denies any chest pain, palpitation, and difficulty in breathing. - Exam Vitals: Temp Pulse Resp BP Pulse Ox 97.8 F 52 16 174/84 98 03/27/19 11:21 03/27/19 11:21 03/27/19 11:21 03/27/19 11:21 03/27/19 11:21 Exam: General: A & O 3, In no acute distress HENNT: PERRLA. Head atraumatic and makes supple CVS S1 and S2 regular, no murmur RS: Clear to air entry bilaterally, no wheeze, no crackles Abdomen: Soft and nontender. Bowel sounds normal 4 Extremities: No cyanosis, clubbing, and edema, s/p left first and second toe amputations. Neurology: Cranial II - XII normal. Motor strength 5/5 bilaterally. Sensation intact - Assessment and Plan (1) Acute cholangitis Current Visit: Yes Status: Acute Assessment and Plan: Patient is improving on current antibiotic regimen. The previously is trending down. Patient denies any fever, chills, and abdominal pain. GI on consult. MRCP showed large filling defect at the provider representing stone measuring about 1.6 cm. she will go for ERCP today at 1 PM. Will follow patient after ERCP. (2) Ampulla of Vater obstruction syndrome Current Visit: Yes Status: Acute Assessment and Plan: GI on consult. ERCP today at 1 PM. (3) Total bilirubin, elevated Current Visit: Yes Status: Acute Assessment and Plan: Trending up will continue to monitor (4) Alkaline phosphatase elevation Current Visit: Yes Status: Acute Assessment and Plan: Alkaline phosphatase went up today to 439. Patient denies any abdominal pain. Plan on ERCP today at 1 pm. (5) Elevated troponin Current Visit: No Status: Acute Assessment and Plan: Top trended down. Patient denies chest pain. Cardiology on consult. Advised to continue with the pravastatin and aspirin. No further cardiac intervention needed at this point.. (6) CAD (coronary artery disease) Current Visit: No Status: Chronic (7) Diabetes Current Visit: No Status: Chronic Assessment and Plan: We will continue home regimen. Continue monitor blood glucose. (8) ESRD (end stage renal disease) Current Visit: No Status: Chronic Assessment and Plan: Nephrology on consult for dialysis.. (9) HLD (hyperlipidemia) Current Visit: No Status: Chronic Assessment and Plan: Continue Zocor (10) HTN (hypertension) Current Visit: No Status: Chronic Assessment and Plan: Continuous Lisinopril and Coreg (11) CHF (congestive heart failure) Current Visit: Yes Status: Chronic Assessment and Plan: Continue aspirin, lisinopril, Coreg, and Zocor. KVO. Strict input and output and daily weight. Chest x-ray was done which showed blunting of the left CP angle. Continue home Bumex. (12) COPD (chronic obstructive pulmonary disease) Current Visit: Yes Status: Chronic Assessment and Plan: We will continue home inhaler. Supplement oxygen to keep saturation above 92%. (13) Atrial fibrillation Current Visit: Yes Status: Chronic Assessment and Plan: EKG showed right bundle-branch left fascicular block otherwise in sinus rhythm. Continue Coreg. Continue aspirin. Cardiology on consult will continue to monitor. No further recommendation of cardiology. (14) DVT prophylaxis Current Visit: No Status: Acute Assessment and Plan: Subcutaneous heparin - Time Spent with Patient Total time spent is greater than 50% in coordination of care (as documented) at patient's floor/unit and/or counseling patient: 25 - 35 minutes Plan of Care Discussed with: patient Internal Medicine: Result - Labs CBC & Chem 7: 03/27/19 05:47 03/27/19 05:47 Labs: Short CBC 03/27/19 Range/Units 05:47 WBC 5.9 (4.3-11.1) K/mcL Hgb 10.8 L (12.9-16.9) g/dL Hct 33.0 L (37.5-50.1) % Plt Count 155 (140-400) K/mcL Neutrophils # 4.1 (1.6-8.9) K/mcL BMP 03/27/19 05:47 Sodium 131 L Potassium 4.7 Chloride 98 Carbon Dioxide 23 BUN 28 H Creatinine 4.83 H Glucose 79 Calcium 7.6 L Liver Function 03/27/19 Range/Units 05:47 Total Bilirubin 2.9 H (0.3-1.0) mg/dL AST 30 (13-39) Units/L ALT 27 (7-52) Units/L Alkaline Phosphatase 439 H (34-104) Units/L Albumin 3.0 L (3.5-5.7) g/dL - ABG Interpretation ABG results: PT/INR, D-dimer PT 12.7 Seconds (9.4-12.1) H 03/27/19 09:54 Consult Discharge Plan - Plan Referrals: Yari Rader, MAILING CLERK [Primary Care Provider] - (6) CAD (coronary artery disease) Qualifiers: Coronary Disease-Associated Artery/Lesion type: [place] artery [place] vs. 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 insulin use: with watcher automat long goods use Diabetes mellitus complication status: with kidney complications Diabetes mellitus complication detail: with chronic kidney disease Chronic kidney disease stage: on chronic dialysis Qualified Code(s): E11.22 - Type 2 diabetes mellitus with diabetic chronic kidney disease; N18.6 - End stage renal disease; Z79.4 - long-term (current) use of insulin; Z99.2 - Dependence on renal dialysis (9) HLD (hyperlipidemia) Qualifiers: Hyperlipidemia type: pure hypercholesterolemia Qualified Code(s): E78.00 - Pure hypercholesterolemia, unspecified; E78.0 - Pure hypercholesterolemia (10) HTN (hypertension) Qualifiers: Hypertension type: essential hypertension Qualified Code(s): I10 - Essential (primary) hypertension (11) CHF (congestive heart failure) Qualifiers: Heart failure type: diastolic Heart failure chronicity: chronic Qualified Code(s): I50.32 - Chronic diastolic (congestive) heart failure (12) COPD (chronic obstructive pulmonary disease) Qualifiers: COPD type: unspecified COPD Qualified Code(s): J44.9 - Chronic obstructive pulmonary disease, unspecified (13) Atrial fibrillation Qualifiers: Atrial fibrillation type: chronic Qualified Code(s): I48.2 - Chronic atrial fibrillation
[2019-03-27] MEDS ORDERED: Lidocaine -MPF 2% 2 ML VIAL ONE (12:43)
[2019-03-27] MEDS ORDERED: EPHEDrine 50 MG/ML VIAL ONE (13:15)
[2019-03-27] MEDS ORDERED: Dexamethasone 4 MG/ML VIAL ONE (13:34)
[2019-03-27] MEDS ORDERED: Ondansetron 4 MG/2 ML VIAL ONE (13:34)
[2019-03-27] MEDS ORDERED: Indomethacin 50 MG SUPP.RECT RC ONE (14:25)
--- NOTE | 2019-03-27 16:27 | Anesthesia Evaluation Post Op ---
Date of Encounter: 03/27/19 Time of Encounter: 16:30 - Vital Signs Vital Signs: Vital Signs/O2 Sat/Glucose, Most Current Temp Pulse Resp BP Pulse Ox 03/27/19 16:17 97.6 F 52 16 174/87 94 03/27/19 16:11 97.9 F 53 16 157/92 93 03/27/19 16:01 53 16 150/93 94 03/27/19 15:51 53 16 151/84 94 03/27/19 15:41 97.4 F L 52 16 144/83 99 03/27/19 13:18 52 16 181/94 97 - Lungs Lungs: Clear Ascult./Percussion - Airway Airway: Non-obstructed - Cardiovascular Regular Rate - Mental Status Mental Status: Alert & Oriented, Answers Appropriately - Pain Pain Scale: 0 - Nausea Vomiting Nausea Vomiting: Not Present - Hydration Hydration: Ice chips - Discharge PostOp Status: Transfer Patient to floor
[2019-03-27] MEDS ORDERED: Bumetanide 1 MG TABLET PO SCH (17:00)
[2019-03-27] MEDS: Famotidine 20 MG TABLET PO SCH (20:13)
[2019-03-28 01:22] LABS: Basophils % 0.2 %; Hematocrit 32.9 % (37.5-50.1); Hemoglobin 10.7 g/dL (12.9-16.9); Immature Granulocytes % 0.7 % (0-4); Lymphocytes # 0.3 K/mcL (0.6-4.6); Lymphocytes % 6.2 %; Mean Corpuscular HGB Conc 32.5 g/dL (31.6-35.5); Mean Corpuscular Hemoglobin 30.2 pg (28.0-33.3); Mean Corpuscular Volume 92.9 fL (83.0-100.0); Mean Platelet Volume 9.8 fL (9.4-12.4); Monocytes # 0.1 K/mcL (0.0-1.3); Monocytes % 2.3 %; Platelet Count 161 K/mcL (140-400); Red Blood Count 3.54 M/mcL (4.19-5.50); Red Cell Distribution Width 14.8 % (11.5-14.5); Segmented Neutrophils % 90.6 %; White Blood Count 4.4 K/mcL (4.3-11.1)
[2019-03-28 01:40] LABS: Albumin 3.1 g/dL (3.5-5.7); Albumin/Globulin Ratio 0.9 (1.1-2.2); Bilirubin,Total 2.2 mg/dL (0.3-1.0); Calcium 7.6 mg/dL (8.6-10.3); Globulin 3.3 g/dL (2.4-3.5); Potassium 4.7 mEq/L (3.5-5.1); Total Protein 6.4 g/dL (6.4-8.9)
[2019-03-28] MEDS: *HR* Heparin 5,000 UNIT/ML VIAL SQ SCH (04:12)
[2019-03-28] MEDS: Piperacillin/Tazobactam 3.375 GM in 0.9 % Sodium Chloride Mini Bag 100 ML IVPB SCH (04:12)
[2019-03-28] MEDS: Aspirin 325 MG TABLET PO SCH (07:12)
[2019-03-28] MEDS: Renal Vitamin 1 CAP CAPSULE PO SCH (07:13)
[2019-03-28] MEDS: Tiotropium 18 MCG inhalation IH SCH (07:47)
[2019-03-28] MEDS ORDERED: 0.9 % Sodium Chloride 250 ML IVC PRN (08:11)
[2019-03-28] MEDS ORDERED: 0.9 % Sodium Chloride 1,000 ML PRIME SCH (08:15)
--- NOTE | 2019-03-28 08:30 | Gastroenterology Progress Note ---
Date of Encounter: 03/28/19 Time of Encounter: 08:30 - Assessment and plan (1) Choledocholithiasis Current Visit: Yes Status: Acute Assessment and plan: ERCP performed without incident yesterday, with temporary stent placement Patient is doing well clinically today, hospitalist plans to discharge Outpatient follow-up in GI clinic in 2 weeks to schedule stent removal Further recommendations per Dr. Prakash (2) Total bilirubin, elevated Current Visit: Yes Status: Acute (3) Alkaline phosphatase elevation Current Visit: Yes Status: Acute - Time Spent With Patient Total time spent is greater than 50% in coordination of care (as documented) at patient's floor/unit and/or counseling patient: - Subjective Interval history: ERCP was performed without incident yesterday with placement of temporary stent. Patient did well over night, no acute events or acute complaints this morning. Patient did tolerate by mouth intake yesterday and today, denies abdominal pain/nausea/vomiting. - Constitutional Vitals: Temp Pulse Resp BP Pulse Ox 97.7 F 58 16 130/51 98 03/28/19 06:48 03/28/19 06:48 03/28/19 06:48 03/28/19 06:48 03/28/19 06:48 General appearance: Present: A&O X 3, no acute distress - Eye Eye exam: Present: EOMI, PERRL - Respiratory Respiratory exam: Present: CTAB - Cardiovascular Cardiovascular exam: Present: RRR - GI/Abdominal GI/Abdominal exam: Present: normal bowel sounds, soft, no peritoneal signs. Absent: distended, firm, guarding, tenderness - Extremities Exam Extremities exam: Present: radial pulses palpable and symmetrical - Skin Skin exam: Present: dry, warm Results - Labs CBC & Chem 7: 03/28/19 00:56 03/28/19 00:56 Labs: Last Result 03/28/19 00:56 Calcium 7.6 L Entire Visit 03/28/19 03/28/19 00:56 00:56 Hgb 10.7 L Hct 32.9 L Total Bilirubin 2.2 H AST 18 ALT 25 - ABG ABG results: PT/INR, D-dimer PT 12.7 Seconds (9.4-12.1) H 03/27/19 09:54 - Impressions Impressions Cath/Invasive Procedure 03/27/19 13:45 IMPRESSION: 1. Fluoroscopy provided intraprocedurally for biliary stent placement and balloon sweep of the common bile duct. Please refer to the procedural note for further details. D/ / 03/27/2019 15:52:11 Ger Cid MD / Omaira Ibanez Interpreting Provider: Ger Cid MD Consult Discharge Plan - Plan Referrals: Yari Rader LODE MINER BLASTING [Primary Care Provider] - 03/31/19 10:00 am Prescriptions: Amoxicillin/Clavulanate [Augmentin] 875 mg PO BIDWM 5 Days #10 tablet
--- NOTE | 2019-03-28 10:50 | Nephrology Progress Note ---
Date of Encounter: 03/28/19 Time of Encounter: 10:47 - Assessment and Plan (1) ESRD (end stage renal disease) Current Visit: No Status: Chronic HD TRS. Renal vitamins. Renal dose medications. Renal diet. Additional dialysis and ultrafiltration as needed. Patient seen on dialysis. (2) Acute cholangitis Current Visit: Yes Status: Acute (3) Atrial fibrillation Current Visit: Yes Status: Chronic Qualifiers: Atrial fibrillation type: chronic Qualified Code(s): I48.2 - Chronic atrial fibrillation (4) COPD (chronic obstructive pulmonary disease) Current Visit: Yes Status: Chronic Qualifiers: COPD type: unspecified COPD Qualified Code(s): J44.9 - Chronic obstructive pulmonary disease, unspecified Subjective Principal diagnosis: esrd Interval history: Patient seen. No new complaint. ROS stable. He feels better. Objective - Vital Signs Vital signs: Vital Signs Temp Pulse Resp BP Pulse Ox 03/28/19 07:47 16 99 03/28/19 06:48 97.7 F 58 16 130/51 98 03/28/19 03:41 97.6 F 61 18 194/69 97 03/28/19 00:09 97.5 F L 64 18 173/66 96 03/27/19 19:31 98 F 60 17 196/76 99 03/27/19 16:17 97.6 F 52 16 174/87 94 03/27/19 16:11 97.9 F 53 16 157/92 93 03/27/19 16:01 53 16 150/93 94 03/27/19 15:51 53 16 151/84 94 03/27/19 15:41 97.4 F L 52 16 144/83 99 03/27/19 13:18 52 16 181/94 97 03/27/19 11:21 97.8 F 52 16 174/84 98 Intake and Output 03/27/19 03/28/19 03/28/19 23:59 07:59 15:59 Intake Total 580 / 680 480 / 480 Output Total 550 / 1900 Balance 30 / -1220 480 / 480 Intake: IV Fluids 100 / 200 Zosyn 3.375 GM In 0.9 % Sodium 100 / 200 Chloride (Mini-Bag +) 100 ML @ 25 mls/hr IVPB Q12H [facility] Rx#: [id number] Oral 480 / 480 480 / 480 Output: Urine 550 / 1900 Other: Meal Breakfast Blood Glucose* 123 208 - General Appearance General appearance: Present: well-developed, well-nourished EENT: Present: ATNC Neck: Present: supple Cardiology: Present: edema, regular rate Dialysis Vascular Access: Arteriovenous Fistula Gastrointestinal: Present: no tenderness Integumentary: Present: warm and dry Neurologic: Present: alert and oriented x3 Musculoskeletal: Present: no cyanosis Psychiatric: Present: mood/affect appropriate - Lab 03/28/19 00:56 03/28/19 00:56 Most recent lab results 03/28/19 00:56 Calcium 7.6 L Consult Discharge Plan - Plan Referrals: Yari Rader, BUSINESS SUPERVISOR [Primary Care Provider] - 03/31/19 10:00 am
[2019-03-28] MEDS: Insulin LISPRO 300 UNITS/3 ML VIAL SQ SCH (12:47)
[2019-03-28 12:51] VITALS: BP 157/89
--- NOTE | 2019-03-28 13:34 | Discharge Summary ---
- NOTES TO OUTPATIENT PROVIDER Notes to Outpatient Provider: Patient was admitted the hospital for choledocholithiasis. Patient is status post cholecystectomy. Patient got ERCP done on 03/27/19 and was stenting was placed. Patient is to follow-up with GI in 2 weeks to schedule follow-up endoscopy for stent removal. Estimated PT Needs at Discharge: None Date of Encounter: 03/28/19 Time of Encounter: 13:30 - Discharge Diagnosis (1) Acute cholangitis Priority: Primary Status: Acute (2) Ampulla of Vater obstruction syndrome Priority: Secondary Status: Acute (3) Total bilirubin, elevated Priority: Secondary Status: Acute (4) Alkaline phosphatase elevation Priority: Secondary Status: Acute (5) Elevated troponin Priority: Secondary Status: Acute (6) CAD (coronary artery disease) Priority: Secondary Status: Chronic Qualifiers: Coronary Disease-Associated Artery/Lesion type: [place] artery [place] vs. 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: with care home use Diabetes mellitus complication status: with kidney complications Diabetes mellitus complication detail: with chronic kidney disease Chronic kidney disease stage: on chronic dialysis Qualified Code(s): E11.22 - Type 2 diabetes mellitus with diabetic chronic kidney disease; N18.6 - End stage renal disease; Z79.4 - FDC (current) use of insulin; Z99.2 - Dependence on renal dialysis (8) ESRD (end stage renal disease) Priority: Secondary Status: Chronic (9) HLD (hyperlipidemia) Priority: Secondary Status: Chronic Qualifiers: Hyperlipidemia type: pure hypercholesterolemia Qualified Code(s): E78.00 - Pure hypercholesterolemia, unspecified; E78.0 - Pure hypercholesterolemia (10) HTN (hypertension) Priority: Secondary Status: Chronic Qualifiers: Hypertension type: essential hypertension Qualified Code(s): I10 - Essential (primary) hypertension (11) CHF (congestive heart failure) Priority: Secondary Status: Chronic Qualifiers: Heart failure type: diastolic Heart failure chronicity: chronic Qualified Code(s): I50.32 - Chronic diastolic (congestive) heart failure (12) COPD (chronic obstructive pulmonary disease) Priority: Secondary Status: Chronic Qualifiers: COPD type: unspecified COPD Qualified Code(s): J44.9 - Chronic obstructive pulmonary disease, unspecified (13) Atrial fibrillation Priority: Secondary Status: Chronic Qualifiers: Atrial fibrillation type: chronic Qualified Code(s): I48.2 - Chronic atrial fibrillation (14) DVT prophylaxis Priority: Secondary Status: Acute Hospital course: Mr. Bess is a 59 year old male was admitted on 03/24/2019 for abdominal pain and fever and chills. Patient found according the cholelithiasis on CT scan. Patient was started on Zosyn. Patient also has a history of end-stage renal disease and he received dialysis in the hospital on 03/25/2019 and on 03/28/2019 on the discharge date. She responded well to Zosyn antibiotic use. White count trended down. Patient's T bili and alkaline phosphatase we will trended down. Patient was cleared from GI after getting ERCP done on 03/27/2019. Patient got stenting in the bile duct. Patient is to follow-up with GI in 2 weeks to schedule endoscopy for stent removal. Patient is to complete antibiotic Augmentin 875 twice a day for 5 more days. Patient is to follow-up with PCP in one week. Discharge discussed with: family, nurse, social work - Time Spent with Patient Total time spent providing and/or coordinating discharge services:40 Time spent: Greater than 30 minutes - Discharge Medications Prescriptions: New Amoxicillin/Clavulanate [Augmentin] 875 mg PO BIDWM 5 Days #10 tablet Continued Simvastatin [Zocor] 40 mg PO HS Ergocalciferol (VITAMIN D2) [Drisdol (50,000 Unit)] 50,000 unit PO SA Aspirin 325 mg PO DAILY Vit B Comp C/Folic Acid/Vit D3 [Dialyvite 800 Plus D Wafer] 1 tab PO DAILY Famotidine [Heartburn Prevention] 20 mg PO HS Albuterol Sulfate [Ventolin Hfa] 2 each IH Q6H PRN PRN Reason: Shortness Of Breath OxyCODONE/APAP 5/325 [Percocet 5/325 MG] 1 each PO HS PRN PRN Reason: Pain Umeclidinium Brm/Vilanterol Tr [Anoro Ellipta 62.5-25 Mcg INH] 1 puff IH DAILY Docusate [Colace] 200 mg PO DAILY Bumetanide [Bumex] 1 mg PO QPM Carvedilol 12.5 mg PO BID Lidocaine/Prilocaine [Emla] 1 appl TP AD Lisinopril 2.5 mg PO BID Home Medications: Simvastatin [Zocor] 40 mg PO HS 10/21/16 [History] Aspirin 325 mg PO DAILY 04/15/18 [History] Ergocalciferol (VITAMIN D2) [Drisdol (50,000 Unit)] 50,000 unit PO SA 04/15/18 [History] Vit B Comp C/Folic Acid/Vit D3 [Dialyvite 800 Plus D Wafer] 1 tab PO DAILY 04/15/18 [History] Famotidine [Heartburn Prevention] 20 mg PO HS 05/26/18 [History] Albuterol Sulfate [Ventolin Hfa] 2 each IH Q6H PRN 08/11/18 [History] Docusate [Colace] 200 mg PO DAILY 08/11/18 [History] OxyCODONE/APAP 5/325 [Percocet 5/325 MG] 1 each PO HS PRN 08/11/18 [History] Umeclidinium Brm/Vilanterol Tr [Anoro Ellipta 62.5-25 Mcg INH] 1 puff IH DAILY 08/11/18 [History] Bumetanide [Bumex] 1 mg PO QPM 03/24/19 [History] Carvedilol 12.5 mg PO BID 03/24/19 [History] Lidocaine/Prilocaine [Emla] 1 appl TP AD 03/24/19 [History] Lisinopril 2.5 mg PO BID 03/24/19 [History] Amoxicillin/Clavulanate [Augmentin] 875 mg PO BIDWM 5 Days #10 tablet 03/28/19 [Rx] Allergies/Adverse Reactions: Allergy/AdvReac Type Severity Reaction Status Date / Time sulfamethoxazole Allergy Nausea Verified 03/24/19 16:19 [From Bactrim] trimethoprim [From Bactrim] Allergy Nausea Verified 03/24/19 16:19 Date of admission: 03/24/19 17:56 Primary care physician: Yari Rader CNP Consults: 03/24/19 15:08 Consult to Nephrology [CONS] Stat Consulting Provider: [facility]/MEGHAN/RENE/MOISE Reason for Consult: ESRD on dialysis on wednesday and wednesday Call Completed: Yes 03/24/19 15:12 Consult to Surgery [CONS] Stat Consulting Provider: Acute Care Surgery Reason for Consult: Abdominal stone with stone at ampulla of vater Call Completed: Yes 03/24/19 15:15 Consult to Cardiology [CONS] Stat Comment: Consulting Provider: Cardiology [facility] Reason for Consult: SAL, elevated troponin and RBBB Call Completed: Yes 03/24/19 17:27 Consult to Gastroenterology [CONS] Stat Consulting Provider: Gastroenterology [place] Reason for Consult: Patient presents with fever, abdominal pain, high yecenia irubin and CT scan showed stone measuring 1.6 cm at ampulla of vater Call Completed: No 03/25/19 09:30 Consult to Dialysis [CONS] ONCE 03/28/19 08:15 Consult to Dialysis [CONS] ONCE Discharging clinician: Mack Ryan - Constitutional Vitals: Temp Pulse Resp BP Pulse Ox 97.8 F 58 18 157/89 99 03/28/19 12:32 03/28/19 06:48 03/28/19 12:32 03/28/19 12:32 03/28/19 07:47 General appearance: Present: cooperative, A&O X 3 Exam: General: A & O 3, In no acute distress HENNT: PERRLA. Head atraumatic and makes supple CVS S1 and S2 regular, no murmur RS: Clear to air entry bilaterally, no wheeze, no crackles Abdomen: Soft and nontender. Bowel sounds normal 4 Extremities: No cyanosis, clubbing, and edema, s/p left first and second toe amputations. Neurology: Cranial II - XII normal. Motor strength 5/5 bilaterally. Sensation intact - Patient Status Disposition: Home, Self-Care Condition: Good Overall status at discharge: patient is progressing back to baseline - Discharge Instructions Follow Up With: Yari Rader CNP [Primary Care Provider] - 03/31/19 10:00 am - Diet and Activity Activity: as per physical therapy Diet: diabetic diet, low fat, low cholesterol, low salt diet
== END 2019-03-28 14:33 | disposition home or self-care (01) | DRG 444 ==
LOC: 2ANU → SUATTDRO 12:28
PROVIDERS: ADMIT Student in an Organized Health Care Education/Training Program; ATTEND Family Medicine

== ENCOUNTER 2019-05-09 16:40 | Observation (INO) ==
[2019-05-09] MEDS ORDERED: Tdap (Boostrix) Vaccine 0.5 ML SYRINGE IM ONE (17:38)
--- NOTE | 2019-05-09 17:52 | Emergency Department Note ---
Disposition Clinical Impression: Puncture wound of foot Qualifiers: Encounter type: initial encounter Laterality: right Qualified Code(s): S91.331A - Puncture wound without foreign body, right foot, initial encounter Disposition: Still a Patient Condition: Undetermined Referrals: Yari Rader CNP [Primary Care Provider] - Forms: ED Satisfaction Letter Time of Disposition: 18:33 Lower Extremity Injury HPI - General Chief Complaint: ED Extremity Injury, Lower Stated Complaint: nail v foot Time Seen by Provider: 05/09/19 17:07 Source: patient, family Mode of arrival: private vehicle Limitations: no limitations Nursing Notes Reviewed: Yes Vital Signs Reviewed: Yes - History of Present Illness Pt Subjective Complaint: foot injury (right foot) Injury location: Right foot Onset (ago): day(s) (1) Context: other (screw went through shoe and sock and into bottom of foot. ) Place: home Pain Severity: none ("neuropathy") Improves with: nothing Worsens with: nothing Associated symptoms: Reports: ambulatory, laceration. Denies: swelling, paresthesias, deformity, suspects foreign body Treatments prior to arrival: dressing, cleansing - Related Data Home Medications Medication Instructions Recorded Confirmed Simvastatin [Zocor] 40 mg PO HS 10/21/16 03/24/19 Aspirin 325 mg PO DAILY 04/15/18 03/24/19 Ergocalciferol (VITAMIN D2) 50,000 unit PO SA 04/15/18 03/24/19 [Drisdol (50,000 Unit)] Vit B Comp C/Folic Acid/Vit D3 1 tab PO DAILY 04/15/18 03/24/19 [Dialyvite 800 Plus D Wafer] Famotidine [Heartburn Prevention] 20 mg PO HS 05/26/18 03/24/19 Albuterol Sulfate [Ventolin Hfa] 2 each IH Q6H PRN 08/11/18 03/24/19 Docusate [Colace] 200 mg PO DAILY 08/11/18 03/24/19 OxyCODONE/APAP 5/325 [Percocet 1 each PO HS PRN 08/11/18 03/24/19 5/325 MG] Umeclidinium Brm/Vilanterol Tr 1 puff IH DAILY 08/11/18 03/24/19 [Anoro Ellipta 62.5-25 Mcg INH] Bumetanide [Bumex] 1 mg PO QPM 03/24/19 03/24/19 Carvedilol 12.5 mg PO BID 03/24/19 03/24/19 Lidocaine/Prilocaine [Emla] 1 appl TP AD 03/24/19 03/24/19 Lisinopril 2.5 mg PO BID 03/24/19 03/24/19 Previous Rx's Medication Instructions Recorded Amoxicillin/Clavulanate [Augmentin] 875 mg PO BIDWM 5 Days #10 tablet 03/28/19 Allergies Allergy/AdvReac Type Severity Reaction Status Date / Time sulfamethoxazole Allergy Nausea Verified 03/24/19 16:19 [From Bactrim] trimethoprim [From Bactrim] Allergy Nausea Verified 03/24/19 16:19 All systems ED: reviewed and negative except as stated. Review of Systems: As Per HPI Constitutional: Denies: fever, chills, weakness Gastrointestinal: Denies: abdominal pain, nausea, vomiting Neurological: Denies: headache, weakness, confusion Hematological/Lymphatic: Denies: easy bleeding, easy bruising, lymphadenopathy Past Medical History - Past Medical History Attestation: Yes The following information was validated with the patient. Source: patient Medical history: Reports: arthritis, atrial fibrillation, cardiomyopathy, COPD, coronary artery disease, DVT, diabetes, dialysis, GERD, hyperlipidemia, hypertension, kidney stones, myocardial infarction, renal disease, sudden cardiac , other Surgical history: Reports: angioplasty/stent, cholecystectomy, coronary bypass (CABG), other (Left first and scond toe amputations) Psychiatric history: Reports: no psych history - Social History Smoking Status: Current every day smoker Smokeless Tobacco Status: No Alcohol use: Reports: none Drug use: Reports: none Physical Exam - General Limitations: no limitations General appearance: alert, in no apparent distress - Head Head exam: atraumatic, normocephalic, normal inspection - Eye Eye exam: Present: normal appearance. Absent: scleral icterus, conjunctival injection, periorbital swelling - ENT ENT exam: mucous membranes moist - Neck Neck exam: Present: normal inspection, full ROM, trachea midline. Absent: meni ngismus - Respiratory Respiratory exam: Absent: respiratory distress - Cardiovascular Cardiovascular exam: Present: regular rate - Extremities Exam Extremities exam: Present: full ROM, normal capillary refill, pedal edema (bilateral feet, ankles, lower legs, R>L (Chronic)). Absent: tenderness - Expanded Lower Extremity Exam 1 - chonic callous with scar from recent ulcer 2 - cruciate shaped laceration 1cm, no FB, no purulent drainage, no bleeding. Neurovascular/Tendon exam: Present: normal capillary refill, normal fine/light touch. Absent: pulse deficit, motor deficit, sensory deficit, tendon deficit, extremity cold to touch, pallor, foot drop, significant pain with passive ROM of distal joint Gait: observed and normal - Neurological Exam Neurological exam: Present: alert, oriented X3, CN II-XII intact, normal gait - Psychiatric Psychiatric exam: Present: normal affect, normal mood - Skin Skin exam: Present: warm, dry, normal color Course Course Narrative: Patient with history of diabetes and end-stage renal disease presents for evaluation of puncture wound to the plantar aspect of his right foot. He has peripheral neuropathy and did not feel the puncture. He is not sure exactly when it happened but believes it was sometime yesterday morning. He noticed it yesterday evening and removed the screw from his shoe and foot. He is not sure how far it penetrated the tissue. He denies fever, chills, nausea, vomiting, generalized malaise, weakness, no paresthesias, drainage of pus, bleeding, or o ther complaints. He is afebrile declines pain medication. Labs have been ordered. X-ray ordered as well. Case discussed with Rolan Taylor CNP . She will review the x-ray and lab results and will consult with Dr. Henao lump inspector on-call. Patient will most likely be able to go home with oral antibiotics. We will ensure close follow-up Vital Signs Temperature 98.5 F 05/09/19 17:33 Pulse Rate 72 05/09/19 17:33 Respiratory Rate 20 05/09/19 17:33 Blood Pressure 135/67 05/09/19 17:33 O2 Sat by Pulse Oximetry 99 05/09/19 17:33 Temperature 98.5 F 05/09/19 17:33 Pulse Rate 72 05/09/19 17:33 Respiratory Rate 20 05/09/19 17:33 Blood Pressure 135/67 05/09/19 17:33 O2 Sat by Pulse Oximetry 99 05/09/19 17:33 Oxygen Delivery Oxygen Delivery Room Air
[2019-05-09] MEDS ORDERED: Bacitracin/Polymyxin B PACKET TP ONE (18:19)
[2019-05-09 18:35] LABS: Basophils # 0.1 K/mcL (0.0-0.2); Basophils % 0.3 %; Eosinophils # 0.1 K/mcL (0.0-0.6); Eosinophils % 0.4 %; Hematocrit 35.3 % (37.5-50.1); Hemoglobin 11.4 g/dL (12.9-16.9); Immature Granulocytes % 0.5 % (0-4); Lymphocytes # 0.7 K/mcL (0.6-4.6); Mean Corpuscular HGB Conc 32.3 g/dL (31.6-35.5); Mean Corpuscular Hemoglobin 29.5 pg (28.0-33.3); Mean Corpuscular Volume 91.2 fL (83.0-100.0); Mean Platelet Volume 8.5 fL (9.4-12.4); Monocytes # 0.9 K/mcL (0.0-1.3); Monocytes % 5.7 %; Neutrophils # 14.6 K/mcL (1.6-8.9); Platelet Count 152 K/mcL (140-400); Red Blood Count 3.87 M/mcL (4.19-5.50); Red Cell Distribution Width 14.8 % (11.5-14.5); Segmented Neutrophils % 89.1 %; White Blood Count 16.4 K/mcL (4.3-11.1)
[2019-05-09] MEDS ORDERED: levoFLOXacin 750 MG/150 ML 750 MG/150 ML BAG IVPB ONE (18:59)
[2019-05-09 19:17] LABS: Calcium 7.4 mg/dL (8.6-10.3); Potassium 5.5 mEq/L (3.5-5.1)
--- NOTE | 2019-05-09 19:20 | Emergency Department Note ---
Disposition Clinical Impression: Puncture wound of foot Qualifiers: Encounter type: initial encounter Laterality: right Qualified Code(s): S91.331A - Puncture wound without foreign body, right foot, initial encounter Disposition: Still a Patient Condition: Undetermined Referrals: Yari Rader CNP [Primary Care Provider] - Forms: ED Satisfaction Letter Time of Disposition: 19:19 Wound/Laceration HPI - General Chief Complaint: ED Wound/Laceration Stated Complaint: nail v foot Time Seen by Provider: 05/09/19 17:07 Source: patient, family Mode of arrival: private vehicle Limitations: no limitations - History of Present Illness HPI Narrative: Patient was seen in conjunction with the physician teachers' assistant. I do agree with the physician teachers' assistant note. The patient is a 59-year-old male that apparently stepped on a nail last evening. The patient is also diabetic, patient has had a history of lower extremity amputations to digits of the toes in the past. The patient does complain of some mild pain to the right foot. The patient has had no fever. The patient on my examination has cellulitis noted to the right foot, there is no evidence of purulent drainage expressed from the wound. The patient does have a puncture wound noted to the mid to distal aspect of the lateral aspect of the plantar surface of the foot. No evidence of lymphangitis. Patient at this point in time is in need of IV antibiotics and to be admitted for his infection. Patient will be admitted in stable condition. - Related Data Home Medications Medication Instructions Recorded Confirmed Simvastatin [Zocor] 40 mg PO HS 10/21/16 03/24/19 Aspirin 325 mg PO DAILY 04/15/18 03/24/19 Ergocalciferol (VITAMIN D2) 50,000 unit PO SA 04/15/18 03/24/19 [Drisdol (50,000 Unit)] Vit B Comp C/Folic Acid/Vit D3 1 tab PO DAILY 04/15/18 03/24/19 [Dialyvite 800 Plus D Wafer] Famotidine [Heartburn Prevention] 20 mg PO HS 05/26/18 03/24/19 Albuterol Sulfate [Ventolin Hfa] 2 each IH Q6H PRN 08/11/18 03/24/19 Docusate [Colace] 200 mg PO DAILY 08/11/18 03/24/19 OxyCODONE/APAP 5/325 [Percocet 1 each PO HS PRN 08/11/18 03/24/19 5/325 MG] Umeclidinium Brm/Vilanterol Tr 1 puff IH DAILY 08/11/18 03/24/19 [Anoro Ellipta 62.5-25 Mcg INH] Bumetanide [Bumex] 1 mg PO QPM 03/24/19 03/24/19 Carvedilol 12.5 mg PO BID 03/24/19 03/24/19 Lidocaine/Prilocaine [Emla] 1 appl TP AD 03/24/19 03/24/19 Lisinopril 2.5 mg PO BID 03/24/19 03/24/19 Previous Rx's Medication Instructions Recorded Amoxicillin/Clavulanate [Augmentin] 875 mg PO BIDWM 5 Days #10 tablet 03/28/19 Allergies Allergy/AdvReac Type Severity Reaction Status Date / Time sulfamethoxazole Allergy Nausea Verified 03/24/19 16:19 [From Bactrim] trimethoprim [From Bactrim] Allergy Nausea Verified 03/24/19 16:19 Constitutional: Denies: fever, chills, weakness Gastrointestinal: Denies: abdominal pain, nausea, vomiting Neurological: Denies: headache, weakness, confusion Hematological/Lymphatic: Denies: easy bleeding, easy bruising, lymphadenopathy Past Medical History - Past Medical History Medical history: Reports: arthritis, atrial fibrillation, cardiomyopathy, COPD, coronary artery disease, DVT, diabetes, dialysis, GERD, hyperlipidemia, hypertension, kidney stones, myocardial infarction, renal disease, sudden cardiac , other Surgical history: Reports: angioplasty/stent, cholecystectomy, coronary bypass (CABG), other (Left first and scond toe amputations) Psychiatric history: Reports: no psych history - Social History Smoking Status: Current every day smoker Smokeless Tobacco Status: No Alcohol use: Reports: none Drug use: Reports: none Physical Exam - General Limitations: no limitations General appearance: alert, in no apparent distress Course Vital Signs Temperature 98.5 F 05/09/19 17:33 Pulse Rate 72 05/09/19 17:33 Respiratory Rate 20 05/09/19 17:33 Blood Pressure 135/67 05/09/19 17:33 O2 Sat by Pulse Oximetry 99 05/09/19 17:33 Temperature 98.5 F 05/09/19 17:33 Pulse Rate 72 05/09/19 17:33 Respiratory Rate 20 05/09/19 17:33 Blood Pressure 135/67 05/09/19 17:33 O2 Sat by Pulse Oximetry 99 05/09/19 17:33 Oxygen Delivery Oxygen Delivery Room Air Wound/Laceration - Lab Data Result diagrams: 05/09/19 18:14 05/09/19 18:57 Lab Results 05/09/19 05/09/19 Range/Units 18:14 18:57 WBC 16.4 H (4.3-11.1) K/mcL RBC 3.87 L (4.19-5.50) M/mcL Hgb 11.4 L (12.9-16.9) g/dL Hct 35.3 L (37.5-50.1) % MCV 91.2 (83.0-100.0) fL MCH 29.5 (28.0-33.3) pg MCHC 32.3 (31.6-35.5) g/dL RDW 14.8 H (11.5-14.5) % Plt Count 152 (140-400) K/mcL MPV 8.5 L (9.4-12.4) fL Immature Gran % 0.5 (0-4) % Seg Neutrophils % 89.1 % Lymphocytes % 4.0 % Monocytes % 5.7 % Eosinophils % 0.4 % Basophils % 0.3 % Neutrophils # 14.6 H (1.6-8.9) K/mcL Lymphocytes # 0.7 (0.6-4.6) K/mcL Monocytes # 0.9 (0.0-1.3) K/mcL Eosinophils # 0.1 (0.0-0.6) K/mcL Basophils # 0.1 (0.0-0.2) K/mcL Sodium 133 L (136-145) mEq/L Potassium 5.5 H (3.5-5.1) mEq/L Chloride 100 (98-107) mEq/L Carbon Dioxide 21 L (23-29) mEq/L BUN 57 H (8-23) mg/dL Creatinine 6.97 H (0.70-1.30) mg/dL Est GFR ( Amer) 10 L (> 60) Est GFR (Non-Af Amer) 8 L (> 60) BUN/Creatinine Ratio 8 (6-26) Glucose 180 H (70-105) mg/dL Calculated Osmolality 296 (280-300) Calcium 7.4 L (8.6-10.3) mg/dL C-Reactive Protein 86 H (Less than 10) mg/L
--- NOTE | 2019-05-09 19:27 | Emergency Department Note ---
Disposition Clinical Impression: Cellulitis of foot, right Puncture wound of foot Qualifiers: Encounter type: initial encounter Laterality: right Qualified Code(s): S91.331A - Puncture wound without foreign body, right foot, initial encounter Disposition: Admitted As Inpatient Condition: Undetermined Time of Disposition: 19:28 Lower Extremity Injury HPI - General Chief Complaint: ED Wound/Laceration Stated Complaint: nail v foot Time Seen by Provider: 05/09/19 17:07 Source: patient, family Mode of arrival: private vehicle Limitations: no limitations - History of Present Illness Context: other (screw went through shoe and sock and into bottom of foot. ) Place: home Pain Severity: none ("neuropathy") Improves with: nothing Worsens with: nothing Associated symptoms: Reports: ambulatory, laceration. Denies: swelling, paresthesias, deformity, suspects foreign body - Related Data Home Medications Medication Instructions Recorded Confirmed Simvastatin [Zocor] 40 mg PO HS 10/21/16 03/24/19 Aspirin 325 mg PO DAILY 04/15/18 03/24/19 Ergocalciferol (VITAMIN D2) 50,000 unit PO SA 04/15/18 03/24/19 [Drisdol (50,000 Unit)] Vit B Comp C/Folic Acid/Vit D3 1 tab PO DAILY 04/15/18 03/24/19 [Dialyvite 800 Plus D Wafer] Famotidine [Heartburn Prevention] 20 mg PO HS 05/26/18 03/24/19 Albuterol Sulfate [Ventolin Hfa] 2 each IH Q6H PRN 08/11/18 03/24/19 Docusate [Colace] 200 mg PO DAILY 08/11/18 03/24/19 OxyCODONE/APAP 5/325 [Percocet 1 each PO HS PRN 08/11/18 03/24/19 5/325 MG] Umeclidinium Brm/Vilanterol Tr 1 puff IH DAILY 08/11/18 03/24/19 [Anoro Ellipta 62.5-25 Mcg INH] Bumetanide [Bumex] 1 mg PO QPM 03/24/19 03/24/19 Carvedilol 12.5 mg PO BID 03/24/19 03/24/19 Lidocaine/Prilocaine [Emla] 1 appl TP AD 03/24/19 03/24/19 Lisinopril 2.5 mg PO BID 03/24/19 03/24/19 Previous Rx's Medication Instructions Recorded Amoxicillin/Clavulanate [Augmentin] 875 mg PO BIDWM 5 Days #10 tablet 03/28/19 Allergies Allergy/AdvReac Type Severity Reaction Status Date / Time sulfamethoxazole Allergy Nausea Verified 03/24/19 16:19 [From Bactrim] trimethoprim [From Bactrim] Allergy Nausea Verified 03/24/19 16:19 Constitutional: Denies: fever, chills, weakness Gastrointestinal: Denies: abdominal pain, nausea, vomiting Neurological: Denies: headache, weakness, confusion Hematological/Lymphatic: Denies: easy bleeding, easy bruising, lymphadenopathy Past Medical History - Past Medical History Medical history: Reports: arthritis, atrial fibrillation, cardiomyopathy, COPD, coronary artery disease, DVT, diabetes, dialysis, GERD, hyperlipidemia, hypertension, kidney stones, myocardial infarction, renal disease, sudden cardiac , other Surgical history: Reports: angioplasty/stent, cholecystectomy, coronary bypass (CABG), other (Left first and scond toe amputations) Psychiatric history: Reports: no psych history - Social History Smoking Status: Current every day smoker Smokeless Tobacco Status: No Alcohol use: Reports: none Drug use: Reports: none Physical Exam - General Limitations: no limitations General appearance: alert, in no apparent distress Course Vital Signs Temperature 98.5 F 05/09/19 17:33 Pulse Rate 72 05/09/19 17:33 Respiratory Rate 20 05/09/19 17:33 Blood Pressure 135/67 05/09/19 17:33 O2 Sat by Pulse Oximetry 99 05/09/19 17:33 Temperature 98.5 F 05/09/19 17:33 Pulse Rate 72 05/09/19 17:33 Respiratory Rate 20 05/09/19 17:33 Blood Pressure 135/67 05/09/19 17:33 O2 Sat by Pulse Oximetry 99 05/09/19 17:33 Oxygen Delivery Oxygen Delivery Room Air Extremity Injury, Lower - MDM Narrative Medical decision making narrative: 59-year-old male with a history of diabetes, stage IV CKD with a diagnosis resents with right foot injury. Patient had puncture wound yesterday in bottom of right foot. The screw went through the shoe and stayed in foot for 4-5 hours. Patient denied chills and fever. No worsening swelling in right foot. Patient has a puncture wound in bottom of right foot, black color noted in wound, no active bleeding, no purulent drainage. xr right foot: no acute change. White cell 16 elevated and left shifted, CRP 86. Spoke with Dr. Henao, he suggested to admit patient for IV antibiotics, he will see the patient tomorrow morning. - Lab Data Lab results reviewed: Yes I reviewed the patient's lab results. Result diagrams: 05/09/19 18:14 05/09/19 18:57 Lab Results 05/09/19 05/09/19 Range/Units 18:14 18:57 WBC 16.4 H (4.3-11.1) K/mcL RBC 3.87 L (4.19-5.50) M/mcL Hgb 11.4 L (12.9-16.9) g/dL Hct 35.3 L (37.5-50.1) % MCV 91.2 (83.0-100.0) fL MCH 29.5 (28.0-33.3) pg MCHC 32.3 (31.6-35.5) g/dL RDW 14.8 H (11.5-14.5) % Plt Count 152 (140-400) K/mcL MPV 8.5 L (9.4-12.4) fL Immature Gran % 0.5 (0-4) % Seg Neutrophils % 89.1 % Lymphocytes % 4.0 % Monocytes % 5.7 % Eosinophils % 0.4 % Basophils % 0.3 % Neutrophils # 14.6 H (1.6-8.9) K/mcL Lymphocytes # 0.7 (0.6-4.6) K/mcL Monocytes # 0.9 (0.0-1.3) K/mcL Eosinophils # 0.1 (0.0-0.6) K/mcL Basophils # 0.1 (0.0-0.2) K/mcL Sodium 133 L (136-145) mEq/L Potassium 5.5 H (3.5-5.1) mEq/L Chloride 100 (98-107) mEq/L Carbon Dioxide 21 L (23-29) mEq/L BUN 57 H (8-23) mg/dL Creatinine 6.97 H (0.70-1.30) mg/dL Est GFR ( Amer) 10 L (> 60) Est GFR (Non-Af Amer) 8 L (> 60) BUN/Creatinine Ratio 8 (6-26) Glucose 180 H (70-105) mg/dL Calculated Osmolality 296 (280-300) Calcium 7.4 L (8.6-10.3) mg/dL C-Reactive Protein 86 H (Less than 10) mg/L - Radiology Data Radiology results reviewed: Yes I reviewed the patient's radiology results. HISTORY: ORDERING SYSTEM PROVIDED HISTORY: plantar puncture wound 5th metatarsal, diabetic FINDINGS: No acute fracture, dislocation or malalignment. No evidence of erosive arthritic changes. Tarsal bones appear intact. Plantar calcaneal spur. No evidence of soft tissue air to suggest infection. XR/XR foot 3V RT IMPRESSION: No acute right foot abnormality. D/ / 05/09/2019 18:17:52 Jinny Lui MD / margarito Interpreting Provider: Jinny Lui MD
--- NOTE | 2019-05-09 20:02 | Internal Med History&Physical ---
<Jennifer Sanford - Last Filed: 05/09/19 22:34> Date of Encounter: 05/09/19 Time of Encounter: 21:00 Internal Medicine - H&P: HPI Chief complaint: puncture wound History of present illness: Mr. Bess is a 59 year old male with pmhx of DM2 and ESRD on dialysis presents with puncture wound on plantar surface of right foot. Patient states he was cleaning up his backyard yesterday early afternoon about 2pm where he then had a drywall screw puncture his shoe and foot. He states he did not feel the screw in his shoe at the time in his foot. Later that day when he got in his car to go to his sons house he then felt there was something in his foot. Patient States he felt a stabbing pain up to his malhotra. It was about 6pm when he arrived to his sons house where he then removed his shoe and found the screw penetrating through his shoe and into his foot. He removed the screw with the end of hammer that evening. Patient came to see his physician today for a follow up appointment where he then mentioned the puncture wound on his foot. He was then prompted to come to the ED for further treatment of this wound. Patient is admitted for IV antibiotic treatment of his wound. Past Med Surg Social Fam HX - Past Medical History Medical history: arthritis, atrial fibrillation, cardiomyopathy, COPD, coronary artery disease, DVT, diabetes, dialysis, GERD, hyperlipidemia, hypertension, kidney stones, myocardial infarction, renal disease, sudden cardiac , other Additional medical history: neuropathy Psychiatric history: no psych history - Past Surgical History Surgical History: angioplasty/stent, cholecystectomy, coronary bypass (CABG), other (Left first and scond toe amputations) Additional surgical history: 2 stents, two toes removed left foot. - Social History Smoking Status: Current every day smoker Smokeless Tobacco Status: No Alcohol use: none Drug use: none - Family History Mother Family Member Ethnicity: Non- Living Status: Hx Family Cardiac Disorders: Yes (CAD, AL) Hx Family Endocrine Disorder: Yes (DM) Brother Family Member Ethnicity: Non- Living Status: Hx Family Cardiac Disorders: Yes (AL ) Hx Family Endocrine Disorder: Yes (DM) Sister Family Member Ethnicity: Non- Living Status: Still Living Hx Family Cardiac Disorders: Yes (AL) Hx Family Endocrine Disorder: Yes (DM) Father Family Member Ethnicity: Non- Living Status: Hx Family Cardiac Disorders: Yes (mother,father) Hx Family Respiratory Disorders: No Hx Family Cancer: No Hx Family GI Disorders: No Hx Family Endocrine Disorder: Yes (motjher, father) Hx Family Neuromuscular Disorders: No Hx Family Neurologic Disorders: No Hx Family HEENT Disorders: No Hx Family Autoimmune Disorders: No Internal Medicine - H&P: Meds Ergocalciferol (VITAMIN D2) [Drisdol (50,000 Unit)] 50,000 unit PO SA 04/15/18 [History] Vit B Comp C/Folic Acid/Vit D3 [Dialyvite 800 Plus D Wafer] 1 tab PO DAILY 04/15/18 [History] Famotidine [Heartburn Prevention] 20 mg PO HS 05/26/18 [History] Albuterol Sulfate [Ventolin Hfa] 2 each IH Q6H PRN 08/11/18 [History] Docusate [Colace] 200 mg PO DAILY 08/11/18 [History] OxyCODONE/APAP 5/325 [Percocet 5/325 MG] 1 each PO BID PRN 08/11/18 [History] Umeclidinium Brm/Vilanterol Tr [Anoro Ellipta 62.5-25 Mcg INH] 1 puff IH DAILY 08/11/18 [History] Bumetanide [Bumex] 1 mg PO QPM 03/24/19 [History] Carvedilol 12.5 mg PO BID 03/24/19 [History] Lidocaine/Prilocaine [Emla] 1 appl TP AD 03/24/19 [History] Lisinopril 2.5 mg PO BID 03/24/19 [History] Amlodipine Besylate 2.5 mg PO DAILY 05/09/19 [History] Aspirin [Adult Aspirin] 81 mg PO DAILY 05/09/19 [History] Atorvastatin [Lipitor] 40 mg PO DAILY 05/09/19 [History] Allergy/AdvReac Type Severity Reaction Status Date / Time sulfamethoxazole Allergy Nausea Verified 03/24/19 16:19 [From Bactrim] trimethoprim [From Bactrim] Allergy Nausea Verified 03/24/19 16:19 All Systems PM: A 10-system review of systems was performed and is negative for pertinent findings except as documented above in the HPI. Review of systems: Constitutional: Denies Fever, Chills, Headache, Dizziness Respiratory: Denies Shortness of breath, Chronic cough, hemoptysis, Dyspnea at rest, or activity Cardiovascular: Denies Chest pain, Syncope, Peripheral edema , palpitations Gastrointestinal: Denies hematochezia, Abdominal pain, nausea, vomiting Genitourinary: Denies Painful urination, hematuria, urinary retention Msk: Denies neck stiffness, muscle pain, falls, muscle spasms. Endocrine: denies unintentional Significant weight changes Skin: Denies rashes, or unexplained bruising - Constitutional Vitals: Temp Pulse Resp BP Pulse Ox 98.5 F 72 20 135/67 99 05/09/19 17:33 05/09/19 17:33 05/09/19 17:33 05/09/19 17:33 05/09/19 17:33 Exam: Gen: alert/oriented, no acute distress. Head: atraumatic, normocephalic. ENT: no oropharyngeal erythema, mucous membranes moist, Neck: No thyromegaly appreciated. Neck supple no cervical lymphadenopathy. Resp: CTAB, no wheezing, rhonchi, or rhales. CV: RRR, S1 S2 and S3 with noted gallop, No murmur, or rubs. GI/Abdominal exam: Obese, bowel sounds throughout, soft, non-tender, non- distended; no hepatosplenomegaly Ext: could not appreciate pulses in LE b/l but No cyanosis or edema. pulses +2/4 bilaterally UE. R plantar surface of foot contains puncture wound 1cm by 1 1/2cm, without purulent drainage, without excessive erythema. chronic Venous stasis changes noted on LE b/l. Neuro: decreased sensation on plantar surface of B/l LE, strength 5/5 b/l LE and UE. cooperative with exam. Internal Med - H&P Results - Labs CBC & Chem 7: 05/09/19 18:14 05/09/19 18:57 Labs: Short CBC 05/09/19 Range/Units 18:14 WBC 16.4 H (4.3-11.1) K/mcL Hgb 11.4 L (12.9-16.9) g/dL Hct 35.3 L (37.5-50.1) % Plt Count 152 (140-400) K/mcL Neutrophils # 14.6 H (1.6-8.9) K/mcL BMP 05/09/19 18:57 Sodium 133 L Potassium 5.5 H Chloride 100 Carbon Dioxide 21 L BUN 57 H Creatinine 6.97 H Glucose 180 H Calcium 7.4 L - Impressions ITS Impressions Foot X-Ray 05/09/19 18:14 IMPRESSION: No acute right foot abnormality. D/ / 05/09/2019 18:17:52 Jinny Lui MD / margarito Interpreting Provider: Jinny Lui MD - Assessment and Plan (1) Puncture wound of foot Current Visit: Yes Status: Acute Assessment and plan: Patient is a 59-year-old male with past medical history of ESRD on dialysis, bilateral peripheral neuropathy, DM 2 who presents with puncture wound on plantar surface of right foot. Patient had screw in foot for 4-5 hours. Patient denies fever, chills, headache, blurred vision, muscle stiffness neck stiffness. Although Patient currently presents with pain on plantar surface of foot, and leukocytosis. In the ED patient received x-ray of foot which confirmed no remaining foreign objects, and Tdap booster immunization. Current concern for puncture wound infection will cover for possible Pseudomonas and possible MRSA infection. Plan; - Continue IV antibiotics - Continue IV fluids to complete 2 L for nephro protection. - Consider nephro consult patient did not have his dialysis today. - Follow-up on wound cultures Qualifiers: Encounter type: initial encounter Laterality: right Qualified Code(s): S91.331A - Puncture wound without foreign body, right foot, initial encounter (2) Leukocytosis Current Visit: Yes Status: Acute Assessment and plan: Patient is a 59-year-old male with past medical history of ESRD on dialysis, hypertension, DM 2. Patient presents with puncture wound on plantar surface of right foot, where a screw was embedded in plantar surface for 4-5 hours. CBC showed leukocytosis of 16.4, neutrophil count of 14.6 and chronic anemia with Hgb of 11.4, HCT of 35.3 which seems to be close to patient's baseline. CRP was increased at 86. Due to increasing WBC and CRP there is concern for infection. Plan; - Plan as above - Obtain ESR Qualifiers: Leukocytosis type: lymphocytosis Qualified Code(s): D72.820 - Lymphocytosis (symptomatic) (3) Diabetes Current Visit: Yes Status: Chronic Assessment and plan: Patient is 59-year-old male with DM 2 and ESRD on dialysis. Patient did not receive his dialysis today. We will consider nephrology consultation. Plan; - Obtain nephrology consultation, if patient is not discharged 05/10/19 patient may need dialysis. - Patient arrived with glucose of 180, patient states does not take DM 2 medications. - SSI and at bedtime insulin, Accu-Cheks before meals and at bedtime. - ADA diet Qualifiers: Diabetes mellitus type: type 2 Diabetes mellitus jail insulin use: wi th jail use Diabetes mellitus complication status: with kidney compl ications Diabetes mellitus complication detail: with chronic kidney disease Chronic kidney disease stage: on chronic dialysis Qualified Code(s): E11.22 - Type 2 diabetes mellitus with diabetic chronic kidney disease; N18.6 - End stage renal disease; Z79.4 - long term care phlebotomist (current) use of insulin; Z99.2 - Dependence on renal dialysis (4) HTN (hypertension) Current Visit: Yes Status: Chronic Assessment and plan: Continue home anti-hypertensive medication Qualifiers: Hypertension type: essential hypertension Qualified Code(s): I10 - Essential (primary) hypertension (5) DVT prophylaxis Current Visit: Yes Status: Acute Assessment and plan: Subcutaneous heparin - Time Spent With Patient Total time spent is greater than 50% in coordination of care (as documented) at patient's floor/unit and/or counseling patient: <Obed Gatica - Last Filed: 05/10/19 05:20> Date of Encounter: 05/10/19 Internal Medicine - H&P: HPI History of present illness: Mr. Bess is a 59 year old male All Systems PM: A 10-system review of systems was performed and is negative for pertinent findings except as documented above in the HPI. - Constitutional Vitals: Temp Pulse Resp BP Pulse Ox 98.9 F 69 16 117/70 92 05/10/19 00:14 05/10/19 00:14 05/10/19 00:14 05/10/19 00:14 05/10/19 00:14 Internal Med - H&P Results - Labs CBC & Chem 7: 05/09/19 18:14 05/09/19 18:57 Labs: Short CBC 05/09/19 Range/Units 18:14 WBC 16.4 H (4.3-11.1) K/mcL Hgb 11.4 L (12.9-16.9) g/dL Hct 35.3 L (37.5-50.1) % Plt Count 152 (140-400) K/mcL Neutrophils # 14.6 H (1.6-8.9) K/mcL BMP 05/09/19 18:57 Sodium 133 L Potassium 5.5 H Chloride 100 Carbon Dioxide 21 L BUN 57 H Creatinine 6.97 H Glucose 180 H Calcium 7.4 L - Impressions ITS Impressions Foot X-Ray 05/09/19 18:14 IMPRESSION: No acute right foot abnormality. D/ / 05/09/2019 18:17:52 Jinny Lui MD / margarito Interpreting Provider: Jinny Lui MD - Time Spent With Patient Total time spent is greater than 50% in coordination of care (as documented) at patient's floor/unit and/or counseling patient: - Attending Attestation Patient seen and examined independently, including review of objective data including labs. I agree with plan of care as documented below by the resident with the following comments: Face to face at 11pm. Patient is a 59-year-old male with uncontrolled type 2 diabetes, end-stage renal disease on dialysis now very compliant, osteomyelitis status post left great toe and second toe amputation comes here for a new puncture wound via screwdriver that was at least 5 cm deep on the plantar surface of the right foot. Patient has severe neuropathy and thus has been having difficulty with sensation. Patient stated that he has had other incidents where screwdriver was also penetrated his left big toe and developed osteomyelitis. On examination wound present draining with minimal erythema surrounding no crepitus, and pulses intact. Patient will be admitted for puncture wound of the foot with suspected early osteomyelitis due to deep infection. Patient would benefit from probing the bone and will consult ID for further recommendations. MRI ordered for the a.m.
[2019-05-09] MEDS ORDERED: Vancomycin 1,750 MG in 0.9 % Sodium Chloride 250 ML IVPB SCH (23:00)
[2019-05-10] MEDS: amLODIPine 5 MG TABLET PO SCH ×2 (01:05→10:54)
[2019-05-10] MEDS ORDERED: Dextrose Gel 15 GM/37.5 ML TUBE PO PRN ×2 (01:46)
[2019-05-10] MEDS ORDERED: D5% in Water 1,000 ML IVC PRN (01:46)
[2019-05-10] MEDS ORDERED: *HR* Dextrose 50 % in Water (Syg) 50 ML SYRINGE IVP PRN (01:46)
[2019-05-10] MEDS ORDERED: Vancomycin 500 MG in 0.9 % Sodium Chloride Mini Bag 100 ML IVPB ONE ×2 (05:00→13:00)
[2019-05-10 07:30] LABS: Hematocrit 32.4 % (37.5-50.1); Hemoglobin 10.5 g/dL (12.9-16.9); Mean Corpuscular HGB Conc 32.4 g/dL (31.6-35.5); Mean Corpuscular Hemoglobin 29.4 pg (28.0-33.3); Mean Corpuscular Volume 90.8 fL (83.0-100.0); Mean Platelet Volume 8.8 fL (9.4-12.4); Platelet Count 123 K/mcL (140-400); Red Blood Count 3.57 M/mcL (4.19-5.50); Red Cell Distribution Width 14.6 % (11.5-14.5); White Blood Count 12.1 K/mcL (4.3-11.1)
[2019-05-10 07:48] LABS: Calcium 7.5 mg/dL (8.6-10.3); Potassium 5.5 mEq/L (3.5-5.1)
[2019-05-10 07:52] LABS: Hepatitis B Surface Antibody < 3.10 mIU/mL
[2019-05-10 08:03] LABS: Hepatitis B Surface Antigen Nonreactive (Nonreactive)
[2019-05-10] MEDS ORDERED: Albuterol 2.5 MG/3 ML NEBULIZER IH PRN (08:16)
[2019-05-10 08:42] LABS: Estimated Average Glucose 97 mg/dl
[2019-05-10] MEDS ORDERED: (Anoro Ellipta 62.5-2) IH SCH (09:00)
[2019-05-10] MEDS: Insulin LISPRO 300 UNITS/3 ML VIAL SQ SCH ×3 (09:33→16:42)
--- NOTE | 2019-05-10 09:50 | Infectious Disease Consult ---
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 Hx of osteomyelitis on the left digits with resection occured also with similar incident.No localized erythema, Tetanus given in the ED. XR negative, MRI orderred. orthopedic on board. " Consult date: 05/10/19 Requesting Physician: Franc Crowley MD Primary Care Provider: Yari Rader [facility] - HPI HPI: Mr. Bess is a 59-year-old male with a past medical history of A. fib, end- stage renal disease on hemodialysis, cardiomyopathy, COPD, CAD, hyperlipidemia, hypertension, AL, CABG, and remote history of left toe #1 and #2 amputation. The patient was admitted to the hospital 05/09/19 for puncture wound of the right foot. We are consulted 05/10/19 for further workup and treatment recommendations for puncture wound of the right foot. Briefly, the patient is a 59-year-old male with past medical history as stated above. Patient presented to the emergency department with complaints of a wound to the plantar aspect of his right foot. He states he found a drywall nail that had been there for an unknown amount of time. He self removed the nail from his foot and presented to the ER for evaluation. Upon arrival, the patient was afebrile hemodynamic stable. He did have leukocytosis with neutrophilic predominance. His serum creatinine was elevated consistent with his end-stage renal disease. CRP was elevated at 86. ESR was checked. X-ray was negative for acute osseous abnormality. Blood cultures were obtained 2 sets. Wound culture was obtained and is pending. He was given a tetanus booster. He was started empirically on IV vancomycin and Levaquin and was admitted to the hospital for further evaluation. Since admission, the patient has remained afebrile hemodynamically stable. His white blood cell count has improved. He is scheduled to undergo an MRI of the right foot. Currently, the patient is on IV Levaquin and vancomycin. We have been asked to evaluate and make further recommendations. During my exam today, the patient states that he thinks he stepped on the nail sometime yesterday afternoon. He removed the nail himself when he found later that evening. He states that after removal his foot became painful. He denies fevers, chills, rigors. Denies chest pain, shortness of breath, or cough. Denies nausea, vomiting, diarrhea, constipation. Denies abdominal pain or urinary complaints. Denies oral thrush or skin rashes. Denies any redness or streaking up the leg of the affected extremity. States the pain is pretty localized to the bottom of his foot around the puncture site itself. The patient lives at home with his and 4 children. He is not currently working outside the home. He smokes about a pack of cigarettes per day. Denies alcohol or illicit drug use. Denies chronic infectious diseases. Denies any recent travel outside the [facility]. - ROS Review of Systems: All systems reviewed and no additional remarkable complaints except as stated. - Results CBC & Chem 7: 05/11/19 01:39 05/11/19 01:39 - Exam Vitals: Temp Pulse Resp BP Pulse Ox 98.3 F 56 16 110/60 94 05/10/19 07:47 05/10/19 07:47 05/10/19 07:47 05/10/19 07:47 05/10/19 07:47 Exam: Head: Atraumatic, normal inspection, normocephalic. Eye: EOMI, PERRLA, no scleral icterus noted. ENT: Mucous membranes moist. No odontogenic infection noted. Neck: Normal inspection, no meningismus. Respiratory: Clear to auscultation. No rales, respiratory distress, rhonchi, or wheezes noted. Cardiovascular: Regular rate and rhythm, S1 and S2 audible. No murmurs, rubs, or gallops. GI: Soft, nondistended, normal bowel sounds. Extremities:No joint swelling, pedal edema, or tenderness noted. Chronic venous stasis dermatitis noted to the bilateral lower extremities. Puncture site noted to the lateral aspect of the plantar aspect of the right foot. Tenderness noted with palpation. No fluctuance or purulence noted. Mild surrounding erythema without lymphangitis. AV fistula noted to the left forearm that is +/+. Back: Normal inspection. No vertebral tenderness noted. Neurological: Alert, oriented 3, no focal deficits. Psychiatric: normal affect, normal mood. Skin: Dry, intact, warm. Normal color. No rashes. Ergocalciferol (VITAMIN D2) [isdol (50,000 Unit)] 50,000 unit PO SA 04/15/18 [History] Vit B Comp C/Folic Acid/Vit D3 [Dialyvite 800 Plus D Wafer] 1 tab PO DAILY 04/15/18 [History] Famotidine [Heartburn Prevention] 20 mg PO HS 05/26/18 [History] Albuterol Sulfate [Ventolin Hfa] 2 each IH Q6H PRN 08/11/18 [History] Docusate [Colace] 200 mg PO DAILY 08/11/18 [History] OxyCODONE/APAP 5/325 [Percocet 5/325 MG] 1 each PO BID PRN 08/11/18 [History] Umeclidinium Brm/Vilanterol Tr [Anoro Ellipta 62.5-25 Mcg INH] 1 puff IH DAILY 08/11/18 [History] Bumetanide [Bumex] 1 mg PO QPM 03/24/19 [History] Carvedilol 12.5 mg PO BID 03/24/19 [History] Lidocaine/Prilocaine [Emla] 1 appl TP AD 03/24/19 [History] Lisinopril 2.5 mg PO BID 03/24/19 [History] Amlodipine Besylate 2.5 mg PO DAILY 05/09/19 [History] Aspirin [Adult Aspirin] 81 mg PO DAILY 05/09/19 [History] Atorvastatin [Lipitor] 40 mg PO DAILY 05/09/19 [History] Doxycycline 100 mg PO BID 6 Days #12 capsule 05/11/19 [Rx] levoFLOXacin [Levaquin] 500 mg PO Q48H 6 Days #6 tablet 05/11/19 [Rx] Allergy/AdvReac Type Severity Reaction Status Date / Time sulfamethoxazole Allergy Nausea Verified 03/24/19 16:19 [From Bactrim] trimethoprim [From Bactrim] Allergy Nausea Verified 03/24/19 16:19 - Assessment and Plan (1) Leukocytosis Status: Acute White blood cell count 16,000 on admission. Reactive versus infectious. Improved. No other sepsis criteria. Blood cultures from 05/09/19 are pending 2 sets. Qualifiers: Leukocytosis type: lymphocytosis Qualified Code(s): D72.820 - Lymphocytosis (symptomatic) SNOMED Code(s): 263268465, 913295195 (2) Puncture wound of foot Status: Acute Location: Medial/plantar aspect of the right foot. Secondary to drywall screw. Exact duration unclear, but the patient thinks was less than 4-6 hours. No purulence noted on exam. Clinically, does not appear infected at this time. Wound cultures pending, but I am not sure exactly what they cultured since there is no drainage or open sore. X-ray of the right foot negative for acute osseous abnormality. MRI of the right foot negative. CRP elevated at 86, ESR not checked. Currently on vancomycin and Levaquin. Qualifiers: Encounter type: initial encounter Laterality: right Qualified Code(s): S91.331A - Puncture wound without foreign body, right foot, initial encounter SNOMED Code(s): 10412414 (3) ESRD (end stage renal disease) Status: Chronic On hemodialysis Wednesday and Wednesday only. [facility]s with [facility]. Nephrology consulted. SNOMED Code(s): 77767919 (4) Diabetes Status: Chronic Diet controlled. The patient states he does not regularly check his blood sugars at home. Check hemoglobin A1c. Recommend aggressive glucose monitoring and control to promote wound healing and prevent reinfection. Management per the primary team. 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; Z99.2 - Dependence on renal dialysis SNOMED Code(s): 42069867 (5) HLD (hyperlipidemia) Status: Chronic Qualifiers: Hyperlipidemia type: pure hypercholesterolemia Qualified Code(s): E78.00 - Pure hypercholesterolemia, unspecified; E78.0 - Pure hypercholesterolemia SNOMED Code(s): 39464126 (6) HTN (hypertension) Status: Chronic Qualifiers: Hypertension type: essential hypertension Qualified Code(s): I10 - Essential (primary) hypertension SNOMED Code(s): 24727641 (7) CHF (congestive heart failure) Status: Chronic Qualifiers: Heart failure type: diastolic Heart failure chronicity: chronic Qualified Code(s): I50.32 - Chronic diastolic (congestive) heart failure SNOMED Code(s): 93879597 (8) COPD (chronic obstructive pulmonary disease) Status: Chronic Qualifiers: COPD type: unspecified COPD Qualified Code(s): J44.9 - Chronic obstructive pulmonary disease, unspecified SNOMED Code(s): 28494152 (9) Atrial fibrillation Status: Chronic Qualifiers: Atrial fibrillation type: chronic Qualified Code(s): I48.2 - Chronic atrial fibrillation SNOMED Code(s): 31680438 (10) Drug allergy, antibiotic Status: Acute The patient reports an allergy to Bactrim. States that is what caused his kidneys to fail. SNOMED Code(s): 796607938547022 - Recommendations Recommendations: Check HgbA1C. Continue to trend white blood cell count. Await blood and wound cultures to finalize. Consider podiatry to evaluate. Discontinue IV Vanc and LEvaquin. Start Levaquin 500mg PO Q48H. Start doxycycline 100mg PO BID. Duration of treatment of depends on the clinical picture, but likely 7 days. Dose-adjust antibiotics for HD status. Past Med Surg Social Fam HX - Past Medical History Attestation: Yes The following information was validated with the patient. Source: patient, old records reviewed, nursing notes reviewed Medical history: arthritis, atrial fibrillation, cardiomyopathy, COPD, coronary artery disease, DVT, diabetes, dialysis, GERD, hyperlipidemia, hypertension, kidney stones, myocardial infarction, renal disease, sudden cardiac , other Additional medical history: neuropathy Psychiatric history: no psych history - Past Surgical History Surgical History: angioplasty/stent, cholecystectomy, coronary bypass (CABG), other (Left first and scond toe amputations) Additional surgical history: 2 stents, two toes removed left foot. - Social History Smoking Status: Current every day smoker Packs per day: 1 Smokeless Tobacco Status: No Alcohol use: none Drug use: none Occupational status: unemployed Current living situation: Home, With Family Activity Level: Independent ambulation Recent Out of Country Travel Within the Last 8 Weeks: No Exposure or Possible Exposure to Illness During Travel: No - Family History Mother Family Member Ethnicity: Non- Living Status: Hx Family Cardiac Disorders: Yes (CAD, AL) Hx Family Endocrine Disorder: Yes (DM) Brother Family Member Ethnicity: Non- Living Status: Hx Family Cardiac Disorders: Yes (AL ) Hx Family Endocrine Disorder: Yes (DM) Sister Family Member Ethnicity: Non- Living Status: Still Living Hx Family Cardiac Disorders: Yes (AL) Hx Family Endocrine Disorder: Yes (DM) Father Family Member Ethnicity: Non- Living Status: Hx Family Cardiac Disorders: Yes (mother,father) Hx Family Respiratory Disorders: No Hx Family Cancer: No Hx Family GI Disorders: No Hx Family Endocrine Disorder: Yes (motjher, father) Hx Family Neuromuscular Disorders: No Hx Family Neurologic Disorders: No Hx Family HEENT Disorders: No Hx Family Autoimmune Disorders: No Consult Discharge Plan - Plan Instructions: Doxycycline (By mouth), Levofloxacin (By mouth) Referrals: Yari Rader CNP [Primary Care Provider] - 05/16/19 10:20 am (Please follow up as schedule..) Prescriptions: Doxycycline 100 mg PO BID 6 Days #12 capsule Transmission Status: Received by [facility] levoFLOXacin [Levaquin] 500 mg PO Q48H 6 Days #6 tablet Transmission Status: Received by [facility] - Attending Attestation I have personally performed a face to face evaluation on this patient. I have reviewed and agree with the care plan. This is an addendum to original report dictated by Karina Murphy CNP. Please refer to Karina's note for full detail. Agree with above history of present illness, review of system and physical exam findings. Assessment and plan: Status post puncture wound to the right foot. MRI reviewed no signs of osteomyelitis or abscess or myositis Patient received his tetanus shot Causative organism not clear We will treat with oral Levaquin plus doxycycline since he is allergic to trimethoprim sulfa Duration of treatment probably 7 days and Monitor for any acute signs of infection
[2019-05-10] MEDS: Tiotropium 18 MCG inhalation IH SCH (11:27)
--- NOTE | 2019-05-10 13:33 | Nephrology Consult Note ---
<KrissyalanPatti daltonAneta B - Last Filed: 05/10/19 14:04> Date of Encounter: 05/10/19 Time of Encounter: 13:29 Assessment and Plan (1) ESRD (end stage renal disease) on dialysis Status: Acute Current regimen is Wednesday and Wednesday at [facility]. Plan for HD tomorrow morning, this can be in hospital or outpatient. Renal diet Renal vitamins Strict I/O Avoid nephrotoxins and renal dose all medications. Will order additional UF or HD as needed. (2) Cellulitis of foot, right Status: Acute Per ID/primary. (3) Puncture wound of foot Status: Acute Per ID/Primary. Qualifiers: Encounter type: initial encounter Laterality: right Qualified Code(s): S91.331A - Puncture wound without foreign body, right foot, initial encounter (4) HTN (hypertension) Status: Chronic Continue current home regimen. Qualifiers: Hypertension type: essential hypertension Qualified Code(s): I10 - Es sential (primary) hypertension History of Present Illness - Reason for Consult Consult date: 05/10/19 end stage renal disease Requesting physician: Franc Crowley - Chief Complaint ESRD - History of Present Illness Mr. Bess is a 59 year old male who presented to the ED after he stepped on a drywall screw. He is unsure when he stepped on it but it was self removed yesterday. PMH: arthritis, atrial fibrillation, cardiomyopathy, COPD, coronary artery disease and ESRD. Current regimen is Wednesday and Wednesday at [facility]. Last HD session was Wednesday without complication. No urgent need for renal replacement therapy today, patient is a little hyperkalemic, 60 mg of Kayexalate given by mouth.. Patient would like to be discharged home and go to outpatient dialysis tomorrow morning at [facility]. That is okay from a renal standpoint. Denies nausea, vomiting or diarrhea. Denies chest pain or shortness of breath. Upon exam denies pain in the foot at this time. Denies tobacco use, EtOH or illicit drug use. He lives at home with his and children. No family history of chronic kidney disease or hemodialysis. Past Med Surg Social Fam HX - Past Medical History Medical history: arthritis, atrial fibrillation, cardiomyopathy, COPD, coronary artery disease, DVT, diabetes, dialysis, GERD, hyperlipidemia, hypertension, kidney stones, myocardial infarction, renal disease, sudden cardiac , other Additional medical history: neuropathy Psychiatric history: no psych history - Past Surgical History Surgical History: angioplasty/stent, cholecystectomy, coronary bypass (CABG), other (Left first and scond toe amputations) Additional surgical history: 2 stents, two toes removed left foot. - Social History Smoking Status: Current every day smoker Packs per day: 1 Smokeless Tobacco Status: No Alcohol use: none Drug use: none - Family History Mother Family Member Ethnicity: Non- Living Status: Hx Family Cardiac Disorders: Yes (CAD, [place]) Hx Family Endocrine Disorder: Yes (DM) Brother Family Member Ethnicity: Non- Living Status: Hx Family Cardiac Disorders: Yes ([place] ) Hx Family Endocrine Disorder: Yes (DM) Sister Family Member Ethnicity: Non- Living Status: Still Living Hx Family Cardiac Disorders: Yes ([place]) Hx Family Endocrine Disorder: Yes (DM) Father Family Member Ethnicity: Non- Living Status: Hx Family Cardiac Disorders: Yes (mother,father) Hx Family Respiratory Disorders: No Hx Family Cancer: No Hx Family GI Disorders: No Hx Family Endocrine Disorder: Yes (motjher, father) Hx Family Neuromuscular Disorders: No Hx Family Neurologic Disorders: No Hx Family HEENT Disorders: No Hx Family Autoimmune Disorders: No Medications and Allergies Ergocalciferol (VITAMIN D2) [Drisdol (50,000 Unit)] 50,000 unit PO SA 04/15/18 [History] Vit B Comp C/Folic Acid/Vit D3 [Dialyvite 800 Plus D Wafer] 1 tab PO DAILY 04/15/18 [History] Famotidine [Heartburn Prevention] 20 mg PO HS 05/26/18 [History] Albuterol Sulfate [Ventolin Hfa] 2 each IH Q6H PRN 08/11/18 [History] Docusate [Colace] 200 mg PO DAILY 08/11/18 [History] OxyCODONE/APAP 5/325 [Percocet 5/325 MG] 1 each PO BID PRN 08/11/18 [History] Umeclidinium Brm/Vilanterol Tr [Anoro Ellipta 62.5-25 Mcg INH] 1 puff IH DAILY 08/11/18 [History] Bumetanide [Bumex] 1 mg PO QPM 03/24/19 [History] Carvedilol 12.5 mg PO BID 03/24/19 [History] Lidocaine/Prilocaine [Emla] 1 appl TP AD 03/24/19 [History] Lisinopril 2.5 mg PO BID 03/24/19 [History] Amlodipine Besylate 2.5 mg PO DAILY 05/09/19 [History] Aspirin [Adult Aspirin] 81 mg PO DAILY 05/09/19 [History] Atorvastatin [Lipitor] 40 mg PO DAILY 05/09/19 [History] Doxycycline 100 mg PO BID 6 Days #12 capsule 05/11/19 [Rx] levoFLOXacin [Levaquin] 500 mg PO Q48H 6 Days #6 tablet 05/11/19 [Rx] Allergy/AdvReac Type Severity Reaction Status Date / Time sulfamethoxazole Allergy Nausea Verified 03/24/19 16:19 [From Bactrim] trimethoprim [From Bactrim] Allergy Nausea Verified 03/24/19 16:19 Review of Systems All Systems review (narrative): Remainder of the systems are negative. Constitutional: no chills, no fatigue, no fever(s) Cardiovascular: no chest pain, no dyspnea, no edema Respiratory: no cough, no dyspnea on exertion Gastrointestinal: no diarrhea, no nausea, no vomiting Genitourinary Male: no hematuria Exam - Vital Signs Vital signs: Initial Vital Signs Temp Pulse Resp BP Pulse Ox 98.5 F 72 20 135/67 99 05/09/19 17:33 05/09/19 17:33 05/09/19 17:33 05/09/19 17:33 05/09/19 17:33 Vital Signs - Last 8 Hours Temp Pulse Resp BP Pulse Ox 05/10/19 11:27 17 98 05/10/19 11:15 98.2 F 60 16 148/74 97 05/10/19 07:47 98.3 F 56 16 110/60 94 Intake and Output 05/09/19 05/10/19 05/10/19 23:59 07:59 15:59 Intake Total 500 / 500 Output Total 300 / 300 475 / 475 Balance -300 / -300 25 / 25 Intake: IV Fluids 500 / 500 Vancocin 1,000 MG In 0.9 % 250 / 250 Sodium Chloride 250 ML @ 167 mls/hr IVPB ONCE ONE Rx#: [id number] Vancocin 500 MG In 0.9 % Sodium 100 / 100 Chloride (Mini-Bag +) 100 ML @ 100 mls/hr IVPB ONCE ONE Rx#: [id number] Levaquin Premix 750mg/150 mL 150 / 150 750 mg In 150 ml @ 100 mls/hr IVPB ONCE ONE Rx#:[id number] Output: Urine 300 / 300 475 / 475 Other: Weight 109.769 kg 109.7 kg Blood Glucose* 142 97 76 Patient Weight 05/10/19 23:59 Weight 109.7 kg - General Appearance General appearance: well-developed, well-nourished EENT: ATNC, hearing intact, vision intact Neck: supple Respiratory: clear Cardiology: no edema, normal S1, normal S2 - Dialysis Access Dialysis Vascular Access: Arteriovenous Graft thrill: Yes bruit: Yes Gastrointestinal: normoactive bowel sounds, no tenderness, no guarding Integumentary: no rash, warm and dry Neurologic: alert and oriented x3 Musculoskeletal: no deformities, no erythema Psychiatric: mood/affect appropriate, cooperative Results - Lab Results 05/10/19 07:05 05/10/19 07:05 Most recent lab results 05/10/19 07:05 Calcium 7.5 L Consult Discharge Plan - Plan Instructions: Doxycycline (By mouth), Levofloxacin (By mouth) Referrals: Yari Rader CNP [Primary Care Provider] - 05/16/19 10:20 am (Please follow up as schedule..) Prescriptions: Doxycycline 100 mg PO BID 6 Days #12 capsule Transmission Status: Received by [facility] levoFLOXacin [Levaquin] 500 mg PO Q48H 6 Days #6 tablet Transmission Status: Received by [facility] <Filiberto Huerta - Last Filed: 05/21/19 23:12> Date of Encounter: 05/10/19 Assessment and Plan (1) ESRD (end stage renal disease) on dialysis Status: Acute (2) Cellulitis of foot, right Status: Acute (3) Puncture wound of foot Status: Acute Qualifiers: Encounter type: initial encounter Laterality: right Qualified Code(s): S91.331A - Puncture wound without foreign body, right foot, initial encounter (4) HTN (hypertension) Status: Chronic Qualifiers: Hypertension type: essential hypertension Qualified Code(s): I10 - Essential (primary) hypertension Exam - Vital Signs Vital signs: Initial Vital Signs Temp Pulse Resp BP Pulse Ox 98.5 F 72 20 135/67 99 05/09/19 17:33 05/09/19 17:33 05/09/19 17:33 05/09/19 17:33 05/09/19 17:33 Results - Lab Results 05/11/19 01:39 05/11/19 01:39 - Attending Attestation I examined this patient and my medical decision-making was reviewed with the Resident Physician/CLIENT EXPERIENCE MANAGER. I agree with the documented findings, disposition and treatment plan as described except to the extent set forth below. In brief; 59 y o male with PMH of DM, HTN, COPD, CAD, Afib and ESRD on HD T-Sat admitted after stepping on a screw and sustaining a wound to his foot with pain. Renal consulted for ESRD management. On exam NAF. lungs clear, Heart S1S2, Ext with no sig LE edema and Neuro AAOx3. Will treat hyperkalemia wit kayexalate today and plan for HD tomorrow here if still hospitalized. Renal diet advised. Fluid restriction advised
--- NOTE | 2019-05-10 13:44 | Internal Med Progress Note ---
Hospitalist Progress Note - Encounter Date of Encounter: 05/10/19 Time of Encounter: 13:37 - Subjective Interval History: I have seen and evaluated the patient at bedside. patient reported pain on the foot has improved, denies shortness of breath. reported missing HD yesterday. denies abdominal pain, nausea or vomiting. - Exam Vitals: Temp Pulse Resp BP Pulse Ox 98.2 F 60 17 148/74 98 05/10/19 11:15 05/10/19 11:15 05/10/19 11:27 05/10/19 11:15 05/10/19 11:27 Exam: Vitals: Reviewed General: Alert and oriented x4. In no distress HEENT: EOM, pupils equal, round and reactive. Cardiovascular: RRR, normal S1 & S2, no rubs, murmurs or gallops. Lungs: CTA b/l, no wheezes or crackles. Abdomen: Obese, soft, non-tender, no rigidity. Extremities: No erythema or tenderness on the plantar aspect of the right foot. Neurological: Normal cognition and motor skills. Rest of the physical exam is non contributory - Assessment and Plan (1) Puncture wound of foot Current Visit: Yes Status: Acute Assessment and Plan: MR/MR foot RT wo con IMPRESSION: No MRI evidence to suggest acute osteomyelitis. Tiny soft tissue defect at the plantar aspect of the 5th metatarsal shaft. Generalized muscle edema with subcutaneous edema at the dorsal foot. Blood culture: No growth to date would culture: incubating, preliminary Plan: continue broad spectrum IV antibiotics. On vancomycin and levofloxacin ID recommendations appreciated (2) ESRD (end stage renal disease) on dialysis Current Visit: Yes Status: Acute Assessment and Plan: patient with mild Hyperkalemia. reported missing HD yesterday. ON HD Wednesday and Wednesday. nephrology recommendations appreciated kayexalete ordered will re-check bmp at 6pm. (3) HTN (hypertension) Current Visit: Yes Status: Chronic Assessment and Plan: BP is well controlled on carvedilol, lisinopril and bumex (4) CAD (coronary artery disease) Current Visit: No Status: Chronic Assessment and Plan: c/w aspirin 81mg/po daily and statin. (5) CHF (congestive heart failure) Current Visit: No Status: Chronic Assessment and Plan: patient is euvolemic. Continue Bumex 1 mg by mouth daily. Fluid restriction to 1.5 L a day. (6) COPD (chronic obstructive pulmonary disease) Current Visit: No Status: Chronic Assessment and Plan: Chest is clear to auscultation. Continue bronchodilators every 4 hours when necessary. On Spiriva. (7) HLD (hyperlipidemia) Current Visit: No Status: Chronic Assessment and Plan: On atorvastatin 40 mg by mouth daily. DVT Prophylaxis: Heparin subcutaneous and added. - Summary of Assessment and Plan Summary of Assessment and Plan: Patient to remain in the hospital broad-spectrum IV antibiotics. Pending wound cultures and blood cultures. - Time Spent with Patient Total time spent is greater than 50% in coordination of care (as documented) at patient's floor/unit and/or counseling patient: Greater than 35 minutes (40) Plan of Care Discussed with: patient (and the nurse.) Internal Medicine: Result - Labs CBC & Chem 7: 05/10/19 07:05 05/10/19 07:05 Labs: Short CBC 05/09/19 05/10/19 Range/Units 18:14 07:05 WBC 16.4 H 12.1 H (4.3-11.1) K/mcL Hgb 11.4 L 10.5 L (12.9-16.9) g/dL Hct 35.3 L 32.4 L (37.5-50.1) % Plt Count 152 123 L (140-400) K/mcL Neutrophils # 14.6 H (1.6-8.9) K/mcL BMP 05/09/19 05/10/19 18:57 07:05 Sodium 133 L 135 L Potassium 5.5 H 5.5 H Chloride 100 103 Carbon Dioxide 21 L 20 L BUN 57 H 61 H Creatinine 6.97 H 7.20 H Glucose 180 H 82 Calcium 7.4 L 7.5 L - Impressions Impressions Foot X-Ray 05/09/19 18:14 IMPRESSION: No acute right foot abnormality. D/ / 05/09/2019 18:17:52 Jinny Lui MD / margarito Interpreting Provider: Jinny Lui MD Foot MRI 05/10/19 11:02 IMPRESSION: No MRI evidence to suggest acute osteomyelitis. Tiny soft tissue defect at the plantar aspect of the 5th metatarsal shaft. Generalized muscle edema with subcutaneous edema at the dorsal foot. D/ / Joselito Lloyd / Joselito Lloyd Interpreting Provider: Joselito Lloyd Consult Discharge Plan - Plan Referrals: Yari Rader, LEARNING CENTER INSTRUCTOR [Primary Care Provider] - (1) Puncture wound of foot Qualifiers: Encounter type: initial encounter Laterality: right Qualified Code(s): S91.331A - Puncture wound without foreign body, right foot, initial encounter (3) HTN (hypertension) Qualifiers: Hypertension type: essential hypertension Qualified Code(s): I10 - Essential (primary) hypertension (4) CAD (coronary artery disease) Qualifiers: Coronary Disease-Associated Artery/Lesion type: [place] artery [place] vs. tra nsplanted heart: inaja heart Associated angina: with unstable angina Qualified Code(s): I25.110 - Atherosclerotic heart disease of inaja coronary artery with unstable angina pectoris (5) CHF (congestive heart failure) Qualifiers: Heart failure type: diastolic Heart failure chronicity: chronic Qualified Code(s): I50.32 - Chronic diastolic (congestive) heart failure (6) COPD (chronic obstructive pulmonary disease) Qualifiers: COPD type: unspecified COPD Qualified Code(s): J44.9 - Chronic obstructive pulmonary disease, unspecified (7) HLD (hyperlipidemia) Qualifiers: Hyperlipidemia type: pure hypercholesterolemia Qualified Code(s): E78.00 - Pure hypercholesterolemia, unspecified; E78.0 - Pure hypercholesterolemia
[2019-05-10] MEDS ORDERED: Aminoglycoside Consult 1 EACH MC ONE (14:07)
[2019-05-10] MEDS ORDERED: Bumetanide 1 MG TABLET PO SCH ×2 (17:00→18:00)
[2019-05-10] MEDS: *HR* Heparin 5,000 UNIT/ML VIAL SQ SCH (17:14)
[2019-05-10] MEDS ORDERED: levoFLOXacin 500 MG/100 ML 500 MG/100 ML BAG IVPB SCH (18:00)
[2019-05-10] MEDS ORDERED: Insulin DETEMIR 100 UNIT/ML X5UNITS SQ SCH (21:00)
[2019-05-10] MEDS ORDERED: Famotidine 20 MG TABLET PO SCH ×2 (21:00)
[2019-05-10] MEDS: Doxycycline 100 MG CAPSULE PO SCH (21:49)
[2019-05-11 02:41] LABS: Basophils % 0.2 %; Eosinophils # 0.1 K/mcL (0.0-0.6); Eosinophils % 0.5 %; Hematocrit 32.3 % (37.5-50.1); Hemoglobin 10.4 g/dL (12.9-16.9); Immature Granulocytes % 0.3 % (0-4); Lymphocytes # 0.8 K/mcL (0.6-4.6); Lymphocytes % 6.6 %; Mean Corpuscular HGB Conc 32.2 g/dL (31.6-35.5); Mean Corpuscular Hemoglobin 29.4 pg (28.0-33.3); Mean Corpuscular Volume 91.2 fL (83.0-100.0); Mean Platelet Volume 9.2 fL (9.4-12.4); Monocytes # 0.9 K/mcL (0.0-1.3); Platelet Count 136 K/mcL (140-400); Red Blood Count 3.54 M/mcL (4.19-5.50); Red Cell Distribution Width 14.4 % (11.5-14.5); Segmented Neutrophils % 85.4 %; White Blood Count 12.8 K/mcL (4.3-11.1)
[2019-05-11 02:49] LABS: Calcium 7.5 mg/dL (8.6-10.3); Magnesium 1.8 mg/dL (1.6-2.6); Phosphorous 8.1 mg/dL (2.7-4.5); Potassium 4.7 mEq/L (3.5-5.1)
[2019-05-11] MEDS: *HR* Heparin 5,000 UNIT/ML VIAL SQ SCH (05:54)
[2019-05-11] MEDS: Insulin LISPRO 300 UNITS/3 ML VIAL SQ SCH ×2 (07:41→12:32)
[2019-05-11] MEDS: Doxycycline 100 MG CAPSULE PO SCH (07:51)
[2019-05-11] MEDS ORDERED: 0.9 % Sodium Chloride 250 ML IVC PRN (07:52)
[2019-05-11] MEDS ORDERED: *HR* Heparin 10,000 UNIT/10 ML VIAL IV PRN (07:52)
[2019-05-11] MEDS ORDERED: 0.9 % Sodium Chloride 1,000 ML PRIME SCH (08:00)
[2019-05-11] MEDS: Tiotropium 18 MCG inhalation IH SCH (08:10)
[2019-05-11] MEDS ORDERED: levoFLOXacin 500 MG TABLET PO SCH ×2 (09:00→18:00)
[2019-05-11] MEDS ORDERED: Aspirin Enteric Coated 81 MG Tablet PO SCH (09:00)
--- NOTE | 2019-05-11 09:34 | Infectious Disease Progress No ---
ID Progress Note Date of Encounter: 05/11/19 Time of Encounter: 09:32 - Subjective Subjective: Patient seen and examined. Currently in the HD unit. No acute events noted overnight. Patient denies any pain in his foot. Denies fevers, chills, rigors. Denies chest pain, shortness of breath, or cough. Denies nausea, vomiting, diarrhea, constipation. Denies abdominal pain or urinary complaints. Denies oral thrush or skin rashes. States his appetite is good. Reports last bowel movement was yesterday. - Objective CBC & Chem 7: 05/11/19 01:39 05/11/19 01:39 - Exam Vitals: Temp Pulse Resp BP Pulse Ox 98.7 F 63 16 147/69 96 05/11/19 06:48 05/11/19 06:48 05/11/19 06:48 05/11/19 06:48 05/11/19 06:48 Exam: Head: Atraumatic, normal inspection, normocephalic. Eye: EOMI, PERRLA, no scleral icterus noted. ENT: Mucous membranes moist. No odontogenic infection noted. Neck: Normal inspection, no meningismus. Respiratory: Clear to auscultation. No rales, respiratory distress, rhonchi, or wheezes noted. Cardiovascular: Regular rate and rhythm, S1 and S2 audible. No murmurs, rubs, or gallops. GI: Soft, nondistended, normal bowel sounds. Extremities:No joint swelling, pedal edema, or tenderness noted. Chronic venous stasis dermatitis noted to the bilateral lower extremities. Puncture site noted to the lateral aspect of the plantar aspect of the right foot. Tenderness noted with palpation. No fluctuance or purulence noted. Mild surrounding erythema without lymphangitis. Ecchymosis noted. AV fistula noted to the left forearm that is currently accessed for HIV. Neurological: Alert, oriented 3, no focal deficits. Psychiatric: normal affect, normal mood. Skin: Dry, intact, warm. Normal color. No rashes. - Assessment and Plan (1) Leukocytosis Current Visit: Yes Status: Acute White blood cell count 16,000 on admission. Reactive versus infectious. Improved. No other sepsis criteria. Blood cultures from 05/09/19 are no growth to date 2 sets. Qualifiers: Leukocytosis type: lymphocytosis Qualified Code(s): D72.820 - Lymphocytosis (symptomatic) SNOMED Code(s): 499083399, 765169844 (2) Puncture wound of foot Current Visit: Yes Status: Acute Location: Medial/plantar aspect of the right foot. Secondary to drywall screw. Exact duration unclear, but the patient thinks was less than 4-6 hours. No purulence noted on exam. Clinically, does not appear infected at this time. Wound cultures pending, but I am not sure exactly what they cultured since there is no drainage or open sore. X-ray of the right foot negative for acute osseous abnormality. MRI of the right foot negative. CRP elevated at 86, ESR not checked. Currently on Doxy and Levaquin. Qualifiers: Encounter type: initial encounter Laterality: right Qualified Code(s): S91.331A - Puncture wound without foreign body, right foot, initial encounter SNOMED Code(s): 49178039 (3) ESRD (end stage renal disease) Current Visit: No Status: Chronic On hemodialysis Wednesday and Wednesday only. Follows with [facility]. Nephrology consulted. SNOMED Code(s): 04864660 (4) Diabetes Current Visit: Yes Status: Chronic Diet controlled. The patient states he does not regularly check his blood sugars at home. Hemoglobin A1c 5%. Recommend aggressive glucose monitoring and control to promote wound healing and prevent reinfection. Management per the primary team. Qualifiers: Diabetes mellitus type: type 2 Diabetes mellitus jail insulin use: with jail use Diabetes mellitus complication status: with kidney complications Diabetes mellitus complication detail: with chronic kidney disease Chronic kidney disease stage: on chronic dialysis Qualified Code(s): E11.22 - Type 2 diabetes mellitus with diabetic chronic kidney disease; N18.6 - End stage renal disease; Z79.4 - MCC (current) use of insulin; Z99.2 - Dependence on renal dialysis SNOMED Code(s): 74546134 (5) HLD (hyperlipidemia) Current Visit: No Status: Chronic Qualifiers: Hyperlipidemia type: pure hypercholesterolemia Qualified Code(s): E78.00 - Pure hypercholesterolemia, unspecified; E78.0 - Pure hypercholesterolemia SNOMED Code(s): 89709141 (6) HTN (hypertension) Current Visit: Yes Status: Chronic Qualifiers: Hypertension type: essential hypertension Qualified Code(s): I10 - Essential (primary) hypertension SNOMED Code(s): 44149430 (7) CHF (congestive heart failure) Current Visit: No Status: Chronic Qualifiers: Heart failure type: diastolic Heart failure chronicity: chronic Qualified Code(s): I50.32 - Chronic diastolic (congestive) heart failure SNOMED Code(s): 23925820 (8) COPD (chronic obstructive pulmonary disease) Current Visit: No Status: Chronic Qualifiers: COPD type: unspecified COPD Qualified Code(s): J44.9 - Chronic obstructive pulmonary disease, unspecified SNOMED Code(s): 32411950 (9) Atrial fibrillation Current Visit: No Status: Chronic Qualifiers: Atrial fibrillation type: chronic Qualified Code(s): I48.2 - Chronic atrial fibrillation SNOMED Code(s): 35682049 (10) Drug allergy, antibiotic Current Visit: Yes Status: Acute The patient reports an allergy to Bactrim. States that is what caused his kidneys to fail. SNOMED Code(s): 727968979701922 - Recommendations Recommendations: Continue to trend white blood cell count. Await blood and wound cultures to finalize. 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 Continue Levaquin 500mg PO Q48H. Continue doxycycline 100mg PO BID. Duration of treatment of depends on the clinical picture, but likely 7 days. Dose-adjust antibiotics for HD status. Consult Discharge Plan - Plan Referrals: Yari Rader CNP [Primary Care Provider] -
--- NOTE | 2019-05-11 09:45 | Nephrology Progress Note ---
Date of Encounter: 05/11/19 Time of Encounter: 09:43 - Assessment and Plan (1) ESRD (end stage renal disease) on dialysis Current Visit: Yes Status: Acute Current regimen is Wednesday and Wednesday at [facility]. HD in progress for today. May go home from a renal standpoint. Renal diet Renal vitamins Strict I/O Avoid nephrotoxins and renal dose all medications. Will order additional UF or HD as needed. (2) Cellulitis of foot, right Current Visit: Yes Status: Acute Per ID/primary. (3) Puncture wound of foot Current Visit: Yes Status: Acute Per ID/Primary. Qualifiers: Encounter type: initial encounter Laterality: right Qualified Code(s): S91.331A - Puncture wound without foreign body, right foot, initial encounter (4) HTN (hypertension) Current Visit: Yes Status: Chronic Continue current home regimen. Qualifiers: Hypertension type: essential hypertension Qualified Code(s): I10 - Essential (primary) hypertension Subjective Principal diagnosis: puncture wound to foot Interval history: Seen and examined in hemodialysis, tolerating well. Denies chest pain or shortness of breath. Denies nausea, vomiting or diarrhea. Overall he feels well and would like to go home today he was hopefully get them yesterday but that did not happen. Objective - Vital Signs Vital signs: Vital Signs Temp Pulse Resp BP Pulse Ox 05/11/19 06:48 98.7 F 63 16 147/69 96 05/11/19 03:34 99 F 72 17 151/75 95 05/10/19 23:19 99.2 F 83 16 117/69 95 05/10/19 19:49 99.2 F 73 17 138/51 95 05/10/19 16:26 98.6 F 62 16 154/85 94 05/10/19 11:27 17 98 05/10/19 11:15 98.2 F 60 16 148/74 97 Intake and Output 05/10/19 05/11/19 05/11/19 23:59 07:59 15:59 Intake Total 240 / 240 Output Total 300 / 300 Balance -60 / -60 Intake: Oral 240 / 240 Output: Urine 300 / 300 Other: Weight 109.7 kg Blood Glucose* 107 86 - General Appearance General appearance: Present: well-developed, well-nourished EENT: Present: ATNC, hearing intact, vision intact Neck: Present: supple Respiratory: Present: clear Cardiology: Present: no edema, normal S1, normal S2 Dialysis Vascular Access: Arteriovenous Graft thrill: Yes bruit: Yes Gastrointestinal: Present: normoactive bowel sounds, no tenderness, no guarding Integumentary: Present: no rash, warm and dry Neurologic: Present: alert and oriented x3 Musculoskeletal: Present: no deformities, no erythema Psychiatric: Present: mood/affect appropriate, cooperative - Lab 05/11/19 01:39 05/11/19 01:39 Most recent lab results 05/11/19 01:39 Calcium 7.5 L Phosphorus 8.1 H Magnesium 1.8 Consult Discharge Plan - Plan Referrals: Yari Rader, DENT REMOVER [Primary Care Provider] -
--- NOTE | 2019-05-11 10:35 | Discharge Summary ---
- NOTES TO OUTPATIENT PROVIDER Notes to Outpatient Provider: Make and appontment to see Stone Paver within a week. Orders not resulted at time of discharge: Pending orders 05/09/19 18:14 Culture,Blood [] Stat 05/09/19 19:37 Culture,Anaerobic [RM] Stat Culture,Wound,with Gram Stain [RM] Stat Date of Encounter: 05/11/19 Time of Encounter: 10:33 - Discharge Diagnosis (1) Puncture wound of foot Priority: Primary Status: Acute Qualifiers: Encounter type: initial encounter Laterality: right Qualified Code(s): S91.331A - Puncture wound without foreign body, right foot, initial encounter (2) ESRD (end stage renal disease) on dialysis Priority: Secondary Status: Acute (3) HTN (hypertension) Priority: Secondary Status: Chronic Qualifiers: Hypertension type: essential hypertension Qualified Code(s): I10 - Essential (primary) hypertension (4) CAD (coronary artery disease) Priority: Secondary Status: Chronic Qualifiers: Coronary Disease-Associated Artery/Lesion type: [place] artery [place] vs. transplanted heart: [place] heart Associated angina: with unstable angina Qualified Code(s): I25.110 - Atherosclerotic heart disease of [place] coronary artery with unstable angina pectoris (5) CHF (congestive heart failure) Priority: Secondary Status: Chronic Qualifiers: Heart failure type: diastolic Heart failure chronicity: chronic Qualified Code(s): I50.32 - Chronic diastolic (congestive) heart failure (6) COPD (chronic obstructive pulmonary disease) Priority: Secondary Status: Chronic Qualifiers: COPD type: unspecified COPD Qualified Code(s): J44.9 - Chronic obstructive pulmonary disease, unspecified (7) HLD (hyperlipidemia) Priority: Secondary Status: Chronic Qualifiers: Hyperlipidemia type: pure hypercholesterolemia Qualified Code(s): E78.00 - Pure hypercholesterolemia, unspecified; E78.0 - Pure hypercholesterolemia Hospital course: Mr. Bess is a 59 year old male pmhx of DM2 and ESRD on dialysis, COPD, CAD, HLD, HTN. Presents with puncture wound on plantar surface of right foot. Patient admitted to the hospital, managed with broad-spectrum IV antibiotics. Food x-ray done: IMPRESSION: No acute right foot abnormality. MR/MR foot RT wo con IMPRESSION: No MRI evidence to suggest acute osteomyelitis. Tiny soft tissue defect at the plantar aspect of the 5th metatarsal shaft. Right food wound cultures grew: Pansensitive Leclercia adecarboxylata. Blood cultures: No growth to date. ID rn lactation consultant recommended doxycycline and levofloxacin 7 days. 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 - Time Spent with Patient Total time spent providing and/or coordinating discharge services: Time spent: Greater than 30 minutes (35) - Discharge Medications Prescriptions: New Doxycycline 100 mg PO BID 6 Days #12 capsule levoFLOXacin [Levaquin] 500 mg PO Q48H 6 Days #6 tablet Continued Ergocalciferol (VITAMIN D2) [Drisdol (50,000 Unit)] 50,000 unit PO SA Vit B Comp C/Folic Acid/Vit D3 [Dialyvite 800 Plus D Wafer] 1 tab PO DAILY Famotidine [Heartburn Prevention] 20 mg PO HS Albuterol Sulfate [Ventolin Hfa] 2 each IH Q6H PRN PRN Reason: Shortness Of Breath OxyCODONE/APAP 5/325 [Percocet 5/325 MG] 1 each PO BID PRN PRN Reason: Pain Umeclidinium Brm/Vilanterol Tr [Anoro Ellipta 62.5-25 Mcg INH] 1 puff IH DAILY Docusate [Colace] 200 mg PO DAILY Bumetanide [Bumex] 1 mg PO QPM Carvedilol 12.5 mg PO BID Lidocaine/Prilocaine [Emla] 1 appl TP AD Lisinopril 2.5 mg PO BID Atorvastatin [Lipitor] 40 mg PO DAILY Aspirin [Adult Aspirin] 81 mg PO DAILY Amlodipine Besylate 2.5 mg PO DAILY Home Medications: Ergocalciferol (VITAMIN D2) [Drisdol (50,000 Unit)] 50,000 unit PO SA 04/15/18 [History] Vit B Comp C/Folic Acid/Vit D3 [Dialyvite 800 Plus D Wafer] 1 tab PO DAILY 04/15/18 [History] Famotidine [Heartburn Prevention] 20 mg PO HS 05/26/18 [History] Albuterol Sulfate [Ventolin Hfa] 2 each IH Q6H PRN 08/11/18 [History] Docusate [Colace] 200 mg PO DAILY 08/11/18 [History] OxyCODONE/APAP 5/325 [Percocet 5/325 MG] 1 each PO BID PRN 08/11/18 [History] Umeclidinium Brm/Vilanterol Tr [Anoro Ellipta 62.5-25 Mcg INH] 1 puff IH DAILY 08/11/18 [History] Bumetanide [Bumex] 1 mg PO QPM 03/24/19 [History] Carvedilol 12.5 mg PO BID 03/24/19 [History] Lidocaine/Prilocaine [Emla] 1 appl TP AD 03/24/19 [History] Lisinopril 2.5 mg PO BID 03/24/19 [History] Amlodipine Besylate 2.5 mg PO DAILY 05/09/19 [History] Aspirin [Adult Aspirin] 81 mg PO DAILY 05/09/19 [History] Atorvastatin [Lipitor] 40 mg PO DAILY 05/09/19 [History] Doxycycline 100 mg PO BID 6 Days #12 capsule 05/11/19 [Rx] levoFLOXacin [Levaquin] 500 mg PO Q48H 6 Days #6 tablet 05/11/19 [Rx] Allergies/Adverse Reactions: Allergy/AdvReac Type Severity Reaction Status Date / Time sulfamethoxazole Allergy Nausea Verified 03/24/19 16:19 [From Bactrim] trimethoprim [From Bactrim] Allergy Nausea Verified 03/24/19 16:19 Date of admission: 05/09/19 19:52 Primary care physician: Yari Rader CNP Consults: 05/09/19 18:59 Consult to Orthopedic Surgery [CONS] Stat Consulting Provider: [facility] Reason for Consult: puncture wound in foot, diabetes.Dr. Henao Call Completed: Yes 05/09/19 22:42 Consult to Nephrology [CONS] Routine Consulting Provider: [facility] Reason for Consult: missed dialysis. 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 Hx of osteomyelitis on the left digits with resection occured also with similar incident.No localized erythema, Tetanus given in the ED. XR negative, MRI orderred. orthopedic on board. Call Completed: No 05/10/19 05:21 Consult to Nephrology [CONS] Routine Consulting Provider: [facility]/R[facility] Reason for Consult: ESRD, non complaint with dialysis Call Completed: No 05/11/19 08:00 Consult to Dialysis [CONS] ONCE - Constitutional Vitals: Temp Pulse Resp BP Pulse Ox 98.7 F 63 16 147/69 96 05/11/19 06:48 05/11/19 06:48 05/11/19 06:48 05/11/19 06:48 05/11/19 06:48 Exam: Vitals: Reviewed General: Alert and oriented x4. In no distress Cardiovascular: RRR, normal S1 & S2, no rubs, murmurs or gallops. Lungs: CTA b/l, no wheezes or crackles. Abdomen: Obese, soft, non-tender, no rigidity. NABS in all 4 quadrants. Extremities: No erythema or tenderness on the plantar aspect of the right foot. Neurological: No focal neurological abnormalities. Rest of the physical exam is non contributory - Patient Status Disposition: Home, Self-Care Condition: Good Functional capacity at discharge: independent ambulation Overall status at discharge: patient is back to baseline - Discharge Instructions Follow Up With: Yari Rader CNP [Primary Care Provider] - - Diet and Activity Activity: resume usual activities as tolerated Diet: low salt diet
[2019-05-11 12:57] VITALS: BP 168/79
[2019-05-11] MEDS: amLODIPine 5 MG TABLET PO SCH (13:04)
[2019-05-11] MEDS ORDERED: levoFLOXacin 750 MG/150 ML 750 MG/150 ML BAG IVPB SCH (18:00)
== END 2019-05-11 14:08 | disposition home or self-care (01) ==
LOC: EMEROOARM 16:40 → 2ANU 16:40 → SUATTDRO 19:52 → 2ANU 20:51
PROVIDERS: ADMIT Internal Medicine; ATTEND Internal Medicine

== ENCOUNTER 2019-09-11 02:32 | Observation (INO) ==
[2019-09-11] MEDS ORDERED: Naloxone 0.4 MG/ML INJ IVP PRN (05:01)
[2019-09-11] MEDS ORDERED: Acetaminophen 325 MG TABLET PO PRN (05:01)
[2019-09-11] MEDS ORDERED: Ondansetron 4 MG/2 ML VIAL IVP PRN (05:01)
[2019-09-11] MEDS ORDERED: *HR* Dextrose 50 % in Water (Syg) 50 ML SYRINGE IVP PRN (05:03)
[2019-09-11] MEDS ORDERED: Dextrose Gel 15 GM/37.5 ML TUBE PO PRN ×2 (05:03)
[2019-09-11] MEDS ORDERED: D5% in Water 1,000 ML IVC PRN (05:03)
[2019-09-11] MEDS ORDERED: *HR* OxyCODONE/APAP 5/325 TABLET PO PRN (05:05)
[2019-09-11] MEDS: *HR* Heparin 5,000 UNIT/ML VIAL SQ SCH ×2 (05:53→17:35)
[2019-09-11 06:59] LABS: Basophils % 0.6 %; Eosinophils # 0.2 K/mcL (0.0-0.6); Eosinophils % 3.9 %; Hematocrit 30.1 % (37.5-50.1); Hemoglobin 9.7 g/dL (12.9-16.9); Immature Granulocytes % 0.3 % (0-4); Lymphocytes # 0.8 K/mcL (0.6-4.6); Lymphocytes % 13.5 %; Mean Corpuscular HGB Conc 32.2 g/dL (31.6-35.5); Mean Corpuscular Volume 93.2 fL (83.0-100.0); Mean Platelet Volume 8.9 fL (9.4-12.4); Monocytes # 0.5 K/mcL (0.0-1.3); Monocytes % 7.5 %; Neutrophils # 4.6 K/mcL (1.6-8.9); Nucleated Red Blood Cells 0.3 /100 WBC (0); Platelet Count 118 K/mcL (140-400); Red Blood Count 3.23 M/mcL (4.19-5.50); Red Cell Distribution Width 17.9 % (11.5-14.5); Segmented Neutrophils % 74.2 %; White Blood Count 6.2 K/mcL (4.3-11.1)
[2019-09-11 07:02] LABS: INR 1.2
[2019-09-11 07:04] LABS: Activated Partial Thrombo Time 35.9 Seconds (26.0-36.0)
[2019-09-11 07:24] LABS: Albumin 4.1 g/dL (3.5-5.7); Albumin/Globulin Ratio 1.4 (1.1-2.2); Bilirubin,Total 0.5 mg/dL (0.3-1.0); Calcium 7.6 mg/dL (8.6-10.3); Globulin 2.9 g/dL (2.4-3.5); Phosphorous 7.6 mg/dL (2.7-4.5); Potassium 7.1 mEq/L (3.5-5.1)
[2019-09-11] MEDS: carvediloL 6.25 MG TABLET PO SCH ×2 (07:27→17:35)
[2019-09-11] MEDS ORDERED: 0.9 % Sodium Chloride 250 ML IVC PRN (08:16)
[2019-09-11] MEDS: Insulin LISPRO 300 UNITS/3 ML VIAL SQ SCH ×3 (08:16→16:38)
[2019-09-11] MEDS ORDERED: 0.9 % Sodium Chloride 1,000 ML PRIME SCH (08:30)
[2019-09-11] MEDS: Albuterol 2.5 MG/3 ML NEBULIZER IH SCH ×3 (08:33→16:14)
[2019-09-11] MEDS ORDERED: Insulin DETEMIR 100 UNIT/ML X5UNITS SQ SCH (09:00)
[2019-09-11] MEDS ORDERED: amLODIPine 5 MG TABLET PO SCH (09:00)
[2019-09-11] MEDS ORDERED: Aspirin Enteric Coated 81 MG Tablet PO SCH (09:00)
[2019-09-11 09:26] LABS: Hepatitis B Surface Antibody < 3.10 mIU/mL
[2019-09-11 09:36] LABS: Hepatitis B Surface Antigen Nonreactive (Nonreactive)
[2019-09-11 13:27] VITALS: BP 168/72
[2019-09-11 16:51] LABS: Potassium 4.5 mEq/L (3.5-5.1)
[2019-09-11] MEDS ORDERED: Bumetanide 1 MG TABLET PO SCH (18:00)
== END 2019-09-11 18:10 | disposition home or self-care (01) ==
LOC: CDU
PROVIDERS: ADMIT Internal Medicine; ATTEND Internal Medicine

== ENCOUNTER 2019-12-12 17:59 | Inpatient (IN) ==
[2019-12-12] MEDS ORDERED: Naloxone 0.4 MG/ML INJ IVP PRN (21:44)
[2019-12-12] MEDS ORDERED: Ondansetron 4 MG/2 ML VIAL IVP PRN (21:44)
[2019-12-12] MEDS ORDERED: Morphine Sulfate 2 MG/ML SYRINGE IVP PRN (21:49)
[2019-12-12] MEDS ORDERED: Nitroglycerin 0.4 MG TAB.SUBL SL PRN (21:49)
[2019-12-12 22:32] LABS: Basophils % 0.3 %; Eosinophils # 0.1 K/mcL (0.0-0.6); Eosinophils % 1.7 %; Hematocrit 32.7 % (37.5-50.1); Hemoglobin 11.3 g/dL (12.9-16.9); Immature Granulocytes % 0.3 % (0-4); Lymphocytes # 0.7 K/mcL (0.6-4.6); Lymphocytes % 11.5 %; Mean Corpuscular HGB Conc 34.6 g/dL (31.6-35.5); Mean Corpuscular Hemoglobin 31.8 pg (28.0-33.3); Mean Corpuscular Volume 92.1 fL (83.0-100.0); Mean Platelet Volume 8.9 fL (9.4-12.4); Monocytes # 0.5 K/mcL (0.0-1.3); Neutrophils # 4.6 K/mcL (1.6-8.9); Platelet Count 123 K/mcL (140-400); Red Blood Count 3.55 M/mcL (4.19-5.50); Red Cell Distribution Width 14.5 % (11.5-14.5); Segmented Neutrophils % 77.2 %; White Blood Count 5.9 K/mcL (4.3-11.1)
[2019-12-12 22:37] LABS: INR 1.3; Prothrombin Time 14.7 Seconds (9.4-12.1)
[2019-12-12 22:39] LABS: Activated Partial Thrombo Time 34.2 Seconds (26.0-36.0)
[2019-12-12 22:51] LABS: Calcium 7.9 mg/dL (8.6-10.3); Phosphorous 6.4 mg/dL (2.7-4.5); Potassium 4.4 mEq/L (3.5-5.1)
[2019-12-12] MEDS: 0.9 % Sodium Chloride 1,000 ML IVC SCH (23:59)
[2019-12-13] MEDS ORDERED: *HR* Heparin 5,000 UNIT/ML VIAL IVP ONE (00:06)
[2019-12-13] MEDS ORDERED: *HR* Heparin 5,000 UNIT/ML VIAL IVP PRN (00:06)
[2019-12-13 01:05] LABS: Hematocrit 31.3 % (37.5-50.1); Hemoglobin 10.8 g/dL (12.9-16.9); Mean Corpuscular HGB Conc 34.5 g/dL (31.6-35.5); Mean Corpuscular Hemoglobin 31.7 pg (28.0-33.3); Mean Corpuscular Volume 91.8 fL (83.0-100.0); Mean Platelet Volume 8.3 fL (9.4-12.4); Platelet Count 110 K/mcL (140-400); Red Blood Count 3.41 M/mcL (4.19-5.50); Red Cell Distribution Width 14.6 % (11.5-14.5); White Blood Count 5.2 K/mcL (4.3-11.1)
[2019-12-13 01:08] LABS: Heparin anti-factor XA UFH < 0.04 IU/mL (0.30-0.70)
[2019-12-13 01:09] LABS: INR 1.3; Prothrombin Time 14.5 Seconds (9.4-12.1)
[2019-12-13 01:23] LABS: Chol/HDL Ratio 3.6 (0-4.9)
[2019-12-13] MEDS: Heparin 25,000 UNIT/250 ML D5W 25,000 UNIT/250 ML IV.SOLN IVC SCH ×2 (01:28→21:42)
[2019-12-13 01:58] LABS: Estimated Average Glucose 146 mg/dl
[2019-12-13 08:03] LABS: Calcium 7.5 mg/dL (8.6-10.3); Potassium 4.3 mEq/L (3.5-5.1)
[2019-12-13 08:15] LABS: Hepatitis B Surface Antibody < 3.10 mIU/mL
[2019-12-13 08:26] LABS: Hepatitis B Surface Antigen Nonreactive (Nonreactive)
[2019-12-13] MEDS: Aspirin Enteric Coated 81 MG Tablet PO SCH (08:27)
[2019-12-13] MEDS ORDERED: Perflutren Lipid Microsphere 1.3 ML in 0.9 % Sodium Chloride 8.7 ML IVP ONE (10:17)
[2019-12-13] MEDS: 0.9 % Sodium Chloride 1,000 ML IVC SCH (11:05)
[2019-12-13] MEDS ORDERED: (Umeclidinium Brm/Vilanterol Tr [Anoro Ellipta 62.5-2 IH PRN (11:38)
[2019-12-13] MEDS ORDERED: Dextrose Gel 15 GM/37.5 ML TUBE PO PRN ×2 (11:40)
[2019-12-13] MEDS ORDERED: *HR* Dextrose 50 % in Water (Syg) 50 ML SYRINGE IVP PRN (11:40)
[2019-12-13] MEDS ORDERED: D5% in Water 1,000 ML IVC PRN (11:40)
[2019-12-13] MEDS: *HR* Heparin 5,000 UNIT/ML VIAL IVP PRN ×2 (15:11→23:43)
[2019-12-13] MEDS ORDERED: amLODIPine 5 MG TABLET PO ONE (16:00)
[2019-12-13] MEDS ORDERED: *HR* Metoprolol 5 MG/5 ML VIAL IVP PRN (16:01)
[2019-12-13] MEDS: Insulin LISPRO 300 UNITS/3 ML VIAL SQ SCH ×2 (16:09→21:38)
[2019-12-13] MEDS: carvediloL 6.25 MG TABLET PO SCH (16:09)
[2019-12-13] MEDS: Bumetanide 1 MG TABLET PO SCH (17:34)
[2019-12-13] MEDS: *HR* OxyCODONE/APAP 5/325 TABLET PO PRN (23:28)
[2019-12-14 01:52] LABS: Basophils % 0.4 %; Eosinophils # 0.2 K/mcL (0.0-0.6); Eosinophils % 3.7 %; Hematocrit 31.1 % (37.5-50.1); Hemoglobin 10.4 g/dL (12.9-16.9); Immature Granulocytes % 0.2 % (0-4); Lymphocytes # 1.3 K/mcL (0.6-4.6); Lymphocytes % 21.9 %; Mean Corpuscular HGB Conc 33.4 g/dL (31.6-35.5); Mean Corpuscular Hemoglobin 31.1 pg (28.0-33.3); Mean Corpuscular Volume 93.1 fL (83.0-100.0); Mean Platelet Volume 8.7 fL (9.4-12.4); Monocytes # 0.7 K/mcL (0.0-1.3); Monocytes % 11.6 %; Neutrophils # 3.6 K/mcL (1.6-8.9); Platelet Count 113 K/mcL (140-400); Red Blood Count 3.34 M/mcL (4.19-5.50); Red Cell Distribution Width 14.3 % (11.5-14.5); Segmented Neutrophils % 62.2 %; White Blood Count 5.7 K/mcL (4.3-11.1)
[2019-12-14 02:09] LABS: Calcium 7.3 mg/dL (8.6-10.3); Potassium 4.5 mEq/L (3.5-5.1)
[2019-12-14] MEDS ORDERED: *HR* Heparin 10,000 UNIT/10 ML VIAL IV PRN (07:26)
[2019-12-14] MEDS ORDERED: 0.9 % Sodium Chloride 250 ML IVC PRN (07:26)
[2019-12-14] MEDS ORDERED: 0.9 % Sodium Chloride 1,000 ML PRIME SCH (07:30)
[2019-12-14] MEDS: Insulin LISPRO 300 UNITS/3 ML VIAL SQ SCH ×4 (08:03→20:27)
[2019-12-14] MEDS: Aspirin Enteric Coated 81 MG Tablet PO SCH (08:20)
[2019-12-14] MEDS: Multivit/Ca/Min/Fe/FA 1 TAB TABLET PO SCH (08:21)
[2019-12-14] MEDS: Folic Acid 1 MG TABLET PO SCH (08:21)
[2019-12-14] MEDS: carvediloL 6.25 MG TABLET PO SCH ×2 (08:23→18:22)
[2019-12-14] MEDS: (Patiromer Calcium Sorbitex [Veltassa] 8.4 GM) PO SCH (08:29)
[2019-12-14] MEDS ORDERED: amLODIPine 5 MG TABLET PO SCH (09:00)
[2019-12-14] MEDS: Heparin 25,000 UNIT/250 ML D5W 25,000 UNIT/250 ML IV.SOLN IVC SCH (10:27)
[2019-12-14] MEDS: Apixaban 5 MG TABLET PO SCH ×2 (12:52→20:27)
[2019-12-14] MEDS: Isosorbide MONOnitrate (24 HR) 30 MG TAB.ER.24H PO SCH (12:52)
[2019-12-14] MEDS: Bumetanide 1 MG TABLET PO SCH (18:22)
[2019-12-14] MEDS ORDERED: *HR* Metoprolol 5 MG/5 ML VIAL IVP ONE (20:08)
[2019-12-14] MEDS: *HR* OxyCODONE/APAP 5/325 TABLET PO PRN (22:17)
[2019-12-15 02:10] LABS: Calcium 7.3 mg/dL (8.6-10.3); Potassium 5.1 mEq/L (3.5-5.1)
[2019-12-15 02:17] LABS: Basophils % 0.4 %; Eosinophils # 0.2 K/mcL (0.0-0.6); Eosinophils % 3.3 %; Hematocrit 31.4 % (37.5-50.1); Hemoglobin 10.3 g/dL (12.9-16.9); Immature Granulocytes % 0.2 % (0-4); Lymphocytes # 1.2 K/mcL (0.6-4.6); Lymphocytes % 22.6 %; Mean Corpuscular HGB Conc 32.8 g/dL (31.6-35.5); Mean Corpuscular Hemoglobin 30.8 pg (28.0-33.3); Monocytes # 0.6 K/mcL (0.0-1.3); Monocytes % 10.9 %; Neutrophils # 3.4 K/mcL (1.6-8.9); Platelet Count 113 K/mcL (140-400); Red Blood Count 3.34 M/mcL (4.19-5.50); Red Cell Distribution Width 14.2 % (11.5-14.5); Segmented Neutrophils % 62.6 %; White Blood Count 5.5 K/mcL (4.3-11.1)
[2019-12-15 08:11] VITALS: BP 174/89
[2019-12-15] MEDS: Insulin LISPRO 300 UNITS/3 ML VIAL SQ SCH (08:15)
[2019-12-15] MEDS: Isosorbide MONOnitrate (24 HR) 30 MG TAB.ER.24H PO SCH (08:20)
[2019-12-15] MEDS: carvediloL 6.25 MG TABLET PO SCH (08:20)
[2019-12-15] MEDS: (Patiromer Calcium Sorbitex [Veltassa] 8.4 GM) PO SCH (08:21)
[2019-12-15] MEDS: Multivit/Ca/Min/Fe/FA 1 TAB TABLET PO SCH (08:21)
[2019-12-15] MEDS: Folic Acid 1 MG TABLET PO SCH (08:21)
[2019-12-15] MEDS: Aspirin Enteric Coated 81 MG Tablet PO SCH (08:21)
[2019-12-15] MEDS: Apixaban 5 MG TABLET PO SCH (08:21)
[2019-12-15] MEDS ORDERED: amLODIPine 5 MG TABLET PO SCH (09:00)
== END 2019-12-15 10:50 | disposition home or self-care (01) | DRG 280 ==
LOC: 2ANU → SUATTDRO 20:25
PROVIDERS: ADMIT Internal Medicine; ATTEND Family Medicine